=== PATIENT | male | born 1960 | race Caucasian/White ===

== ENCOUNTER 2018-10-01 10:44 | Observation (INO) | payer OTHER, MEDICAID, SELFPAY ==
[2018-10-01] VITALS (10 sets, daily range): BP systolic 98–130; BP diastolic 68–91; PULSE 79–105; RESP 15–26; TEMP 36.6–37.2; O2SAT 96–100; BMI 24.3; BMI 25.4
--- NOTE | 2018-10-01 11:02 | DI.RAD.S_ITS ---
PROCEDURE: XR CHEST 1V INDICATIONS: CP TECHNIQUE: One view of the chest was acquired. COMPARISON: [facility], CR, XR CHEST 1VW (PORTABLE), 04/15/2017, 12:23. FINDINGS: Surgical changes and devices: Multiple median sternotomy wires remain intact Lungs and pleura: No pleural effusions or pneumothorax. Lungs are clear. Mediastinum: Mediastinal contours appear normal. Heart size is normal. Bones and chest wall: No suspicious bony lesions. Overlying soft tissues appear unremarkable. IMPRESSION: Stable examination of the chest without acute cardiopulmonary abnormalities. No radiographic abnormalities identified to explain patient's chest pain. Dictated by: Jose Manuel Hernandez M.D. on 10/01/2018 at 11:51 Approved by: Jose Manuel Hernandez M.D. on 10/01/2018 at 11:52
[2018-10-01 11:14] LABS: Add Manual Diff / Slide Review NO; Basophils Absolute Auto 100 /uL (0-100); Basophils Percent Auto 0.8 % (0-2); Eosinophils Absolute Auto 100 /uL (0-450); Eosinophils Percent Auto 0.7 % (2-4); Hematocrit 48.6 % (41-53); Hemoglobin 16.1 g/dL (13.5-17.5); Lymphocytes Absolute Auto 1300 /uL (1100-4500); Lymphocytes Percent Auto 15.7 % (25-40); Mean Corpuscular HGB Conc 33.1 % (30-36); Mean Corpuscular Volume 90.5 fL (80-100); Monocytes Absolute Auto 500 /uL (0-900); Monocytes Percent Auto 6.3 % (3-14); Neutrophils Absolute Auto 6400 /uL (1500-7000); Neutrophils Percent Auto 76.5 % (50-75); Platelet Count 133 X10^3/uL (150-400); Red Blood Cell Count 5.37 X10^6/uL (4.5-5.9); Red Cell Distribution Width 13.5 % (11.6-14.8); White Blood Cell Count 8.3 X10^3/uL (4.5-11.0)
--- NOTE | 2018-10-01 11:19 | ED.WEAKNESS ---
HPI - Weakness General Chief complaint: Weakness Stated complaint: HIGH BLOOD PRESSURE Time Seen by Provider: 10/01/18 10:47 Source: patient Mode of arrival: ambulatory Limitations: no limitations History of Present Illness HPI Narrative: 58-year-old male, nonsmoker with history of brittle type 2 diabetes presents with a chief complaint of feeling very weak, as if his legs are not working, foggy and a bit confused, not unlike the way he felt prior to a recent extended admission at a hospital in [place]. He was visiting family out of state for a and felt poorly, he presented to a local hospital and was found to be hyperglycemic with likely recent seizures. He was discharged after an extended stay on 09/02. He has no local medical care as [facility]. He was off his medications for 1-2 weeks and was able to get back gone to her 3 days ago. He is medically noncompliant has no local follow-up MD Complaint: generalized weakness Onset (ago): day(s) Duration: constant Location: generalized Migration: none Quality: tingling Relieving factors: none Exacerbating factors: none Associated symptoms: denies other symptoms Related Data Home Medications Medication Instructions Recorded Confirmed aspirin 81 mg PO DAILY 10/01/18 10/01/18 atorvastatin 40 mg PO DAILY 10/01/18 10/01/18 chlorthalidone 50 mg PO DAILY 10/01/18 10/01/18 gabapentin 100 mg PO TID 10/01/18 10/01/18 lisinopril 40 mg PO DAILY 10/01/18 10/01/18 metformin 1,000 mg PO QAM 10/01/18 10/01/18 Allergies Allergy/AdvReac Type Severity Reaction Status Date / Time No Known Drug Allergies Allergy Verified 10/01/18 10:53 Review of Systems Constitutional Denies chills, Denies fever(s), Denies lethargy and Denies weakness Eyes Denies change in vision, Denies eye discharge, Denies irritation and Denies loss of vision ENT Ears, Nose, Mouth, and Throat: Denies change in voice, Denies neck pain and Denies sore throat Cardiovascular Denies chest pain, Denies irregular heart rhythm, Denies lightheadedness, Denies palpitations, Denies dyspnea, Denies dyspnea on exertion and Denies orthopnea Respiratory Denies cough, Denies dyspnea, Denies dyspnea on exertion and Denies wheezing Gastrointestinal Gastrointestinal: Denies abdominal pain, Denies change in bowel habits, Denies diarrhea, Denies nausea and Denies vomiting Genitourinary Denies hematuria, Denies flank pain, Denies urinary incontinence and Denies urinary urgency Musculoskeletal Reports muscle weakness and Denies neck pain Integumentary/Breasts Denies pruritus, Denies erythema, Denies rash and Denies wounds Neurologic Denies confusion, Denies loss of vision and Denies weakness Psychiatric Denies anxiety, Denies confusion, Denies depression, Denies homicidal ideation and Denies suicidal ideation Endocrine Denies palpitations Hematologic/Lymphatic Denies easy bruising Allergic/Immunologic Denies wheezing PFSH Medical History Amputated toe (Acute) CAD (coronary artery disease) (Acute) Diabetes (Acute) Diabetic neuropathy (Acute) HTN (hypertension) (Acute) Hyperlipidemia (Acute) Osteomyelitis (Acute) Surgical History H/O carpal tunnel repair (Acute) Hx of CABG (Acute) Social History Smoking Status: Never smoker alcohol intake: current Exam Narrative Exam Narrative: GENERAL: 58-year-old male appears stated age, mild distress HEAD: Atraumatic. Normocephalic. No temporal or scalp tenderness. EYES: Pupils equal round and reactive. Extraocular motions intact. No scleral icterus. No injection or drainage. ENT: Dry mucous membranes Nose without bleeding, purulent drainage or septal hematoma. Throat without erythema, tonsillar hypertrophy or exudate. Uvula midline. Airway patent. NECK: Trachea midline. No JVD or lymphadenopathy. Supple, nontender, no meningeal signs. CARDIOVASCULAR: Regular rate and rhythm without murmurs, gallops, or rubs. RESPIRATORY: Clear to auscultation. Breath sounds equal bilaterally. No wheezes, rales, or rhonchi. GASTROINTESTINAL: Abdomen soft, non-tender, nondistended. No hepato-splenomegaly, or palpable masses. No guarding. EXTREMITIES: No clubbing, cyanosis, or edema. No joint tenderness, effusion, or edema noted. BACK: Nontender without deformity or crepitance. No flank tenderness. NEURO: AOx3. SKIN: No rash or erythema. NIH Stroke Scale 1a. LOC: Patient is alert and keenly responsive (0) 1b. LOC Questions: Patient answers both LOC questions accurately (0) 1c. LOC Commands: Patient performs both tasks correctly (0) 2. Best Gaze: Normal (0) 3. Visual: No visual loss (0) 4. Facial palsy: Normal symmetrical movements (0) 5. Motor arm: No drift (0) 6. Motor leg: No drift (0) 7. Limb ataxia: Absent (0) 8. Sensory: Normal (0) 9. Best language: No aphasia; normal (0) 10. Dysarthria: Normal (0) 11. Extinction and inattention: No abnormality (0) NIHSS: 0 Initial Vital Signs Initial Vital Signs: Vital Signs Temperature 98.4 F 10/01/18 10:53 Pulse Rate 105 H 10/01/18 10:53 Respiratory Rate 16 10/01/18 10:53 Blood Pressure 130/91 H 10/01/18 10:53 Pulse Oximetry 100 10/01/18 10:53 Course Orders Ordered: ED Orders 10/01/18 10:52 EKG-12 Lead Routine 10/01/18 11:01 Venous Blood Gas Stat 10/01/18 11:02 XR chest 1V Stat 10/01/18 11:05 Complete Blood Count AUTO DIFF Stat Comprehensive Metabolic Panel Stat Ketones (Beta-Hydroxybutyrate) Stat Procalcitonin Stat 10/01/18 11:38 Blood Culture Stat Lactate (Lactic Acid) Stat Venous Blood Gas Stat 10/01/18 13:06 Osmolality, Serum Stat 10/01/18 15:00 MRSA PCR Stat 10/01/18 15:05 Consult to Physical Therapy Evaluate & Treat Education, smoking cessation ONGOING 10/01/18 16:20 Lactate 4HR (Lactic Acid Rflx) Stat 10/01/18 17:09 Consult to Dietitian, Adult Routine 10/01/18 21:00 BMP [Basic Metabolic Panel] Routine 10/02/18 05:00 CBC [Complete Blood Count AUTO DIFF] Routine CMP [Comprehensive Metabolic Panel] Routine Hemoglobin A1C % Routine Acetaminophen (Tylenol) 650 mg PO Q6HR PRN PRN Reason: As Needed for Fever/Mild Pain Al Hydrox/Mg Hydrox/Simethicone (Maalox Plus) 30 ml PO Q6HR PRN PRN Reason: Dyspepsia Aspirin (Aspirin Ec) 81 mg PO DAILY DENIZ Atorvastatin Calcium (Lipitor) 40 mg PO DAILY DENIZ Bisacodyl (Dulcolax) 10 mg RI DAILY PRN PRN Reason: Constipation Calcium Carbonate (Tums) 1,000 mg PO Q4HR PRN PRN Reason: Dyspepsia Chlorthalidone (Hygroton) 50 mg PO DAILY [facility] Dextrose (D50w) 25 gm IV PRN PRN; Protocol PRN Reason: Hypoglycemia Gabapentin (Neurontin) 100 mg PO TID [facility] Last Admin: 10/01/18 16:51 Dose: 100 mg Heparin Sodium (Porcine) (Heparin) 5,000 unit SUBCUT Q8HR [facility] Last Admin: 10/01/18 16:50 Dose: 5,000 unit Sodium Chloride (Normal Saline 0.9%) 1,000 mls @ 100 mls/hr IV CONT [facility] Last Admin: 10/01/18 15:18 Dose: 100 mls/hr Insulin Aspart (Novolog Flexpen) 0 unit SUBCUT ACHS [facility]; Protocol Last Admin: 10/01/18 17:36 Dose: 10 unit Insulin Glargine (Lantus Solostar (Pen)) 10 unit SUBCUT BEDTIME DENIZ Lisinopril (Zestril) 40 mg PO DAILY [facility] Magnesium Hydroxide (Milk Of Magnesia) 30 ml PO DAILY PRN PRN Reason: Constipation Metformin HCl (Glucophage Xr) 1,000 mg PO DAILY [facility] Ondansetron HCl (Zofran) 4 mg IV Q8HR PRN PRN Reason: Nausea And Vomiting Sennosides (Senna) 17.2 mg PO BEDTIME PRN PRN Reason: Constipation Discontinued Medications Sodium Chloride (Normal Saline 0.9%) 1,000 mls @ 1,000 mls/hr IV BOLUS ONE Stop: 10/01/18 12:00 Last Infusion: 10/01/18 13:27 Dose: 0 mls/hr Admin: 10/01/18 12:03 Dose: 1,000 mls/hr Sodium Chloride (Normal Saline 0.9%) 1,000 mls @ 1,000 mls/hr IV BOLUS ONE Stop: 10/01/18 13:25 Last Admin: 10/01/18 13:39 Dose: 1,000 mls/hr Insulin Human Regular 100 unit (/ Sodium Chloride) 100 mls @ 6 mls/hr IV TITRATE [facility]; Protocol Insulin Human Regular (Humulin R) 10 unit IV NOW ONE Stop: 10/01/18 13:28 Last Admin: 10/01/18 13:38 Dose: 10 unit Vital Signs - 8 hr 10/01/18 11:35 10/01/18 12:00 10/01/18 12:36 Temperature Pulse Rate 102 H 79 96 H Respiratory Rate 15 17 Blood Pressure Blood Pressure [Right Arm] 118/73 105/72 105/72 Pulse Oximetry 100 98 97 10/01/18 13:00 10/01/18 13:32 10/01/18 14:00 Temperature Pulse Rate 100 H 97 H 99 H Respiratory Rate 26 H 16 17 Blood Pressure Blood Pressure [Right Arm] 114/73 117/68 98/68 Pulse Oximetry 100 97 96 10/01/18 15:00 Temperature 99 F Pulse Rate 97 H Respiratory Rate 22 Blood Pressure 127/81 Blood Pressure [Right Arm] Pulse Oximetry 99 MDM - Weakness Lab Data Result diagrams: 10/01/18 11:05 10/01/18 11:05 Lab Results 10/01/18 10/01/18 10/01/18 Range/Units 11:05 11:05 11:05 WBC 8.3 (4.5-11.0) X10^3/uL RBC 5.37 (4.5-5.9) X10^6/uL Hgb 16.1 (13.5-17.5) g/dL Hct 48.6 (41-53) % MCV 90.5 (80-100) fL MCH 30.0 (26-34) PG MCHC 33.1 (30-36) % RDW 13.5 (11.6-14.8) % Plt Count 133 L (150-400) X10^3/uL Neut % (Auto) 76.5 H (50-75) % Lymph % (Auto) 15.7 L (25-40) % [place] % (Auto) 6.3 (3-14) % Eos % (Auto) 0.7 L (2-4) % Baso % (Auto) 0.8 (0-2) % Neut # (Auto) 6400 (9028-4672) /uL Lymph # (Auto) 1300 (9624-6042) /uL [place] # (Auto) 500 (0-900) /uL Eos # (Auto) 100 (0-450) /uL Baso # (Auto) 100 (0-100) /uL VBG pH (7.33-7.43) VBG pCO2 (45-50) mmHg VBG pO2 (35-45) mmHg VBG HCO3 (23-28) mmol/L VBG Total CO2 (24-29) mmol/L VBG O2 Saturation (70-75) % VBG Base Excess (0-4) mmol/L Sodium 134 L (137-145) mmol/L Potassium 5.2 H (3.4-5.1) mmol/L Chloride 95 L (98-107) mmol/L Carbon Dioxide 27 (22-32) mmol/L BUN 29 H (9-20) mg/dL Creatinine 1.10 (0.66-1.25) mg/dL Estimated GFR > 60.0 (>60) mL/min BUN/Creatinine Ratio 26.4 H (6-22) Glucose 589 H* (70-100) mg/dL Lactate (0.7-2.1) mmol/L Calcium 10.0 (8.4-10.2) mg/dL Total Bilirubin 1.0 (0.2-1.3) mg/dL AST 34 (17-59) IU/L ALT 40 (21-72) IU/L Alkaline Phosphatase 84 (38-126) U/L Total Protein 7.9 (6.3-8.2) g/dL Albumin 4.4 (3.5-5.0) g/dL Globulin 3.5 (1.7-4.1) g/dL Albumin/Globulin Ratio 1.3 (1.0-2.8) Procalcitonin 0.12 (<0.5) ng/mL Nasal Screen MRSA (PCR) (Negative) Ketones 0.24 (<0.27) mmol/L 10/01/18 10/01/18 10/01/18 Range/Units 11:38 11:38 15:00 WBC (4.5-11.0) X10^3/uL RBC (4.5-5.9) X10^6/uL Hgb (13.5-17.5) g/dL Hct (41-53) % MCV (80-100) fL MCH (26-34) PG MCHC (30-36) % RDW (11.6-14.8) % Plt Count (150-400) X10^3/uL Neut % (Auto) (50-75) % Lymph % (Auto) (25-40) % [place] % (Auto) (3-14) % Eos % (Auto) (2-4) % Baso % (Auto) (0-2) % Neut # (Auto) (5426-0881) /uL Lymph # (Auto) (6256-2651) /uL [place] # (Auto) (0-900) /uL Eos # (Auto) (0-450) /uL Baso # (Auto) (0-100) /uL VBG pH 7.35 (7.33-7.43) VBG pCO2 46.1 (45-50) mmHg VBG pO2 34 L (35-45) mmHg VBG HCO3 25 (23-28) mmol/L VBG Total CO2 27 (24-29) mmol/L VBG O2 Saturation 63 L (70-75) % VBG Base Excess 0.0 (0-4) mmol/L Sodium (137-145) mmol/L Potassium (3.4-5.1) mmol/L Chloride (98-107) mmol/L Carbon Dioxide (22-32) mmol/L BUN (9-20) mg/dL Creatinine (0.66-1.25) mg/dL Estimated GFR (>60) mL/min BUN/Creatinine Ratio (6-22) Glucose (70-100) mg/dL Lactate 2.2 H (0.7-2.1) mmol/L Calcium (8.4-10.2) mg/dL Total Bilirubin (0.2-1.3) mg/dL AST (17-59) IU/L ALT (21-72) IU/L Alkaline Phosphatase (38-126) U/L Total Protein (6.3-8.2) g/dL Albumin (3.5-5.0) g/dL Globulin (1.7-4.1) g/dL Albumin/Globulin Ratio (1.0-2.8) Procalcitonin (<0.5) ng/mL Nasal Screen MRSA (PCR) Negative for mrsa (Negative) Ketones (<0.27) mmol/L 10/01/18 Range/Units 16:20 WBC (4.5-11.0) X10^3/uL RBC (4.5-5.9) X10^6/uL Hgb (13.5-17.5) g/dL Hct (41-53) % MCV (80-100) fL MCH (26-34) PG MCHC (30-36) % RDW (11.6-14.8) % Plt Count (150-400) X10^3/uL Neut % (Auto) (50-75) % Lymph % (Auto) (25-40) % [place] % (Auto) (3-14) % Eos % (Auto) (2-4) % Baso % (Auto) (0-2) % Neut # (Auto) (7441-3616) /uL Lymph # (Auto) (6634-8147) /uL [place] # (Auto) (0-900) /uL Eos # (Auto) (0-450) /uL Baso # (Auto) (0-100) /uL VBG pH (7.33-7.43) VBG pCO2 (45-50) mmHg VBG pO2 (35-45) mmHg VBG HCO3 (23-28) mmol/L VBG Total CO2 (24-29) mmol/L VBG O2 Saturation (70-75) % VBG Base Excess (0-4) mmol/L Sodium (137-145) mmol/L Potassium (3.4-5.1) mmol/L Chloride (98-107) mmol/L Carbon Dioxide (22-32) mmol/L BUN (9-20) mg/dL Creatinine (0.66-1.25) mg/dL Estimated GFR (>60) mL/min BUN/Creatinine Ratio (6-22) Glucose (70-100) mg/dL Lactate 2.0 (0.7-2.1) mmol/L Calcium (8.4-10.2) mg/dL Total Bilirubin (0.2-1.3) mg/dL AST (17-59) IU/L ALT (21-72) IU/L Alkaline Phosphatase (38-126) U/L Total Protein (6.3-8.2) g/dL Albumin (3.5-5.0) g/dL Globulin (1.7-4.1) g/dL Albumin/Globulin Ratio (1.0-2.8) Procalcitonin (<0.5) ng/mL Nasal Screen MRSA (PCR) (Negative) Ketones (<0.27) mmol/L Point of Care Testing Glucose POC 307 Urine Dip Bedside Urine Glucose 1000 mg/dl Bedside Urine Bilirubin - Negative Bedside Urine Ketone - Negative Urine Specific [place] 1.015 Bedside Urine Occult Blood - Negative Bedside Urine pH 6.0 Bedside Urine Protein - Negative Bedside Urine Urobilinogen - Negative Bedside Urine Nitrite - Negative Bedside Urine Leukocytes - Negative Esterase Discharge Plan Departure Patient Disposition: Admitted As Inpatient Clinical Impression: Acute hyperglycemia, Acute hyperkalemia Discharge Date/Time: 10/01/18 14:40 Interventions: ED Discharge Assessment Last Done: 10/01/18 14:54 Admit Date/Time: 10/01/18 13:33 Admit Provider: Consuelo Michaels
[2018-10-01 11:34] LABS: Alanine Aminotransferase 40 IU/L (21-72); Albumin 4.4 g/dL (3.5-5.0); Albumin Globulin Ratio 1.3 (1.0-2.8); Alkaline Phosphatase 84 U/L (38-126); Aspartate Aminotransferase 34 IU/L (17-59); BUN Creatinine Ratio 26.4 (6-22); Blood Urea Nitrogen 29 mg/dL (9-20); Carbon Dioxide 27 mmol/L (22-32); Chloride 95 mmol/L (98-107); Estimated Glomerular Filt Rate > 60.0 mL/min (>60); Globulin 3.5 g/dL (1.7-4.1); HEMOLYSIS 26 (0-50); Potassium 5.2 mmol/L (3.4-5.1); Sodium 134 mmol/L (137-145); Total Protein 7.9 g/dL (6.3-8.2)
[2018-10-01 11:36] LABS: Ketones (Beta-Hydroxybutyrate) 0.24 mmol/L (<0.27)
[2018-10-01 11:55] LABS: Glucose 589 mg/dL (70-100)
[2018-10-01] MEDS: SODIUM CHLORIDE 0.9% 1,000 ML 1000 ML IV ×2 (12:03→13:39)
[2018-10-01 12:08] LABS: Procalcitonin 0.12 ng/mL (<0.5)
[2018-10-01 12:24] LABS: Lactate (Lactic Acid) 2.2 mmol/L (0.7-2.1)
[2018-10-01 12:47] LABS: PCO2 VBG 46.1 mmHg (45-50); PO2 VBG 34 mmHg (35-45); pH VBG 7.35 (7.33-7.43)
[2018-10-01 12:48] LABS: HCO3 VBG 25 mmol/L (23-28); Oxygen Saturation VBG 63 % (70-75); Total CO2 VBG 27 mmol/L (24-29)
--- NOTE | 2018-10-01 13:12 | ED_ITS ---
HPI - Weakness General Chief complaint: Weakness Stated complaint: HIGH BLOOD PRESSURE Time Seen by Provider: 10/01/18 10:47 Source: patient Mode of arrival: ambulatory Limitations: no limitations History of Present Illness HPI Narrative: 58-year-old male, nonsmoker with history of brittle type 2 diabetes presents with a chief complaint of feeling very weak, as if his legs are not working, foggy and a bit confused, not unlike the way he felt prior to a recent extended admission at a hospital in [place]. He was visiting family out of state for a and felt poorly, he presented to a local hospital and was found to be hyperglycemic with likely recent seizures. He was discharged after an extended stay on 09/02. He has no local medical care as he recently moved from for [facility] [place] here. He was off his medications for 1-2 weeks and was able to get back gone to her 3 days ago. He is medically noncompliant has no local follow-up MD Complaint: generalized weakness Onset (ago): day(s) Duration: constant Location: generalized Migration: none Quality: tingling Relieving factors: none Exacerbating factors: none Associated symptoms: denies other symptoms Related Data Home Medications Medication Instructions Recorded Confirmed aspirin 81 mg PO DAILY 10/01/18 10/01/18 atorvastatin 40 mg PO DAILY 10/01/18 10/01/18 chlorthalidone 50 mg PO DAILY 10/01/18 10/01/18 gabapentin 100 mg PO TID 10/01/18 10/01/18 lisinopril 40 mg PO DAILY 10/01/18 10/01/18 metformin 1,000 mg PO QAM 10/01/18 10/01/18 Allergies Allergy/AdvReac Type Severity Reaction Status Date / Time No Known Drug Allergies Allergy Verified 10/01/18 10:53 Review of Systems Constitutional Denies chills, Denies fever(s), Denies lethargy and Denies weakness Eyes Denies change in vision, Denies eye discharge, Denies irritation and Denies loss of vision ENT Ears, Nose, Mouth, and Throat: Denies change in voice, Denies neck pain and Denies sore throat Cardiovascular Denies chest pain, Denies irregular heart rhythm, Denies lightheadedness, Denies palpitations, Denies dyspnea, Denies dyspnea on exertion and Denies orthopnea Respiratory Denies cough, Denies dyspnea, Denies dyspnea on exertion and Denies wheezing Gastrointestinal Gastrointestinal: Denies abdominal pain, Denies change in bowel habits, Denies diarrhea, Denies nausea and Denies vomiting Genitourinary Denies hematuria, Denies flank pain, Denies urinary incontinence and Denies urinary urgency Musculoskeletal Reports muscle weakness and Denies neck pain Integumentary/Breasts Denies pruritus, Denies erythema, Denies rash and Denies wounds Neurologic Denies confusion, Denies loss of vision and Denies weakness Psychiatric Denies anxiety, Denies confusion, Denies depression, Denies homicidal ideation and Denies suicidal ideation Endocrine Denies palpitations Hematologic/Lymphatic Denies easy bruising Allergic/Immunologic Denies wheezing PFSH Medical History Amputated toe (Acute) CAD (coronary artery disease) (Acute) Diabetes (Acute) Diabetic neuropathy (Acute) HTN (hypertension) (Acute) Hyperlipidemia (Acute) Osteomyelitis (Acute) Surgical History H/O carpal tunnel repair (Acute) Hx of CABG (Acute) Social History Smoking Status: Never smoker alcohol intake: current Exam Narrative Exam Narrative: GENERAL: 58-year-old male appears stated age, mild distress HEAD: Atraumatic. Normocephalic. No temporal or scalp tenderness. EYES: Pupils equal round and reactive. Extraocular motions intact. No scleral icterus. No injection or drainage. ENT: Dry mucous membranes Nose without bleeding, purulent drainage or septal hematoma. Throat without erythema, tonsillar hypertrophy or exudate. Uvula midline. Airway patent. NECK: Trachea midline. No JVD or lymphadenopathy. Supple, nontender, no meningeal signs. CARDIOVASCULAR: Regular rate and rhythm without murmurs, gallops, or rubs. RESPIRATORY: Clear to auscultation. Breath sounds equal bilaterally. No wheezes , rales, or rhonchi. GASTROINTESTINAL: Abdomen soft, non-tender, nondistended. No hepato-splenomegaly , or palpable masses. No guarding. EXTREMITIES: No clubbing, cyanosis, or edema. No joint tenderness, effusion, or edema noted. BACK: Nontender without deformity or crepitance. No flank tenderness. NEURO: AOx3. SKIN: No rash or erythema. NIH Stroke Scale 1a. LOC: Patient is alert and keenly responsive (0) 1b. LOC Questions: Patient answers both LOC questions accurately (0) 1c. LOC Commands: Patient performs both tasks correctly (0) 2. Best Gaze: Normal (0) 3. Visual: No visual loss (0) 4. Facial palsy: Normal symmetrical movements (0) 5. Motor arm: No drift (0) 6. Motor leg: No drift (0) 7. Limb ataxia: Absent (0) 8. Sensory: Normal (0) 9. Best language: No aphasia; normal (0) 10. Dysarthria: Normal (0) 11. Extinction and inattention: No abnormality (0) NIHSS: 0 Initial Vital Signs Initial Vital Signs: Vital Signs Temperature 98.4 F 10/01/18 10:53 Pulse Rate 105 H 10/01/18 10:53 Respiratory Rate 16 10/01/18 10:53 Blood Pressure 130/91 H 10/01/18 10:53 Pulse Oximetry 100 10/01/18 10:53 Course Orders Ordered: ED Orders 10/01/18 10:52 EKG-12 Lead Routine 10/01/18 11:01 Venous Blood Gas Stat 10/01/18 11:02 XR chest 1V Stat 10/01/18 11:05 Complete Blood Count AUTO DIFF Stat Comprehensive Metabolic Panel Stat Ketones (Beta-Hydroxybutyrate) Stat Procalcitonin Stat 10/01/18 11:38 Blood Culture Stat Lactate (Lactic Acid) Stat Venous Blood Gas Stat 10/01/18 13:06 Osmolality, Serum Stat 10/01/18 15:00 MRSA PCR Stat 10/01/18 15:05 Consult to Physical Therapy Evaluate & Treat Education, smoking cessation ONGOING 10/01/18 16:20 Lactate 4HR (Lactic Acid Rflx) Stat 10/01/18 17:09 Consult to Dietitian, Adult Routine 10/01/18 21:00 BMP [Basic Metabolic Panel] Routine 10/02/18 05:00 CBC [Complete Blood Count AUTO DIFF] Routine CMP [Comprehensive Metabolic Panel] Routine Hemoglobin A1C % Routine Acetaminophen (Tylenol) 650 mg PO Q6HR PRN PRN Reason: As Needed for Fever/Mild Pain Al Hydrox/Mg Hydrox/Simethicone (Maalox Plus) 30 ml PO Q6HR PRN PRN Reason: Dyspepsia Aspirin (Aspirin Ec) 81 mg PO DAILY DENIZ Atorvastatin Calcium (Lipitor) 40 mg PO DAILY DENIZ Bisacodyl (Dulcolax) 10 mg GA DAILY PRN PRN Reason: Constipation Calcium Carbonate (Tums) 1,000 mg PO Q4HR PRN PRN Reason: Dyspepsia Chlorthalidone (Hygroton) 50 mg PO DAILY [facility] Dextrose (D50w) 25 gm IV PRN PRN; Protocol PRN Reason: Hypoglycemia Gabapentin (Neurontin) 100 mg PO TID [facility] Last Admin: 10/01/18 16:51 Dose: 100 mg Heparin Sodium (Porcine) (Heparin) 5,000 unit SUBCUT Q8HR [facility] Last Admin: 10/01/18 16:50 Dose: 5,000 unit Sodium Chloride (Normal Saline 0.9%) 1,000 mls @ 100 mls/hr IV CONT [facility] Last Admin: 10/01/18 15:18 Dose: 100 mls/hr Insulin Aspart (Novolog Flexpen) 0 unit SUBCUT ACHS [facility]; Protocol Last Admin: 10/01/18 17:36 Dose: 10 unit Insulin Glargine (Lantus Solostar (Pen)) 10 unit SUBCUT BEDTIME DENIZ Lisinopril (Zestril) 40 mg PO DAILY [facility] Magnesium Hydroxide (Milk Of Magnesia) 30 ml PO DAILY PRN PRN Reason: Constipation Metformin HCl (Glucophage Xr) 1,000 mg PO DAILY [facility] Ondansetron HCl (Zofran) 4 mg IV Q8HR PRN PRN Reason: Nausea And Vomiting Sennosides (Senna) 17.2 mg PO BEDTIME PRN PRN Reason: Constipation Discontinued Medications Sodium Chloride (Normal Saline 0.9%) 1,000 mls @ 1,000 mls/hr IV BOLUS ONE Stop: 10/01/18 12:00 Last Infusion: 10/01/18 13:27 Dose: 0 mls/hr Admin: 10/01/18 12:03 Dose: 1,000 mls/hr Sodium Chloride (Normal Saline 0.9%) 1,000 mls @ 1,000 mls/hr IV BOLUS ONE Stop: 10/01/18 13:25 Last Admin: 10/01/18 13:39 Dose: 1,000 mls/hr Insulin Human Regular 100 unit (/ Sodium Chloride) 100 mls @ 6 mls/hr IV TITRATE [facility]; Protocol Insulin Human Regular (Humulin R) 10 unit IV NOW ONE Stop: 10/01/18 13:28 Last Admin: 10/01/18 13:38 Dose: 10 unit Vital Signs - 8 hr 10/01/18 11:35 10/01/18 12:00 10/01/18 12:36 Temperature Pulse Rate 102 H 79 96 H Respiratory Rate 15 17 Blood Pressure Blood Pressure [Right Arm] 118/73 105/72 105/72 Pulse Oximetry 100 98 97 10/01/18 13:00 10/01/18 13:32 10/01/18 14:00 Temperature Pulse Rate 100 H 97 H 99 H Respiratory Rate 26 H 16 17 Blood Pressure Blood Pressure [Right Arm] 114/73 117/68 98/68 Pulse Oximetry 100 97 96 10/01/18 15:00 Temperature 99 F Pulse Rate 97 H Respiratory Rate 22 Blood Pressure 127/81 Blood Pressure [Right Arm] Pulse Oximetry 99 MDM - Weakness Lab Data Result diagrams: 10/01/18 11:05 10/01/18 11:05 Lab Results 10/01/18 10/01/18 10/01/18 Range/Units 11:05 11:05 11:05 WBC 8.3 (4.5-11.0) X10^3/uL RBC 5.37 (4.5-5.9) X10^6/uL Hgb 16.1 (13.5-17.5) g/dL Hct 48.6 (41-53) % MCV 90.5 (80-100) fL MCH 30.0 (26-34) PG MCHC 33.1 (30-36) % RDW 13.5 (11.6-14.8) % Plt Count 133 L (150-400) X10^3/uL Neut % (Auto) 76.5 H (50-75) % Lymph % (Auto) 15.7 L (25-40) % [place] % (Auto) 6.3 (3-14) % Eos % (Auto) 0.7 L (2-4) % Baso % (Auto) 0.8 (0-2) % Neut # (Auto) 6400 (2730-7671) /uL Lymph # (Auto) 1300 (0671-3147) /uL [place] # (Auto) 500 (0-900) /uL Eos # (Auto) 100 (0-450) /uL Baso # (Auto) 100 (0-100) /uL VBG pH (7.33-7.43) VBG pCO2 (45-50) mmHg VBG pO2 (35-45) mmHg VBG HCO3 (23-28) mmol/L VBG Total CO2 (24-29) mmol/L VBG O2 Saturation (70-75) % VBG Base Excess (0-4) mmol/L Sodium 134 L (137-145) mmol/L Potassium 5.2 H (3.4-5.1) mmol/L Chloride 95 L (98-107) mmol/L Carbon Dioxide 27 (22-32) mmol/L BUN 29 H (9-20) mg/dL Creatinine 1.10 (0.66-1.25) mg/dL Estimated GFR > 60.0 (>60) mL/min BUN/Creatinine Ratio 26.4 H (6-22) Glucose 589 H* (70-100) mg/dL Lactate (0.7-2.1) mmol/L Calcium 10.0 (8.4-10.2) mg/dL Total Bilirubin 1.0 (0.2-1.3) mg/dL AST 34 (17-59) IU/L ALT 40 (21-72) IU/L Alkaline Phosphatase 84 (38-126) U/L Total Protein 7.9 (6.3-8.2) g/dL Albumin 4.4 (3.5-5.0) g/dL Globulin 3.5 (1.7-4.1) g/dL Albumin/Globulin Ratio 1.3 (1.0-2.8) Procalcitonin 0.12 (<0.5) ng/mL Nasal Screen MRSA (PCR) (Negative) Ketones 0.24 (<0.27) mmol/L 10/01/18 10/01/18 10/01/18 Range/Units 11:38 11:38 15:00 WBC (4.5-11.0) X10^3/uL RBC (4.5-5.9) X10^6/uL Hgb (13.5-17.5) g/dL Hct (41-53) % MCV (80-100) fL MCH (26-34) PG MCHC (30-36) % RDW (11.6-14.8) % Plt Count (150-400) X10^3/uL Neut % (Auto) (50-75) % Lymph % (Auto) (25-40) % [place] % (Auto) (3-14) % Eos % (Auto) (2-4) % Baso % (Auto) (0-2) % Neut # (Auto) (6122-4781) /uL Lymph # (Auto) (4276-3665) /uL [place] # (Auto) (0-900) /uL Eos # (Auto) (0-450) /uL Baso # (Auto) (0-100) /uL VBG pH 7.35 (7.33-7.43) VBG pCO2 46.1 (45-50) mmHg VBG pO2 34 L (35-45) mmHg VBG HCO3 25 (23-28) mmol/L VBG Total CO2 27 (24-29) mmol/L VBG O2 Saturation 63 L (70-75) % VBG Base Excess 0.0 (0-4) mmol/L Sodium (137-145) mmol/L Potassium (3.4-5.1) mmol/L Chloride (98-107) mmol/L Carbon Dioxide (22-32) mmol/L BUN (9-20) mg/dL Creatinine (0.66-1.25) mg/dL Estimated GFR (>60) mL/min BUN/Creatinine Ratio (6-22) Glucose (70-100) mg/dL Lactate 2.2 H (0.7-2.1) mmol/L Calcium (8.4-10.2) mg/dL Total Bilirubin (0.2-1.3) mg/dL AST (17-59) IU/L ALT (21-72) IU/L Alkaline Phosphatase (38-126) U/L Total Protein (6.3-8.2) g/dL Albumin (3.5-5.0) g/dL Globulin (1.7-4.1) g/dL Albumin/Globulin Ratio (1.0-2.8) Procalcitonin (<0.5) ng/mL Nasal Screen MRSA (PCR) Negative for mrsa (Negative) Ketones (<0.27) mmol/L 10/01/18 Range/Units 16:20 WBC (4.5-11.0) X10^3/uL RBC (4.5-5.9) X10^6/uL Hgb (13.5-17.5) g/dL Hct (41-53) % MCV (80-100) fL MCH (26-34) PG MCHC (30-36) % RDW (11.6-14.8) % Plt Count (150-400) X10^3/uL Neut % (Auto) (50-75) % Lymph % (Auto) (25-40) % [place] % (Auto) (3-14) % Eos % (Auto) (2-4) % Baso % (Auto) (0-2) % Neut # (Auto) (1995-6725) /uL Lymph # (Auto) (9258-3388) /uL [place] # (Auto) (0-900) /uL Eos # (Auto) (0-450) /uL Baso # (Auto) (0-100) /uL VBG pH (7.33-7.43) VBG pCO2 (45-50) mmHg VBG pO2 (35-45) mmHg VBG HCO3 (23-28) mmol/L VBG Total CO2 (24-29) mmol/L VBG O2 Saturation (70-75) % VBG Base Excess (0-4) mmol/L Sodium (137-145) mmol/L Potassium (3.4-5.1) mmol/L Chloride (98-107) mmol/L Carbon Dioxide (22-32) mmol/L BUN (9-20) mg/dL Creatinine (0.66-1.25) mg/dL Estimated GFR (>60) mL/min BUN/Creatinine Ratio (6-22) Glucose (70-100) mg/dL Lactate 2.0 (0.7-2.1) mmol/L Calcium (8.4-10.2) mg/dL Total Bilirubin (0.2-1.3) mg/dL AST (17-59) IU/L ALT (21-72) IU/L Alkaline Phosphatase (38-126) U/L Total Protein (6.3-8.2) g/dL Albumin (3.5-5.0) g/dL Globulin (1.7-4.1) g/dL Albumin/Globulin Ratio (1.0-2.8) Procalcitonin (<0.5) ng/mL Nasal Screen MRSA (PCR) (Negative) Ketones (<0.27) mmol/L Point of Care Testing Glucose POC 307 Urine Dip Bedside Urine Glucose 1000 mg/dl Bedside Urine Bilirubin - Negative Bedside Urine Ketone - Negative Urine Specific [place] 1.015 Bedside Urine Occult Blood - Negative Bedside Urine pH 6.0 Bedside Urine Protein - Negative Bedside Urine Urobilinogen - Negative Bedside Urine Nitrite - Negative Bedside Urine Leukocytes - Negative Esterase Discharge Plan Departure Patient Disposition: Admitted As Inpatient Clinical Impression: Acute hyperglycemia, Acute hyperkalemia Discharge Date/Time: 10/01/18 14:40 Interventions: ED Discharge Assessment Last Done: 10/01/18 14:54 Admit Date/Time: 10/01/18 13:33 Admit Provider: Consuelo Michaels
[2018-10-01] MEDS: INSULIN REGULAR 100 UNIT/ML 3 ML VIAL 10 UNIT IV (13:38)
--- NOTE | 2018-10-01 14:54 | PM.HP.1 ---
History of Present Illness Date Patient Seen: 10/01/18 Chief complaint: HIGH BLOOD PRESSURE Narrative: Grady Watson is a 58-year-old male with a past medical history significant for coronary artery disease status post CABG x5, hypertension, hyperlipidemia, and diabetes mellitus type 2, non-insulin using, with complication of neuropathy who presented to [facility] feeling generally weak as if his legs are going to give out and shaky. He reports this morning he began having had ?head cid? and then began feeling dizzy and shaky. He felt very weak all over as if his legs are going to give out. He has felt this way before when he was admitted in [place] for hyperglycemia with possible seizures. He had a headache and ?burning in his chest like indigestion? that have now resolved. The patient is homeless and does not have a PCP. His previous PCP is Dr. Flores in [place]. On my interview he denies headache, worsening vision changes, sore throat, lightheadedness or dizziness, nausea, vomiting, fever, chills, dysuria, diarrhea or constipation. 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 He endorses consuming alcohol 2 beers per day. He denies history of alcohol withdrawal, alcohol withdrawal seizures or DTs. He has no other complaints. He is medically noncompliant. Blood glucose in ED 589. VBG within normal limits. No ketones. Patient History Medical History Amputated toe (Acute) CAD (coronary artery disease) (Acute) Diabetes (Acute) Diabetic neuropathy (Acute) HTN (hypertension) (Acute) Hyperlipidemia (Acute) Osteomyelitis (Acute) Surgical History H/O carpal tunnel repair (Acute) Hx of CABG (Acute) Family & Social History Tobacco & Substance use: Smoking Status Never smoker alcohol intake current, at least 2 beers per night. The patient is homeless for the last 5 years. He is single and never been . He has no children. He previously worked in [employer] but is currently unemployed. Meds Home Medications Medication Instructions Recorded Confirmed Type aspirin 81 mg PO DAILY 10/01/18 10/01/18 History atorvastatin 40 mg PO DAILY 10/01/18 10/01/18 History chlorthalidone 50 mg PO DAILY 10/01/18 10/01/18 History gabapentin 100 mg PO TID 10/01/18 10/01/18 History lisinopril 40 mg PO DAILY 10/01/18 10/01/18 History metformin 1,000 mg PO BID #0 tab 10/02/18 10/01/18 Rx Allergies Allergy/AdvReac Type Severity Reaction Status Date / Time No Known Drug Allergies Allergy Verified 10/01/18 10:53 Review of Systems Review of Systems A 10 system comprehensive review of systems was conducted with the patient and found to be negative except as above in the History of Present Illness. Exam Vital Signs (past 8 hours): - 10/01/18 10:53 10/01/18 11:35 10/01/18 12:00 Temperature 98.4 F Pulse Rate 105 H 102 H 79 Respiratory Rate 16 15 Blood Pressure 130/91 H Blood Pressure [Right Arm] 118/73 105/72 Pulse Oximetry 100 100 98 10/01/18 12:36 10/01/18 13:00 10/01/18 13:32 Temperature Pulse Rate 96 H 100 H 97 H Respiratory Rate 17 26 H 16 Blood Pressure Blood Pressure [Right Arm] 105/72 114/73 117/68 Pulse Oximetry 97 100 97 10/01/18 14:00 Temperature Pulse Rate 99 H Respiratory Rate 17 Blood Pressure Blood Pressure [Right Arm] 98/68 Pulse Oximetry 96 Oxygen Delivery Method Room Air Narrative Exam Narrative: General: Middle-aged gentleman sitting in bed and in no acute distress, poor hygiene, well-developed, well-nourished, appropriately interactive. HEENT: Normocephalic, atraumatic. External ears without defect. Pupils equal, round, and reactive to light. Anicteric sclerae, moist conjunctivae, and no lid lag. Oropharynx free of erythema and cobble stoning with moist mucosa. Edentulous. Neck: Supple with full range of motion. No jugular venous distension. No bruits. No lymphadenopathy or thyromegaly. Cardiovascular: Regular rate and rhythm without murmurs, rubs, or gallops appreciated. Pulmonary: Clear to auscultation bilaterally without crackles, wheezes, or rhonchi. Normal respiratory effort with no use of accessory muscles. Abdomen: Soft, bowel sounds present, nontender, nondistended. No hepatosplenomegaly or masses appreciated. Extremities: No clubbing, cyanosis, or edema. 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 Skin: Normal temperature, turgor, and texture; no rash, ulcers, or subcutaneous nodules appreciated. Neurological: Cranial nerves grossly intact. Normal muscle strength, tone, and bulk. Reflexes, coordination, and sensory function within normal limits. No known gait impairment. Psychiatric: Normal mood and affect. Alert and oriented to person, place, and time. Objective Labs Result Diagrams: 10/02/18 04:40 10/02/18 04:40 Labs: Laboratory Results - last 24 hr 10/01/18 10/01/18 10/01/18 11:05 11:05 11:05 WBC 8.3 RBC 5.37 Hgb 16.1 Hct 48.6 MCV 90.5 MCH 30.0 MCHC 33.1 RDW 13.5 Plt Count 133 L Neut % (Auto) 76.5 H Lymph % (Auto) 15.7 L [place] % (Auto) 6.3 Eos % (Auto) 0.7 L Baso % (Auto) 0.8 Neut # (Auto) 6400 Lymph # (Auto) 1300 [place] # (Auto) 500 Eos # (Auto) 100 Baso # (Auto) 100 VBG pH VBG pCO2 VBG pO2 VBG HCO3 VBG Total CO2 VBG O2 Saturation VBG Base Excess Sodium 134 L Potassium 5.2 H Chloride 95 L Carbon Dioxide 27 BUN 29 H Creatinine 1.10 Estimated GFR > 60.0 BUN/Creatinine Ratio 26.4 H Glucose 589 H* Lactate Calcium 10.0 Total Bilirubin 1.0 AST 34 ALT 40 Alkaline Phosphatase 84 Total Protein 7.9 Albumin 4.4 Globulin 3.5 Albumin/Globulin Ratio 1.3 Procalcitonin 0.12 Ketones 0.24 10/01/18 10/01/18 11:38 11:38 WBC RBC Hgb Hct MCV MCH MCHC RDW Plt Count Neut % (Auto) Lymph % (Auto) [place] % (Auto) Eos % (Auto) Baso % (Auto) Neut # (Auto) Lymph # (Auto) [place] # (Auto) Eos # (Auto) Baso # (Auto) VBG pH 7.35 VBG pCO2 46.1 VBG pO2 34 L VBG HCO3 25 VBG Total CO2 27 VBG O2 Saturation 63 L VBG Base Excess 0.0 Sodium Potassium Chloride Carbon Dioxide BUN Creatinine Estimated GFR BUN/Creatinine Ratio Glucose Lactate 2.2 H Calcium Total Bilirubin AST ALT Alkaline Phosphatase Total Protein Albumin Globulin Albumin/Globulin Ratio Procalcitonin Ketones Assessment & Plan Plan: Assessment/Plan Narrative: Grady Watson is a 58-year-old male with a past medical history significant for coronary artery disease status post CABG x5, hypertension, hyperlipidemia, and diabetes mellitus type 2, non-insulin using, with complication of neuropathy who presented to [facility] feeling generally weak as if his legs are going to give out and shaky. 1. Acute hyperglycemia, secondary to diabetes mellitus type 2, present on admission. Active. -Patient presented feeling shaky, generally weak, and mildly confused. -Initial blood glucose 589. -VBG within normal limits. No serum ketones. -Ordered regular insulin 10 units IV x1. Blood glucose improved to 287. -Started Lantus 10 units daily at bedtime and high-dose correction scale insulin. -Continue metformin 1000 mg twice daily and encouraged him to take it with food to avoid nausea. 2. Generalized weakness, unknown acuity, present on admission. Active. -Likely symptomatic of hyperglycemia. -Ordered physical therapy evaluation and treatment. 3. Acute hyperkalemia, present on admission. Active. -Likely secondary to hyperglycemia which was treated with insulin. -After insulin potassium level likely return to within normal limits and will plan to repeat BMP later this evening. 4. Diabetes mellitus type 2, non-insulin using, present on admission. Active in uncontrolled. -See plan above under hyperglycemia. -Ordered hemoglobin A1c, pending. -Continue gabapentin 100 mg 3 times daily for diabetic neuropathy. -Ordered nutritional consult and diabetic education. 5. Coronary artery disease, present on admission. Presumed stable. -Continue cardiac medications including: aspirin 81 mg daily, atorvastatin 40 mg daily, lisinopril 40 mg daily, and chlorthalidone 50 mg daily. 6. Hypertension, chronic, present on admission. Stable. -Continue lisinopril and chlorthalidone as above. 7. Hyperlipidemia, chronic, present on admission. Stable. -Continue atorvastatin as above. 8. Chronic alcohol use, present on admission. Stable. -Discussed cutting back on alcohol consumption or abstaining altogether. -Patient consumes at least 2 beers per night if not more. -Patient denies history of alcohol withdrawal including seizures and DTs. Patient is admitted under observation status with expected length of stay less than 2 midnights due to severity of presenting symptoms, risk of adverse event, and complexity of treatment plan.
[2018-10-01] MEDS: SODIUM CHLORIDE 0.9% 1,000 ML 100 ML IV (15:18)
--- NOTE | 2018-10-01 15:33 | PC.ADMIT ---
[facility] Admission Note: The patient,Grady Watson,58 y/o, was given written information regarding hospital policies, unit procedures and contact persons. Patient's smoking status: Never smoker. Vital Signs - 8 hr 10/01/18 10:53 10/01/18 11:35 10/01/18 12:00 Temperature 98.4 F Pulse Rate 105 H 102 H 79 Respiratory Rate 16 15 Blood Pressure 130/91 H Blood Pressure [Right Arm] 118/73 105/72 Pulse Oximetry 100 100 98 10/01/18 12:36 10/01/18 13:00 10/01/18 13:32 Temperature Pulse Rate 96 H 100 H 97 H Respiratory Rate 17 26 H 16 Blood Pressure Blood Pressure [Right Arm] 105/72 114/73 117/68 Pulse Oximetry 97 100 97 10/01/18 14:00 10/01/18 15:00 Temperature 99 F Pulse Rate 99 H 97 H Respiratory Rate 17 22 Blood Pressure 127/81 Blood Pressure [Right Arm] 98/68 Pulse Oximetry 96 99 Rec'd pt from ED to room 106 at 1455. Pt is AAO x3 and making needs known with clear, logical speech. Transfers from stretcher to bed with SBA. Reports mild lightheadedness with position changes. VSS. SR on bedside monitor. Denies pain. Educated to unit, room, fall risk, call light, bedside shift report. Pt verbalizes understanding. Agrees to use call light and wait for assistance before getting OOB and/or for any needs. Initiated NS @ 100ML/hr to patent PIV. Placed urinal at bedside. SCDs applied. Pt has upper dentures only. States lower dentures recently broken. Pt wishes to retain wallet, clothing, cell phone at bedside. Valuables policy explained. Report given to oncoming RN. Call light in easy reach. Friend at bedside.
[2018-10-01 16:00] LABS: Reflexed Lactate in 2 Hours Y
[2018-10-01] MEDS: HEPARIN 5,000 UNIT/ML VIAL 5000 UNIT SUBCUT ×2 (16:50→21:33)
[2018-10-01] MEDS: GABAPENTIN 100 MG CAPSULE PO ×2 (16:51→21:34)
[2018-10-01] MEDS: INSULIN ASPART 100 UNIT/ML INSULN PEN SUBCUT ×2 (17:36→21:31)
[2018-10-01 21:17] LABS: BUN Creatinine Ratio 23.8 (6-22); Blood Urea Nitrogen 19 mg/dL (9-20); Calcium 8.9 mg/dL (8.4-10.2); Carbon Dioxide 25 mmol/L (22-32); Chloride 102 mmol/L (98-107); Estimated Glomerular Filt Rate > 60.0 mL/min (>60); Glucose 281 mg/dL (70-100); HEMOLYSIS < 15 (0-50); Potassium 3.8 mmol/L (3.4-5.1); Sodium 137 mmol/L (137-145)
[2018-10-01] MEDS: INSULIN GLARGINE 100 UNIT/ML 3ML PEN 10 UNIT SUBCUT (21:32)
[2018-10-02] VITALS: BP 135/87; PULSE 89; RESP 16; TEMP 36.7; O2SAT 98
[2018-10-02] MEDS: SODIUM CHLORIDE 0.9% 1,000 ML 100 ML IV
[2018-10-02 04:00] VITALS: BP 121/75; PULSE 80; RESP 16; TEMP 37.1; O2SAT 98
[2018-10-02 04:33] VITALS: O2SAT 98
[2018-10-02 05:26] LABS: Alanine Aminotransferase 40 IU/L (21-72); Albumin 3.8 g/dL (3.5-5.0); Albumin Globulin Ratio 1.3 (1.0-2.8); Alkaline Phosphatase 75 U/L (38-126); Aspartate Aminotransferase 33 IU/L (17-59); BUN Creatinine Ratio 23.8 (6-22); Bilirubin Total 0.7 mg/dL (0.2-1.3); Blood Urea Nitrogen 19 mg/dL (9-20); Calcium 8.9 mg/dL (8.4-10.2); Carbon Dioxide 28 mmol/L (22-32); Chloride 101 mmol/L (98-107); Estimated Glomerular Filt Rate > 60.0 mL/min (>60); Glucose 330 mg/dL (70-100); HEMOLYSIS < 15 (0-50); Potassium 4.7 mmol/L (3.4-5.1); Sodium 137 mmol/L (137-145); Total Protein 6.8 g/dL (6.3-8.2)
[2018-10-02 05:27] LABS: Add Manual Diff / Slide Review NO; Basophils Absolute Auto 0 /uL (0-100); Basophils Percent Auto 0.8 % (0-2); Eosinophils Absolute Auto 100 /uL (0-450); Eosinophils Percent Auto 1.8 % (2-4); Hematocrit 45.2 % (41-53); Hemoglobin 15.4 g/dL (13.5-17.5); Lymphocytes Absolute Auto 1300 /uL (1100-4500); Lymphocytes Percent Auto 24.3 % (25-40); Mean Corpuscular HGB Conc 34.1 % (30-36); Mean Corpuscular Hemoglobin 30.2 PG (26-34); Mean Corpuscular Volume 88.4 fL (80-100); Monocytes Absolute Auto 300 /uL (0-900); Monocytes Percent Auto 6.2 % (3-14); Neutrophils Absolute Auto 3500 /uL (1500-7000); Neutrophils Percent Auto 66.9 % (50-75); Platelet Count 106 X10^3/uL (150-400); Red Blood Cell Count 5.11 X10^6/uL (4.5-5.9); Red Cell Distribution Width 13.7 % (11.6-14.8); White Blood Cell Count 5.3 X10^3/uL (4.5-11.0)
[2018-10-02] MEDS: HEPARIN 5,000 UNIT/ML VIAL 5000 UNIT SUBCUT (06:23)
[2018-10-02 07:22] LABS: Hemoglobin A1C% w Est Avg Glu 11.1 % (4.0-6.0)
[2018-10-02 08:00] VITALS: BP 151/88; PULSE 89; RESP 18; TEMP 36.7; O2SAT 96; O2SAT 99
[2018-10-02] MEDS: GABAPENTIN 100 MG CAPSULE PO (08:17)
[2018-10-02] MEDS: ATORVASTATIN 20 MG TABLET 40 MG PO (08:17)
[2018-10-02] MEDS: CHLORTHALIDONE 25 MG TABLET 50 MG PO (08:17)
[2018-10-02] MEDS: ASPIRIN EC 81 MG TABLET PO (08:17)
[2018-10-02 08:18] VITALS: BP 151/88; PULSE 102
[2018-10-02] MEDS: METFORMIN XR 500 MG TABLET 1000 MG PO (08:18)
[2018-10-02] MEDS: INSULIN ASPART 100 UNIT/ML INSULN PEN SUBCUT ×2 (08:18→12:13)
[2018-10-02] MEDS: LISINOPRIL 20 MG TABLET 40 MG PO (08:18)
--- NOTE | 2018-10-02 09:07 | CM.DANOTE ---
DCP: Case received, EMR reviewed and met with patient. Introduced self and role. DCP template completed with information currently available. Patient is a 58 year old male who admitted yesterday afternoon to the care of the hospitalist team. PCP: None. Payer: confirmed: [employer]. Patient came to hospital via vehicle due to symptoms of high blood pressure. Patient is a diabetic that is medication controlled. Patient also has history of CAD. Patient alert and oriented. Asked him if he has a primary doctor. He stated, No, I'm going to get one soon. Stated that his blood sugars have been elevated. Asked him where he lived. He stated, I have been homeless for about 5 years, and I am living [facility]. Asked him if he had any family in this area. Stated, He has family in [place], and never sees them, they do not get along. 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 P: DCP to continue to follow. Will be determined. Has no PCP, will need to get established. Will also need to evaluate home situation. May consult with social work as well. Mariam Pendleton RN/Craft Worker
--- NOTE | 2018-10-02 10:07 | PT.IIE ---
Surgical History (Last Updated 10/01/18 @ 16:57 by Consuelo Michaels DO) H/O carpal tunnel repair (Acute) Hx of CABG (Acute) Medical History (Last Updated 10/01/18 @ 17:18 by Consuelo Michaels DO) Amputated toe (Acute) CAD (coronary artery disease) (Acute) Diabetes (Acute) Diabetic neuropathy (Acute) HTN (hypertension) (Acute) Hyperlipidemia (Acute) Osteomyelitis (Acute) Physical Therapy Inpatient Evaluation/Re-Eval M1 PT/OT-IP Prior Functional Status Start: 10/02/18 09:57 Freq: NEEDED Status: Active Protocol: Document 10/02/18 09:20 (Rec: 10/02/18 10:07 [email or web address]) Medical Review Prior Functional Status Medical History Reviewed Yes Communication No deficits noted Mobility and Gait Pt is an independent ambulator at home and community without AD Activities of Daily Living and IADL's Pt is independent for all ADLs and IADLs without AD. Social History Living Arrangements Homeless Employment Status Unemployed Additional Social History Comment Pt has been homeless for 5 years and currently lives in [facility]. He has family in [place] but he states they are not close at all. 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 He also reports he is independent at all times. M2 PT-IP Current Condition Start: 10/02/18 09:57 Freq: NEEDED Status: Active Protocol: Document 10/02/18 09:20 (Rec: 10/02/18 10:07 [email or web address]) Physical Therapy Current Condition Current Condition Evaluation Date 10/02/17 Treatment Diagnosis Acute hyperglycemia, generalized muscle weakness Onset Date 10/01/17 Weight Bearing Status Weight Bearing Status Weight Bear as Tolerated M3 PT-IP Subjective Start: 10/02/18 09:57 Freq: NEEDED Status: Active Protocol: Document 10/02/18 09:20 (Rec: 10/02/18 10:07 [email or web address]) Subjective Physical Therapy Visit Type Type Discharge Summary Visit Start Time 09:20 Visit Stop Time 09:30 Total Visit Minutes 10 Notes Per RN, pt reached his baseline and has been getting OOB for toileting and shower independently without AD Number of STAFF FIELD ENGINEER Visits 0 Physical Therapy Visit Comments Patient Comments I feel like im 100 % back to normal. Patient Goals [facility] Pain Assessment Pain Present Pain Present Denied Pain M4 PT-IP Mobility and Gait Start: 10/02/18 09:57 Freq: NEEDED Status: Active Protocol: Document 10/02/18 09:20 (Rec: 10/02/18 10:07 [email or web address]) PT-Bed Mobility Assessment Rolling Level of Assist Independent Supine to Sit Supine to Sit Independent Sit to Supine Sit to Supine Independent Scooting Scooting to Edge of Bed Independent Scooting Up and Down in Bed Independent PT-Transfer Assessment Sit to and From Stand Sit to and from Stand Independent Equipment Transfer Assistive Device None Transfers Transfer Destination Bed Chair Toilet Transfer Technique Stand Step Pivot Transfer Ability Level of Assist Independent Comments Mobility Comments Pt demonstrates overall bed mobility and transfer mobility WFLs without using AD. No signs of acute distress and LOB noted. Gait Assessment Gait Gait Assistance Required: Independent Distance (Feet) 100 Able to Maintain Weight Bearing Status Yes During Gait Assistive Devices Assistive Device None Gait Deviations General Gait Pattern Within Normal Limits Comments Gait Comments Pt amb WNLs without using AD. No fall risks or acute distress noted. Stair Climbing Assessment Evaluation Level of Assist On Stairs Independent PT-Balance Assessment Sitting Balance and Reactions Static Sitting Balance Ability Normal Dynamic Sitting Balance Ability Normal Standing Balance and Reactions Static Standing Balance Ability Normal Dynamic Standing Balance Ability Normal Functional Assessments Functional Tests 5 Times Sit to Stand 8 seconds M5 PT-IP Objective Assessments Start: 10/02/18 09:57 Freq: NEEDED Status: Active Protocol: Document 10/02/18 09:20 (Rec: 10/02/18 10:07 [email or web address]) Orientation Orientation/Cognition Level of Alertness Alert Orientation Name Age Birthday Month Date Year Day of Week Place Situation Language Function Ability No Deficits Noted Safety Awareness Understands Safety Issues Memory Description No Deficits Noted Gross Range of Motion Upper Extremity ROM Assessment Within Functional Limits Lower Extremity ROM Assessment Within Functional Limits Strength Upper Extremity Strength Assessment Within Functional Limits Lower Extremity Strength Assessment Within Functional Limits Coordination Assessment Gross Coordination Gross Coordination WNL Sensation Assessment Sensation Gross Sensation WNL Muscle Tone Muscle Tone WNL Yes M7 PT-IP Assessment and Plan Start: 10/02/18 09:57 Freq: NEEDED Status: Active Protocol: Document 10/02/18 09:20 (Rec: 10/02/18 10:07 [email or web address]) PT Summary Assessment and Plan Potential Rehabilitation Potential Excellent Status of Condition at Evaluation Stable Summary Assessment Summary Pt is a pleasant 58yo male admitted to due to acute generalized muscle weakness from acute hyperglycemia. Pt and per RN states that pt reached his baseline since last night who is able to getting OOB, shower and toileting independently without using AD. Upon assessment, pt did not show any signs of distress and fall risks. Pt is safe to be d/c home ([facility]). Frequency of Treatment Frequency Of Treatment Discharge Recommendations To Nursing Amount of Assist Needed Independent Discharge Recommendations PT Discharge Recommendations Home
[2018-10-02 12:00] VITALS: BP 117/74; PULSE 96; RESP 20; TEMP 36.3; O2SAT 97
--- NOTE | 2018-10-02 12:47 | P.DS_ITS ---
History of Present Illness Chief complaint: HIGH BLOOD PRESSURE Narrative: Written by myself Dr. Michaels: Grady Watson is a 58-year-old male with a past medical history significant for coronary artery disease status post CABG x5, hypertension, hyperlipidemia, and diabetes mellitus type 2, non-insulin using, with complication of neuropathy who presented to [facility] feeling generally weak as if his legs are going to give out and shaky. He reports this morning he began having had ?head cid? and then began feeling dizzy and shaky. He felt very weak all over as if his legs are going to give out. He has felt this way before when he was admitted in [place] for hyperglycemia with possible seizures. He had a headache and ?burning in his chest like indigestion? that have now resolved. The patient is homeless and does not have a PCP. His previous PCP is Dr. Flores in [place]. On my interview he denies headache, worsening vision changes, sore throat, lightheadedness or dizziness, nausea, vomiting, fever, chills, dysuria, diarrhea or constipation. 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 He endorses consuming alcohol 2 beers per day. He denies history of alcohol withdrawal, alcohol withdrawal seizures or DTs. He has no other complaints. He is medically noncompliant. Blood glucose in ED 589. VBG within normal limits. No ketones. Discharge Providers Date of admission: 10/01/18 13:33 Consults: 10/01/18 15:05 Consult to Physical Therapy Evaluate & Treat Comment: Generalized weakness and deconditioning Physician Instructions: Evaluate and Treat 10/01/18 17:09 Consult to Dietitian, Adult Routine Comment: Reason For Exam: diabetes Discharge provider: Consuelo Michaels DO Discharge Date: 10/02/18 Summary Discharge Diagnosis: 1. Acute symptomatic hyperglycemia, secondary to diabetes mellitus type 2, present on admission. Resolved. 2. Generalized weakness, unknown acuity, present on admission. Resolved. 3. Acute hyperkalemia, present on admission. Resolved. 4. Diabetes mellitus type 2, non-insulin using, present on admission. Active and uncontrolled. 5. Coronary artery disease, present on admission. Presumed stable. 6. Hypertension, chronic, present on admission. Stable. 7. Hyperlipidemia, chronic, present on admission. Stable. 8. Chronic alcohol use, present on admission. Stable. Hospital Course: Grady Watson is a 58-year-old male with a past medical history significant for coronary artery disease status post CABG x5, hypertension, hyperlipidemia, and diabetes mellitus type 2, non-insulin using, with complication of neuropathy who presented to [facility] feeling generally weak as if his legs are going to give out and shaky. 1. Acute symptomatic hyperglycemia, secondary to diabetes mellitus type 2, present on admission. Resolved. -Patient presented feeling shaky, generally weak, and mildly confused. -Initial blood glucose 589. -VBG within normal limits. No serum ketones. -Ordered regular insulin 10 units IV x1. Blood glucose improved to 287. -Received Lantus 10 units daily at bedtime and high-dose correction scale insulin. Patient is homeless therefore he was discharged on metformin with close outpatient follow-up with . -Continued metformin 1000 mg twice daily and encouraged him to take it with food to avoid nausea. 2. Generalized weakness, unknown acuity, present on admission. Resolved. -Likely symptomatic of hyperglycemia. -Provided physical therapy evaluation and treatment. 3. Acute hyperkalemia, present on admission. Resolved. -Likely secondary to hyperglycemia which was treated with insulin. -After insulin potassium level likely return to within normal limits and will plan to repeat BMP later this evening. 4. Diabetes mellitus type 2, non-insulin using, present on admission. Active and uncontrolled. -See plan above under hyperglycemia. -Hemoglobin A1c 11.1% reflective of poor glycemic control. -Continued gabapentin 100 mg 3 times daily for diabetic neuropathy. -Provided nutritional consult and diabetic education. 5. Coronary artery disease, present on admission. Presumed stable. -Continued cardiac medications including: aspirin 81 mg daily, atorvastatin 40 mg daily, lisinopril 40 mg daily, and chlorthalidone 50 mg daily. 6. Hypertension, chronic, present on admission. Stable. -Continued lisinopril and chlorthalidone as above. 7. Hyperlipidemia, chronic, present on admission. Stable. -Continued atorvastatin as above. 8. Chronic alcohol use, present on admission. Stable. -Discussed cutting back on alcohol consumption or abstaining altogether. -Patient consumes at least 2 beers per night if not more. -Patient denies history of alcohol withdrawal including seizures and DTs. Status at Discharge Functional status at discharge: independent ambulation Overall status at discharge: patient is back to baseline Exam Vital Signs (past 8 hours): - 10/02/18 08:00 10/02/18 08:18 10/02/18 12:00 Temperature 98.1 F 97.4 F L Pulse Rate 89 102 H 96 H Respiratory Rate 18 20 Blood Pressure 151/88 H 151/88 H 117/74 Pulse Oximetry 99 97 Oxygen Delivery Method Room Air Oxygen Flow Rate 0 Narrative Exam Narrative: General: Middle-aged gentleman sitting in bed and in no acute distress, poor hygiene, well-developed, well-nourished, appropriately interactive. HEENT: Normocephalic, atraumatic. External ears without defect. Pupils equal, round, and reactive to light. Anicteric sclerae, moist conjunctivae, and no lid lag. Edentulous with top denture in place. Neck: Supple with full range of motion. No lymphadenopathy or thyromegaly. Cardiovascular: Regular rate and rhythm without murmurs, rubs, or gallops appreciated. Pulmonary: Clear to auscultation bilaterally without crackles, wheezes, or rhonchi. Normal respiratory effort with no use of accessory muscles. Abdomen: Soft, bowel sounds present, nontender, nondistended. No hepatosplenomegaly or masses appreciated. Extremities: No clubbing, cyanosis, or edema. 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 Skin: Normal temperature, turgor, and texture; no rash, ulcers, or subcutaneous nodules appreciated. Neurological: Cranial nerves grossly intact. Psychiatric: Normal mood and affect. Alert and oriented to person, place, and time. Objective Labs Result Diagrams: 10/02/18 04:40 10/02/18 04:40 Labs: Laboratory Results - last 24 hr 10/01/18 10/01/18 10/01/18 11:38 15:00 16:20 WBC RBC Hgb Hct MCV MCH MCHC RDW Plt Count Neut % (Auto) Lymph % (Auto) Hardy % (Auto) Eos % (Auto) Baso % (Auto) Neut # (Auto) Lymph # (Auto) Hardy # (Auto) Eos # (Auto) Baso # (Auto) VBG pH 7.35 VBG pCO2 46.1 VBG pO2 34 L VBG HCO3 25 VBG Total CO2 27 VBG O2 Saturation 63 L VBG Base Excess 0.0 Sodium Potassium Chloride Carbon Dioxide BUN Creatinine Estimated GFR BUN/Creatinine Ratio Glucose Hemoglobin A1c Lactate 2.0 Calcium Total Bilirubin AST ALT Alkaline Phosphatase Total Protein Albumin Globulin Albumin/Globulin Ratio Nasal Screen MRSA (PCR) Negative for mrsa 10/01/18 10/02/18 10/02/18 20:59 04:40 04:40 WBC 5.3 RBC 5.11 Hgb 15.4 Hct 45.2 MCV 88.4 MCH 30.2 MCHC 34.1 RDW 13.7 Plt Count 106 L Neut % (Auto) 66.9 Lymph % (Auto) 24.3 L Hardy % (Auto) 6.2 Eos % (Auto) 1.8 L Baso % (Auto) 0.8 Neut # (Auto) 3500 Lymph # (Auto) 1300 Hardy # (Auto) 300 Eos # (Auto) 100 Baso # (Auto) 0 VBG pH VBG pCO2 VBG pO2 VBG HCO3 VBG Total CO2 VBG O2 Saturation VBG Base Excess Sodium 137 137 Potassium 3.8 D 4.7 Chloride 102 101 Carbon Dioxide 25 28 BUN 19 19 Creatinine 0.80 0.80 Estimated GFR > 60.0 > 60.0 BUN/Creatinine Ratio 23.8 H 23.8 H Glucose 281 H D 330 H Hemoglobin A1c Lactate Calcium 8.9 8.9 Total Bilirubin 0.7 AST 33 ALT 40 Alkaline Phosphatase 75 Total Protein 6.8 Albumin 3.8 Globulin 3.0 Albumin/Globulin Ratio 1.3 Nasal Screen MRSA (PCR) 10/02/18 04:40 WBC RBC Hgb Hct MCV MCH MCHC RDW Plt Count Neut % (Auto) Lymph % (Auto) Hardy % (Auto) Eos % (Auto) Baso % (Auto) Neut # (Auto) Lymph # (Auto) Hardy # (Auto) Eos # (Auto) Baso # (Auto) VBG pH VBG pCO2 VBG pO2 VBG HCO3 VBG Total CO2 VBG O2 Saturation VBG Base Excess Sodium Potassium Chloride Carbon Dioxide BUN Creatinine Estimated GFR BUN/Creatinine Ratio Glucose Hemoglobin A1c 11.1 H Lactate Calcium Total Bilirubin AST ALT Alkaline Phosphatase Total Protein Albumin Globulin Albumin/Globulin Ratio Nasal Screen MRSA (PCR) Discharge Plan Discharge Plan Patient Disposition: Home Discharge comment: You are being discharged home. Please keep the appointment that was made for you for hospital follow-up and to establish care with Dr. Lisa Young to treat your diabetes and your heart. Your metformin was increased from 1000 mg once daily to 1000 mg twice daily and sent to your pharmacy. Continue taking your other medications as prescribed. Please abstain from alcohol altogether. Also keep your scheduled eye doctor appointment. Discharge Med Rec/Prescriptions Prescriptions: New metformin 1,000 mg tablet 1,000 mg PO BID Qty: 60 RF: 0 Continued atorvastatin 40 mg tablet 40 mg PO DAILY RF: 0 chlorthalidone 25 mg tablet 50 mg PO DAILY RF: 0 aspirin 81 mg tablet,delayed release (DR/EC) 81 mg PO DAILY RF: 0 gabapentin 100 mg capsule 100 mg PO TID RF: 0 lisinopril 40 mg tablet 40 mg PO DAILY RF: 0 Changed metformin 500 mg tablet extended release 24 hr 1,000 mg PO BID Qty: 0 RF: 0 Follow up/Referrals: Lisa Young MD [Physician] - 10/07/18 11:15 am (one time appointment with dr spring on 10/07 @ 11:15 (check in 30min prior to schedule appointment for paperwork) office located @ [address] [place] [address]. [phone] please bring id,medications,insurance cards to appointment. ) Provider Discharge Instructions Diet: Carb-consistent/Diabetic, Low-fat, Low-sodium and Low-cholesterol Activity: Activity as tolerated Visit Report/Discharge Packet Instructions: Diabetes Medication May Increase the Risk of Heart Attack, Diabetes and Cardiovascular Disease: What's the Link?, Complications of Type 2 Diabetes, Learn Your Diabetic ABCs, DI for Diabetic Neuropathy, Diabetes and Alcohol: Caution When Mixing, The Importance of Counting Carbs If You Have Diabetes Discharge Data Attending Provider: Consuelo Michaels Admit Date/Time: 10/01/18 13:33 Discharges patient from system. Discharge Date/Time: 10/02/18 15:15
--- NOTE | 2018-10-02 14:37 | PC.NURSE ---
Discharge Note: Pt with uneventful shift. Pt continues to have BG 250-266. Given SQ insulin here in hospital. Pt is homeless currently and has broken dentures. Difficulty maintaining a diabetic diet d/t these circumstances, also unable to discharge with insulin as pt does not have capability to refrigerate medications and does not have PCP. Pt was given education materials on a variety of diabetic topics. Discharge education on medications, diet, warning signs and general diabetes education given verbally throughout the day. Pt is currently waiting for prescriptions to transmit to preferred pharmacy ([facility]). Pt will then discharge, ambulatory.
[2018-10-02 14:49] VITALS: BMI 25.4
[2018-10-03 17:00] LABS: Osmolality, Serum 315 mosm/kg (260-310)
== END 2018-10-02 15:15 | disposition home or self-care (01) ==
LOC: ED 13:18 → AC 13:33 → ICU 10-02 11:55 → AC 10-02 13:06
PROVIDERS: Admitting Provider Internal Medicine; Emergency Provider Emergency Medicine; Visit Provider Internal Medicine
DX: R53.1 Weakness (principal); I25.10 Atherosclerotic heart disease of native coronary artery without angina pectoris; E11.65 Type 2 diabetes mellitus with hyperglycemia; E11.40 Type 2 diabetes mellitus with diabetic neuropathy, unspecified; E78.5 Hyperlipidemia, unspecified; Z95.1 Presence of aortocoronary bypass graft; E87.5 Hyperkalemia; Z91.14 Patient's other noncompliance with medication regimen
CPT/HCPCS: 36415; 36591; 71045; 80048; 80053; 81003; 82009; 82805; 82962; 83036; 83605; 83930; 84145; 85025; 87040; 87797; 93005; 93010; 96361; 96374; 97161; 99283; 99285; G0378; J1644

== ENCOUNTER 2018-11-05 09:19 | Emergency (ER) | payer OTHER, MEDICAID, SELFPAY ==
[2018-10-01 17:58] VITALS: BMI 25.4
[2018-11-05 09:36] VITALS: BP 127/97; PULSE 112; RESP 20; TEMP 37.6
--- NOTE | 2018-11-05 11:41 | ED.EXTPRO ---
HPI - Extremity Problem General Chief complaint: Extremity Problem,Nontraumatic Stated complaint: both feet/pain x7 days Time Seen by Provider: 11/05/18 09:52 Source: patient Mode of arrival: ambulatory Limitations: no limitations History of Present Illness HPI Narrative: Patient is a 58-year-old diabetic male who arrives today for evaluation of potential infections on both of his feet. He states that several weeks ago he bought a new pair shoes which he states started rubbing both of his little toes. He has since switched to new shoes which has improved his symptoms. He has had his right great toe amputated in the past. Patient states he has been out of all of his medicines for the past 4 days. He stated that he attempted to make contact with a new primary provider yesterday however his insurance had lapsed and so he could not have an appointment. He stated that his insurance is now active as of today however has not scheduled any follow-up visit. He denies any trauma. He stated that he occasionally has palpitations. Has had coronary artery bypass graft in the past. Related Data Home Medications Medication Instructions Recorded Confirmed aspirin 81 mg PO DAILY 10/01/18 11/05/18 atorvastatin 40 mg PO DAILY 10/01/18 11/05/18 chlorthalidone 50 mg PO DAILY 10/01/18 11/05/18 gabapentin 100 mg PO TID 10/01/18 11/05/18 lisinopril 40 mg PO DAILY 10/01/18 11/05/18 metformin 1,000 mg PO QAM 11/05/18 11/05/18 Previous Rx's Medication Instructions Recorded metformin 1,000 mg PO BID #60 tab 10/02/18 aspirin [Aspir-81] 81 mg PO DAILY #30 tab 11/05/18 atorvastatin 40 mg PO DAILY #30 tab 11/05/18 cephalexin 500 mg PO QID 14 Days #56 cap 11/05/18 chlorthalidone 25 mg PO DAILY #30 tab 11/05/18 gabapentin 100 mg PO TID #90 cap 11/05/18 lisinopril 40 mg PO DAILY #30 tab 11/05/18 metformin 1,000 mg PO BID #60 tab 11/05/18 Allergies Allergy/AdvReac Type Severity Reaction Status Date / Time No Known Drug Allergies Allergy Verified 10/01/18 10:53 Review of Systems Constitutional Denies fever(s) and Denies headache(s) ENT Ears, Nose, Mouth, and Throat: Denies headache(s) Cardiovascular Denies chest pain, Reports palpitations and Denies dyspnea Respiratory Denies dyspnea Gastrointestinal Gastrointestinal: Denies abdominal pain, Denies nausea and Denies vomiting Musculoskeletal Comments: Pain in bilateral little toes Integumentary/Breasts Comments: Redness around bilateral little toes Neurologic Denies headache(s) Comments: Patient is numb in bilateral feet which is not new Endocrine Reports palpitations Hematologic/Lymphatic Comments: Not on anticoagulation PFSH Medical History Amputated toe (Acute) CAD (coronary artery disease) (Acute) Diabetes (Acute) Diabetic neuropathy (Acute) HTN (hypertension) (Acute) Hyperlipidemia (Acute) Osteomyelitis (Acute) Surgical History H/O carpal tunnel repair (Acute) Hx of CABG (Acute) Family History Mother Heart attack Diabetes mellitus Brother CAD (coronary artery disease) Hx of CABG Social History Smoking Status: Never smoker alcohol intake: current Social History Smoking Status: Never smoker alcohol intake: current Exam Initial Vital Signs Initial Vital Signs: Vital Signs Temperature 99.7 F H 11/05/18 09:36 Pulse Rate 112 H 11/05/18 09:36 Respiratory Rate 20 11/05/18 09:36 Blood Pressure 127/97 H 11/05/18 09:36 Const General: cooperative, comfortable, well developed, well groomed and No acute distress Orientation: alert, awake and oriented x3 HENMT Head: normal to inspection and normocephalic Resp Effort & Inspection: normal respiratory effort Auscultation: clear to auscultation bilaterally Cardio Rate: tachycardic Rhythm: regular rhythm Bruits: femoral bruit GI Inspection: non-distended Palpation: soft and No tender Skin Other: Patient with circumferential red bilateral little toes. The lateral aspects of both of them have very small ulcerations. Redness does not extend past the MTP joint. No warmth. No drainage. Neuro General: alert, awake and oriented x3 Cognition: normal cognition Gait: normal gait Other: Decreased sensation bilateral feet to light touch. Patient states this is not new. Extrem Other: Patient with a right great toe amputation consistent with his prior injury. Psych Appearance: grossly normal and well kempt Course Vital Signs - 8 hr 11/05/18 09:36 11/05/18 12:23 Temperature 99.7 F H Pulse Rate 112 H 98 H Respiratory Rate 20 17 Blood Pressure 127/97 H 115/85 Pulse Oximetry 100 MDM - Extremity (Nontraumatic) ECG Data Attestation EKG: I personally reviewed and interpreted this ECG as follows: Prior ECG tracings: not available for review Interpretation: Sinus rhythm Ventricular rate of 96 Normal axis Normal intervals Normal QRS Normal QTC No ST T wave changes MDM Narrative Medical decision making narrative: Patient stated that his plan was to establish care with a new primary doctor in the area now that his insurance is active. He was given a card with the hospital phone number that he can call to see which primary providers are accepting new patients. I did refill his medications for 1 month. It appears that his neuropathy in his feet is unchanged. Both of his little toes do appear to be red. Will start him on Keflex. He was given return precautions. Will hold on further workup for now. He expressed understanding and agreement this plan. Discharge Plan Departure Patient Disposition: Home Clinical Impression: Cellulitis Qualifiers: Site of cellulitis: extremity Site of cellulitis of extremity: toe Laterality: unspecified laterality Qualified Code(s): L03.039 - Cellulitis of unspecified toe Discharge Date/Time: 11/05/18 12:25 Interventions: ED Discharge Assessment Last Done: 11/05/18 12:23 Instructions: DI for Cellulitis -- Adult Activity Restrictions/Additional Instructions: Continue all of your medications as directed. I do recommend that you may contact with a primary doctor here in the area for follow-up of your infections in your toes. Return to the emergency department for any new or worsening symptoms Prescriptions: New atorvastatin 40 mg tablet 40 mg PO DAILY Qty: 30 RF: 0 chlorthalidone 25 mg tablet 25 mg PO DAILY Qty: 30 RF: 0 aspirin [Aspir-81] 81 mg tablet,delayed release (DR/EC) 81 mg PO DAILY Qty: 30 RF: 0 metformin 1,000 mg tablet 1,000 mg PO BID Qty: 60 RF: 0 gabapentin 100 mg capsule 100 mg PO TID Qty: 90 RF: 0 lisinopril 40 mg tablet 40 mg PO DAILY Qty: 30 RF: 0 cephalexin 500 mg capsule 500 mg PO QID 14 Days Qty: 56 RF: 0 No Action atorvastatin 40 mg tablet 40 mg PO DAILY RF: 0 chlorthalidone 25 mg tablet 50 mg PO DAILY RF: 0 aspirin 81 mg tablet,delayed release (DR/EC) 81 mg PO DAILY RF: 0 gabapentin 100 mg capsule 100 mg PO TID RF: 0 lisinopril 40 mg tablet 40 mg PO DAILY RF: 0 metformin 1,000 mg tablet 1,000 mg PO BID Qty: 60 RF: 0 metformin 500 mg Tablet Extended Release 24hr 1,000 mg PO QAM RF: 0
[2018-11-05 12:23] VITALS: BP 115/85; PULSE 98; RESP 17; O2SAT 100
== END 2018-11-05 12:25 | disposition home or self-care (01) ==
PROVIDERS: Emergency Provider Emergency Medicine
DX: L03.039 Cellulitis of unspecified toe (principal)
CPT/HCPCS: 93005; 99282; 99283

== ENCOUNTER 2018-11-07 19:02 | Inpatient (IN) | payer OTHER, MEDICAID, SELFPAY ==
[2018-10-01 17:58] VITALS: BMI 25.4
--- NOTE | 2018-11-07 | DI.RAD.S_ITS ---
PROCEDURE: XR CHEST 2V INDICATIONS: Cough TECHNIQUE: 2 views of the chest were acquired. COMPARISON: [facility], CR, XR CHEST 1V, 10/01/2018, 11:22. FINDINGS: Surgical changes and devices: Median sternotomy wires. Lungs and pleura: Lungs are clear. No pleural effusions or pneumothorax. Mediastinum: Mediastinal contours are normal. Heart size is normal. Bones and chest wall: No suspicious bony abnormalities. Soft tissues appear unremarkable. IMPRESSION: No acute cardiopulmonary disease process. Dictated by: Yesenia Tucker MD, PhD on 11/07/2018 at 21:44 Approved by: Yesenia Tucker MD, PhD on 11/07/2018 at 21:45
--- NOTE | 2018-11-07 19:13 | DI.RAD.S_ITS ---
PROCEDURE: XR FOOT LT MIN 3V INDICATIONS: infection/cellulitis/osteo 5th toe TECHNIQUE: 3 views of the foot were acquired. COMPARISON: None. FINDINGS: Bones: No fractures or dislocations. No suspicious bony lesions. No erosive change or periosteal reaction. Soft tissues: No tibiotalar joint effusion. Achilles tendon appears normal. No soft tissue gas. IMPRESSION: No stefano evidence of osteomyelitis. Plain film radiographs can be insensitive to osteomyelitis during the initial 15 days of the disease process. If there is clinical concern for osteomyelitis, then three-phase nuclear medicine bone scan is warranted. Dictated by: Yesenia Tucker MD, PhD on 11/07/2018 at 19:29 Approved by: Yesenia Tucker MD, PhD on 11/07/2018 at 19:30
[2018-11-07 19:16] VITALS: BP 108/81; PULSE 114; RESP 20; TEMP 37.6; O2SAT 100
--- NOTE | 2018-11-07 19:34 | ED.EXTPRO ---
HPI - Extremity Problem General Chief complaint: Extremity Problem,Nontraumatic Stated complaint: left lower leg and feet swelling, states infected Time Seen by Provider: 11/07/18 19:04 Source: patient Mode of arrival: ambulatory Limitations: no limitations History of Present Illness HPI Narrative: A 58-year-old male nonsmoker with poorly controlled diabetes presents with a repeat visit for evaluation of left pinky toe and foot cellulitis. He was seen and evaluated in our department few days ago was placed on Keflex. In the past few days his symptoms have greatly worsened, skin has sloughed off his great toe pain has migrated up his leg a bit and he has begun to feel chills. He is not dizzy or lightheaded. He denies nausea, vomiting or diarrhea. He does not have primary care provider. He denies chest pain, shortness of breath or cough. He has no abdominal pain or change in bowel habits. MD Complaint: extremity pain Onset (ago): day(s) Pain Consistency: constant Location: left Quality: burning and aching Radiation: proximal Relieving factors: nothing Exacerbating factors: nothing Associated symptoms: fever Related Data Home Medications Medication Instructions Recorded Confirmed atorvastatin 40 mg PO DAILY 10/01/18 11/07/18 gabapentin 100 mg PO TID 10/01/18 11/07/18 lisinopril 40 mg PO DAILY 10/01/18 11/07/18 Previous Rx's Medication Instructions Recorded metformin 1,000 mg PO BID #60 tab 10/02/18 aspirin [Aspir-81] 81 mg PO DAILY #30 tab 11/05/18 cephalexin 500 mg PO QID 14 Days #56 cap 11/05/18 chlorthalidone 25 mg PO DAILY #30 tab 11/05/18 Allergies Allergy/AdvReac Type Severity Reaction Status Date / Time No Known Drug Allergies Allergy Verified 10/01/18 10:53 Review of Systems Constitutional Reports chills, Denies fever(s), Denies lethargy and Denies weakness Eyes Denies change in vision, Denies eye discharge, Denies irritation and Denies loss of vision ENT Ears, Nose, Mouth, and Throat: Denies change in voice, Denies neck pain and Denies sore throat Cardiovascular Denies chest pain, Denies irregular heart rhythm, Denies lightheadedness, Denies palpitations, Denies dyspnea, Denies dyspnea on exertion and Denies orthopnea Respiratory Denies cough, Denies dyspnea, Denies dyspnea on exertion and Denies wheezing Gastrointestinal Gastrointestinal: Denies abdominal pain, Denies change in bowel habits, Denies diarrhea, Denies nausea and Denies vomiting Genitourinary Denies hematuria, Denies flank pain, Denies urinary incontinence and Denies urinary urgency Musculoskeletal Denies neck pain and Reports radiating pain into limb Integumentary/Breasts Denies pruritus, Reports non-healing lesions, Reports erythema, Denies rash, Reports skin pain, Reports skin swelling, Reports skin ulcer and Reports wounds Neurologic Denies confusion, Denies loss of vision and Denies weakness Psychiatric Denies anxiety, Denies confusion, Denies depression, Denies homicidal ideation and Denies suicidal ideation Endocrine Denies palpitations Hematologic/Lymphatic Denies easy bruising Allergic/Immunologic Denies wheezing [facility] Medical History History of seizure (Acute) Amputated toe (Acute) CAD (coronary artery disease) (Acute) Diabetes (Acute) Diabetic neuropathy (Acute) HTN (hypertension) (Acute) Hyperlipidemia (Acute) Osteomyelitis (Acute) Surgical History H/O carpal tunnel repair (Acute) Hx of CABG (Acute) Family History Mother Heart attack Diabetes mellitus Brother CAD (coronary artery disease) Hx of CABG Social History Smoking Status: Never smoker alcohol intake: current Social History household members: none Smoking Status: Never smoker alcohol intake: current Exam Narrative Exam Narrative: GENERAL: 58-year-old male appears stated age, in mild distress HEAD: Atraumatic. Normocephalic. No temporal or scalp tenderness. EYES: Pupils equal round and reactive. Extraocular motions intact. No scleral icterus. No injection or drainage. ENT: Nose without bleeding, purulent drainage or septal hematoma. Throat without erythema, tonsillar hypertrophy or exudate. Uvula midline. Airway patent. NECK: Trachea midline. No JVD or lymphadenopathy. Supple, nontender, no meningeal signs. CARDIOVASCULAR: Regular rate and rhythm without murmurs, gallops, or rubs. RESPIRATORY: Clear to auscultation. Breath sounds equal bilaterally. No wheezes, rales, or rhonchi. GASTROINTESTINAL: Abdomen soft, non-tender, nondistended. No hepato-splenomegaly, or palpable masses. No guarding. EXTREMITIES: Surgically absent R great toe. L forefoot erythema, mild swelling, tenderness. Insensate distal foot and fifth toe on L foot with ulceration BACK: Nontender without deformity or crepitance. No flank tenderness. NEURO: AOx3. SKIN: No rash or erythema. Initial Vital Signs Initial Vital Signs: Vital Signs Temperature 99.6 F 11/07/18 19:16 Pulse Rate 114 H 11/07/18 19:16 Respiratory Rate 20 11/07/18 19:16 Blood Pressure 108/81 11/07/18 19:16 Pulse Oximetry 100 11/07/18 19:16 Course Orders Ordered: ED Orders 11/07/18 21:12 Consult to Physician Routine 11/08/18 04:59 Basic Metabolic Panel DAILY Complete Blood Count AUTO DIFF DAILY Lipid Panel Routine Procalcitonin DAILY Quantiferon TB Routine 11/09/18 05:00 Basic Metabolic Panel DAILY Complete Blood Count AUTO DIFF DAILY 11/09/18 05:30 Procalcitonin DAILY 11/10/18 05:00 Basic Metabolic Panel DAILY Complete Blood Count AUTO DIFF DAILY 11/11/18 05:00 Basic Metabolic Panel DAILY Complete Blood Count AUTO DIFF DAILY 11/12/18 05:00 Basic Metabolic Panel DAILY Complete Blood Count AUTO DIFF DAILY Acetaminophen (Tylenol) 650 mg PO Q6HR PRN PRN Reason: As Needed for Fever/Mild Pain Hydrocodone Bitart/Acetaminophen ([employer] 5/325) 2 tab PO Q4HR PRN PRN Reason: Pain, Severe (7-10) Hydrocodone Bitart/Acetaminophen ([employer] 5/325) 1 tab PO Q4HR PRN PRN Reason: Pain, Moderate (4-6) Last Admin: 11/08/18 00:18 Dose: 1 tab Al Hydrox/Mg Hydrox/Simethicone (Maalox Plus) 30 ml PO Q6HR PRN PRN Reason: Dyspepsia Aspirin (Aspirin Ec) 81 mg PO DAILY DENIZ Atorvastatin Calcium (Lipitor) 40 mg PO DAILY DENIZ Bisacodyl (Dulcolax) 10 mg CO DAILY PRN PRN Reason: Constipation Chlorthalidone (Hygroton) 25 mg PO DAILY [facility] Dextrose (D50w) 25 gm IV PRN PRN; Protocol PRN Reason: Hypoglycemia Docusate Sodium (Colace) 100 mg PO BID PRN PRN Reason: Constipation Enoxaparin Sodium (Lovenox) 40 mg SUBCUT DAILY [facility] Last Admin: 11/07/18 23:23 Dose: 40 mg Gabapentin (Neurontin) 100 mg PO TID [facility] Last Admin: 11/07/18 22:36 Dose: Not Given Sodium Chloride (Normal Saline 0.9%) 1,000 mls @ 100 mls/hr IV CONT [facility] Last Admin: 11/07/18 23:42 Dose: 100 mls/hr Clindamycin Phosphate (Cleocin) 600 mg in 50 mls @ 50 mls/hr IV Q8H [facility] Last Infusion: 11/08/18 01:42 Dose: 0 mls/hr Admin: 11/08/18 00:14 Dose: 50 mls/hr Levofloxacin (Levaquin) 750 mg in 150 mls @ 100 mls/hr IV Q24H [facility] Insulin Aspart (Novolog Flexpen) 0 unit SUBCUT ACHS [facility]; Protocol Last Admin: 11/07/18 23:22 Dose: 10 unit Lisinopril (Zestril) 40 mg PO DAILY [facility] Metformin HCl (Glucophage) 1,000 mg PO BID [facility] Last Admin: 11/07/18 22:36 Dose: Not Given Naloxone HCl (Narcan) 0.2 mg IV Q2MIN PRN PRN Reason: Opiate Reversal Ondansetron HCl (Zofran) 4 mg IV Q8HR PRN PRN Reason: Nausea And Vomiting Pantoprazole Sodium (Protonix) 20 mg PO 0600 [facility] Discontinued Medications Levofloxacin (Levaquin) 500 mg in 100 mls @ 100 mls/hr IV NOW ONE Stop: 11/07/18 20:13 Last Infusion: 11/07/18 20:56 Dose: 0 mls/hr Admin: 11/07/18 20:02 Dose: 100 mls/hr Levofloxacin (Levaquin) 750 mg in 150 mls @ 100 mls/hr IV Q24H [facility] Sennosides (Senna) 17.2 mg PO BEDTIME ONE Stop: 11/07/18 21:22 Last Admin: 11/08/18 00:13 Dose: Not Given Reevaluation(s) Reevaluation #1: wound culture obtained prior to administration of ABX, sent to lab Consultations Consultation #1: hospitalist contacted early in eval, happy to accept Dr. Luna (Gen Surg) consulted via phone and is happy to see patient, requests hospitalist put in a consult Vital Signs - 8 hr 11/07/18 23:25 11/08/18 00:02 11/08/18 04:30 Temperature 98.3 F 97.9 F Pulse Rate 87 86 Respiratory Rate 16 16 Blood Pressure 104/67 109/58 L Pulse Oximetry 95 95 99 MDM - Extremity (Nontraumatic) Lab Data Result diagrams: 11/08/18 04:59 11/08/18 04:59 Lab Results 11/07/18 11/07/18 11/07/18 Range/Units 19:35 19:35 19:35 WBC 12.7 H (4.5-11.0) X10^3/uL RBC 4.07 L (4.5-5.9) X10^6/uL Hgb 11.9 L (13.5-17.5) g/dL Hct 35.6 L (41-53) % MCV 87.4 (80-100) fL MCH 29.3 (26-34) PG MCHC 33.5 (30-36) % RDW 14.1 (11.6-14.8) % Plt Count 199 (150-400) X10^3/uL Neut % (Auto) 80.6 H (50-75) % Lymph % (Auto) 11.5 L (25-40) % [place] % (Auto) 6.9 (3-14) % Eos % (Auto) 0.6 L (2-4) % Baso % (Auto) 0.4 (0-2) % Neut # (Auto) 69284 H (6873-8754) /uL Lymph # (Auto) 1500 (4858-0568) /uL [place] # (Auto) 900 (0-900) /uL Eos # (Auto) 100 (0-450) /uL Baso # (Auto) 100 (0-100) /uL PT (10.1-12.7) SECONDS INR (0.9-1.3) APTT (26.4-36.2) SECONDS Sodium 135 L (137-145) mmol/L Potassium 4.0 (3.4-5.1) mmol/L Chloride 96 L (98-107) mmol/L Carbon Dioxide 28 (22-32) mmol/L BUN 32 H (9-20) mg/dL Creatinine 1.20 (0.66-1.25) mg/dL Estimated GFR > 60.0 (>60) mL/min BUN/Creatinine Ratio 26.7 H (6-22) Glucose 277 H (70-100) mg/dL Lactate (0.7-2.1) mmol/L Calcium 8.6 (8.4-10.2) mg/dL Total Bilirubin 0.7 (0.2-1.3) mg/dL AST 17 (17-59) IU/L ALT 29 (21-72) IU/L Alkaline Phosphatase 70 (38-126) U/L Total Protein 7.2 (6.3-8.2) g/dL Albumin 3.8 (3.5-5.0) g/dL Globulin 3.4 (1.7-4.1) g/dL Albumin/Globulin Ratio 1.1 (1.0-2.8) Triglycerides (35-150) mg/dL Cholesterol (140-199) mg/dL LDL Cholesterol, Calc (<100) mg/dL HDL Cholesterol (40-60) mg/dL Procalcitonin 0.22 (<0.5) ng/mL 11/07/18 11/07/18 11/08/18 Range/Units 19:35 19:35 04:59 WBC (4.5-11.0) X10^3/uL RBC (4.5-5.9) X10^6/uL Hgb (13.5-17.5) g/dL Hct (41-53) % MCV (80-100) fL MCH (26-34) PG MCHC (30-36) % RDW (11.6-14.8) % Plt Count (150-400) X10^3/uL Neut % (Auto) (50-75) % Lymph % (Auto) (25-40) % [place] % (Auto) (3-14) % Eos % (Auto) (2-4) % Baso % (Auto) (0-2) % Neut # (Auto) (6272-8290) /uL Lymph # (Auto) (4322-9722) /uL [place] # (Auto) (0-900) /uL Eos # (Auto) (0-450) /uL Baso # (Auto) (0-100) /uL PT 13.9 H (10.1-12.7) SECONDS INR 1.2 (0.9-1.3) APTT 32 (26.4-36.2) SECONDS Sodium (137-145) mmol/L Potassium (3.4-5.1) mmol/L Chloride (98-107) mmol/L Carbon Dioxide (22-32) mmol/L BUN (9-20) mg/dL Creatinine (0.66-1.25) mg/dL Estimated GFR (>60) mL/min BUN/Creatinine Ratio (6-22) Glucose (70-100) mg/dL Lactate 1.6 (0.7-2.1) mmol/L Calcium (8.4-10.2) mg/dL Total Bilirubin (0.2-1.3) mg/dL AST (17-59) IU/L ALT (21-72) IU/L Alkaline Phosphatase (38-126) U/L Total Protein (6.3-8.2) g/dL Albumin (3.5-5.0) g/dL Globulin (1.7-4.1) g/dL Albumin/Globulin Ratio (1.0-2.8) Triglycerides 143 (35-150) mg/dL Cholesterol 133 L (140-199) mg/dL LDL Cholesterol, Calc 78 (<100) mg/dL HDL Cholesterol 26 L (40-60) mg/dL Procalcitonin (<0.5) ng/mL 11/08/18 11/08/18 Range/Units 04:59 04:59 WBC 9.3 (4.5-11.0) X10^3/uL RBC 4.10 L (4.5-5.9) X10^6/uL Hgb 12.1 L (13.5-17.5) g/dL Hct 35.7 L (41-53) % MCV 87.2 (80-100) fL MCH 29.6 (26-34) PG MCHC 33.9 (30-36) % RDW 13.9 (11.6-14.8) % Plt Count 173 (150-400) X10^3/uL Neut % (Auto) 72.5 (50-75) % Lymph % (Auto) 17.0 L (25-40) % [place] % (Auto) 8.4 (3-14) % Eos % (Auto) 1.6 L (2-4) % Baso % (Auto) 0.5 (0-2) % Neut # (Auto) 6800 (8230-6058) /uL Lymph # (Auto) 1600 (0321-8407) /uL [place] # (Auto) 800 (0-900) /uL Eos # (Auto) 200 (0-450) /uL Baso # (Auto) 0 (0-100) /uL PT (10.1-12.7) SECONDS INR (0.9-1.3) APTT (26.4-36.2) SECONDS Sodium 136 L (137-145) mmol/L Potassium 3.7 (3.4-5.1) mmol/L Chloride 99 (98-107) mmol/L Carbon Dioxide 28 (22-32) mmol/L BUN 24 H (9-20) mg/dL Creatinine 0.90 (0.66-1.25) mg/dL Estimated GFR > 60.0 (>60) mL/min BUN/Creatinine Ratio 26.7 H (6-22) Glucose 228 H (70-100) mg/dL Lactate (0.7-2.1) mmol/L Calcium 8.7 (8.4-10.2) mg/dL Total Bilirubin (0.2-1.3) mg/dL AST (17-59) IU/L ALT (21-72) IU/L Alkaline Phosphatase (38-126) U/L Total Protein (6.3-8.2) g/dL Albumin (3.5-5.0) g/dL Globulin (1.7-4.1) g/dL Albumin/Globulin Ratio (1.0-2.8) Triglycerides (35-150) mg/dL Cholesterol (140-199) mg/dL LDL Cholesterol, Calc (<100) mg/dL HDL Cholesterol (40-60) mg/dL Procalcitonin (<0.5) ng/mL Point of Care Testing Glucose POC 218 Imaging Data Foot Xray: Attestation: I personally reviewed and interpreted this imaging study as follows: My impression: no obvious osteo Radiologist's impression: [address] [address] XRay Report Signed Patient: Grady Watson AMR#: [id number] : 1Acct:[id number] Age/Sex: 58 / MDate of Service: 11/07/18 Loc: [id number] Accession Number: [id number] Procedure: XR foot LT min 3V Ordering Provider: Jean Pierre Noguera D.O. PROCEDURE: XR FOOT LT MIN 3V INDICATIONS: infection/cellulitis/osteo 5th toe TECHNIQUE: 3 views of the foot were acquired. COMPARISON: None. FINDINGS: Bones: No fractures or dislocations. No suspicious bony lesions. No erosive change or periosteal reaction. Soft tissues: No tibiotalar joint effusion. Achilles tendon appears normal. No soft tissue gas. IMPRESSION: No stefano evidence of osteomyelitis. Plain film radiographs can be insensitive to osteomyelitis during the initial 15 days of the disease process. If there is clinical concern for osteomyelitis, then three-phase nuclear medicine bone scan is warranted. Dictated by: Yesenia Tucker MD, PhD on 11/07/2018 at 19:29 Approved by: Yesenia Tucker MD, PhD on 11/07/2018 at 19:30 [facility] Narrative Medical decision making narrative: 58-year-old male with poorly controlled diabetes, history of diabetic neuropathy and prior episodes of osteomyelitis presents with worsening left 5th toe and foot cellulitis with failed outpatient treatment. He has no primary care provider and suggestion of osteomyelitis on exam Discharge Plan Departure Patient Disposition: Admitted As Inpatient Clinical Impression: Cellulitis Qualifiers: Site of cellulitis: extremity Site of cellulitis of extremity: toe Laterality: left Qualified Code(s): L03.032 - Cellulitis of left toe Osteomyelitis Qualifiers: Osteomyelitis type: unspecified type Osteomyelitis location: foot Laterality: left Qualified Code(s): M86.9 - Osteomyelitis, unspecified Discharge Date/Time: 11/07/18 21:14 Interventions: ED Discharge Assessment Last Done: 11/07/18 21:02 Admit Date/Time: 11/07/18 19:29 Admit Provider: Gene Barron
--- NOTE | 2018-11-07 19:41 | ED_ITS ---
HPI - Extremity Problem General Chief complaint: Extremity Problem,Nontraumatic Stated complaint: left lower leg and feet swelling, states infected Time Seen by Provider: 11/07/18 19:04 Source: patient Mode of arrival: ambulatory Limitations: no limitations History of Present Illness HPI Narrative: A 58-year-old male nonsmoker with poorly controlled diabetes presents with a repeat visit for evaluation of left pinky toe and foot cellulitis. He was seen and evaluated in our department few days ago was placed on Keflex. In the past few days his symptoms have greatly worsened, skin has sloughed off his great toe pain has migrated up his leg a bit and he has begun to feel chills. He is not dizzy or lightheaded. He denies nausea, vomiting or diarrhea. He does not have primary care provider. He denies chest pain, shortness of breath or cough. He has no abdominal pain or change in bowel habits. MD Complaint: extremity pain Onset (ago): day(s) Pain Consistency: constant Location: left Quality: burning and aching Radiation: proximal Relieving factors: nothing Exacerbating factors: nothing Associated symptoms: fever Related Data Home Medications Medication Instructions Recorded Confirmed atorvastatin 40 mg PO DAILY 10/01/18 11/07/18 gabapentin 100 mg PO TID 10/01/18 11/07/18 lisinopril 40 mg PO DAILY 10/01/18 11/07/18 Previous Rx's Medication Instructions Recorded metformin 1,000 mg PO BID #60 tab 10/02/18 aspirin [Aspir-81] 81 mg PO DAILY #30 tab 11/05/18 cephalexin 500 mg PO QID 14 Days #56 cap 11/05/18 chlorthalidone 25 mg PO DAILY #30 tab 11/05/18 Allergies Allergy/AdvReac Type Severity Reaction Status Date / Time No Known Drug Allergies Allergy Verified 10/01/18 10:53 Review of Systems Constitutional Reports chills, Denies fever(s), Denies lethargy and Denies weakness Eyes Denies change in vision, Denies eye discharge, Denies irritation and Denies loss of vision ENT Ears, Nose, Mouth, and Throat: Denies change in voice, Denies neck pain and Denies sore throat Cardiovascular Denies chest pain, Denies irregular heart rhythm, Denies lightheadedness, Denies palpitations, Denies dyspnea, Denies dyspnea on exertion and Denies orthopnea Respiratory Denies cough, Denies dyspnea, Denies dyspnea on exertion and Denies wheezing Gastrointestinal Gastrointestinal: Denies abdominal pain, Denies change in bowel habits, Denies diarrhea, Denies nausea and Denies vomiting Genitourinary Denies hematuria, Denies flank pain, Denies urinary incontinence and Denies urinary urgency Musculoskeletal Denies neck pain and Reports radiating pain into limb Integumentary/Breasts Denies pruritus, Reports non-healing lesions, Reports erythema, Denies rash, Reports skin pain, Reports skin swelling, Reports skin ulcer and Reports wounds Neurologic Denies confusion, Denies loss of vision and Denies weakness Psychiatric Denies anxiety, Denies confusion, Denies depression, Denies homicidal ideation and Denies suicidal ideation Endocrine Denies palpitations Hematologic/Lymphatic Denies easy bruising Allergic/Immunologic Denies wheezing [facility] Medical History History of seizure (Acute) Amputated toe (Acute) CAD (coronary artery disease) (Acute) Diabetes (Acute) Diabetic neuropathy (Acute) HTN (hypertension) (Acute) Hyperlipidemia (Acute) Osteomyelitis (Acute) Surgical History H/O carpal tunnel repair (Acute) Hx of CABG (Acute) Family History Mother Heart attack Diabetes mellitus Brother CAD (coronary artery disease) Hx of CABG Social History Smoking Status: Never smoker alcohol intake: current Social History household members: none Smoking Status: Never smoker alcohol intake: current Exam Narrative Exam Narrative: GENERAL: 58-year-old male appears stated age, in mild distress HEAD: Atraumatic. Normocephalic. No temporal or scalp tenderness. EYES: Pupils equal round and reactive. Extraocular motions intact. No scleral icterus. No injection or drainage. ENT: Nose without bleeding, purulent drainage or septal hematoma. Throat without erythema, tonsillar hypertrophy or exudate. Uvula midline. Airway patent. NECK: Trachea midline. No JVD or lymphadenopathy. Supple, nontender, no meningeal signs. CARDIOVASCULAR: Regular rate and rhythm without murmurs, gallops, or rubs. RESPIRATORY: Clear to auscultation. Breath sounds equal bilaterally. No wheezes, rales, or rhonchi. GASTROINTESTINAL: Abdomen soft, non-tender, nondistended. No hepato- splenomegaly, or palpable masses. No guarding. EXTREMITIES: Surgically absent R great toe. L forefoot erythema, mild swelling, tenderness. Insensate distal foot and fifth toe on L foot with ulceration BACK: Nontender without deformity or crepitance. No flank tenderness. NEURO: AOx3. SKIN: No rash or erythema. Initial Vital Signs Initial Vital Signs: Vital Signs Temperature 99.6 F 11/07/18 19:16 Pulse Rate 114 H 11/07/18 19:16 Respiratory Rate 20 11/07/18 19:16 Blood Pressure 108/81 11/07/18 19:16 Pulse Oximetry 100 11/07/18 19:16 Course Orders Ordered: ED Orders 11/07/18 21:12 Consult to Physician Routine 11/08/18 04:59 Basic Metabolic Panel DAILY Complete Blood Count AUTO DIFF DAILY Lipid Panel Routine Procalcitonin DAILY Quantiferon TB Routine 11/09/18 05:00 Basic Metabolic Panel DAILY Complete Blood Count AUTO DIFF DAILY 11/09/18 05:30 Procalcitonin DAILY 11/10/18 05:00 Basic Metabolic Panel DAILY Complete Blood Count AUTO DIFF DAILY 11/11/18 05:00 Basic Metabolic Panel DAILY Complete Blood Count AUTO DIFF DAILY 11/12/18 05:00 Basic Metabolic Panel DAILY Complete Blood Count AUTO DIFF DAILY Acetaminophen (Tylenol) 650 mg PO Q6HR PRN PRN Reason: As Needed for Fever/Mild Pain Hydrocodone Bitart/Acetaminophen ([place] 5/325) 2 tab PO Q4HR PRN PRN Reason: Pain, Severe (7-10) Hydrocodone Bitart/Acetaminophen ([place] 5/325) 1 tab PO Q4HR PRN PRN Reason: Pain, Moderate (4-6) Last Admin: 11/08/18 00:18 Dose: 1 tab Al Hydrox/Mg Hydrox/Simethicone (Maalox Plus) 30 ml PO Q6HR PRN PRN Reason: Dyspepsia Aspirin (Aspirin Ec) 81 mg PO DAILY DENIZ Atorvastatin Calcium (Lipitor) 40 mg PO DAILY DENIZ Bisacodyl (Dulcolax) 10 mg W[place] DAILY PRN PRN Reason: Constipation Chlorthalidone (Hygroton) 25 mg PO DAILY [facility] Dextrose (D50w) 25 gm IV PRN PRN; Protocol PRN Reason: Hypoglycemia Docusate Sodium (Colace) 100 mg PO BID PRN PRN Reason: Constipation Enoxaparin Sodium (Lovenox) 40 mg SUBCUT DAILY [facility] Last Admin: 11/07/18 23:23 Dose: 40 mg Gabapentin (Neurontin) 100 mg PO TID [facility] Last Admin: 11/07/18 22:36 Dose: Not Given Sodium Chloride (Normal Saline 0.9%) 1,000 mls @ 100 mls/hr IV CONT [facility] Last Admin: 11/07/18 23:42 Dose: 100 mls/hr Clindamycin Phosphate (Cleocin) 600 mg in 50 mls @ 50 mls/hr IV Q8H [facility] Last Infusion: 11/08/18 01:42 Dose: 0 mls/hr Admin: 11/08/18 00:14 Dose: 50 mls/hr Levofloxacin (Levaquin) 750 mg in 150 mls @ 100 mls/hr IV Q24H [facility] Insulin Aspart (Novolog Flexpen) 0 unit SUBCUT ACHS [facility]; Protocol Last Admin: 11/07/18 23:22 Dose: 10 unit Lisinopril (Zestril) 40 mg PO DAILY [facility] Metformin HCl (Glucophage) 1,000 mg PO BID [facility] Last Admin: 11/07/18 22:36 Dose: Not Given Naloxone HCl (Narcan) 0.2 mg IV Q2MIN PRN PRN Reason: Opiate Reversal Ondansetron HCl (Zofran) 4 mg IV Q8HR PRN PRN Reason: Nausea And Vomiting Pantoprazole Sodium (Protonix) 20 mg PO 0600 [facility] Discontinued Medications Levofloxacin (Levaquin) 500 mg in 100 mls @ 100 mls/hr IV NOW ONE Stop: 11/07/18 20:13 Last Infusion: 11/07/18 20:56 Dose: 0 mls/hr Admin: 11/07/18 20:02 Dose: 100 mls/hr Levofloxacin (Levaquin) 750 mg in 150 mls @ 100 mls/hr IV Q24H [facility] Sennosides (Senna) 17.2 mg PO BEDTIME ONE Stop: 11/07/18 21:22 Last Admin: 11/08/18 00:13 Dose: Not Given Reevaluation(s) Reevaluation #1: wound culture obtained prior to administration of ABX, sent to lab Consultations Consultation #1: hospitalist contacted early in eval, happy to accept Dr. Luna (Gen Surg) consulted via phone and is happy to see patient, requests hospitalist put in a consult Vital Signs - 8 hr 11/07/18 23:25 11/08/18 00:02 11/08/18 04:30 Temperature 98.3 F 97.9 F Pulse Rate 87 86 Respiratory Rate 16 16 Blood Pressure 104/67 109/58 L Pulse Oximetry 95 95 99 MDM - Extremity (Nontraumatic) Lab Data Result diagrams: 11/08/18 04:59 11/08/18 04:59 Lab Results 11/07/18 11/07/18 11/07/18 Range/Units 19:35 19:35 19:35 WBC 12.7 H (4.5-11.0) X10^3/uL RBC 4.07 L (4.5-5.9) X10^6/uL Hgb 11.9 L (13.5-17.5) g/dL Hct 35.6 L (41-53) % MCV 87.4 (80-100) fL MCH 29.3 (26-34) PG MCHC 33.5 (30-36) % RDW 14.1 (11.6-14.8) % Plt Count 199 (150-400) X10^3/uL Neut % (Auto) 80.6 H (50-75) % Lymph % (Auto) 11.5 L (25-40) % [place] % (Auto) 6.9 (3-14) % Eos % (Auto) 0.6 L (2-4) % Baso % (Auto) 0.4 (0-2) % Neut # (Auto) 01247 H (1703-2480) /uL Lymph # (Auto) 1500 (5743-4351) /uL [place] # (Auto) 900 (0-900) /uL Eos # (Auto) 100 (0-450) /uL Baso # (Auto) 100 (0-100) /uL PT (10.1-12.7) SECONDS INR (0.9-1.3) APTT (26.4-36.2) SECONDS Sodium 135 L (137-145) mmol/L Potassium 4.0 (3.4-5.1) mmol/L Chloride 96 L (98-107) mmol/L Carbon Dioxide 28 (22-32) mmol/L BUN 32 H (9-20) mg/dL Creatinine 1.20 (0.66-1.25) mg/dL Estimated GFR > 60.0 (>60) mL/min BUN/Creatinine Ratio 26.7 H (6-22) Glucose 277 H (70-100) mg/dL Lactate (0.7-2.1) mmol/L Calcium 8.6 (8.4-10.2) mg/dL Total Bilirubin 0.7 (0.2-1.3) mg/dL AST 17 (17-59) IU/L ALT 29 (21-72) IU/L Alkaline Phosphatase 70 (38-126) U/L Total Protein 7.2 (6.3-8.2) g/dL Albumin 3.8 (3.5-5.0) g/dL Globulin 3.4 (1.7-4.1) g/dL Albumin/Globulin Ratio 1.1 (1.0-2.8) Triglycerides (35-150) mg/dL Cholesterol (140-199) mg/dL LDL Cholesterol, Calc (<100) mg/dL HDL Cholesterol (40-60) mg/dL Procalcitonin 0.22 (<0.5) ng/mL 11/07/18 11/07/18 11/08/18 Range/Units 19:35 19:35 04:59 WBC (4.5-11.0) X10^3/uL RBC (4.5-5.9) X10^6/uL Hgb (13.5-17.5) g/dL Hct (41-53) % MCV (80-100) fL MCH (26-34) PG MCHC (30-36) % RDW (11.6-14.8) % Plt Count (150-400) X10^3/uL Neut % (Auto) (50-75) % Lymph % (Auto) (25-40) % [place] % (Auto) (3-14) % Eos % (Auto) (2-4) % Baso % (Auto) (0-2) % Neut # (Auto) (9718-8299) /uL Lymph # (Auto) (5108-0435) /uL [place] # (Auto) (0-900) /uL Eos # (Auto) (0-450) /uL Baso # (Auto) (0-100) /uL PT 13.9 H (10.1-12.7) SECONDS INR 1.2 (0.9-1.3) APTT 32 (26.4-36.2) SECONDS Sodium (137-145) mmol/L Potassium (3.4-5.1) mmol/L Chloride (98-107) mmol/L Carbon Dioxide (22-32) mmol/L BUN (9-20) mg/dL Creatinine (0.66-1.25) mg/dL Estimated GFR (>60) mL/min BUN/Creatinine Ratio (6-22) Glucose (70-100) mg/dL Lactate 1.6 (0.7-2.1) mmol/L Calcium (8.4-10.2) mg/dL Total Bilirubin (0.2-1.3) mg/dL AST (17-59) IU/L ALT (21-72) IU/L Alkaline Phosphatase (38-126) U/L Total Protein (6.3-8.2) g/dL Albumin (3.5-5.0) g/dL Globulin (1.7-4.1) g/dL Albumin/Globulin Ratio (1.0-2.8) Triglycerides 143 (35-150) mg/dL Cholesterol 133 L (140-199) mg/dL LDL Cholesterol, Calc 78 (<100) mg/dL HDL Cholesterol 26 L (40-60) mg/dL Procalcitonin (<0.5) ng/mL 11/08/18 11/08/18 Range/Units 04:59 04:59 WBC 9.3 (4.5-11.0) X10^3/uL RBC 4.10 L (4.5-5.9) X10^6/uL Hgb 12.1 L (13.5-17.5) g/dL Hct 35.7 L (41-53) % MCV 87.2 (80-100) fL MCH 29.6 (26-34) PG MCHC 33.9 (30-36) % RDW 13.9 (11.6-14.8) % Plt Count 173 (150-400) X10^3/uL Neut % (Auto) 72.5 (50-75) % Lymph % (Auto) 17.0 L (25-40) % [place] % (Auto) 8.4 (3-14) % Eos % (Auto) 1.6 L (2-4) % Baso % (Auto) 0.5 (0-2) % Neut # (Auto) 6800 (3294-9142) /uL Lymph # (Auto) 1600 (7452-0855) /uL [place] # (Auto) 800 (0-900) /uL Eos # (Auto) 200 (0-450) /uL Baso # (Auto) 0 (0-100) /uL PT (10.1-12.7) SECONDS INR (0.9-1.3) APTT (26.4-36.2) SECONDS Sodium 136 L (137-145) mmol/L Potassium 3.7 (3.4-5.1) mmol/L Chloride 99 (98-107) mmol/L Carbon Dioxide 28 (22-32) mmol/L BUN 24 H (9-20) mg/dL Creatinine 0.90 (0.66-1.25) mg/dL Estimated GFR > 60.0 (>60) mL/min BUN/Creatinine Ratio 26.7 H (6-22) Glucose 228 H (70-100) mg/dL Lactate (0.7-2.1) mmol/L Calcium 8.7 (8.4-10.2) mg/dL Total Bilirubin (0.2-1.3) mg/dL AST (17-59) IU/L ALT (21-72) IU/L Alkaline Phosphatase (38-126) U/L Total Protein (6.3-8.2) g/dL Albumin (3.5-5.0) g/dL Globulin (1.7-4.1) g/dL Albumin/Globulin Ratio (1.0-2.8) Triglycerides (35-150) mg/dL Cholesterol (140-199) mg/dL LDL Cholesterol, Calc (<100) mg/dL HDL Cholesterol (40-60) mg/dL Procalcitonin (<0.5) ng/mL Point of Care Testing Glucose POC 218 Imaging Data Foot Xray: Attestation: I personally reviewed and interpreted this imaging study as follows: My impression: no obvious osteo Radiologist's impression: [address] [address] XRay Report Signed Patient: Grady Watson AMR#: [id number] : 1Acct:[id number] Age/Sex: 58 / MDate of Service: 11/07/18 Loc: [id number] Accession Number: [id number] Procedure: XR foot LT min 3V Ordering Provider: Jean Pierre Noguera D.O. PROCEDURE: XR FOOT LT MIN 3V INDICATIONS: infection/cellulitis/osteo 5th toe TECHNIQUE: 3 views of the foot were acquired. COMPARISON: None. FINDINGS: Bones: No fractures or dislocations. No suspicious bony lesions. No erosive change or periosteal reaction. Soft tissues: No tibiotalar joint effusion. Achilles tendon appears normal. No soft tissue gas. IMPRESSION: No stefano evidence of osteomyelitis. Plain film radiographs can be insensitive to osteomyelitis during the initial 15 days of the disease process. If there is clinical concern for osteomyelitis, then three-phase nuclear medicine bone scan is warranted. Dictated by: Yesenia Tucker MD, PhD on 11/07/2018 at 19:29 Approved by: Yesenia Tucker MD, PhD on 11/07/2018 at 19:30 [facility] Narrative Medical decision making narrative: 58-year-old male with poorly controlled diabetes, history of diabetic neuropathy and prior episodes of osteomyelitis presents with worsening left 5th toe and foot cellulitis with failed outpatient treatment. He has no primary care provider and suggestion of osteomyelitis on exam Discharge Plan Departure Patient Disposition: Admitted As Inpatient Clinical Impression: Cellulitis Qualifiers: Site of cellulitis: extremity Site of cellulitis of extremity: toe Laterality: left Qualified Code(s): L03.032 - Cellulitis of left toe Osteomyelitis Qualifiers: Osteomyelitis type: unspecified type Osteomyelitis location: foot Laterality: left Qualified Code(s): M86.9 - Osteomyelitis, unspecified Discharge Date/Time: 11/07/18 21:14 Interventions: ED Discharge Assessment Last Done: 11/07/18 21:02 Admit Date/Time: 11/07/18 19:29 Admit Provider: Gene Barron
[2018-11-07 19:46] LABS: Add Manual Diff / Slide Review NO; Basophils Absolute Auto 100 /uL (0-100); Basophils Percent Auto 0.4 % (0-2); Eosinophils Absolute Auto 100 /uL (0-450); Eosinophils Percent Auto 0.6 % (2-4); Hematocrit 35.6 % (41-53); Hemoglobin 11.9 g/dL (13.5-17.5); Lymphocytes Absolute Auto 1500 /uL (1100-4500); Lymphocytes Percent Auto 11.5 % (25-40); Mean Corpuscular HGB Conc 33.5 % (30-36); Mean Corpuscular Hemoglobin 29.3 PG (26-34); Mean Corpuscular Volume 87.4 fL (80-100); Monocytes Absolute Auto 900 /uL (0-900); Monocytes Percent Auto 6.9 % (3-14); Neutrophils Absolute Auto 10300 /uL (1500-7000); Neutrophils Percent Auto 80.6 % (50-75); Platelet Count 199 X10^3/uL (150-400); Red Blood Cell Count 4.07 X10^6/uL (4.5-5.9); Red Cell Distribution Width 14.1 % (11.6-14.8); White Blood Cell Count 12.7 X10^3/uL (4.5-11.0)
[2018-11-07 19:55] LABS: Alanine Aminotransferase 29 IU/L (21-72); Albumin 3.8 g/dL (3.5-5.0); Albumin Globulin Ratio 1.1 (1.0-2.8); Alkaline Phosphatase 70 U/L (38-126); Aspartate Aminotransferase 17 IU/L (17-59); BUN Creatinine Ratio 26.7 (6-22); Bilirubin Total 0.7 mg/dL (0.2-1.3); Blood Urea Nitrogen 32 mg/dL (9-20); Calcium 8.6 mg/dL (8.4-10.2); Carbon Dioxide 28 mmol/L (22-32); Chloride 96 mmol/L (98-107); Estimated Glomerular Filt Rate > 60.0 mL/min (>60); Globulin 3.4 g/dL (1.7-4.1); Glucose 277 mg/dL (70-100); HEMOLYSIS < 15 (0-50); Sodium 135 mmol/L (137-145); Total Protein 7.2 g/dL (6.3-8.2)
[2018-11-07 19:56] LABS: Lactate (Lactic Acid) 1.6 mmol/L (0.7-2.1)
[2018-11-07 20:00] VITALS: BP 110/75; PULSE 96; RESP 15; O2SAT 95
[2018-11-07] MEDS: levoFLOXacin 500 MG/100 ML PIGGYBACK 100 MG IV (20:02)
[2018-11-07 20:10] LABS: Procalcitonin 0.22 ng/mL (<0.5)
[2018-11-07 21:02] VITALS: BP 121/84; PULSE 91; RESP 18; TEMP 36.8; O2SAT 97
[2018-11-07 21:15] VITALS: BP 126/80; PULSE 98; RESP 18; TEMP 36.8; O2SAT 96
--- NOTE | 2018-11-07 21:33 | PM.HP.1 ---
History of Present Illness Date Patient Seen: 11/07/18 Time Patient Seen: 20:15 Chief complaint: left lower leg and feet swelling, states infected Narrative: This is a 58-year-old male patient with a history controlled diabetes, neuropathy, cardiovascular disease status post CABG x5 hypertension, hyperlipidemia, previous osteomyelitis resulting right great toe amputation presents to the ER for bilateral toe ulcers. The patient was seen previously 11/05/2018 in the ER for redness bilateral 5th toes after the patient had purchased shoes that were ill fitting. The patient was subsequently discharged on cephalexin which the patient has been compliant and returns today to worsening wound. The patient states his left 5th toe has become markedly worse in the last 2 days. The right 5th has been unchanged with antibiotic therapy. The patient describes worsening left leg pain up to the knee with foot redness and ankle swelling, fevers and chills and decreased appetite prompting him to present to the ER today. Notably prior to his earlier ER visit patient had been out of medications for 1 week due to a lapse of insurance. The patient had been referred to a PCP following a previous hospitalization for hyperglycemia however has not been able to secure an appointment due to lapse of insurance. The patient notably is homeless and has been staying at the [facility] and showering at the [facility]. The patient endorses occasional headaches but no migraines, has had recent orthostatic dizziness but a recent eye exam finding no diabetic eye problems. Denies nasal congestion or sore throat. He has had cough for the last 2 weeks that is dry and nonproductive worsened with deep inspiration but denies chest pain but reports palpitations described as a flutter in his chest. He denies shortness of breath or dyspnea on exertion. He denies abdominal pain, nausea vomiting and reports not having had a bowel movement in 2 days where he typically has a daily stooling habit. Reports nocturia 3-4 times nightly. He has bilateral lower extremity neuropathy to the level of the knees which is at present unchanged. The patient was admitted to the ER at 7:16 p.m and was found to have a low-grade temperature at 99.6?, blood pressure 108/81, tachycardic at 114, respirations 20 and saturating at 100% on room air. Labs were drawn revealing an elevated white blood count at 12.7 and a hemoglobin of 11.9 with hematocrit of 35.6. On chemistry is sodium 135 and a chloride of 96 with a BUN of 32 and a creatinine of 1.2 elevated over his baseline of 0.8 last evaluated 10/02/2018. The patient had a and negative lactate of 1.6 and procalcitonin of 0.22. Blood cultures and wound cultures were obtained and patient subsequently given an initial dose of levofloxacin. The patient is admitted to the hospital for IV antibiotics related to failure of outpatient care. Patient History Medical History History of seizure (Acute) Amputated toe (Acute) CAD (coronary artery disease) (Acute) Diabetes (Acute) Diabetic neuropathy (Acute) HTN (hypertension) (Acute) Hyperlipidemia (Acute) Osteomyelitis (Acute) Surgical History H/O carpal tunnel repair (Acute) Hx of CABG (Acute) Family History Mother Heart attack Diabetes mellitus Brother CAD (coronary artery disease) Hx of CABG Social History Smoking Status: Never smoker alcohol intake: current Family & Social History Safety & Behavioral: Feels Safe in Current Yes Environment Been Physically Hurt or No Threatened By a Person Tobacco & Substance use: Smoking Status Never smoker alcohol intake current alcohol intake frequency 0-2 drinks per day Substance Use Type does not use Comment: The patient is single and has never been and has for father children. The patient currently is living at the [facility] after having sold his boat he had been living on. He lives and showers in a communal setting. His mother had diabetes and from heart attack. Patient has never known his father. He has 1 brother with history of CAD and had an SD at age 40 and has undergone bypass surgery. He has 2 half-sisters by different fathers who he reports are in good health. 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 He has no gainful employment at this time. Smoking: He has never smoked Alcohol: He has been a daily drinker in the past but states he has not drank for the last 3 weeks. Reports never having had withdrawal symptoms or seizures. Substance use: Patient denies recreation pharmaceuticals or cannabis products Advanced directives: The patient wishes to be a full code and has designated Kiara Guthrie whom he has designated be emergency contact and to be his surrogate decision maker. Meds Home Medications Medication Instructions Recorded Confirmed Type atorvastatin 40 mg PO DAILY 10/01/18 11/07/18 History gabapentin 100 mg PO TID 10/01/18 11/07/18 History lisinopril 40 mg PO DAILY 10/01/18 11/07/18 History metformin 1,000 mg PO BID #60 tab 10/02/18 11/07/18 Rx aspirin [Aspir-81] 81 mg PO DAILY #30 tab 11/05/18 11/07/18 Rx cephalexin 500 mg PO QID 14 Days #56 cap 11/05/18 11/07/18 Rx chlorthalidone 25 mg PO DAILY #30 tab 11/05/18 11/07/18 Rx Allergies Allergy/AdvReac Type Severity Reaction Status Date / Time No Known Drug Allergies Allergy Verified 10/01/18 10:53 Review of Systems Review of Systems All systems reviewed & are unremarkable except as noted in HPI and below Exam Vital Signs (past 8 hours): - 11/07/18 19:16 11/07/18 20:00 11/07/18 21:02 Temperature 99.6 F 98.3 F Pulse Rate 114 H 96 H 91 H Respiratory Rate 20 15 18 Blood Pressure 108/81 121/84 Blood Pressure [Right Arm] 110/75 Pulse Oximetry 100 95 97 Oxygen Delivery Method Room Air Narrative Exam Narrative: General: Well developed, well nourished, ill-appearing with shivers Skin: Warm, dry, pink, redness left foot in slipper distribution, faint red streak medial anterior tibia HEENT: Normocephalic, PERRLA, EOMs intact without nystagmus, conjunctiva moist, sclera is anicteric, no ear pain, hearing grossly normal, no sinus tenderness to percussion, no rhinorrhea, oropharynx is moist and pink without lesions or exudate, uvula midline, posterior pharynx without inflammation, no cervical lymphadenopathy Neck: Supple, no masses, no thyromegaly trachea midline, no carotid bruits or JVD, no supraclavicular lymphadenopathy Cardiac: Regular rate and rhythm, S1-S2, 1/6 systolic murmur most prominent over left upper sternal border, no gallops or rubs, 2+ radial pulse, 1+ dorsalis pedis pulse, capillary refill is 3 sec bilateral ft, 1+ left foot/ankle edema Chest: Well-healed median sternotomy scar, no pain on AP or lateral compression, symmetrical movement, breathing non labored, dry cough present, BS with faint crackles bibasilar without wheezing or coarseness Abdomen: Soft, no tenderness or guarding, no masses or organomegaly, no flank or suprapubic pain, BS normal. Back: Normal curvature, no tenderness to palpation, no CVA tenderness on percussion Extremities: Approx 1.3 cm open dry crusty appearing wound medial left 5th toe into the webspace, white pressure wound medial right 5th toe, surgically absent right great toe, Full ROM, strength 5/5 and symmetrical Neuro: AAOx4, cranial nerves II-XII grossly intact, neuropathy bilateral lower extremities to the level of the tibial tubercle medially and the joint line laterally on both legs Psych: pleasant, cooperative, thought coherent, stable mood and congruent affect Objective Labs Result Diagrams: 11/07/18 19:35 11/07/18 19:35 Labs: Laboratory Results - last 24 hr 11/07/18 11/07/18 11/07/18 19:35 19:35 19:35 WBC 12.7 H RBC 4.07 L Hgb 11.9 L Hct 35.6 L MCV 87.4 MCH 29.3 MCHC 33.5 RDW 14.1 Plt Count 199 Neut % (Auto) 80.6 H Lymph % (Auto) 11.5 L [place] % (Auto) 6.9 Eos % (Auto) 0.6 L Baso % (Auto) 0.4 Neut # (Auto) 13187 H Lymph # (Auto) 1500 [place] # (Auto) 900 Eos # (Auto) 100 Baso # (Auto) 100 Sodium 135 L Potassium 4.0 Chloride 96 L Carbon Dioxide 28 BUN 32 H Creatinine 1.20 Estimated GFR > 60.0 BUN/Creatinine Ratio 26.7 H Glucose 277 H Lactate Calcium 8.6 Total Bilirubin 0.7 AST 17 ALT 29 Alkaline Phosphatase 70 Total Protein 7.2 Albumin 3.8 Globulin 3.4 Albumin/Globulin Ratio 1.1 Procalcitonin 0.22 11/07/18 19:35 WBC RBC Hgb Hct MCV MCH MCHC RDW Plt Count Neut % (Auto) Lymph % (Auto) [place] % (Auto) Eos % (Auto) Baso % (Auto) Neut # (Auto) Lymph # (Auto) [place] # (Auto) Eos # (Auto) Baso # (Auto) Sodium Potassium Chloride Carbon Dioxide BUN Creatinine Estimated GFR BUN/Creatinine Ratio Glucose Lactate 1.6 Calcium Total Bilirubin AST ALT Alkaline Phosphatase Total Protein Albumin Globulin Albumin/Globulin Ratio Procalcitonin Assessment & Plan Assessment & Plan narrative: The patient is admitted for diabetic ulcer with cellulitis that has worsened with outpatient treatment now requiring IV antibiotics. 1. Infected wound 5th toe, acute -patient seen in our ER on 11/05/2018 and started on Keflex which the patient reports being compliant -over the last 2 days the patient has had progression of the wound with ulceration and increased pain -approximately 1.3 cm dry crusted wound of undetermined depth medial aspect left 5th toe with cellulitis and swelling left foot -white closed pressure ulcer medial aspect right 5th toe -x-ray identifies no bony invasion or periosteal thickening -blood cultures and wound cultures have been taken -Patient has been started on levofloxacin in the ER, will continue levofloxacin 750 mg daily with a creatinine clearance level is 74.07 -will add clindamycin 600 mg every 8 hr for broad coverage -will obtain ankle brachial index bilateral lower extremities -surgery consulted for possible wound debridement. 2. Diabetes type 2, [id number] uncontrolled, chronic, active -blood sugar on admission is 277, associated complaints of frequent urination and excessive thirst, patient reports taking metformin 1000 mg twice daily -patient denies hypoglycemia with his lowest blood sugar that he can recall is 137 typically runs in the 190s to 300s -will perform Accu-Cheks ACHS -patient is dehydrated, will hold chlorthalidone and rehydrate the patient with normal saline -will continue metformin 1000 mg twice daily -will add corrective insulin high dose regimen 3. Cough, acute -patient describes dry nonproductive cough over the last 2 weeks -will screen for tuberculosis living in a communal setting in a prison, recent weight loss but no complaints of night sweats or hemoptysis -adequate oxygenation 98-100% on air with no complaints of shortness of breath -will obtain chest x-ray related to cough and bibasilar crackles with history of cardiovascular disease -will obtain a respiratory panel with report of being around other ill individuals at the prison 4. Cardiovascular disease, chronic -patient denies chest pain but reports palpitations described as fluttering in his chest. No show stated shortness of breath, nausea or radiation of pain -the patient will be on telemetry and will obtain a 12 lead EKG 5. Hypertension, chronic, stable -patient's blood pressure on admission was 108/81 the tachycardic at 114 -patient is currently taking lisinopril 40 mg daily this will be continued pending review of blood pressures and 12 lead EKG. -will consider decreasing lisinopril and adding metoprolol 6. Hyperlipidemia, chronic, presume stable -continue patient's atorvastatin 40 mg daily -will obtain a lipid panel 7. Alcohol abuse, chronic -previous documentation done if eyes 2 beers daily however patient says he has been abstinent for 3 weeks -the patient has experienced no withdrawal symptoms in the past, will monitor the patient. The patient is admitted to the hospital as an inpatient related to the severity of symptoms and the risk for complications following failure of outpatient treatment. The patient has expected length of stay is greater than 2 days. Time Spent With Patient Time with patient: 25 - 35 minutes Scores GCS Lapine coma scale eye opening: Spontaneous [place] coma scale verbal response: Orientated Hannah coma scale motor response: Obey commands [place] coma scale total score: 15
[2018-11-07 21:36] LABS: INR 1.2 (0.9-1.3); Prothrombin Time 13.9 SECONDS (10.1-12.7)
[2018-11-07 21:39] LABS: PTT Partial Thromboplastin Tim 32 SECONDS (26.4-36.2)
--- NOTE | 2018-11-07 21:46 | P.HP_ITS ---
History of Present Illness Date Patient Seen: 11/07/18 Time Patient Seen: 20:15 Chief complaint: left lower leg and feet swelling, states infected Narrative: This is a 58-year-old male patient with a history controlled diabetes, neuropathy, cardiovascular disease status post CABG x5 hypertension, hyperlipidemia, previous osteomyelitis resulting right great toe amputation presents to the ER for bilateral toe ulcers. The patient was seen previously 11/05/2018 in the ER for redness bilateral 5th toes after the patient had purchased shoes that were ill fitting. The patient was subsequently discharged on cephalexin which the patient has been compliant and returns today to worsening wound. The patient states his left 5th toe has become markedly worse in the last 2 days. The right 5th has been unchanged with antibiotic therapy. The patient describes worsening left leg pain up to the knee with foot redness and ankle swelling, fevers and chills and decreased appetite prompting him to present to the ER today. Notably prior to his earlier ER visit patient had been out of medications for 1 week due to a lapse of insurance. The patient had been referred to a PCP following a previous hospitalization for hyperglycemia however has not been able to secure an appointment due to lapse of insurance. The patient notably is homeless and has been staying at the [facility] and melony wering at the [place]. The patient endorses occasional headaches but no migraines, has had recent orthostatic dizziness but a recent eye exam finding no diabetic eye problems. Denies nasal congestion or sore throat. He has had cough for the last 2 weeks that is dry and nonproductive worsened with deep inspiration but denies chest pain but reports palpitations described as a flutter in his chest. He denies shortness of breath or dyspnea on exertion. He denies abdominal pain, nausea vomiting and reports not having had a bowel movement in 2 days where he typically has a daily stooling habit. Reports nocturia 3-4 times nightly. He has bilateral lower extremity neuropathy to the level of the knees which is at present unchanged. The patient was admitted to the ER at 7:16 p.m and was found to have a low-grade temperature at 99.6?, blood pressure 108/81, tachycardic at 114, respirations 20 and saturating at 100% on room air. Labs were drawn revealing an elevated white blood count at 12.7 and a hemoglobin of 11.9 with hematocrit of 35.6. On chemistry is sodium 135 and a chloride of 96 with a BUN of 32 and a creatinine of 1.2 elevated over his baseline of 0.8 last evaluated 10/02/2018. The patient had a and negative lactate of 1.6 and procalcitonin of 0.22. Blood cultures and wound cultures were obtained and patient subsequently given an initial dose of levofloxacin. The patient is admitted to the hospital for IV antibiotics related to failure of outpatient care. Patient History Medical History History of seizure (Acute) Amputated toe (Acute) CAD (coronary artery disease) (Acute) Diabetes (Acute) Diabetic neuropathy (Acute) HTN (hypertension) (Acute) Hyperlipidemia (Acute) Osteomyelitis (Acute) Surgical History H/O carpal tunnel repair (Acute) Hx of CABG (Acute) Family History Mother Heart attack Diabetes mellitus Brother CAD (coronary artery disease) Hx of CABG Social History Smoking Status: Never smoker alcohol intake: current Family & Social History Safety & Behavioral: Feels Safe in Current Yes Environment Been Physically Hurt or No Threatened By a Person Tobacco & Substance use: Smoking Status Never smoker alcohol intake current alcohol intake frequency 0-2 drinks per day Substance Use Type does not use Comment: The patient is single and has never been and has for father children. The patient currently is living at the [facility] after having sold his boat he had been living on. He lives and showers in a communal setting. His mother had diabetes and from heart attack. Patient has never known his father. He has 1 brother with history of CAD and had an CT at age 40 and has undergone bypass surgery. He has 2 half-sisters by different fathers who he reports are in good health. 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 He has no gainful employment at this time. Smoking: He has never smoked Alcohol: He has been a daily drinker in the past but states he has not drank for the last 3 weeks. Reports never having had withdrawal symptoms or seizures. Substance use: Patient denies recreation pharmaceuticals or cannabis products Advanced directives: The patient wishes to be a full code and has designated Kiara Guthrie whom he has designated be emergency contact and to be his surrogate decision maker. Meds Home Medications Medication Instructions Recorded Confirmed Type atorvastatin 40 mg PO DAILY 10/01/18 11/07/18 History gabapentin 100 mg PO TID 10/01/18 11/07/18 History lisinopril 40 mg PO DAILY 10/01/18 11/07/18 History metformin 1,000 mg PO BID #60 tab 10/02/18 11/07/18 Rx aspirin [Aspir-81] 81 mg PO DAILY #30 tab 11/05/18 11/07/18 Rx cephalexin 500 mg PO QID 14 Days #56 cap 11/05/18 11/07/18 Rx chlorthalidone 25 mg PO DAILY #30 tab 11/05/18 11/07/18 Rx Allergies Allergy/AdvReac Type Severity Reaction Status Date / Time No Known Drug Allergies Allergy Verified 10/01/18 10:53 Review of Systems Review of Systems All systems reviewed & are unremarkable except as noted in HPI and below Exam Vital Signs (past 8 hours): - 11/07/18 19:16 11/07/18 20:00 11/07/18 21:02 Temperature 99.6 F 98.3 F Pulse Rate 114 H 96 H 91 H Respiratory Rate 20 15 18 Blood Pressure 108/81 121/84 Blood Pressure [Right Arm] 110/75 Pulse Oximetry 100 95 97 Oxygen Delivery Method Room Air Narrative Exam Narrative: General: Well developed, well nourished, ill-appearing with shivers Skin: Warm, dry, pink, redness left foot in slipper distribution, faint red streak medial anterior tibia HEENT: Normocephalic, PERRLA, EOMs intact without nystagmus, conjunctiva moist, sclera is anicteric, no ear pain, hearing grossly normal, no sinus tenderness to percussion, no rhinorrhea, oropharynx is moist and pink without lesions or exudate, uvula midline, posterior pharynx without inflammation, no cervical lymphadenopathy Neck: Supple, no masses, no thyromegaly trachea midline, no carotid bruits or JVD, no supraclavicular lymphadenopathy Cardiac: Regular rate and rhythm, S1-S2, 1/6 systolic murmur most prominent over left upper sternal border, no gallops or rubs, 2+ radial pulse, 1+ dorsalis pedis pulse, capillary refill is 3 sec bilateral ft, 1+ left foot/ankle edema Chest: Well-healed median sternotomy scar, no pain on AP or lateral compression, symmetrical movement, breathing non labored, dry cough present, BS with faint crackles bibasilar without wheezing or coarseness Abdomen: Soft, no tenderness or guarding, no masses or organomegaly, no flank or suprapubic pain, BS normal. Back: Normal curvature, no tenderness to palpation, no CVA tenderness on percussion Extremities: Approx 1.3 cm open dry crusty appearing wound medial left 5th toe into the webspace, white pressure wound medial right 5th toe, surgically absent right great toe, Full ROM, strength 5/5 and symmetrical Neuro: AAOx4, cranial nerves II-XII grossly intact, neuropathy bilateral lower extremities to the level of the tibial tubercle medially and the joint line laterally on both legs Psych: pleasant, cooperative, thought coherent, stable mood and congruent affect Objective Labs Result Diagrams: 11/07/18 19:35 11/07/18 19:35 Labs: Laboratory Results - last 24 hr 11/07/18 11/07/18 11/07/18 19:35 19:35 19:35 WBC 12.7 H RBC 4.07 L Hgb 11.9 L Hct 35.6 L MCV 87.4 MCH 29.3 MCHC 33.5 RDW 14.1 Plt Count 199 Neut % (Auto) 80.6 H Lymph % (Auto) 11.5 L [place] % (Auto) 6.9 Eos % (Auto) 0.6 L Baso % (Auto) 0.4 Neut # (Auto) 06957 H Lymph # (Auto) 1500 [place] # (Auto) 900 Eos # (Auto) 100 Baso # (Auto) 100 Sodium 135 L Potassium 4.0 Chloride 96 L Carbon Dioxide 28 BUN 32 H Creatinine 1.20 Estimated GFR > 60.0 BUN/Creatinine Ratio 26.7 H Glucose 277 H Lactate Calcium 8.6 Total Bilirubin 0.7 AST 17 ALT 29 Alkaline Phosphatase 70 Total Protein 7.2 Albumin 3.8 Globulin 3.4 Albumin/Globulin Ratio 1.1 Procalcitonin 0.22 11/07/18 19:35 WBC RBC Hgb Hct MCV MCH MCHC RDW Plt Count Neut % (Auto) Lymph % (Auto) [place] % (Auto) Eos % (Auto) Baso % (Auto) Neut # (Auto) Lymph # (Auto) [place] # (Auto) Eos # (Auto) Baso # (Auto) Sodium Potassium Chloride Carbon Dioxide BUN Creatinine Estimated GFR BUN/Creatinine Ratio Glucose Lactate 1.6 Calcium Total Bilirubin AST ALT Alkaline Phosphatase Total Protein Albumin Globulin Albumin/Globulin Ratio Procalcitonin Assessment & Plan Assessment & Plan narrative: The patient is admitted for diabetic ulcer with cellulitis that has worsened with outpatient treatment now requiring IV antibiotics. 1. Infected wound 5th toe, acute -patient seen in our ER on 11/05/2018 and started on Keflex which the patient reports being compliant -over the last 2 days the patient has had progression of the wound with ulceration and increased pain -approximately 1.3 cm dry crusted wound of undetermined depth medial aspect left 5th toe with cellulitis and swelling left foot -white closed pressure ulcer medial aspect right 5th toe -x-ray identifies no bony invasion or periosteal thickening -blood cultures and wound cultures have been taken -Patient has been started on levofloxacin in the ER, will continue levofloxacin 750 mg daily with a creatinine clearance level is 74.07 -will add clindamycin 600 mg every 8 hr for broad coverage -will obtain ankle brachial index bilateral lower extremities -surgery consulted for possible wound debridement. 2. Diabetes type 2, [id number] uncontrolled, chronic, active -blood sugar on admission is 277, associated complaints of frequent urination and excessive thirst, patient reports taking metformin 1000 mg twice daily -patient denies hypoglycemia with his lowest blood sugar that he can recall is 137 typically runs in the 190s to 300s -will perform Accu-Cheks ACHS -patient is dehydrated, will hold chlorthalidone and rehydrate the patient with normal saline -will continue metformin 1000 mg twice daily -will add corrective insulin high dose regimen 3. Cough, acute -patient describes dry nonproductive cough over the last 2 weeks -will screen for tuberculosis living in a communal setting in a detention, recent weight loss but no complaints of night sweats or hemoptysis -adequate oxygenation 98-100% on air with no complaints of shortness of breath -will obtain chest x-ray related to cough and bibasilar crackles with history of cardiovascular disease -will obtain a respiratory panel with report of being around other ill indivi duals at the detention 4. Cardiovascular disease, chronic -patient denies chest pain but reports palpitations described as fluttering in his chest. No show stated shortness of breath, nausea or radiation of pain -the patient will be on telemetry and will obtain a 12 lead EKG 5. Hypertension, chronic, stable -patient's blood pressure on admission was 108/81 the tachycardic at 114 -patient is currently taking lisinopril 40 mg daily this will be continued pending review of blood pressures and 12 lead EKG. -will consider decreasing lisinopril and adding metoprolol 6. Hyperlipidemia, chronic, presume stable -continue patient's atorvastatin 40 mg daily -will obtain a lipid panel 7. Alcohol abuse, chronic -previous documentation done if eyes 2 beers daily however patient says he has been abstinent for 3 weeks -the patient has experienced no withdrawal symptoms in the past, will monitor the patient. The patient is admitted to the hospital as an inpatient related to the severity of symptoms and the risk for complications following failure of outpatient treatment. The patient has expected length of stay is greater than 2 days. Time Spent With Patient Time with patient: 25 - 35 minutes Scores GCS [place] coma scale eye opening: Spontaneous [place] coma scale verbal response: Orientated [place] coma scale motor response: Obey commands [place] coma scale total score: 15
[2018-11-07] MEDS: INSULIN ASPART 100 UNIT/ML INSULN PEN SUBCUT (23:22)
[2018-11-07] MEDS: ENOXAPARIN 40 MG/0.4 ML SYRINGE SUBCUT (23:23)
[2018-11-07 23:25] VITALS: BP 104/67; PULSE 87; RESP 16; TEMP 36.8; O2SAT 95
[2018-11-07] MEDS: SODIUM CHLORIDE 0.9% 1,000 ML 100 ML IV (23:42)
[2018-11-07 23:49] VITALS: BMI 24.3
[2018-11-08] VITALS (8 sets, daily range): BP systolic 105–124; BP diastolic 58–80; PULSE 82–99; RESP 16–18; TEMP 36.5–36.8; O2SAT 95–99
--- NOTE | 2018-11-08 | DI.CT.S_ITS ---
PROCEDURE: CT ANGIO LE LT INDICATIONS: ischemic infarction left 5th toe TECHNIQUE: After the administration of intravenous contrast, 2.5 mm sections acquired from T12 to the feet, with optional delayed image acquisition from the knees to the feet. 3-dimensional maximum intensity projection (MIP) coronal and sagittal reformats, and/or 3-dimensional volume rendering reformatting was then performed. For radiation dose reduction, the following was used: automated exposure control. COMPARISON: None. FINDINGS: Image quality: Excellent. Extravascular tissues: Lung bases are clear. Heart size is normal. . Biliary system is non dilated. Spleen is partially visualized and normal in size and enhancement. Left kidney and partially visualized portion of the right kidney are unremarkable. Non opacified bowel loops demonstrate normal wall thickness and enhancement. No free fluid or air. No retroperitoneal or mesenteric adenopathy. No ventral hernias. Bladder wall thickness is normal. No inguinal hernias or adenopathy. No suspicious bony lesions. No vertebral body compression fractures. Abdominal aorta: Is portions of the abdominal aorta demonstrate no areas of hemodynamically significant stenosis, vascular occlusion or aneurysmal dilation. Right lower extremity: The visualized common, internal and extradural iliac as well as visualized common femoral artery demonstrates no areas of hemodynamically significant stenosis, vascular occlusion or aneurysmal dilation. Left lower extremity: Common, internal and external iliac arteries demonstrate no areas of hemodynamically significant stenosis, vascular occlusion or aneurysmal dilation. The profunda artery is patent. The common femoral is patent. At the distal common femoral/proximal portion of the superficial femoral artery demonstrates two foci of stenosis, the greatest measuring approximately 50%. The remaining portion of the common femoral artery is widely patent. The profunda artery is patent. There is a short segment area of stenosis measuring approximately 50%. There is a three-vessel runoff below the knee. The anterior tibial artery demonstrates a focal area of high-grade stenosis/occlusion with calcification. Distal flow is identified. The posterior tibial and peroneal arteries arise from a common carotid. There is a high grade stenosis, greater than 90% at the origin of the posterior tibial artery with distal reconstitution of flow. There is approximate 50-60% narrowing at the origin of the peroneal artery. The posterior tibial artery anterior tibial arteries extend to the foot. The peroneal artery extends to the distal calf and becomes mildly atretic. IMPRESSION: 1. High grade stenosis/occlusions are noted at the origin of the anterior and posterior tibial arteries as above. 2. Distal common/proximal superficial femoral artery short segment stenosis with the greatest measuring approximately 50%. 3. Runoff vessels extend into the foot/distal calf as above. Dictated by: Bushra Torres M.D. on 11/08/2018 at 21:22 Approved by: Bushra Torres M.D. on 11/08/2018 at 21:30
[2018-11-08] MEDS: CLINDAMYCIN 600 MG/50 ML PIGGYBACK 50 MG IV ×3 (00:14→13:20)
[2018-11-08] MEDS: HYDROCODONE/ACET 5/325 TABLET 1 TAB PO ×3 (00:18→21:51)
[2018-11-08 05:13] LABS: Add Manual Diff / Slide Review NO; Basophils Absolute Auto 0 /uL (0-100); Basophils Percent Auto 0.5 % (0-2); Eosinophils Absolute Auto 200 /uL (0-450); Eosinophils Percent Auto 1.6 % (2-4); Hematocrit 35.7 % (41-53); Hemoglobin 12.1 g/dL (13.5-17.5); Lymphocytes Absolute Auto 1600 /uL (1100-4500); Mean Corpuscular HGB Conc 33.9 % (30-36); Mean Corpuscular Hemoglobin 29.6 PG (26-34); Mean Corpuscular Volume 87.2 fL (80-100); Monocytes Absolute Auto 800 /uL (0-900); Monocytes Percent Auto 8.4 % (3-14); Neutrophils Absolute Auto 6800 /uL (1500-7000); Neutrophils Percent Auto 72.5 % (50-75); Platelet Count 173 X10^3/uL (150-400); Red Cell Distribution Width 13.9 % (11.6-14.8); White Blood Cell Count 9.3 X10^3/uL (4.5-11.0)
--- NOTE | 2018-11-08 05:22 | PC.NURSE ---
Pt arrived on unit at approx 2200 per nurse report. He rated his pain 8/10 and one [place] 5 brought it down to 2/10. Pt having difficulty walking, using urinal in bed and will use FWW if needed to ambulate. L last toe continues to be swollen and eccymotic, pt describes pain as throbbing. R last toe is less swollen, less red, but equally as painful as L. VSS. Blood glucose on admit = 350, he was given 10 units of Novolog and 2 hours later blood glucose = 219. Pt states he took his metformin 500 mg bid yesterday. Pt is currently homeless as [facility]. VSS, A and O x 4.
[2018-11-08 05:26] LABS: Cholesterol 133 mg/dL (140-199); HDL Cholesterol 26 mg/dL (40-60); LDL Cholesterol Calculated 78 mg/dL (<100); Triglycerides 143 mg/dL (35-150)
[2018-11-08 05:27] LABS: BUN Creatinine Ratio 26.7 (6-22); Blood Urea Nitrogen 24 mg/dL (9-20); Calcium 8.7 mg/dL (8.4-10.2); Carbon Dioxide 28 mmol/L (22-32); Chloride 99 mmol/L (98-107); Estimated Glomerular Filt Rate > 60.0 mL/min (>60); Glucose 228 mg/dL (70-100); HEMOLYSIS < 15 (0-50); Potassium 3.7 mmol/L (3.4-5.1); Sodium 136 mmol/L (137-145)
[2018-11-08] MEDS: PANTOPRAZOLE 20 MG TABLET PO (06:08)
[2018-11-08] MEDS: GABAPENTIN 100 MG CAPSULE PO ×3 (08:13→21:07)
[2018-11-08] MEDS: ATORVASTATIN 20 MG TABLET 40 MG PO (08:14)
[2018-11-08] MEDS: LISINOPRIL 20 MG TABLET 40 MG PO (08:15)
[2018-11-08] MEDS: ASPIRIN EC 81 MG TABLET PO (08:16)
[2018-11-08] MEDS: INSULIN ASPART 100 UNIT/ML INSULN PEN SUBCUT ×3 (08:18→17:04)
[2018-11-08 10:55] LABS: Adenovirus Not Detected (Not Detect); Bordetella pertussis Not Detected (Not Detect); Chlamydophila pneumoniae Not Detected (Not Detect); Coronavirus 229E Not Detected (Not Detect); Coronavirus HKU1 Not Detected (Not Detect); Coronavirus NL 63 Not Detected (Not Detect); Coronavirus OC43 Not Detected (Not Detect); Human Metapneumovirus Not Detected (Not Detect); Human Rhinovirus/Enterovirus Detected (Not Detect); Influenza A Not Detected (Not Detect); Influenza B Not Detected (Not Detect); Mycoplasma pneumoniae Not Detected (Not Detect); Parainfluenza Virus 1 Not Detected (Not Detect); Parainfluenza Virus 2 Not Detected (Not Detect); Parainfluenza Virus 3 Not Detected (Not Detect); Parainfluenza Virus 4 Not Detected (Not Detect); Respiratory Syncytial Virus Not Detected (Not Detect)
[2018-11-08] MEDS: METFORMIN HCL 500 MG TABLET 1000 MG PO (13:16)
--- NOTE | 2018-11-08 13:23 | PC.NURSE ---
Am shift Noted that Pt had pending TB test out, immediately placed on airborne precautions. Clarified with DR Varma. Education provided to Pt for need for precautions. Resp panel collected. Warmth and redness to L foot, from toe #5, outlined erythema. R foot with scabbing and injury to toe as well. Pt with Hx of neuropathy and previous toe amputation. Medicated with [place] with good effect. Surgical consult, and Dr Hudson to see Pt. CT ordered. CBG remain high, metformin and SS given. Call light for needs.
[2018-11-08] MEDS: SODIUM CHLORIDE 0.9% 1,000 ML 100 ML IV (13:31)
--- NOTE | 2018-11-08 15:14 | PC.NURSE ---
pt. up to chair with bsa. Ointment applied to bilat. sm toes wrapped with 4 x 4 then wrapped with gauze and taped in place. no c/o pain
--- NOTE | 2018-11-08 15:19 | PM.PN.1 ---
Subjective Date Patient Seen: 11/08/18 Interval history: The patient is a 58-year-old homeless man with type 2 diabetes that is poorly controlled admitted to the hospital for diabetic foot infection. Patient's medical history is complicated by hypertension hyperlipidemia and history of coronary disease. He was seen by surgery today who plans to evaluate him for revascularization of the left lower extremity. Patient reports significant pain when standing. He feels the redness and warmth of the left foot has improved. He has had no nausea vomiting or diarrhea. He denies any shortness of breath. Exam Vital Signs (past 8 hours): - 11/08/18 07:30 11/08/18 08:15 11/08/18 12:08 Temperature 97.8 F Pulse Rate 82 82 90 Respiratory Rate 16 16 Blood Pressure 124/80 124/80 116/68 Pulse Oximetry 99 97 Oxygen Delivery Method Room Air Oxygen Flow Rate 0 Narrative Exam Narrative: Pleasant male resting comfortably Lungs: Clear to auscultation Cardiac exam a regular rate rhythm normal S1-S2 Abdomen: Soft nontender Extremities: Left foot 5th digit is ulcerated the foot is warm to the forefoot there is maceration of the left toe with a thick white exudate, the right 5th digit is erythematous S with area of skin breakdown Objective Labs Result Diagrams: 11/08/18 04:59 11/08/18 04:59 Labs: Laboratory Results - last 24 hr 11/07/18 11/07/18 11/07/18 19:35 19:35 19:35 WBC 12.7 H RBC 4.07 L Hgb 11.9 L Hct 35.6 L MCV 87.4 MCH 29.3 MCHC 33.5 RDW 14.1 Plt Count 199 Neut % (Auto) 80.6 H Lymph % (Auto) 11.5 L [place] % (Auto) 6.9 Eos % (Auto) 0.6 L Baso % (Auto) 0.4 Neut # (Auto) 06625 H Lymph # (Auto) 1500 [place] # (Auto) 900 Eos # (Auto) 100 Baso # (Auto) 100 PT INR APTT Sodium 135 L Potassium 4.0 Chloride 96 L Carbon Dioxide 28 BUN 32 H Creatinine 1.20 Estimated GFR > 60.0 BUN/Creatinine Ratio 26.7 H Glucose 277 H Lactate Calcium 8.6 Total Bilirubin 0.7 AST 17 ALT 29 Alkaline Phosphatase 70 Total Protein 7.2 Albumin 3.8 Globulin 3.4 Albumin/Globulin Ratio 1.1 Triglycerides Cholesterol LDL Cholesterol, Calc HDL Cholesterol Procalcitonin 0.22 Chlamy pneumoniae PCR Adenovirus (PCR) B.parapertussis DNA PCR Coronavirus OC43 (PCR) Coronavirus HKU1 (PCR) Coronavirus 229E (PCR) Coronavirus NL63 (PCR) Human Metapneumovir PCR Influenza Type A (PCR) Influenza Type B (PCR) M. pneumoniae (PCR) Parainfluenza 1 (PCR) Parainfluenza 2 (PCR) Parainfluenza 3 (PCR) Parainfluenza 4 (PCR) RSV (PCR) Entero/Rhino (PCR) TB Test Mitogen - Nil TB Test Antigen - Nil TB Test (QFT) 11/07/18 11/07/18 11/08/18 19:35 19:35 04:59 WBC RBC Hgb Hct MCV MCH MCHC RDW Plt Count Neut % (Auto) Lymph % (Auto) [place] % (Auto) Eos % (Auto) Baso % (Auto) Neut # (Auto) Lymph # (Auto) [place] # (Auto) Eos # (Auto) Baso # (Auto) PT 13.9 H INR 1.2 APTT 32 Sodium Potassium Chloride Carbon Dioxide BUN Creatinine Estimated GFR BUN/Creatinine Ratio Glucose Lactate 1.6 Calcium Total Bilirubin AST ALT Alkaline Phosphatase Total Protein Albumin Globulin Albumin/Globulin Ratio Triglycerides Cholesterol LDL Cholesterol, Calc HDL Cholesterol Procalcitonin Chlamy pneumoniae PCR Adenovirus (PCR) B.parapertussis DNA PCR Coronavirus OC43 (PCR) Coronavirus HKU1 (PCR) Coronavirus 229E (PCR) Coronavirus NL63 (PCR) Human Metapneumovir PCR Influenza Type A (PCR) Influenza Type B (PCR) M. pneumoniae (PCR) Parainfluenza 1 (PCR) Parainfluenza 2 (PCR) Parainfluenza 3 (PCR) Parainfluenza 4 (PCR) RSV (PCR) Entero/Rhino (PCR) TB Test Mitogen - Nil Cancelled TB Test Antigen - Nil Cancelled TB Test (QFT) Cancelled 11/08/18 11/08/18 11/08/18 04:59 04:59 04:59 WBC 9.3 RBC 4.10 L Hgb 12.1 L Hct 35.7 L MCV 87.2 MCH 29.6 MCHC 33.9 RDW 13.9 Plt Count 173 Neut % (Auto) 72.5 Lymph % (Auto) 17.0 L [place] % (Auto) 8.4 Eos % (Auto) 1.6 L Baso % (Auto) 0.5 Neut # (Auto) 6800 Lymph # (Auto) 1600 [place] # (Auto) 800 Eos # (Auto) 200 Baso # (Auto) 0 PT INR APTT Sodium Potassium Chloride Carbon Dioxide BUN Creatinine Estimated GFR BUN/Creatinine Ratio Glucose Lactate Calcium Total Bilirubin AST ALT Alkaline Phosphatase Total Protein Albumin Globulin Albumin/Globulin Ratio Triglycerides 143 Cholesterol 133 L LDL Cholesterol, Calc 78 HDL Cholesterol 26 L Procalcitonin 0.10 Chlamy pneumoniae PCR Adenovirus (PCR) B.parapertussis DNA PCR Coronavirus OC43 (PCR) Coronavirus HKU1 (PCR) Coronavirus 229E (PCR) Coronavirus NL63 (PCR) Human Metapneumovir PCR Influenza Type A (PCR) Influenza Type B (PCR) M. pneumoniae (PCR) Parainfluenza 1 (PCR) Parainfluenza 2 (PCR) Parainfluenza 3 (PCR) Parainfluenza 4 (PCR) RSV (PCR) Entero/Rhino (PCR) TB Test Mitogen - Nil TB Test Antigen - Nil TB Test (QFT) 11/08/18 11/08/18 04:59 Unknown WBC RBC Hgb Hct MCV MCH MCHC RDW Plt Count Neut % (Auto) Lymph % (Auto) [place] % (Auto) Eos % (Auto) Baso % (Auto) Neut # (Auto) Lymph # (Auto) [place] # (Auto) Eos # (Auto) Baso # (Auto) PT INR APTT Sodium 136 L Potassium 3.7 Chloride 99 Carbon Dioxide 28 BUN 24 H Creatinine 0.90 Estimated GFR > 60.0 BUN/Creatinine Ratio 26.7 H Glucose 228 H Lactate Calcium 8.7 Total Bilirubin AST ALT Alkaline Phosphatase Total Protein Albumin Globulin Albumin/Globulin Ratio Triglycerides Cholesterol LDL Cholesterol, Calc HDL Cholesterol Procalcitonin Chlamy pneumoniae PCR Not detected Adenovirus (PCR) Not detected B.parapertussis DNA PCR Not detected Coronavirus OC43 (PCR) Not detected Coronavirus HKU1 (PCR) Not detected Coronavirus 229E (PCR) Not detected Coronavirus NL63 (PCR) Not detected Human Metapneumovir PCR Not detected Influenza Type A (PCR) Not detected Influenza Type B (PCR) Not detected M. pneumoniae (PCR) Not detected Parainfluenza 1 (PCR) Not detected Parainfluenza 2 (PCR) Not detected Parainfluenza 3 (PCR) Not detected Parainfluenza 4 (PCR) Not detected RSV (PCR) Not detected Entero/Rhino (PCR) Detected H TB Test Mitogen - Nil TB Test Antigen - Nil TB Test (QFT) Assessment & Plan Assessment & Plan narrative: 1. 58-year-old male admitted with a diabetic foot ulcer, present on admission 2. Probable peripheral vascular disease, awaiting CT angio of the left lower extremity 3. Poorly controlled type 2 diabetes, chronic complicated by peripheral neuropathy 4. Hypertension, chronic 5. Hyperlipidemia, chronic 6. Coronary artery disease, status post coronary artery bypass graft, chronic Plan: Given the severity of his diabetic foot infection the patient will be placed on Zosyn and vancomycin until cultures are available. CT angio ordered tomorrow for evaluation of vasculature of the left lower extremity. The metformin has been discontinued. The patient will be placed on basal bolus insulin. Will continue his statin, lisinopril, aspirin. Chlorthalidone will be held in the hospital. Patient will continue on IV hydration. Will recheck labs in the morning. Await surgical consultation pending results of CT angio ordered. Quality VTE Deep Vein Thrombosis/Pulmonary Embolism Present on Admission: No
--- NOTE | 2018-11-08 16:03 | CM.DANOTE ---
DCP/Assessment: Reviewed chart. Patient is a 58yr old male admitted to [facility] with left lower leg swelling. No PCP identified. Primary payor is 1)[facility] 2)Medicaid. Patient currently in room# 230 with active TB precautions. Surgery consulted for infected wound (5th toe). Per notes patient was staying in cold nursing home at the [facility] prior to admit. LIBRARY SCIENCE PROFESSOR did not attempt visit today secondary to room change and active precautions. P: CM/LIBRARY SCIENCE PROFESSOR to meet with patient when medically appropriate to discuss discharge planning and provide necessary resources. At this time unclear on needs. AYESHA Smith Discharge Planning/Care Management Advanced directive, confirm from FAMILY Start: 11/07/18 23:55 Freq: Q24H Status: Active Protocol: Document 11/07/18 23:55 SL (Rec: 11/08/18 02:19 SL [id number]) Advance Directive, confirm on record Time 02:19 Person contacted Grady Waston Copy received No Advanced directive available on record No CM Discharge Assessment Start: 11/08/18 15:59 Freq: Status: Active Protocol: Document 11/08/18 15:59 KJS (Rec: 11/08/18 16:03 KJS [id number]) Discharge Planning Assessment Assigned Insurance Biller AYESHA Smith Contact Information Kiara Guthrie (friend listed) [phone] Advance Directives? No Advance Directives on File No History Provided By Medical Record Has Patient been admitted in last 30 No days? Prior Living Arrangements Homeless Household Members none other Independent with ADL's Yes Is patient alert and oriented? Yes Caregiver for Another No Comment Is homeless, and has no primary provider. No family in area. Discharge Plan Homeless Senior Living Transportation Arrangement Public transportation/Taxi Additional Comment Pending medical needs at time of d/c. Whiteboard Updated in Patient Room with No name and ext. # of Insurance Biller Comment Patient currently with active TB precautions. Review Status In Process Please Provide Date Initial DC 11/08/18 Assessment Was Performed Next Review Type Continued Stay Review
[2018-11-08] MEDS: MUPIROCIN 22 GM OINT 1 APPLIC TOP ×2 (17:00→21:07)
[2018-11-08] MEDS: KCL 20 MEQ IN NS 1,000 ML 100 MEQ IV (17:01)
[2018-11-08] MEDS: PIPERACILLIN-TAZO 3.375 GM/50 ML FROZ.PIGGY IV (17:02)
[2018-11-08] MEDS: VANCOMYCIN 1,250 MG in SODIUM CHLORIDE 0.9% 250 ML IV (17:58)
[2018-11-08] MEDS: ENOXAPARIN 40 MG/0.4 ML SYRINGE SUBCUT (21:07)
[2018-11-08] MEDS: INSULIN GLARGINE 100 UNIT/ML 3ML PEN 10 UNIT SUBCUT (21:08)
[2018-11-09] VITALS (9 sets, daily range): BP systolic 101–129; BP diastolic 46–82; PULSE 83–97; RESP 16–18; TEMP 36.5–37.3; O2SAT 95–99
--- NOTE | 2018-11-09 | DI.US.S_ITS ---
PROCEDURE: US ROSMERY LIMITED SINGLE LEVEL INDICATIONS: CARDIOVASCULAR DISEASE, DIABETIC, BILATERAL FOOT INFECTIONS TECHNIQUE: Ankle-brachial indices were obtained bilaterally and recorded. COMPARISONS: FINDINGS: Right ankle brachial index (ROSMERY): 1.2 Left ankle brachial index (ROSMERY): 1.1 IMPRESSION: Ankle-brachial indeces within normal limits bilaterally. Dictated by: Shari Mckeon M.D. on 11/10/2018 at 11:27 Approved by: Shari Mckeon M.D. on 11/10/2018 at 11:29
[2018-11-09] MEDS: PIPERACILLIN-TAZO 3.375 GM/50 ML FROZ.PIGGY IV ×3 (00:35→17:25)
[2018-11-09] MEDS: VANCOMYCIN 1,250 MG in SODIUM CHLORIDE 0.9% 250 ML IV ×3 (01:17→17:26)
--- NOTE | 2018-11-09 04:49 | PC.NURSE ---
Pt states he is offended of isolation precautions and analogized them to having crabs. Explained the importance of ruling out TB, and patient said that he didn't have TB. Advised patient we will discontinue precautions when/if lab test comes back negative. Tolerating ABOs well. Did not request pain medication this shift.
[2018-11-09] MEDS: PANTOPRAZOLE 20 MG TABLET PO (05:26)
[2018-11-09 05:33] LABS: Add Manual Diff / Slide Review NO; Basophils Absolute Auto 100 /uL (0-100); Basophils Percent Auto 0.7 % (0-2); Eosinophils Absolute Auto 100 /uL (0-450); Eosinophils Percent Auto 1.5 % (2-4); Hematocrit 39.1 % (41-53); Hemoglobin 13.2 g/dL (13.5-17.5); Lymphocytes Absolute Auto 1600 /uL (1100-4500); Lymphocytes Percent Auto 17.7 % (25-40); Mean Corpuscular HGB Conc 33.7 % (30-36); Mean Corpuscular Hemoglobin 29.6 PG (26-34); Mean Corpuscular Volume 87.7 fL (80-100); Monocytes Absolute Auto 600 /uL (0-900); Monocytes Percent Auto 6.5 % (3-14); Neutrophils Absolute Auto 6800 /uL (1500-7000); Neutrophils Percent Auto 73.6 % (50-75); Platelet Count 201 X10^3/uL (150-400); Red Blood Cell Count 4.45 X10^6/uL (4.5-5.9); Red Cell Distribution Width 13.8 % (11.6-14.8); White Blood Cell Count 9.3 X10^3/uL (4.5-11.0)
[2018-11-09] MEDS: HYDROCODONE/ACET 5/325 TABLET 1 TAB PO ×3 (05:33→12:45)
--- NOTE | 2018-11-09 05:34 | PC.NURSE ---
Pt request one Olivia for pain 9/10 bilat feet at 0530
[2018-11-09 05:43] LABS: Blood Urea Nitrogen 19 mg/dL (9-20); Calcium 9.3 mg/dL (8.4-10.2); Carbon Dioxide 25 mmol/L (22-32); Chloride 101 mmol/L (98-107); Estimated Glomerular Filt Rate > 60.0 mL/min (>60); Glucose 230 mg/dL (70-100); HEMOLYSIS < 15 (0-50); Potassium 4.6 mmol/L (3.4-5.1); Sodium 136 mmol/L (137-145)
[2018-11-09 05:57] LABS: Procalcitonin 0.15 ng/mL (<0.5)
[2018-11-09] MEDS: ASPIRIN EC 81 MG TABLET PO (07:45)
[2018-11-09] MEDS: GABAPENTIN 100 MG CAPSULE PO ×3 (07:45→20:37)
[2018-11-09] MEDS: ATORVASTATIN 20 MG TABLET 40 MG PO (07:46)
[2018-11-09] MEDS: LISINOPRIL 20 MG TABLET 40 MG PO (07:48)
[2018-11-09] MEDS: INSULIN ASPART 100 UNIT/ML INSULN PEN SUBCUT ×3 (07:56→17:27)
--- NOTE | 2018-11-09 09:20 | PC.NURSE ---
Am shift note Pt a/ox4, reports pain managed by previous norco dosing. CMS per baseline to BLE, L foot less hot/erythemic than 24 hrs prior. IV ABO infusing.
--- NOTE | 2018-11-09 10:28 | P.PN_ITS ---
Subjective Date Patient Seen: 11/09/18 Time Patient Seen: 10:25 Interval history: Patient has been admitted for intravenous antibiotic therapy for cellulitis of the left foot. This is also associated with necrosis of the left 5th toe. We do not see osteomyelitis on his plain x-rays. Subjectively as minimal discomfort he is up ambulating in his room and has less pain. Exam Vital Signs (past 8 hours): - 11/09/18 05:25 11/09/18 07:00 11/09/18 07:50 Temperature 98 F 98.3 F Pulse Rate 87 84 Respiratory Rate 17 16 Blood Pressure 129/78 106/46 L Pulse Oximetry 98 97 97 Oxygen Delivery Method Room Air Oxygen Flow Rate 0 Narrative Exam Narrative: On exam the erythema of the left foot is reduced from yesterday. He still has some ischemic changes in the left 5th toe. Objective Labs Result Diagrams: 11/09/18 04:57 11/09/18 04:57 Labs: Laboratory Results - last 24 hr 11/08/18 11/09/18 11/09/18 Unknown 04:57 04:57 WBC 9.3 RBC 4.45 L Hgb 13.2 L Hct 39.1 L MCV 87.7 MCH 29.6 MCHC 33.7 RDW 13.8 Plt Count 201 Neut % (Auto) 73.6 Lymph % (Auto) 17.7 L [place] % (Auto) 6.5 Eos % (Auto) 1.5 L Baso % (Auto) 0.7 Neut # (Auto) 6800 Lymph # (Auto) 1600 [place] # (Auto) 600 Eos # (Auto) 100 Baso # (Auto) 100 Sodium Potassium Chloride Carbon Dioxide BUN Creatinine Estimated GFR BUN/Creatinine Ratio Glucose Calcium Procalcitonin 0.15 Chlamy pneumoniae PCR Not detected Adenovirus (PCR) Not detected B.parapertussis DNA PCR Not detected Coronavirus OC43 (PCR) Not detected Coronavirus HKU1 (PCR) Not detected Coronavirus 229E (PCR) Not detected Coronavirus NL63 (PCR) Not detected Human Metapneumovir PCR Not detected Influenza Type A (PCR) Not detected Influenza Type B (PCR) Not detected M. pneumoniae (PCR) Not detected Parainfluenza 1 (PCR) Not detected Parainfluenza 2 (PCR) Not detected Parainfluenza 3 (PCR) Not detected Parainfluenza 4 (PCR) Not detected RSV (PCR) Not detected Entero/Rhino (PCR) Detected H 11/09/18 04:57 WBC RBC Hgb Hct MCV MCH MCHC RDW Plt Count Neut % (Auto) Lymph % (Auto) [place] % (Auto) Eos % (Auto) Baso % (Auto) Neut # (Auto) Lymph # (Auto) [place] # (Auto) Eos # (Auto) Baso # (Auto) Sodium 136 L Potassium 4.6 Chloride 101 Carbon Dioxide 25 BUN 19 Creatinine 1.00 Estimated GFR > 60.0 BUN/Creatinine Ratio 19.0 Glucose 230 H Calcium 9.3 Procalcitonin Chlamy pneumoniae PCR Adenovirus (PCR) B.parapertussis DNA PCR Coronavirus OC43 (PCR) Coronavirus HKU1 (PCR) Coronavirus 229E (PCR) Coronavirus NL63 (PCR) Human Metapneumovir PCR Influenza Type A (PCR) Influenza Type B (PCR) M. pneumoniae (PCR) Parainfluenza 1 (PCR) Parainfluenza 2 (PCR) Parainfluenza 3 (PCR) Parainfluenza 4 (PCR) RSV (PCR) Entero/Rhino (PCR) Assessment & Plan Assessment & Plan narrative: Yesterday I ordered and I have reviewed a CT ang iogram of his lower extremities. Proximal vessels are patent. His anterior and posterior tibial have high-grade stenoses at the origin of the trifurcation of the left leg. It is questionable as to whether these could be opened with the angioplasty and stent placement. After resolution of his acute infectious process, 1 could consider referral to interventional radiologist who may be able to stent these areas and prevent future amputation. Quality VTE Deep Vein Thrombosis/Pulmonary Embolism Present on Admission: No
--- NOTE | 2018-11-09 11:01 | PC.NURSE ---
Day shift. Pt up to shower independently without incident. No c/o pain or nausea.
[2018-11-09] MEDS: MUPIROCIN 22 GM OINT 1 APPLIC TOP ×2 (11:37→20:36)
--- NOTE | 2018-11-09 12:14 | P.PN_ITS ---
Subjective Interval history: Grady Watson is a 58-year-old male with a past medical history significant for coronary artery disease status post CABG x5, hypertension, hyperlipidemia, and diabetes mellitus type 2, non-insulin using, with complication of neuropathyand now diabetic foot infection with complication of PAD and high-grade occlusion of the anterior and posterior tibial arteries. The patient is resting in bedside. He reports he is unable to stand on his feet for very long due to pain and he reports his foot turns purple when he does so. He denies headache, cough, shortness of breath, chest pain, abdominal pain, michele sea, vomiting, fever, chills, dysuria, diarrhea or constipation. He is voiding without difficulty. He is up ambulating minimally due to pain without assistance. Exam Vital Signs (past 8 hours): - 11/09/18 05:25 11/09/18 07:00 11/09/18 07:50 Temperature 98 F 98.3 F Pulse Rate 87 84 Respiratory Rate 17 16 Blood Pressure 129/78 106/46 L Pulse Oximetry 98 97 97 Oxygen Delivery Method Room Air Oxygen Flow Rate 0 Narrative Exam Narrative: General: Middle-aged gentleman sitting in bed and in no acute distress, poor hygiene, well-developed, well-nourished, appropriately interactive. HEENT: Normocephalic, atraumatic. External ears without defect. Pupils equal, round, and reactive to light. Anicteric sclerae, moist conjunctivae, and no lid lag. Edentulous. Neck: Supple with full range of motion. No jugular venous distension. No bruits. No lymphadenopathy or thyromegaly. Cardiovascular: Regular rate and rhythm without murmurs, rubs, or gallops appreciated. Pulmonary: Clear to auscultation bilaterally without crackles, wheezes, or rhonchi. Normal respiratory effort with no use of accessory muscles. Abdomen: Soft, bowel sounds present, nontender, nondistended. No hepatosple nomegaly or masses appreciated. Extremities: No clubbing, cyanosis, or edema. 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 Bandage on left foot that is C/D/I. No palpable pulse in left foot but red and perfusing. Palpable posterior tibialis and dorsalis pedis pulse in right foot. Skin: Normal temperature, turgor, and texture; no rash, ulcers, or subcutaneous nodules appreciated. Neurological: Cranial nerves grossly intact. Psychiatric: Normal mood and affect. Alert and oriented to person, place, and time. Objective Labs Result Diagrams: 11/09/18 04:57 11/09/18 04:57 Labs: Laboratory Results - last 24 hr 11/09/18 11/09/18 11/09/18 04:57 04:57 04:57 WBC 9.3 RBC 4.45 L Hgb 13.2 L Hct 39.1 L MCV 87.7 MCH 29.6 MCHC 33.7 RDW 13.8 Plt Count 201 Neut % (Auto) 73.6 Lymph % (Auto) 17.7 L [place] % (Auto) 6.5 Eos % (Auto) 1.5 L Baso % (Auto) 0.7 Neut # (Auto) 6800 Lymph # (Auto) 1600 [place] # (Auto) 600 Eos # (Auto) 100 Baso # (Auto) 100 Sodium 136 L Potassium 4.6 Chloride 101 Carbon Dioxide 25 BUN 19 Creatinine 1.00 Estimated GFR > 60.0 BUN/Creatinine Ratio 19.0 Glucose 230 H Calcium 9.3 Procalcitonin 0.15 Assessment & Plan Assessment & Plan narrative: Grady Watson is a 58-year-old male with a past medical history significant for coronary artery disease status post CABG x5, hypertension, hyperlipidemia, and diabetes mellitus type 2, non-insulin using, with complication of neuropathy who presented to [facility] feeling generally weak as if his legs are going to give out and shaky. 1. Acute diabetic foot wound, present on admission. Active. -Patient developed left 5th toe wound due to new pair of shoes. -Wound culture of foot growing Staphylococcus and enterococcus with sensitivities pending. -Continue Zosyn 3.375 g every 8 hr and vancomycin with dosing per pharmacist. -Continue pain management with hydrocodone 5-10 mg every 4 hr as needed for pain. -Ordered surgical consult and we appreciate their time and management of the patient. -ordered wound care consult and we appreciate their time and management of the patient 2. Peripheral arterial disease, chronic, present on admission. Active. -CTA with runoff of left lower extremity demonstrates high-grade stenosis of anterior-posterior tibial arteries. -Plan to transfer patient for IR guided angioplasty with possible stenting, pending. 3. Diabetes mellitus type 2, non-insulin using, with complication of diabetic neuropathy and diabetic foot wound, present on admission. Active and uncontrolled. -Hemoglobin A1c 11.1% reflective of poor glycemic control. -Continued gabapentin 100 mg 3 times daily for diabetic neuropathy. -Held metformin. -Continue Lantus 10 units daily at bedtime. -Ordered low-dose correctional scale insulin. 5. Coronary artery disease, present on admission. Presumed stable. -Continue cardiac medications including: aspirin 81 mg daily, atorvastatin 40 mg daily, and lisinopril 40 mg daily. 6. Hypertension, chronic, present on admission. Stable. -Continue lisinopril and held chlorthalidone as above. 7. Hyperlipidemia, chronic, present on admission. Stable. -Continue atorvastatin as above. 8. Chronic alcohol use, present on admission. Stable. -Discussed cutting back on alcohol consumption or abstaining altogether. -Patient consumes at least 2 beers per night if not more. -Patient denies history of alcohol withdrawal including seizures and DTs. Disposition: Patient will likely need transferred for IR guided angioplasty and possible stenting of left lower extremity in order for his wound to continue to heal. Quality VTE Deep Vein Thrombosis/Pulmonary Embolism Present on Admission: No
--- NOTE | 2018-11-09 12:19 | PC.NURSE ---
Addendum entered by Mery Stevenson 11/09/18 13:24: At time of dressing bilateral toes, decreased erthyemia to top of L. foot. Lt. toe black with small amt. of redness and drainage. Original Note: Pt up to chair, applied Bactorban to bilat. 5th toes. Covered with 4 x 4 gauze and wrapped with Coban.
--- NOTE | 2018-11-09 13:34 | PC.NURSE ---
0900 Imtiazo held, as previous dose infusing
--- NOTE | 2018-11-09 17:59 | PC.NURSE ---
wound care consult ordered, [facility] called at 1700 and stated they were unable to come see this patient today.
[2018-11-09] MEDS: ENOXAPARIN 40 MG/0.4 ML SYRINGE SUBCUT (20:36)
[2018-11-09] MEDS: INSULIN GLARGINE 100 UNIT/ML 3ML PEN 10 UNIT SUBCUT (20:37)
[2018-11-09] MEDS: HYDROCODONE/ACET 5/325 TABLET 2 TAB PO (20:37)
--- NOTE | 2018-11-09 21:25 | PC.NURSE ---
evening shift note. Pt was up in the chair most of the shift. Up around room independently. Still on airborne precautions, waiting on TB test to complete. Pt denied needing pain meds until HS time. Pt has been A&O, calm and cooperative.
[2018-11-10] VITALS (9 sets, daily range): BP systolic 90–147; BP diastolic 57–94; PULSE 77–88; RESP 14–20; TEMP 36.3–37.3; O2SAT 96–100
--- NOTE | 2018-11-10 | DI.MRI.S_ITS ---
PROCEDURE: MR FOOT LT WO/W CON INDICATIONS: Left 5th digit infection. Left foot edema TECHNIQUE: Noncontrast coronal T1 spin echo and STIR, sagittal T1 spin echo with fat saturation and STIR, axial T1 spin echo and T2 fast spin echo with fat saturation. After the administration of contrast, axial/sagittal/coronal T1 spin echo with fat saturation through the left forefoot. COMPARISON: None. FINDINGS: Image quality: Excellent. Bones: Mildly decreased T1 and increased T2 signal in the fifth distal phalanx. There is very slightly increased T2 signal in the fifth proximal phalanx without definite corresponding decreased T1 signal. Elsewhere, marrow signal is normal aside from mild sclerosis in the first metatarsal sesamoids. No definite osseous enhancement. Normal bony alignment. Soft tissues: Increased T2 signal, minimally enhancing material is present along the dorsal and medial aspect of the fifth distal phalanx and extending proximal to the level of the fifth metatarsal head. A small fifth metatarsal-phalangeal joint effusion is present. Moderate cellulitis surrounds the fifth digit. The flexor tendons are intact. Intrinsic musculature of the foot demonstrates mild diffuse edema associated with the second through fifth metatarsals. There is no focal muscular atrophy. Mild cellulitis on the dorsum of the mid foot and mild underlying subcutaneous edema. IMPRESSION: 1. Minimally enhancing fluid collection/phlegmon along the dorsal medial aspect of the fifth digit extending to the fifth metatarsal phalangeal joint. This may correspond to the patient's wound. Ultrasound may be useful for delineation. 2. Early signal alteration in the fifth distal phalanx suggesting early osteomyelitis without definite enhancement. 3. Small fifth MTP joint effusion the close association to the abnormal fifth digit dorsal fluid collection. This is concerning for early synovitis. 4. Cellulitis and subcutaneous edema along the dorsum of the midfoot. Dictated by: Christi Lowry M.D. on 11/10/2018 at 22:28 Approved by: Christi Lowry M.D. on 11/10/2018 at 22:46
[2018-11-10] MEDS: PIPERACILLIN-TAZO 3.375 GM/50 ML FROZ.PIGGY IV ×3 (00:01→16:06)
[2018-11-10] MEDS: VANCOMYCIN 1,250 MG in SODIUM CHLORIDE 0.9% 250 ML IV ×2 (00:31→10:29)
[2018-11-10] MEDS: KCL 20 MEQ IN NS 1,000 ML 100 MEQ IV (03:49)
[2018-11-10 05:27] LABS: Add Manual Diff / Slide Review NO; Basophils Absolute Auto 0 /uL (0-100); Basophils Percent Auto 0.5 % (0-2); Eosinophils Absolute Auto 200 /uL (0-450); Eosinophils Percent Auto 3.1 % (2-4); Hematocrit 35.8 % (41-53); Hemoglobin 12.4 g/dL (13.5-17.5); Lymphocytes Absolute Auto 1200 /uL (1100-4500); Lymphocytes Percent Auto 16.9 % (25-40); Mean Corpuscular HGB Conc 34.5 % (30-36); Mean Corpuscular Hemoglobin 29.8 PG (26-34); Mean Corpuscular Volume 86.6 fL (80-100); Monocytes Absolute Auto 500 /uL (0-900); Monocytes Percent Auto 7.2 % (3-14); Neutrophils Absolute Auto 5400 /uL (1500-7000); Neutrophils Percent Auto 72.3 % (50-75); Platelet Count 190 X10^3/uL (150-400); Red Blood Cell Count 4.14 X10^6/uL (4.5-5.9); White Blood Cell Count 7.4 X10^3/uL (4.5-11.0)
[2018-11-10 05:32] LABS: BUN Creatinine Ratio 18.9 (6-22); Blood Urea Nitrogen 17 mg/dL (9-20); Carbon Dioxide 25 mmol/L (22-32); Chloride 104 mmol/L (98-107); Estimated Glomerular Filt Rate > 60.0 mL/min (>60); Glucose 229 mg/dL (70-100); HEMOLYSIS < 15 (0-50); Magnesium 1.5 mg/dL (1.6-2.3); Potassium 4.3 mmol/L (3.4-5.1); Sodium 137 mmol/L (137-145)
[2018-11-10 05:49] LABS: Procalcitonin 0.13 ng/mL (<0.5)
[2018-11-10] MEDS: GABAPENTIN 100 MG CAPSULE PO ×3 (07:51→20:00)
[2018-11-10] MEDS: INSULIN ASPART 100 UNIT/ML INSULN PEN SUBCUT ×4 (07:52→20:02)
[2018-11-10] MEDS: LISINOPRIL 20 MG TABLET 40 MG PO (07:52)
[2018-11-10] MEDS: PANTOPRAZOLE 20 MG TABLET PO (07:52)
[2018-11-10] MEDS: ASPIRIN EC 81 MG TABLET PO (07:52)
[2018-11-10] MEDS: HYDROCODONE/ACET 5/325 TABLET 2 TAB PO ×2 (07:53→20:01)
[2018-11-10] MEDS: ATORVASTATIN 20 MG TABLET 40 MG PO (07:53)
[2018-11-10 10:01] LABS: Vancomycin Trough 19.8 ug/mL (10-20)
[2018-11-10] MEDS: VANCOMYCIN TROUGH 1 REQUEST MISC (10:30)
[2018-11-10] MEDS: MUPIROCIN 22 GM OINT 1 APPLIC TOP ×2 (10:30→20:00)
[2018-11-10] MEDS: VANCOMYCIN 1,000 MG/200 ML FROZ.PIGGY 200 MG IV ×2 (10:34→18:34)
--- NOTE | 2018-11-10 10:57 | PC.NURSE ---
Pt rated pain to Left foot 10/10 given two vicodin, patient reports medication effective. Dressing to left fifth toe changed. Foot cleansed, dried and mupirocin ointment applied as ordered. Placed telfa between 4th and 5th toes, wrapped with kerlex and secured with coban.
[2018-11-10] MEDS: MAGNESIUM SULFATE 2 GM/50 ML PIGGYBACK IV (11:32)
--- NOTE | 2018-11-10 13:46 | P.PN_ITS ---
Subjective Date Patient Seen: 11/10/18 Interval history: Grady Watson is a 58-year-old male with a past medical history significant for coronary artery disease status post CABG x5, hypertension, hyperlipidemia, and diabetes mellitus type 2, non-insulin using, with complication of neuropathy and now diabetic foot infection with complication of PAD and high-grade occlusion of the anterior and posterior tibial arteries. The patient is resting in bedside chair. He continues to be unable to stand on his feet for very long due to pain. His left foot turns purple when he stands. He otherwise does not have much pain in his foot when sitting and is controlled with hydrocodone. He denies headache, cough, shortness of breath, chest pain, abdominal pain, nausea, vomiting, fever, chills, dysuria, diarrhea or constipation. He is voiding without difficulty. He is up ambulating minimally due to pain without assistance. Exam Vital Signs (past 8 hours): - 11/10/18 07:30 11/10/18 08:09 11/10/18 11:45 Temperature 98.1 F 99.1 F Pulse Rate 84 77 Respiratory Rate 16 14 Blood Pressure 115/74 147/94 H Pulse Oximetry 96 96 100 Oxygen Delivery Method Room Air Oxygen Flow Rate 0 Narrative Exam Narrative: General: Middle-aged gentleman sitting in bed and in no acute distress, poor hygiene, well-developed, well-nourished, appropriately interactive. HEENT: Normocephalic, atraumatic. External ears without defect. Pupils equal, round, and reactive to light. Anicteric sclerae, moist conjunctivae, and no lid lag. Edentulous. Neck: Supple with full range of motion. No jugular venous distension. No bruits. No lymphadenopathy or thyromegaly. Cardiovascular: Regular rate and rhythm without murmurs, rubs, or gallops appreciated. Pulmonary: Clear to auscultation bilaterally without crackles, wheezes, or rhonchi. Normal respiratory effort with no use of accessory muscles. Abdomen: Soft, bowel sounds present, nontender, nondistended. No hepatosplenomegaly or masses appreciated. Extremities: No clubbing, cyanosis, or edema. 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 Bandage on left foot that is C/D/I. No palpable pulse in left foot but red and perfusing. Palpable posterior tibialis and dorsalis pedis pulse in right foot. Left popliteal pulse weak but present. Left foot is perfusing with delayed capillary refill and light erythema to forefoot. Left 5th toe necrotic on anterior medial aspect with granulation tissue surrounding. Skin: Normal temperature, turgor, and texture; no rash, ulcers, or subcutaneous nodules appreciated. Neurological: Cranial nerves grossly intact. Psychiatric: Normal mood and affect. Alert and oriented to person, place, and time. Objective Labs Result Diagrams: 11/10/18 04:49 11/10/18 04:49 Labs: Laboratory Results - last 24 hr 11/10/18 11/10/18 11/10/18 04:49 04:49 04:49 WBC 7.4 RBC 4.14 L Hgb 12.4 L Hct 35.8 L MCV 86.6 MCH 29.8 MCHC 34.5 RDW 14.0 Plt Count 190 Neut % (Auto) 72.3 Lymph % (Auto) 16.9 L [place] % (Auto) 7.2 Eos % (Auto) 3.1 Baso % (Auto) 0.5 Neut # (Auto) 5400 Lymph # (Auto) 1200 [place] # (Auto) 500 Eos # (Auto) 200 Baso # (Auto) 0 Sodium 137 Potassium 4.3 Chloride 104 Carbon Dioxide 25 BUN 17 Creatinine 0.90 Estimated GFR > 60.0 BUN/Creatinine Ratio 18.9 Glucose 229 H Calcium 9.0 Magnesium 1.5 L Procalcitonin 0.13 Vancomycin Trough 11/10/18 08:25 WBC RBC Hgb Hct MCV MCH MCHC RDW Plt Count Neut % (Auto) Lymph % (Auto) [place] % (Auto) Eos % (Auto) Baso % (Auto) Neut # (Auto) Lymph # (Auto) [place] # (Auto) Eos # (Auto) Baso # (Auto) Sodium Potassium Chloride Carbon Dioxide BUN Creatinine Estimated GFR BUN/Creatinine Ratio Glucose Calcium Magnesium Procalcitonin Vancomycin Trough 19.8 Assessment & Plan Assessment & Plan narrative: Grady Watson is a 58-year-old male with a past medical history significant for coronary artery disease status post CABG x5, hypertension, hyperlipidemia, and diabetes mellitus type 2, non-insulin using, with complication of neuropathy who presented to [facility] feeling generally weak as if his legs are going to give out and shaky. 1. Acute diabetic foot wound, present on admission. Active. -Patient developed left 5th toe wound due to new pair of shoes. -Wound culture of foot growing Staphylococcus and enterococcus with . -Continue Zosyn 3.375 g every 8 hr and vancomycin with dosing per pharmacist for double gram negative and anaerobic coverage. -Continue pain management with hydrocodone 5-10 mg every 4 hr as needed for pain. -Ordered surgical consult and we appreciate their time and management of the patient. -Ordered wound care consult and we appreciate their time and management of the patient -Ordered IR guided left angiogram with angioplasty and possible stent placement tomorrow at [facility] which he will transfer there for and then back. 2. Peripheral arterial disease, chronic, present on admission. Active. -CTA with runoff of left lower extremity demonstrates high-grade stenosis of anterior-posterior tibial arteries. ROSMERY normal bilaterally. -Plan to transfer patient for IR guided angioplasty with possible stenting, pending. 3. Diabetes mellitus type 2, non-insulin using, with complication of diabetic neuropathy and diabetic foot wound, present on admission. Active and uncontrolled. -Hemoglobin A1c 11.1% reflective of poor glycemic control. -Continued gabapentin 100 mg 3 times daily for diabetic neuropathy. -Held metformin. -Continue Lantus 10 units daily at bedtime. -Ordered low-dose correctional scale insulin. 4. Coronary artery disease, present on admission. Presumed stable. -Continue cardiac medications including: aspirin 81 mg daily, atorvastatin 40 mg daily, and lisinopril 40 mg daily. 5. Hypertension, chronic, present on admission. Stable. -Continue lisinopril and held chlorthalidone as above. 6. Hyperlipidemia, chronic, present on admission. Stable. -Continue atorvastatin as above. 7. Chronic alcohol use, present on admission. Stable. -Discussed cutting back on alcohol consumption or abstaining altogether. -Patient consumes at least 2 beers per night if not more. -Patient denies history of alcohol withdrawal including seizures and DTs. Disposition: Patient likely to transfer for IR guided angioplasty and possible stenting of left lower extremity tomorrow for better perfusion and healing. Patient is homeless and has no PCP with uncontrolled diabetes likely needing long-term insulin for which we continue to work with DENTAL OFFICE ASSISTANT to find a solution. Quality VTE Deep Vein Thrombosis/Pulmonary Embolism Present on Admission: No
--- NOTE | 2018-11-10 14:26 | P.PN_ITS ---
Subjective Date Patient Seen: 11/10/18 Time Patient Seen: 14:23 Interval history: Patient has had no acute events overnight. However, the patient is currently in respiratory isolation being evaluated for possible tuberculosis. Current evaluation is done mainly with the chart and the nurses reports. I did not enter the room today. Exam Vital Signs (past 8 hours): - 11/10/18 07:30 11/10/18 08:09 11/10/18 11:45 Temperature 98.1 F 99.1 F Pulse Rate 84 77 Respiratory Rate 16 14 Blood Pressure 115/74 147/94 H Pulse Oximetry 96 96 100 Oxygen Delivery Method Room Air Oxygen Flow Rate 0 Narrative Exam Narrative: Deferred Nursing staff at just change the dressing of the left foot Objective Labs Result Diagrams: 11/10/18 04:49 11/10/18 04:49 Labs: Laboratory Results - last 24 hr 11/10/18 11/10/18 11/10/18 04:49 04:49 04:49 WBC 7.4 RBC 4.14 L Hgb 12.4 L Hct 35.8 L MCV 86.6 MCH 29.8 MCHC 34.5 RDW 14.0 Plt Count 190 Neut % (Auto) 72.3 Lymph % (Auto) 16.9 L [place] % (Auto) 7.2 Eos % (Auto) 3.1 Baso % (Auto) 0.5 Neut # (Auto) 5400 Lymph # (Auto) 1200 [place] # (Auto) 500 Eos # (Auto) 200 Baso # (Auto) 0 Sodium 137 Potassium 4.3 Chloride 104 Carbon Dioxide 25 BUN 17 Creatinine 0.90 Estimated GFR > 60.0 BUN/Creatinine Ratio 18.9 Glucose 229 H Calcium 9.0 Magnesium 1.5 L Procalcitonin 0.13 Vancomycin Trough 11/10/18 08:25 WBC RBC Hgb Hct MCV MCH MCHC RDW Plt Count Neut % (Auto) Lymph % (Auto) [place] % (Auto) Eos % (Auto) Baso % (Auto) Neut # (Auto) Lymph # (Auto) [place] # (Auto) Eos # (Auto) Baso # (Auto) Sodium Potassium Chloride Carbon Dioxide BUN Creatinine Estimated GFR BUN/Creatinine Ratio Glucose Calcium Magnesium Procalcitonin Vancomycin Trough 19.8 Assessment & Plan Assessment & Plan narrative: 58-year-old male with significant peripheral vascular disease including at least 2 vessels in the tibioperoneal trunk. He has single-vessel runoff. By report the 5th toe is currently viable and does not require immediate amputation. Reiterate recommendation for possible revascularization procedure either through interventional radiology versus open vascular surgery. The services are not available at this institution. Patient requires transfer, and arrangements are being made per the internal medicine service. We will be available for the remainder of his hospital stay prior to transfer if he has any acute changes. Quality VTE Deep Vein Thrombosis/Pulmonary Embolism Present on Admission: No
[2018-11-10 16:34] LABS: Mitogen-NIL 7.08 IU/mL; NIL 0.01 IU/mL; QuantiFERON TB NEGATIVE (Negative); TB1-NIL < 0.01 IU/mL; TB2-NIL 0.01 IU/mL
--- NOTE | 2018-11-10 17:10 | P.CONS_ITS ---
History of Present Illness Date Patient Seen: 11/10/18 Time Patient Seen: 12:45 Chief complaint: left lower leg and feet swelling, states infected Reason for consult: Evaluate L DFU Requesting provider: Consuelo Michaels Narrative: Patient is a 58-year-old male with significant history of CAD, new diagnosis of LLE PAD, and poorly-controlled diabetes mellitus type 2 complicated by neuropathy who developed a L foot, medial digit #5, necrotic ulceration with associated L foot cellulitis. He believes this started as a result of poorly-f itting footwear. He reports erythema and swelling of his L forefoot and midfoot. He reports burning/aching pain of his L foot radiating proximally into the leg, worsened by standing and improved with elevation. He denies any symptoms compatible with claudication. [facility] Medical History History of seizure (Acute) Amputated toe (Acute) CAD (coronary artery disease) (Acute) Diabetes (Acute) Diabetic neuropathy (Acute) HTN (hypertension) (Acute) Hyperlipidemia (Acute) Osteomyelitis (Acute) Surgical History H/O carpal tunnel repair (Acute) Hx of CABG (Acute) Family History Mother Heart attack Diabetes mellitus Brother CAD (coronary artery disease) Hx of CABG Father Medical history unknown Sister In good health Social History household members: none and other Smoking Status: Never smoker alcohol intake: current Family History Mother Heart attack Diabetes mellitus Brother CAD (coronary artery disease) Hx of CABG Father Medical history unknown Sister In good health Social History household members: none and other Smoking Status: Never smoker alcohol intake: current Meds Home Medications Medication Instructions Recorded Confirmed Type atorvastatin 40 mg PO DAILY 10/01/18 11/07/18 History gabapentin 100 mg PO TID 10/01/18 11/07/18 History lisinopril 40 mg PO DAILY 10/01/18 11/07/18 History metformin 1,000 mg PO BID #60 tab 10/02/18 11/07/18 Rx aspirin [Aspir-81] 81 mg PO DAILY #30 tab 11/05/18 11/07/18 Rx cephalexin 500 mg PO QID 14 Days #56 cap 11/05/18 11/07/18 Rx chlorthalidone 25 mg PO DAILY #30 tab 11/05/18 11/07/18 Rx Allergies Allergy/AdvReac Type Severity Reaction Status Date / Time No Known Drug Allergies Allergy Verified 10/01/18 10:53 Review of Systems Constitutional Constitutional: Denies anorexia, Denies chills, Denies excessive sweating, Denies fatigue, Denies fever(s), Denies malaise, Denies poor appetite and Denies weight loss Cardiovascular Cardiovascular: Reports as per HPI Integumentary/Breasts Skin/Breast: Reports as per HPI and Reports other (+drainage) Endocrine Endocrine: Denies excessive sweating and Denies fatigue Exam Vital Signs (past 8 hours): - 11/10/18 11:45 11/10/18 15:49 11/10/18 16:14 Temperature 99.1 F 98.5 F Pulse Rate 77 88 Respiratory Rate 14 18 Blood Pressure 147/94 H 143/75 H Pulse Oximetry 100 96 99 Oxygen Delivery Method Room Air Oxygen Flow Rate 0 Const General: cooperative, comfortable, well developed and No acute distress Nutritional Appearance: well nourished Orientation: alert, awake and oriented x3 HENMT Ears: hearing grossly normal bilaterally Eyes Sclera: sclerae normal Resp Effort & Inspection: normal respiratory effort Cardio Rate: regular rate Rhythm: regular rhythm Pulses: posterior tibial pulses present on the left 2+ and dopplerable (biphasic), dorsalis pedis present on the left 1+ and dopplerable (biphasic) and other (L peroneal artery dopplerable, biphasic.) Skin General: scars (R volar arm consistent with right radial vein harvest for previous CABG.) Wounds: wounds noted L foot, digit 5, medial size (3.6 cm x 2.5 cm), bed necrotic (wet gangrene), drainage (mild serosanguineous.) other (periulcer and L dorsal foot exhibits increased warmth to palpation, erythema, and mild swelling. The erythema resolves with leg elevation and the foot becomes ruborous with dependency.), margins with surrounding erythema, without odor and with surrounding erythema (Erythema of L foot, 5th toe extending proxmial along dorsum of forefoot (3 cm x 6cm area of erythema) within boundary previously marked. ) Neuro Cognition: normal cognition Speech: speech normal Sensory Exam: other (Loss of protective sensation B feet.) Extrem General: no calf tenderness and amputation noted (R hallux) Psych Mood: congruent mood Affect: normal affect Judgment: judgment good Objective Labs Result Diagrams: 11/10/18 04:49 11/10/18 04:49 Labs: Laboratory Results - last 24 hr 11/08/18 11/10/18 11/10/18 05:00 04:49 04:49 WBC 7.4 RBC 4.14 L Hgb 12.4 L Hct 35.8 L MCV 86.6 MCH 29.8 MCHC 34.5 RDW 14.0 Plt Count 190 Neut % (Auto) 72.3 Lymph % (Auto) 16.9 L [place] % (Auto) 7.2 Eos % (Auto) 3.1 Baso % (Auto) 0.5 Neut # (Auto) 5400 Lymph # (Auto) 1200 [place] # (Auto) 500 Eos # (Auto) 200 Baso # (Auto) 0 Sodium Potassium Chloride Carbon Dioxide BUN Creatinine Estimated GFR BUN/Creatinine Ratio Glucose Calcium Magnesium Procalcitonin 0.13 Vancomycin Trough TB Test (QFT) Nil 0.01 TB Test Mitogen - Nil 7.08 TB Test TB - Nil 0.01 TB Test (QFT) Negative 11/10/18 11/10/18 04:49 08:25 WBC RBC Hgb Hct MCV MCH MCHC RDW Plt Count Neut % (Auto) Lymph % (Auto) [place] % (Auto) Eos % (Auto) Baso % (Auto) Neut # (Auto) Lymph # (Auto) [place] # (Auto) Eos # (Auto) Baso # (Auto) Sodium 137 Potassium 4.3 Chloride 104 Carbon Dioxide 25 BUN 17 Creatinine 0.90 Estimated GFR > 60.0 BUN/Creatinine Ratio 18.9 Glucose 229 H Calcium 9.0 Magnesium 1.5 L Procalcitonin Vancomycin Trough 19.8 TB Test (QFT) Nil TB Test Mitogen - Nil TB Test TB - Nil TB Test (QFT) 11/09/18: Ankle-brachial indices within normal limits bilaterally. 11/08/18: CTA LLE demonstrates high grade stenosis/occlusions at the origin of the anterior and posterior tibial arteries; distal common/proximal superficial femoral artery short segment stenosis with the greatest measuring approximately 50%; runoff vessels extend into the foot/distal calf. 11/07/18: L foot x-ray demonstrates no stefano evidence of osteomyelitis. 11/07/18: Wound swab for culture has grown MSSA and E. faecalis. 10/02/18: A1c 11.1. Assessment & Plan Assessment & Plan narrative: Assessment: 58-year-old male with a wet gangrenous appearing L DFU, medial 5th toe with associated MSSA/Enterococcus faecalis wound infection and cellulitis. Despite negative plain film, I am concerned for the potential of deep structure infection including osteomyelitis. His foot pain is more consistent with inflammation/infection, than vascular insufficiency. Despite hemodynamically significant stenoses demonstrated on CTA, at this time, I am not as urgently concerned about his new diagnosis of PAD as he seems to demonstrate adequate perfusion on exam, as evidenced by palpable L pedal pulses, biphasic waveforms on handheld Doppler, normal ROSMERY, lack of a cold foot, lack of dry gangrene, presence of runoff into the foot on CTA, and subjective improvement with foot elevation/worsening with foot dependency. Plan: 1. Recommend Podiatry consult for evaluation of necrotic L 5th toe/foot pain and consideration of surgical debridement, if appropriate. 2. Recommend MRI of L foot w and w/o contrast to evaluate for any associated deeper infection such as osteomyelitis. 3. Order written for wound dressing ([employer])
[2018-11-10] MEDS: ENOXAPARIN 40 MG/0.4 ML SYRINGE SUBCUT (20:00)
[2018-11-10] MEDS: INSULIN GLARGINE 100 UNIT/ML 3ML PEN 10 UNIT SUBCUT (20:01)
--- NOTE | 2018-11-10 21:40 | PC.NURSE ---
Evening shift note-pt has been sitting up in chair most of the shift. Up independently to bathroom and around room, gait steady. Drsg applied to LF little toe per wound care order, pt tolerated well. Pt has been A&O, calm and cooperative.
[2018-11-11] MEDS: PIPERACILLIN-TAZO 3.375 GM/50 ML FROZ.PIGGY IV (00:01)
[2018-11-11 03:00] VITALS: BP 111/69; PULSE 86; RESP 16; TEMP 36.7; O2SAT 99
[2018-11-11] MEDS: VANCOMYCIN 1,000 MG/200 ML FROZ.PIGGY 200 MG IV ×2 (03:00→21:12)
[2018-11-11] MEDS: SODIUM CHLORIDE 0.9% 250 ML 21 ML IV (03:05)
--- NOTE | 2018-11-11 04:43 | PC.NURSE ---
NOC SHIFT NOTE/ IV site: Patient resting quietly this shift. Patient verbalized complaint of iv site early in shift. States that last nurse flushed it to hard. This RN flushed iv site with no pain voiced by patient. Site intact, iv patent, no burning, no redness. This RN offered to place new iv site if patient requested but patient declined. Antibiotics infused without complaint. Patient aware of transfer to [facility] at 0700 for stent procedure today. Discussed with patient need for new iv site due to site placement 4 days prior. Patient stated that he did not want new iv started and stated can't they just do it over there? referring to [facility]. Patient seemingly agitated with staff this shift stating that he didn't want the interruptions to his sleep. Will continue to monitor.
[2018-11-11 05:37] LABS: Add Manual Diff / Slide Review NO; Basophils Absolute Auto 0 /uL (0-100); Basophils Percent Auto 0.5 % (0-2); Eosinophils Absolute Auto 300 /uL (0-450); Eosinophils Percent Auto 3.3 % (2-4); Hematocrit 41.4 % (41-53); Lymphocytes Absolute Auto 1600 /uL (1100-4500); Lymphocytes Percent Auto 18.2 % (25-40); Mean Corpuscular HGB Conc 33.8 % (30-36); Mean Corpuscular Hemoglobin 29.8 PG (26-34); Monocytes Absolute Auto 600 /uL (0-900); Monocytes Percent Auto 6.3 % (3-14); Neutrophils Absolute Auto 6500 /uL (1500-7000); Neutrophils Percent Auto 71.7 % (50-75); Platelet Count 214 X10^3/uL (150-400); Red Blood Cell Count 4.71 X10^6/uL (4.5-5.9); Red Cell Distribution Width 13.8 % (11.6-14.8); White Blood Cell Count 9.1 X10^3/uL (4.5-11.0)
[2018-11-11] MEDS: HYDROCODONE/ACET 5/325 TABLET 1 TAB PO ×2 (05:42→20:07)
[2018-11-11 05:48] LABS: BUN Creatinine Ratio 15.6 (6-22); Blood Urea Nitrogen 14 mg/dL (9-20); Calcium 9.2 mg/dL (8.4-10.2); Carbon Dioxide 26 mmol/L (22-32); Chloride 99 mmol/L (98-107); Estimated Glomerular Filt Rate > 60.0 mL/min (>60); Glucose 345 mg/dL (70-100); HEMOLYSIS < 15 (0-50); Potassium 4.3 mmol/L (3.4-5.1); Sodium 136 mmol/L (137-145)
[2018-11-11] MEDS: PANTOPRAZOLE 20 MG TABLET PO (06:00)
--- NOTE | 2018-11-11 07:47 | PC.NURSE ---
Report called to [facility] MIHAELA Hubbard RN for patient transfer to [facility] for stent procedure.
--- NOTE | 2018-11-11 12:48 | PC.NURSE ---
JERMAINE Rodriguez at [facility] called unit at 1245 to clarify pt's last vancomycin trough and to verify vancomycin dosing. Also to clarify insulin sliding scale regime. Called her back at [phone] with information.
--- NOTE | 2018-11-11 14:53 | PC.NURSE ---
Did not meet patient today as he left at change of shift for procedure at [facility]. Our pharmacists needs clarification on specific time and dose of vancomycin given at [facility] to schedule vanco trough accordingly.
--- NOTE | 2018-11-11 17:08 | CM.DPC ---
DCP/continued: Attempted to meet with patient 2x today. Patient out of TB precautions. RN reports that patient transferred to [facility] for procedure. Expect patient back later today. P: Pending. Per notes patient homeless. Will attempt COSMETIC ACCOUNT COORDINATOR consult in person with patient prior to discharge to provide community resources. AYESHA Smith
--- NOTE | 2018-11-11 18:34 | P.PN_ITS ---
Subjective Date Patient Seen: 11/11/18 Time Patient Seen: 18:19 Interval history: Follow-up on diabetic foot infection with complication of PA DN high-grade occlusion of anterior and posterior tibial arteries. Patient seen at bedside. He has just returned from [facility], during whic h time he received left lower extremity angioplasty in 2 different areas, with no stent placement. The patient is doing well at this time. He denies any pain. Denies any fevers, chills, nausea, vomiting, diarrhea, constipation. Denies any cough, shortness of breath, chest pain. Exam Vital Signs (past 8 hours): Oxygen Delivery Method Room Air Oxygen Flow Rate 0 Narrative Exam Narrative: General: Patient is in no acute distress, sitting comfortably in the bed. HEENT: Normocephalic, atraumatic. Pupils equal, round, and reactive to light bilaterally. Neck: Supple with full range of motion. No jugular venous distension. No bruits. Cardiovascular: Regular rate and rhythm without murmurs, rubs, or gallops appreciated. Pulmonary: Clear to auscultation bilaterally without crackles, wheezes, or rhonchi. Abdomen: Soft, bowel sounds present, nontender, nondistended. No organomegally. Extremities: No clubbing, cyanosis, or edema. 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 Bandage on left foot that is C/D/I. No palpable pulse in left foot but red and perfusing. Palpable posterior tibialis and dorsalis pedis pulse in right foot. Left popliteal pulse weak but present. Left foot is perfusing with delayed capillary refill and light erythema to forefoot. Left 5th toe necrotic on anterior medial aspect with granulation tissue surrounding. Skin: No bruising or lesions. Star[employer] devise present on LLE Neurological: Cranial nerves grossly intact. No focal deficits. AAO x3. Psychiatric: Normal mood and affect. Alert and oriented to person, place, and time. Able to make his own decisions Objective Labs Result Diagrams: 11/11/18 04:57 11/11/18 04:57 Labs: Laboratory Results - last 24 hr 11/11/18 11/11/18 04:57 04:57 WBC 9.1 RBC 4.71 Hgb 14.0 Hct 41.4 MCV 88.0 MCH 29.8 MCHC 33.8 RDW 13.8 Plt Count 214 Neut % (Auto) 71.7 Lymph % (Auto) 18.2 L [place] % (Auto) 6.3 Eos % (Auto) 3.3 Baso % (Auto) 0.5 Neut # (Auto) 6500 Lymph # (Auto) 1600 [place] # (Auto) 600 Eos # (Auto) 300 Baso # (Auto) 0 Sodium 136 L Potassium 4.3 Chloride 99 Carbon Dioxide 26 BUN 14 Creatinine 0.90 Estimated GFR > 60.0 BUN/Creatinine Ratio 15.6 Glucose 345 H D Calcium 9.2 Assessment & Plan Assessment & Plan narrative: 58-year-old male with a past medical history significant for coronary artery disease status post CABG x5, hypertension, hyperlipidemia, and diabetes mellitus type 2, non-insulin using, with complication of neuropathy who presented to [facility] feeling generally weak as if his legs are going to give out and shaky. 1. Acute diabetic foot wound -Wound culture of foot growing Staphylococcus and enterococcus - MRI Foot revealed: 1. Minimally enhancing fluid collection/phlegmon along the dorsal medial aspect of the fifth digit extending to the fifth metatarsal phalangeal joint. This may correspond to the patient's wound. Ultrasound may be useful for delineation. 2. Early signal alteration in the fifth distal phalanx suggesting early osteomyelitis without definite enhancement. 3. Small fifth MTP joint effusion the close association to the abnormal fifth digit dorsal fluid collection. This is concerning for early synovitis. 4. Cellulitis and subcutaneous edema along the dorsum of the midfoot. -Continue Zosyn 3.375 g every 8 hr and vancomycin with dosing per pharmacist for double gram negative and anaerobic coverage. -Continue pain management with hydrocodone 5-10 mg every 4 hr as needed for pain. -Wound care and surgery on board...will follow up -Podiatry consult pending. 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 Peripheral arterial disease -Patient is s/p IR guided Angioplasty of LLE in 2 different areas but no stent placement -CTA with runoff of left lower extremity showed high-grade stenosis of anterior-posterior tibial arteries. ROSMERY normal bilaterally. -Patient started on Plavix 75mg PO daily at [facility], will continue -Continue ASA 81mg PO Daily 3. Diabetes mellitus type 2 -with complication of diabetic neuropathy and diabetic foot wound -BG this am 345 -Hemoglobin A1c 11.1%, reflective of poor glycemic control. -Continue gabapentin 100 mg 3 times daily for diabetic neuropathy. -Continue Lantus 10 units daily at bedtime and low-dose correctional scale insulin. -Possibly resume metformin prior to discharge 4. Coronary artery disease -Continue cardiac medications including: aspirin 81 mg daily, atorvastatin 40 mg daily, and lisinopril 40 mg daily. 5. Hypertension -BP stable this am -Continue lisinopril -Resume chlorthalidone tomorrow -Continue to monitor 6. Hyperlipidemia -Continue atorvastatin as above. 7. Chronic alcohol use -Discussed cutting back on alcohol consumption or abstaining altogether. -Monitor for withdrawals Disposition: Patient is s/p angioplasty without stenting to LLE. MRI is concerning for OM to L foot. Podiatry consulted, will follow up. Quality VTE Deep Vein Thrombosis/Pulmonary Embolism Present on Admission: No
[2018-11-11 19:35] VITALS: BP 133/92; PULSE 92; RESP 16; TEMP 36.9; O2SAT 96; O2SAT 98
--- NOTE | 2018-11-11 19:54 | PM.PN.1 ---
Subjective Date Patient Seen: 11/11/18 Time Patient Seen: 19:30 Interval history: Interval history: The patient is a 58-year-old male with a past medical history significant for coronary artery disease status post CABG x5, hypertension, hyperlipidemia non insulin type 2 diabetes complicated by neuropathy with development of foot ulcer left 5th toe. The patient is identified anterior posterior tibial high-grade stenosis complicating his condition. Patient was transported to [facility] for angioplasty at 7:00 a.m. this morning and returned 7:30 p.m. The patient is seen at bedside and has no acute distress. He is status post left lower extremity angioplasty in 2 different areas, with no stent placement. He received 1st dose of Plavix 75 mg prior to returning to [facility]. Patient is seen. Supine in bed with head of bed limited to 20?. He he does complain of left foot pain for which he is receiving medication. He has a left groin access which is soft and nontender. He describes it as a constant throbbing sensation following the procedure. He reports no complaints of fever chills, chest pain or shortness of breath, nausea vomiting, diarrhea or constipation. He does note that he experienced burning when voiding following the procedure. Documentation comforting the patient is limited to aftercare instructions is unknown if it was catheterized. Patient denies continuing discomfort. Exam Vital Signs (past 8 hours): - 11/11/18 19:35 Temperature 98.4 F Pulse Rate 92 H Respiratory Rate 16 Blood Pressure 133/92 H Pulse Oximetry 98 Oxygen Delivery Method Room Air Oxygen Flow Rate 0 Narrative Exam Narrative: General: Well developed, well nourished, resting quietly, afebrile and in no acute distress. Skin: Warm, dry, pink HEENT: Normocephalic, PERRLA, no rhinorrhea, oropharynx pink and moist. Neck: Supple, no masses, no JVD Cardiac: Well-healed number median sternotomy scar, regular rate and rhythm, S1-S2 without murmur, gallops or rubs 2+ radial pulse Abdomen: Soft, no tenderness or guarding, normal bowel sounds Extremities: Starclose closure device left groin without bleeding, no hematoma, no ecchymosis, nontender palpation, left foot warmer than right, capillary refill 2 sec, palpable dorsalis pedis pulses bilaterally, hyperemia left foot with trace edema, dressing left 5th toe is clean dry and intact surgical absence right hallux with well-healed scar Neuro: AAOx4, no localizing neurological findings, bilateral neuropathy Psych: Pleasant, appropriate, linear thought, stable mood and congruent affect Objective Labs Result Diagrams: 11/11/18 04:57 11/11/18 04:57 Labs: Laboratory Results - last 24 hr 11/11/18 11/11/18 04:57 04:57 WBC 9.1 RBC 4.71 Hgb 14.0 Hct 41.4 MCV 88.0 MCH 29.8 MCHC 33.8 RDW 13.8 Plt Count 214 Neut % (Auto) 71.7 Lymph % (Auto) 18.2 L [place] % (Auto) 6.3 Eos % (Auto) 3.3 Baso % (Auto) 0.5 Neut # (Auto) 6500 Lymph # (Auto) 1600 [place] # (Auto) 600 Eos # (Auto) 300 Baso # (Auto) 0 Sodium 136 L Potassium 4.3 Chloride 99 Carbon Dioxide 26 BUN 14 Creatinine 0.90 Estimated GFR > 60.0 BUN/Creatinine Ratio 15.6 Glucose 345 H D Calcium 9.2 Assessment & Plan Assessment & Plan narrative: 1. Acute diabetic foot wound -Wound culture of foot growing MSSA and Enterococcus faecalis - MRI Foot completed yesterday found suggestion of early osteomyelitis without definitive enhancement of the 5th distal phalanx, small 5th MTP joint effusion, 5th digit dorsal fluid collection and cellulitis and subcutaneous edema along the dorsum of the midfoot. -at this time will continue Zosyn 3.375 g every 8 hr and vancomycin per pharmacy dosing. -Continue pain management with hydrocodone 5-10 mg every 4 hr as needed for pain. -Wound care following the patient -Spoke with Dr. Ayers regarding the patient who recommended Podiatry consult, consult requested awaiting call back 2. Peripheral arterial disease -CTA with runoff of left lower extremity showed high-grade stenosis of anterior-posterior tibial arteries. ROSMERY normal bilaterally -S/P IR guided Angioplasty of LLE in 2 different areas wtihout stent placement -Patient started on Plavix 75mg PO daily at [facility], will continue -Continue ASA 81mg PO Daily 3. Diabetes mellitus type 2 -with complication of diabetic neuropathy and diabetic foot wound -HgA1c is 11.1%, reflective of poor glycemic control, FSBS upon return this evening is 253 -Continue gabapentin 100 mg 3 times daily for diabetic neuropathy. -lantus is increased to 13 units daily BID and high-dose correctional scale insulin. -Possibly resume metformin prior to discharge 4. Coronary artery disease -No chest pain, shortness of breath. -Continue cardiac medications including: aspirin 81 mg daily, atorvastatin 40 mg daily, and lisinopril 40 mg daily 5. Hypertension -BP stable this today -Continue lisinopril -Resume chlorthalidone tomorrow -Continue to monitor pressures 6. Hyperlipidemia -Continue atorvastatin as above. 7. Chronic alcohol use -Discussed cutting back on alcohol consumption or abstaining altogether. -No withdrawal symptoms, tremors or agitation. Disposition: Patient is s/p angioplasty without stenting to LLE. MRI is concerning for OM to L foot. Podiatry consult pending. Quality VTE Deep Vein Thrombosis/Pulmonary Embolism Present on Admission: No
[2018-11-11] MEDS: INSULIN ASPART 100 UNIT/ML INSULN PEN SUBCUT (20:15)
[2018-11-11] MEDS: GABAPENTIN 100 MG CAPSULE PO (20:17)
[2018-11-11] MEDS: ATORVASTATIN 20 MG TABLET 40 MG PO (20:17)
[2018-11-11] MEDS: ASPIRIN EC 81 MG TABLET PO (20:18)
[2018-11-11] MEDS: LISINOPRIL 20 MG TABLET 40 MG PO (20:18)
[2018-11-11] MEDS: MUPIROCIN 22 GM OINT 1 APPLIC TOP (21:12)
[2018-11-11] MEDS: INSULIN GLARGINE 100 UNIT/ML 3ML PEN 13 UNIT SUBCUT (21:17)
[2018-11-11] MEDS: ENOXAPARIN 40 MG/0.4 ML SYRINGE SUBCUT (21:19)
[2018-11-12] VITALS (9 sets, daily range): BP systolic 100–138; BP diastolic 68–81; PULSE 81–98; RESP 14–17; TEMP 36.7–36.9; O2SAT 96–100
[2018-11-12] MEDS: HYDROCODONE/ACET 5/325 TABLET 1 TAB PO ×2 (00:06→04:09)
[2018-11-12] MEDS: PIPERACILLIN-TAZO 3.375 GM/50 ML FROZ.PIGGY IV ×3 (04:05→12:05)
[2018-11-12] MEDS: VANCOMYCIN 1,000 MG/200 ML FROZ.PIGGY 200 MG IV (04:35)
[2018-11-12 05:31] LABS: Add Manual Diff / Slide Review NO; Basophils Absolute Auto 0 /uL (0-100); Basophils Percent Auto 0.2 % (0-2); Eosinophils Absolute Auto 400 /uL (0-450); Eosinophils Percent Auto 4.4 % (2-4); Hematocrit 37.8 % (41-53); Hemoglobin 12.9 g/dL (13.5-17.5); Lymphocytes Absolute Auto 600 /uL (1100-4500); Lymphocytes Percent Auto 7.2 % (25-40); Mean Corpuscular HGB Conc 34.1 % (30-36); Mean Corpuscular Hemoglobin 29.7 PG (26-34); Mean Corpuscular Volume 87.1 fL (80-100); Monocytes Absolute Auto 500 /uL (0-900); Monocytes Percent Auto 6.3 % (3-14); Neutrophils Absolute Auto 7000 /uL (1500-7000); Neutrophils Percent Auto 81.9 % (50-75); Platelet Count 206 X10^3/uL (150-400); Red Blood Cell Count 4.33 X10^6/uL (4.5-5.9); Red Cell Distribution Width 14.1 % (11.6-14.8); White Blood Cell Count 8.5 X10^3/uL (4.5-11.0)
[2018-11-12 05:39] LABS: Blood Urea Nitrogen 12 mg/dL (9-20); Carbon Dioxide 28 mmol/L (22-32); Chloride 103 mmol/L (98-107); Estimated Glomerular Filt Rate > 60.0 mL/min (>60); Glucose 212 mg/dL (70-100); HEMOLYSIS < 15 (0-50); Potassium 3.9 mmol/L (3.4-5.1); Sodium 141 mmol/L (137-145)
[2018-11-12] MEDS: PANTOPRAZOLE 20 MG TABLET PO (05:40)
--- NOTE | 2018-11-12 06:46 | PC.NURSE ---
Pt groin incision has small red drainage contained in dressing which has not changed since patient arrived back to from [facility].
[2018-11-12] MEDS: GABAPENTIN 100 MG CAPSULE PO ×3 (08:22→21:03)
[2018-11-12] MEDS: CLOPIDOGREL 75 MG TABLET PO (08:22)
[2018-11-12] MEDS: LISINOPRIL 20 MG TABLET 40 MG PO (08:23)
[2018-11-12] MEDS: ASPIRIN EC 81 MG TABLET PO (08:23)
[2018-11-12] MEDS: INSULIN GLARGINE 100 UNIT/ML 3ML PEN 13 UNIT SUBCUT (08:23)
[2018-11-12] MEDS: ATORVASTATIN 20 MG TABLET 40 MG PO (08:23)
[2018-11-12] MEDS: INSULIN ASPART 100 UNIT/ML INSULN PEN SUBCUT ×4 (08:24→21:08)
[2018-11-12] MEDS: MUPIROCIN 22 GM OINT 1 APPLIC TOP (08:25)
--- NOTE | 2018-11-12 10:32 | PC.NURSE ---
patient up in chair this morning, states he is feeling well. Denies pain this morning. Palpable pulse to bilateral feet. Tolerating meals, voiding without difficulty. Call light within reach, patient is steady on feet and up in chair this morning. Urinal within reach. continue to monitor.
--- NOTE | 2018-11-12 12:39 | PC.NURSE ---
Patient reports that he took off dressing to left toe as it wasn't staying on well. Discussed plan with patient that we would reapply dressing per wound care orders. Patient became agitated stating that he didn't need it on, that his toe was dry now and that putting on the dressing was an inconvenience and not needed. Patient instructed to let us know if he's willing to have dressing applied, as well as if he needed any pain medication. patient declined at this time. Call light and urinal within reach, will continue to monitor.
--- NOTE | 2018-11-12 13:51 | PM.PN.1 ---
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 Patient seen at bedside. He is doing well. Denies any pain in his left lower extremity, with exception pain around 5th digit region. Patient states that the numbness and the tingling is now gone and patient is able to feel his left lower extremity. He is status post angioplasty in 2 different areas yesterday, with no stent placement. Denies any fevers, chills, nausea, vomiting, diarrhea, constipation. Denies any cough, shortness of breath, chest pain. Exam Vital Signs (past 8 hours): - 11/12/18 08:23 11/12/18 08:25 11/12/18 11:37 Temperature 98.3 F 98.1 F Pulse Rate 88 92 H Respiratory Rate 14 16 Blood Pressure 138/81 138/81 135/80 Pulse Oximetry 100 97 Oxygen Delivery Method Room Air Oxygen Flow Rate 0 Narrative Exam Narrative: General: Patient is in no acute distress, sitting comfortably in the chair. HEENT: Normocephalic, atraumatic. Pupils equal, round, and reactive to light bilaterally. Neck: Supple with full range of motion. No jugular venous distension. No bruits. Cardiovascular: Regular rate and rhythm without murmurs, rubs, or gallops appreciated. Pulmonary: Clear to auscultation bilaterally without crackles, wheezes, or rhonchi. Abdomen: Soft, bowel sounds present, nontender, nondistended. No organomegally. Extremities: No clubbing, cyanosis, or edema. 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 Bandage on left foot that is C/D/I. Palpable posterior tibialis and dorsalis pedis pulse in both feet. Left 5th toe necrotic on anterior medial aspect with granulation tissue surrounding. Skin: No bruising or lesions. Starclose Titanium dressing in the left groin region Neurological: Cranial nerves grossly intact. No focal deficits. AAO x3. Psychiatric: Normal mood and affect. Alert and oriented to person, place, and time. Able to make his own decisions Objective Labs Result Diagrams: 11/12/18 04:48 11/12/18 04:48 Labs: Laboratory Results - last 24 hr 11/12/18 11/12/18 04:48 04:48 WBC 8.5 RBC 4.33 L Hgb 12.9 L Hct 37.8 L MCV 87.1 MCH 29.7 MCHC 34.1 RDW 14.1 Plt Count 206 Neut % (Auto) 81.9 H Lymph % (Auto) 7.2 L [place] % (Auto) 6.3 Eos % (Auto) 4.4 H Baso % (Auto) 0.2 Neut # (Auto) 7000 Lymph # (Auto) 600 L [place] # (Auto) 500 Eos # (Auto) 400 Baso # (Auto) 0 Sodium 141 Potassium 3.9 Chloride 103 Carbon Dioxide 28 BUN 12 Creatinine 1.00 Estimated GFR > 60.0 BUN/Creatinine Ratio 12.0 Glucose 212 H D Calcium 9.0 Assessment & Plan Assessment & Plan narrative: 58-year-old male with a past medical history significant for coronary artery disease status post CABG x5, hypertension, hyperlipidemia, and diabetes mellitus type 2, non-insulin using, with complication of neuropathy who presented to [facility] feeling generally weak as if his legs are going to give out and shaky. 1. Acute diabetic foot wound with OM -Wound culture of foot growing Staphylococcus and enterococcus - MRI Foot revealed: 1. Minimally enhancing fluid collection/phlegmon along the dorsal medial aspect of the fifth digit extending to the fifth metatarsal phalangeal joint. This may correspond to the patient's wound. Ultrasound may be useful for delineation. 2. Early signal alteration in the fifth distal phalanx suggesting early osteomyelitis without definite enhancement. 3. Small fifth MTP joint effusion the close association to the abnormal fifth digit dorsal fluid collection. This is concerning for early synovitis. 4. Cellulitis and subcutaneous edema along the dorsum of the midfoot. -Switched patient to Levofloxacin 750mg IV Daily, as cultures are sensitive to this antibioitic -Continue pain management with hydrocodone 5-10 mg every 4 hr as needed for pain. -Wound care on board, recommending podiatry evaluation -Podiatry consult pending. Patient will possibly need uniform patrol police officer IV antibiotics 2. Peripheral arterial disease -Patient is s/p IR guided Angioplasty of LLE in 2 different areas but no stent placement -CTA with runoff of left lower extremity showed high-grade stenosis of anterior-posterior tibial arteries. ROSMERY normal bilaterally. -Patient started on Plavix 75mg PO daily at [facility], will continue -Continue ASA 81mg PO Daily 3. Diabetes mellitus type 2 -with complication of diabetic neuropathy and diabetic foot wound -BG this am 212 -Hemoglobin A1c 11.1%, reflective of poor glycemic control. -Continue gabapentin 100 mg 3 times daily for diabetic neuropathy. -Will increase Lantus to 15U BID andcontinue low-dose correctional scale insulin. -Possibly resume metformin prior to discharge 4. Coronary artery disease -Continue cardiac medications including: aspirin 81 mg daily, atorvastatin 40 mg daily, and lisinopril 40 mg daily. 5. Hypertension -BP stable this am -Continue lisinopril and Resume chlorthalidone -Continue to monitor 6. Hyperlipidemia -Continue atorvastatin as above. 7. Chronic alcohol use -Discussed cutting back on alcohol consumption or abstaining altogether. -Monitor for withdrawals Disposition: Patient is s/p angioplasty without stenting to LLE. MRI is concerning for OM to L foot. Podiatry consulted, will follow up. Quality VTE Deep Vein Thrombosis/Pulmonary Embolism Present on Admission: No
--- NOTE | 2018-11-12 14:00 | P.PN_ITS ---
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 Patient seen at bedside. He is doing well. Denies any pain in his left lower e xtremity, with exception pain around 5th digit region. Patient states that the numbness and the tingling is now gone and patient is able to feel his left lower extremity. He is status post angioplasty in 2 different areas yesterday, with no stent placement. Denies any fevers, chills, nausea, vomiting, diarrhea, constipation. Denies any cough, shortness of breath, chest pain. Exam Vital Signs (past 8 hours): - 11/12/18 08:23 11/12/18 08:25 11/12/18 11:37 Temperature 98.3 F 98.1 F Pulse Rate 88 92 H Respiratory Rate 14 16 Blood Pressure 138/81 138/81 135/80 Pulse Oximetry 100 97 Oxygen Delivery Method Room Air Oxygen Flow Rate 0 Narrative Exam Narrative: General: Patient is in no acute distress, sitting comfortably in the chair. HEENT: Normocephalic, atraumatic. Pupils equal, round, and reactive to light bilaterally. Neck: Supple with full range of motion. No jugular venous distension. No bruits. Cardiovascular: Regular rate and rhythm without murmurs, rubs, or gallops appreciated. Pulmonary: Clear to auscultation bilaterally without crackles, wheezes, or rhonchi. Abdomen: Soft, bowel sounds present, nontender, nondistended. No organomegally. Extremities: No clubbing, cyanosis, or edema. 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 Bandage on left foot that is C/D/I. Palpable posterior tibialis and dorsalis pedis pulse in both feet. Left 5th toe necrotic on anterior medial aspect with granulation tissue surrounding. Skin: No bruising or lesions. Starclose Titanium dressing in the left groin region Neurological: Cranial nerves grossly intact. No focal deficits. AAO x3. Psychiatric: Normal mood and affect. Alert and oriented to person, place, and time. Able to make his own decisions Objective Labs Result Diagrams: 11/12/18 04:48 11/12/18 04:48 Labs: Laboratory Results - last 24 hr 11/12/18 11/12/18 04:48 04:48 WBC 8.5 RBC 4.33 L Hgb 12.9 L Hct 37.8 L MCV 87.1 MCH 29.7 MCHC 34.1 RDW 14.1 Plt Count 206 Neut % (Auto) 81.9 H Lymph % (Auto) 7.2 L [place] % (Auto) 6.3 Eos % (Auto) 4.4 H Baso % (Auto) 0.2 Neut # (Auto) 7000 Lymph # (Auto) 600 L [place] # (Auto) 500 Eos # (Auto) 400 Baso # (Auto) 0 Sodium 141 Potassium 3.9 Chloride 103 Carbon Dioxide 28 BUN 12 Creatinine 1.00 Estimated GFR > 60.0 BUN/Creatinine Ratio 12.0 Glucose 212 H D Calcium 9.0 Assessment & Plan Assessment & Plan narrative: 58-year-old male with a past medical history significant for coronary artery disease status post CABG x5, hypertension, hyperlipidemia, and diabetes mellitus type 2, non-insulin using, with complic ation of neuropathy who presented to [facility] feeling generally weak as if his legs are going to give out and shaky. 1. Acute diabetic foot wound with OM -Wound culture of foot growing Staphylococcus and enterococcus - MRI Foot revealed: 1. Minimally enhancing fluid collection/phlegmon along the dorsal medial aspect of the fifth digit extending to the fifth metatarsal phalangeal joint. This may correspond to the patient's wound. Ultrasound may be useful for delineation. 2. Early signal alteration in the fifth distal phalanx suggesting early osteomyelitis without definite enhancement. 3. Small fifth MTP joint effusion the close association to the abnormal fifth digit dorsal fluid collection. This is concerning for early synovitis. 4. Cellulitis and subcutaneous edema along the dorsum of the midfoot. -Switched patient to Levofloxacin 750mg IV Daily, as cultures are sensitive to this antibioitic -Continue pain management with hydrocodone 5-10 mg every 4 hr as needed for pain. -Wound care on board, recommending podiatry evaluation -Podiatry consult pending. Patient will possibly need software sales IV antibiotics 2. Peripheral arterial disease -Patient is s/p IR guided Angioplasty of LLE in 2 different areas but no stent placement -CTA with runoff of left lower extremity showed high-grade stenosis of anterior- posterior tibial arteries. ROSMERY normal bilaterally. -Patient started on Plavix 75mg PO daily at [facility], will continue -Continue ASA 81mg PO Daily 3. Diabetes mellitus type 2 -with complication of diabetic neuropathy and diabetic foot wound -BG this am 212 -Hemoglobin A1c 11.1%, reflective of poor glycemic control. -Continue gabapentin 100 mg 3 times daily for diabetic neuropathy. -Will increase Lantus to 15U BID andcontinue low-dose correctional scale insulin. -Possibly resume metformin prior to discharge 4. Coronary artery disease -Continue cardiac medications including: aspirin 81 mg daily, atorvastatin 40 mg daily, and lisinopril 40 mg daily. 5. Hypertension -BP stable this am -Continue lisinopril and Resume chlorthalidone -Continue to monitor 6. Hyperlipidemia -Continue atorvastatin as above. 7. Chronic alcohol use -Discussed cutting back on alcohol consumption or abstaining altogether. -Monitor for withdrawals Disposition: Patient is s/p angioplasty without stenting to LLE. MRI is concerning for OM to L foot. Podiatry consulted, will follow up. Quality VTE Deep Vein Thrombosis/Pulmonary Embolism Present on Admission: No
[2018-11-12] MEDS: levoFLOXacin 750 MG/150 ML PIGGYBACK 100 MG IV (14:02)
[2018-11-12] MEDS: HYDROCODONE/ACET 5/325 TABLET 2 TAB PO ×2 (15:40→21:18)
--- NOTE | 2018-11-12 19:49 | PM.CN ---
History of Present Illness Date Patient Seen: 11/12/18 Time Patient Seen: 19:49 Chief complaint: left lower leg and feet swelling, states infected Reason for consult: Left fifth toe wound, possible surgery needed Requesting provider: Naomi Carlin Narrative: 58-year-old diabetic male is seen on consultation from Dr. Carlin with concern of wound to the left 5th toe. He presented to the emergency room on the 05 of November after noticing a pair of ill-fitting shoes created a blister or wound to the foot. He was treated with antibiotics and presented on the with an elevated white count increasing redness and swelling and was admitted for stabilization. Since his admission his white count has been reduced and within normal limits and he underwent left lower extremity angioplasty in 2 locations but without stent placement. He relates noticing he has a little more sensation in the foot and the foot feels less swollen to him. He has very little sensation to the foot so did not know the extent of the wound when it happened. There is question of possible bone infection with a workup of an MRI. He has previously had infection on the right great toe with subsequent amputation. [facility] Medical History History of seizure (Acute) Amputated toe (Acute) CAD (coronary artery disease) (Acute) Diabetes (Acute) Diabetic neuropathy (Acute) HTN (hypertension) (Acute) Hyperlipidemia (Acute) Osteomyelitis (Acute) Surgical History H/O carpal tunnel repair (Acute) Hx of CABG (Acute) Family History Mother Heart attack Diabetes mellitus Brother CAD (coronary artery disease) Hx of CABG Father Medical history unknown Sister In good health Social History household members: none and other Smoking Status: Never smoker alcohol intake: current Family History Mother Heart attack Diabetes mellitus Brother CAD (coronary artery disease) Hx of CABG Father Medical history unknown Sister In good health Social History household members: none and other Smoking Status: Never smoker alcohol intake: current Meds Home Medications Medication Instructions Recorded Confirmed Type atorvastatin 40 mg PO DAILY 10/01/18 11/07/18 History gabapentin 100 mg PO TID 10/01/18 11/07/18 History lisinopril 40 mg PO DAILY 10/01/18 11/07/18 History metformin 1,000 mg PO BID #60 tab 10/02/18 11/07/18 Rx aspirin [Aspir-81] 81 mg PO DAILY #30 tab 11/05/18 11/07/18 Rx cephalexin 500 mg PO QID 14 Days #56 cap 11/05/18 11/07/18 Rx chlorthalidone 25 mg PO DAILY #30 tab 11/05/18 11/07/18 Rx Allergies Allergy/AdvReac Type Severity Reaction Status Date / Time No Known Drug Allergies Allergy Verified 10/01/18 10:53 Exam Vital Signs (past 8 hours): - 11/12/18 15:00 11/12/18 16:06 Temperature 98.4 F Pulse Rate 92 H Respiratory Rate 17 Blood Pressure 116/71 Pulse Oximetry 96 98 Oxygen Delivery Method Room Air Oxygen Flow Rate 0 Const Orientation: alert and oriented x3 Resp Effort & Inspection: normal respiratory effort Extrem Right lower extremity: foot (Status post hallux amputation.) Details: vascular exam Details: abnormal capillary refill and coolness Left lower extremity: foot Details: warmth (Warmth in the area of the 5th toe with some local erythema at the digit and around the sulcus.), crepitus (No crepitus) and vascular exam (Posterior tibial pulse is faintly present at 1/4, dorsalis pedis pulse is nonpalpable but under Doppler examination, biphasic) Other: Wound present on the 5th toe appears to be without any purulence or malodor. The nail is split and on but attached with some blistering where the wound has been. There is more breakdown on the medial aspect going into the interspace but the interspace itself does not appear to be open. No exposed bone and the toe itself does not appear cool. The skin of the foot has a brawny notice and it is a little cooler going laterally than medially. No other wound is noted on the foot and no bogginess on direct palpation of the toe. Objective Imaging Left foot x-ray: My impression: Three views of left foot nonweightbearing on 11/07/2018 show no gas in the tissues, no acute cortical disruptions or periosteal elevation. MRI left foot: My impression: MRI performed on 11/10/2018 of the left foot: Minimally enhancing fluid collection along the dorsal medial 5th digit extending to the 5th MTPJ. Early signal as alteration in the 5th distal phalanx suggest possible early osteomyelitis but no definite enhancement. Small 5th MTPJ effusion in close association to the 5th toe dorsal fluid collection concerning for early synovitis Labs Result Diagrams: 11/12/18 04:48 11/12/18 04:48 Labs: Laboratory Results - last 24 hr 11/12/18 11/12/18 04:48 04:48 WBC 8.5 RBC 4.33 L Hgb 12.9 L Hct 37.8 L MCV 87.1 MCH 29.7 MCHC 34.1 RDW 14.1 Plt Count 206 Neut % (Auto) 81.9 H Lymph % (Auto) 7.2 L [place] % (Auto) 6.3 Eos % (Auto) 4.4 H Baso % (Auto) 0.2 Neut # (Auto) 7000 Lymph # (Auto) 600 L [place] # (Auto) 500 Eos # (Auto) 400 Baso # (Auto) 0 Sodium 141 Potassium 3.9 Chloride 103 Carbon Dioxide 28 BUN 12 Creatinine 1.00 Estimated GFR > 60.0 BUN/Creatinine Ratio 12.0 Glucose 212 H D Calcium 9.0 Assessment & Plan Assessment & Plan narrative: Left fifth toe wound with peripheral arterial disease, diabetic with peripheral neuropathy; possible osteomyelitis -Wound and toe appear stable and erythema and edema appears to have receded from initial presentation -MRI findings coupled with exam of toe are only of mild to moderate suspicion for osteomyelitis at this time, and x-rays not showing signs at this time. -With wound present and road ahead to recovery of wound, amputation of the digit was reviewed. But concern of the need for this versus the potential for ability to heal is realistic and I discussed the concern over adequate vascularization with patient. Based on the recent attempt at arthroplasty yesterday and his already feeling like there has been some improvement, plus his former surgeon and physicians at the [facility], my suggestion was to transfer him there, and that was also his wish. He would be closer to the vascular surgeon to potentially have access. However there is not an available bed for him there, and his needs are not emergent. -Discussed with Dr. Carlin that he continue receiving the iv abx (Levaquin currently) and perform daily dressing changes and inspection of wound. We may see a recovery and improvement with the recent revasc attempt somewhat. I will be away for 48 hours and he will be followed by medicine. If there is still a need, I will see him on Friday when I return and reassess the need for amputation versus biopsy versus transfer due to vascular need. Certainly if worsens prior to my return then emergent transfer was also discussed. Patient also voiced understanding and agrees with plan. Thank you for this consultation.
[2018-11-12] MEDS: ENOXAPARIN 40 MG/0.4 ML SYRINGE SUBCUT (21:03)
[2018-11-12] MEDS: INSULIN GLARGINE 100 UNIT/ML 3ML PEN 15 UNIT SUBCUT (21:08)
[2018-11-13] VITALS (8 sets, daily range): BP systolic 110–156; BP diastolic 64–97; PULSE 83–89; RESP 15–18; TEMP 36.8–36.9; O2SAT 96–98
[2018-11-13] MEDS: PANTOPRAZOLE 20 MG TABLET PO (05:55)
[2018-11-13] MEDS: HYDROCODONE/ACET 5/325 TABLET 1 TAB PO ×2 (06:00→18:37)
[2018-11-13 06:09] LABS: Add Manual Diff / Slide Review NO; Basophils Absolute Auto 0 /uL (0-100); Basophils Percent Auto 0.1 % (0-2); Eosinophils Absolute Auto 500 /uL (0-450); Eosinophils Percent Auto 6.3 % (2-4); Hematocrit 36.7 % (41-53); Hemoglobin 12.5 g/dL (13.5-17.5); Lymphocytes Absolute Auto 1100 /uL (1100-4500); Lymphocytes Percent Auto 12.6 % (25-40); Mean Corpuscular HGB Conc 34.1 % (30-36); Mean Corpuscular Hemoglobin 29.7 PG (26-34); Mean Corpuscular Volume 87.1 fL (80-100); Monocytes Absolute Auto 700 /uL (0-900); Monocytes Percent Auto 8.4 % (3-14); Neutrophils Absolute Auto 6200 /uL (1500-7000); Neutrophils Percent Auto 72.6 % (50-75); Platelet Count 196 X10^3/uL (150-400); Red Blood Cell Count 4.21 X10^6/uL (4.5-5.9); Red Cell Distribution Width 14.2 % (11.6-14.8); White Blood Cell Count 8.5 X10^3/uL (4.5-11.0)
[2018-11-13 06:21] LABS: BUN Creatinine Ratio 12.7 (6-22); Blood Urea Nitrogen 14 mg/dL (9-20); Calcium 9.3 mg/dL (8.4-10.2); Carbon Dioxide 29 mmol/L (22-32); Chloride 103 mmol/L (98-107); Estimated Glomerular Filt Rate > 60.0 mL/min (>60); Glucose 221 mg/dL (70-100); HEMOLYSIS < 15 (0-50); Potassium 4.6 mmol/L (3.4-5.1); Sodium 141 mmol/L (137-145)
[2018-11-13] MEDS: LISINOPRIL 20 MG TABLET 40 MG PO (08:59)
[2018-11-13] MEDS: CHLORTHALIDONE 25 MG TABLET PO (08:59)
[2018-11-13] MEDS: ATORVASTATIN 20 MG TABLET 40 MG PO (08:59)
[2018-11-13] MEDS: CLOPIDOGREL 75 MG TABLET PO (08:59)
[2018-11-13] MEDS: ASPIRIN EC 81 MG TABLET PO (08:59)
[2018-11-13] MEDS: GABAPENTIN 100 MG CAPSULE PO ×3 (09:00→20:46)
[2018-11-13] MEDS: INSULIN ASPART 100 UNIT/ML INSULN PEN SUBCUT ×4 (09:01→20:46)
[2018-11-13] MEDS: INSULIN GLARGINE 100 UNIT/ML 3ML PEN 15 UNIT SUBCUT (09:02)
--- NOTE | 2018-11-13 10:15 | PM.PN.1 ---
Subjective Date Patient Seen: 11/13/18 Time Patient Seen: 10:15 Interval history: Follow-up on diabetic foot infection with complication of PAD: high-grade occlusion of anterior and posterior tibial arteries. Patient seen at bedside. He is doing well. No acute overnight events. No pain in his LLE. Seen by Podiatry yesterday. Exam Vital Signs (past 8 hours): - 11/13/18 04:09 11/13/18 07:30 Temperature 98.2 F 98.2 F Pulse Rate 87 87 Respiratory Rate 18 16 Blood Pressure 110/64 125/87 Pulse Oximetry 96 98 Oxygen Delivery Method Room Air Oxygen Flow Rate 0 Narrative Exam Narrative: General: Patient is in no acute distress, sitting comfortably in the chair. HEENT: Normocephalic, atraumatic. Pupils equal, round, and reactive to light bilaterally. Neck: Supple with full range of motion. No jugular venous distension. No bruits. Cardiovascular: Regular rate and rhythm without murmurs, rubs, or gallops appreciated. Pulmonary: Clear to auscultation bilaterally without crackles, wheezes, or rhonchi. Abdomen: Soft, bowel sounds present, nontender, nondistended. No organomegally. Extremities: No clubbing, cyanosis, or edema. 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 Bandage on left foot that is C/D/I. Palpable posterior tibialis and dorsalis pedis pulse in both feet. Left 5th toe necrotic on anterior medial aspect with granulation tissue surrounding. Skin: No bruising or lesions. L 5th toe digit gagnrene as above Neurological: Cranial nerves grossly intact. No focal deficits. AAO x3. Psychiatric: Normal mood and affect. Alert and oriented to person, place, and time. Able to make his own decisions Objective Labs Result Diagrams: 11/13/18 05:17 11/13/18 05:17 Labs: Laboratory Results - last 24 hr 11/13/18 11/13/18 05:17 05:17 WBC 8.5 RBC 4.21 L Hgb 12.5 L Hct 36.7 L MCV 87.1 MCH 29.7 MCHC 34.1 RDW 14.2 Plt Count 196 Neut % (Auto) 72.6 Lymph % (Auto) 12.6 L [place] % (Auto) 8.4 Eos % (Auto) 6.3 H Baso % (Auto) 0.1 Neut # (Auto) 6200 Lymph # (Auto) 1100 [place] # (Auto) 700 Eos # (Auto) 500 H Baso # (Auto) 0 Sodium 141 Potassium 4.6 Chloride 103 Carbon Dioxide 29 BUN 14 Creatinine 1.10 Estimated GFR > 60.0 BUN/Creatinine Ratio 12.7 Glucose 221 H Calcium 9.3 Assessment & Plan Assessment & Plan narrative: 58-year-old male with a past medical history significant for coronary artery disease status post CABG x5, hypertension, hyperlipidemia, and diabetes mellitus type 2, non-insulin using, with complication of neuropathy who presented to [facility] with R 5th foot digit OM and PAD. 1. Acute diabetic foot wound with OM -Wound culture of foot growing Staphylococcus and enterococcus - MRI Foot revealed: 1. Minimally enhancing fluid collection/phlegmon along the dorsal medial aspect of the fifth digit extending to the fifth metatarsal phalangeal joint. This may correspond to the patient's wound. Ultrasound may be useful for delineation. 2. Early signal alteration in the fifth distal phalanx suggesting early osteomyelitis without definite enhancement. 3. Small fifth MTP joint effusion the close association to the abnormal fifth digit dorsal fluid collection. This is concerning for early synovitis. 4. Cellulitis and subcutaneous edema along the dorsum of the midfoot. -Continue Levofloxacin 750mg IV Daily, as cultures are sensitive to this antibioitic -Continue pain management with hydrocodone 5-10 mg every 4 hr as needed for pain. -Wound care on board, recommending podiatry evaluation -Podiatry consulted. Dr. Iraheta evaluated the patient. Recommends to continue IV antibiotics at this time and monitor for improvement. Possible amputation upon her return on November 16. 2. Peripheral arterial disease -Patient is s/p IR guided Angioplasty of LLE in 2 different areas on 11/11/18 but no stent placement -CTA with runoff of left lower extremity showed high-grade stenosis of anterior-posterior tibial arteries. ROSMERY normal bilaterally. -Patient started on Plavix 75mg PO daily at [facility], will continue -Continue ASA 81mg PO Daily 3. Diabetes mellitus type 2 -with complication of diabetic neuropathy and diabetic foot wound -BG this am 221 -Hemoglobin A1c 11.1%, reflective of poor glycemic control. -Continue gabapentin 100 mg 3 times daily for diabetic neuropathy. -Will increase Lantus to 18U BID and continue low-dose correctional scale insulin. -Possibly resume metformin prior to discharge 4. Coronary artery disease -Continue cardiac medications including: aspirin 81 mg daily, atorvastatin 40 mg daily, and lisinopril 40 mg daily. 5. Hypertension -BP stable this am -Continue lisinopril and chlorthalidone -Continue to monitor 6. Hyperlipidemia -Continue atorvastatin as above. 7. Chronic alcohol use -Discussed cutting back on alcohol consumption or abstaining altogether. -Monitor for withdrawals Disposition: Patient is s/p angioplasty without stenting to LLE. MRI is concerning for OM to L foot. Podiatry consulted, possible amputation on FridayNovember 16. Meanwhile will continue Levofloxacin IV. Quality VTE Deep Vein Thrombosis/Pulmonary Embolism Present on Admission: No
[2018-11-13] MEDS: levoFLOXacin 750 MG/150 ML PIGGYBACK 100 MG IV (14:48)
[2018-11-13] MEDS: INSULIN GLARGINE 100 UNIT/ML 3ML PEN 18 UNIT SUBCUT (20:44)
[2018-11-13] MEDS: ENOXAPARIN 40 MG/0.4 ML SYRINGE SUBCUT (20:45)
[2018-11-13] MEDS: SODIUM CHLORIDE 0.9% FLUSH 10 ML IV (20:46)
--- NOTE | 2018-11-13 21:56 | PC.NURSE ---
1500- assumed care of pt from outgoing shift. PT awake and alert. Pt uses call light. PT sitting in chair. cooperative with bedside report. pt pleasant. uses call blanco will continue to monitor Pt cooperative and pleasant with staff. pt upset and angry when cottage cheese did not arrive on dinner tray. called down and got him his cottage cheese. Pt moves self in chair. Pt pulses Doppler only to left foot. monophasic sound. and barely a biphasic sound to right pedal pulse. blood sugars much better today. given increased dose of lantus and pt had a tuna fish sandwich after. pt reports that he feels hungry frequently. uses urinal. reports that when he stands to use urinal his left foot turns completely purple and hurts pretty bad to the heel portion (mostly because this is all he can feel at this time) discussed with pt diabetes monitoring, foot inspections and pt cooperative and appreciated teaching. will continue to monitor.
[2018-11-14] VITALS (9 sets, daily range): BP systolic 92–141; BP diastolic 46–92; PULSE 84–93; RESP 15–19; TEMP 36.7–37.1; O2SAT 97–99
[2018-11-14] MEDS: HYDROCODONE/ACET 5/325 TABLET 2 TAB PO ×2 (04:56→20:52)
[2018-11-14 05:12] LABS: Add Manual Diff / Slide Review NO; Basophils Absolute Auto 0 /uL (0-100); Basophils Percent Auto 0.3 % (0-2); Eosinophils Absolute Auto 400 /uL (0-450); Eosinophils Percent Auto 3.7 % (2-4); Hematocrit 40.7 % (41-53); Lymphocytes Absolute Auto 1600 /uL (1100-4500); Lymphocytes Percent Auto 16.3 % (25-40); Mean Corpuscular HGB Conc 34.3 % (30-36); Mean Corpuscular Hemoglobin 29.7 PG (26-34); Mean Corpuscular Volume 86.5 fL (80-100); Monocytes Absolute Auto 600 /uL (0-900); Monocytes Percent Auto 6.1 % (3-14); Neutrophils Absolute Auto 7400 /uL (1500-7000); Neutrophils Percent Auto 73.6 % (50-75); Platelet Count 236 X10^3/uL (150-400); Red Cell Distribution Width 14.1 % (11.6-14.8); White Blood Cell Count 10.1 X10^3/uL (4.5-11.0)
[2018-11-14 05:27] LABS: BUN Creatinine Ratio 15.5 (6-22); Blood Urea Nitrogen 17 mg/dL (9-20); Calcium 9.6 mg/dL (8.4-10.2); Carbon Dioxide 28 mmol/L (22-32); Chloride 101 mmol/L (98-107); Estimated Glomerular Filt Rate > 60.0 mL/min (>60); Glucose 206 mg/dL (70-100); HEMOLYSIS < 15 (0-50); Potassium 3.8 mmol/L (3.4-5.1); Sodium 139 mmol/L (137-145)
[2018-11-14] MEDS: PANTOPRAZOLE 20 MG TABLET PO (06:27)
[2018-11-14] MEDS: LISINOPRIL 20 MG TABLET 40 MG PO (08:26)
[2018-11-14] MEDS: ATORVASTATIN 20 MG TABLET 40 MG PO (08:26)
[2018-11-14] MEDS: GABAPENTIN 100 MG CAPSULE PO ×3 (08:26→20:52)
[2018-11-14] MEDS: INSULIN ASPART 100 UNIT/ML INSULN PEN SUBCUT ×3 (08:26→17:06)
[2018-11-14] MEDS: CHLORTHALIDONE 25 MG TABLET PO (08:26)
[2018-11-14] MEDS: CLOPIDOGREL 75 MG TABLET PO (08:27)
[2018-11-14] MEDS: ASPIRIN EC 81 MG TABLET PO (08:27)
[2018-11-14] MEDS: INSULIN GLARGINE 100 UNIT/ML 3ML PEN 18 UNIT SUBCUT ×2 (08:27→20:53)
--- NOTE | 2018-11-14 10:22 | P.PN_ITS ---
Subjective Date Patient Seen: 11/14/18 Time Patient Seen: 10:22 Interval history: He is seen today to follow-up his peripheral arterial disease, necrotic dry gangrene of the left small toe and related skin infection of the foot. The CBC and BMP today are normal. The glucose is 206. He tells me that when he puts his foot down it turns purple and as soon as he lifts it up it turns pink again. 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 Exam Vital Signs (past 8 hours): - 11/14/18 04:00 11/14/18 07:00 11/14/18 08:45 Temperature 98.4 F 98.3 F Pulse Rate 90 93 H Respiratory Rate 18 19 Blood Pressure 141/79 H 134/92 H Pulse Oximetry 99 98 98 Oxygen Delivery Method Room Air Oxygen Flow Rate 0 Narrative Exam Narrative: Heart is regular rate and rhythm without murmur. Lungs are clear to auscultation bilaterally. Extremities have no ankle edema. The dressing on the left 5th toe is removed. There is quite a bit of necrotic dry tissue with a lot of flaking skin proximal to that consistent with decreasing swelling and infection. There is a very weak left posterior tibial pulse but no dorsalis pedal pulse that I can feel. Objective Labs Result Diagrams: 11/14/18 04:47 11/14/18 04:47 Labs: Laboratory Results - last 24 hr 11/14/18 11/14/18 04:47 04:47 WBC 10.1 RBC 4.70 Hgb 14.0 Hct 40.7 L MCV 86.5 MCH 29.7 MCHC 34.3 RDW 14.1 Plt Count 236 Neut % (Auto) 73.6 Lymph % (Auto) 16.3 L [place] % (Auto) 6.1 Eos % (Auto) 3.7 Baso % (Auto) 0.3 Neut # (Auto) 7400 H Lymph # (Auto) 1600 [place] # (Auto) 600 Eos # (Auto) 400 Baso # (Auto) 0 Sodium 139 Potassium 3.8 Chloride 101 Carbon Dioxide 28 BUN 17 Creatinine 1.10 Estimated GFR > 60.0 BUN/Creatinine Ratio 15.5 Glucose 206 H Calcium 9.6 Assessment & Plan Assessment & Plan narrative: 1. Acute diabetic foot wound with OM -Wound culture of foot growing Staphylococcus and enterococcus - MRI Foot revealed: 1. Minimally enhancing fluid collection/phlegmon along the dorsal medial aspect of the fifth digit extending to the fifth metatarsal phalangeal joint. This may correspond to the patient's wound. Ultrasound may be useful for delineation. 2. Early signal alteration in the fifth distal phalanx suggesting early osteomyelitis without definite enhancement. 3. Small fifth MTP joint effus ion the close association to the abnormal fifth digit dorsal fluid collection. This is concerning for early synovitis. 4. Cellulitis and subcutaneous edema along the dorsum of the midfoot. -Continue Levofloxacin 750mg IV Daily, as cultures are sensitive to this antibioitic -Continue pain management with hydrocodone 5-10 mg every 4 hr as needed for pain. -Wound care on board -Podiatry consulted. Dr. Iraheta evaluated the patient. Recommends to continue IV antibiotics at this time and monitor for improvement. Possible amputation upon her return on November 16. 2. Peripheral arterial disease -Patient is s/p IR guided Angioplasty of LLE in 2 different areas on 11/11/18 but no stent placement -CTA with runoff of left lower extremity showed high-grade stenosis of anterior- posterior tibial arteries. ROSMERY normal bilaterally. -Patient started on Plavix 75mg PO daily at [facility], will continue -Continue ASA 81mg PO Daily 3. Diabetes mellitus type 2 -with complication of diabetic neuropathy and diabetic foot wound -BG this am 206 -Hemoglobin A1c 11.1%, reflective of poor glycemic control. -Continue gabapentin 100 mg 3 times daily for diabetic neuropathy. -Will continue Lantus 18U BID and continue low-dose correctional scale insulin. -Possibly resume metformin prior to discharge 4. Coronary artery disease -Continue cardiac medications including: aspirin 81 mg daily, atorvastatin 40 mg daily, and lisinopril 40 mg daily. Added Plavix yesterday. 5. Hypertension -BP stable this am -Continue lisinopril and chlorthalidone -Continue to monitor 6. Hyperlipidemia -Continue atorvastatin as above. 7. Chronic alcohol use -Discussed cutting back on alcohol consumption or abstaining altogether. -Monitor for withdrawals Disposition: Patient is s/p angioplasty without stenting to LLE. MRI is concerning for OM to L foot. Podiatry consulted, possible amputation on FridayNovember 16. Meanwhile will continue Levofloxacin IV. Quality VTE Deep Vein Thrombosis/Pulmonary Embolism Present on Admission: No
[2018-11-14] MEDS: SODIUM CHLORIDE 0.9% FLUSH 10 ML IV ×2 (11:32→20:56)
--- NOTE | 2018-11-14 12:36 | PC.NURSE ---
PATIENT COOPERATIVE WITH CARE. UNEVENTFUL SHIFT. SITTING IN RECLINER W/ LEGS ELEVATED SINCE THIS AM. INDEP W/ ACTIVITY. LEFT 5TH DIGIT DRSG REMOVED BY MD DURING HIS ROUNDS THIS AM. APPLIED NEW DRSG PER ORDERS. SEE WOUND DOCUMENTATION IN WORKLIST. TOLERATED WELL.
[2018-11-14] MEDS: levoFLOXacin 750 MG/150 ML PIGGYBACK 100 MG IV (14:53)
--- NOTE | 2018-11-14 15:36 | CM.DPC ---
DCP Cont: Per MD, pt no longer on TB precautions and still on IV-Abx and uncontrolled diabetes. Psychiatric Aides Teacher Consulted with pt on Friday and following and will return on Thursday 11/16 to determine if pt will need toe amputation vs biopsy vs hospital transfer for higher level of care. SW met bedside with pt and explained role and pt confirmed that since he was here in Sep 2018 he had been staying at [facility] and the [facility] is currently closed since the weather has warmed up a little. Pt has a long hx of being homeless and states that he had been living on [place] the [place] without running water or electricity for 10 years before he ended up having to sell it. 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 Pt does not have a vehicle and states he mostly sleeps in the elements and is comfortable with sleeping in his tent in the warmer months and has a local friend that lets him stash his valuables and mediations with her at work to keep them safe. Pt is very aware of housing resources and has been on the waiting list for a long time for housing and has been to the [facility]eless Shel[facility] in [place] and [facility] and he declines going to them as they are usually full this time of year and so much fighting and drug use. Pt is clean and sober and states that homeless area typically are unsafe. Pt recently reinstated with his PW insurance and is agreeable and would like to establish with a PCP and would be willing to call places on Thursday 11/16 when they open for the week while he is waiting for Podiatry to follow. Pt states that he does not have any local family and does have a friend or two but states I've lived here for 17 years and I'm a loner and therefore I do not have many friends and those that I do have I do not like to impose upon and ask if I can crash at their place. Patient frustrated with the lack of affordable housing and resources but states he is working with his [facility] pillowcase folder on getting onto disability due to his previous amputation and medical needs and now possible new toe amputation. Plan: SW to follow closely on Friday to provide PCP list to pt to begin calling to get established with a PCP. SW to follow for Psychiatric Aides Teacher follow up on Friday to determine pt's POC. Pt's homelessness a barrier to discharge planning. AYESHA Beck
[2018-11-14] MEDS: HYDROCODONE/ACET 5/325 TABLET 1 TAB PO (15:54)
[2018-11-14] MEDS: ENOXAPARIN 40 MG/0.4 ML SYRINGE SUBCUT (20:53)
[2018-11-15] VITALS (8 sets, daily range): BP systolic 79–131; BP diastolic 52–78; PULSE 84–109; RESP 14–16; TEMP 36.3–37; O2SAT 96–99
[2018-11-15] MEDS: HYDROCODONE/ACET 5/325 TABLET 2 TAB PO (05:15)
[2018-11-15] MEDS: PANTOPRAZOLE 20 MG TABLET PO (05:15)
[2018-11-15] MEDS: INSULIN ASPART 100 UNIT/ML INSULN PEN SUBCUT ×2 (08:29→12:00)
[2018-11-15] MEDS: INSULIN GLARGINE 100 UNIT/ML 3ML PEN 18 UNIT SUBCUT (08:29)
[2018-11-15] MEDS: GABAPENTIN 100 MG CAPSULE PO (08:30)
[2018-11-15] MEDS: LISINOPRIL 20 MG TABLET 40 MG PO (08:30)
[2018-11-15] MEDS: CLOPIDOGREL 75 MG TABLET PO (08:30)
[2018-11-15] MEDS: CHLORTHALIDONE 25 MG TABLET PO (08:30)
[2018-11-15] MEDS: ASPIRIN EC 81 MG TABLET PO (08:30)
[2018-11-15] MEDS: ATORVASTATIN 20 MG TABLET 40 MG PO (08:30)
[2018-11-15] MEDS: SODIUM CHLORIDE 0.9% FLUSH 10 ML IV (08:31)
--- NOTE | 2018-11-15 09:13 | PM.PN.1 ---
Subjective Date Patient Seen: 11/15/18 Time Patient Seen: 09:14 Interval history: 58-year-old male seen at bedside today for follow-up on his left 5th toe wound. He has had dressing changes daily and feels that it was a little sore the other day but otherwise it has not given him problems. He has kept it clean and dry and denies fevers chills nausea or vomiting. He is getting daily Levaquin dosages. Exam Vital Signs (past 8 hours): - 11/15/18 04:00 11/15/18 07:00 11/15/18 07:15 Temperature 97.9 F 97.3 F L Pulse Rate 96 H 96 H Respiratory Rate 14 16 Blood Pressure 110/66 131/78 Pulse Oximetry 97 96 96 Oxygen Delivery Method Room Air Oxygen Flow Rate 0 Const Orientation: alert, awake and oriented x3 Extrem Left lower extremity: foot Details: warmth and other (Non-palpable DP, but warmth medialy side of foot. Eschar removed from the toe with the flaky skin showing underlying areas that have healed and medially still some wet eschar. The nail was removed with flaky tissue and a little bit of pus around the nail exuded. Toe mod cool, erythema upto [id number].) Objective Labs Result Diagrams: 11/14/18 04:47 11/14/18 04:47 Assessment & Plan Assessment & Plan narrative: With the increased warmth to the area consistent with what appears to be a little bit more blood flow and the Doppler findings of the dorsalis pedis this puts him in a little bit better of an opportunity for recovery for amputation. We had a detailed talk about the 2 main options he can move forward with and I think a lot of this has to do with his social situation. A proposal of amputation of the toe is reviewed, but also potential for partial fifth ray. With that, he would have sutures and need to keep it clean and dry and moving for the majority of the time nonweightbearing. He would be seen for follow-up in my clinic approximately 1 week following the procedure and on a weekly basis in hopes for this continued recovery including suture removal usually around the 2-3 week kathy. However, he still has a very high risk of it failing at that level, and with his social situation, he does not have the ability to get access to Vascular surgery at this time in [place] as an outpatient if it were to fail. He is very concerned about that as well, and we discussed again the option of transfer to location that has Vascular. I spoke with Meghann Onofre MD, at [facility] in [facility] and reviewed his case. She states it's possible that he could get better gauge of healing with digital toe pressures or other modalities they have rather than this location, but this would likely be more to determine level of amputation. Based on his current medical and social situation, I reviewed this with Dr. Desouza as well who is Medical attending today, and he agrees that the transfer would be in a better situation for the patient. [facility] has been interested in transfer if he could better be going the direction of healing to allow his potential to return to work. Dr. Onofre accepted as consult and Dr. Desouza is going to be in touch with hospitalist for transfer accept. Quality VTE Deep Vein Thrombosis/Pulmonary Embolism Present on Admission: No
--- NOTE | 2018-11-15 09:16 | P.PN_ITS ---
Subjective Date Patient Seen: 11/15/18 Time Patient Seen: 09:14 Interval history: 58-year-old male seen at bedside today for follow-up on his left 5th toe wound. He has had dressing changes daily and feels that it was a little sore the other day but otherwise it has not given him problems. He has kept it clean and dry and denies fevers chills nausea or vomiting. He is getting daily Levaquin dosages. Exam Vital Signs (past 8 hours): - 11/15/18 04:00 11/15/18 07:00 11/15/18 07:15 Temperature 97.9 F 97.3 F L Pulse Rate 96 H 96 H Respiratory Rate 14 16 Blood Pressure 110/66 131/78 Pulse Oximetry 97 96 96 Oxygen Delivery Method Room Air Oxygen Flow Rate 0 Const Orientation: alert, awake and oriented x3 Extrem Left lower extremity: foot Details: warmth and other (Non-palpable DP, but warmth medialy side of foot. Eschar removed from the toe with the flaky skin showing underlying areas that have healed and medially still some wet eschar. The nail was removed with flaky tissue and a little bit of pus around the nail exuded. Toe mod cool, erythema upto [id number].) Objective Labs Result Diagrams: 11/14/18 04:47 11/14/18 04:47 Assessment & Plan Assessment & Plan narrative: With the increased warmth to the area consistent with what appears to be a little bit more blood flow and the Doppler findings of the dorsalis pedis this puts him in a little bit better of an opportunity for recovery for amputation. We had a detailed talk about the 2 main options he can move forward with and I think a lot of this has to do with his social situation. A proposal of amputation of the toe is reviewed, but also potential for partial fifth ray. With that, he would have sutures and need to keep it clean and dry and moving for the majority of the time nonweightbearing. He would be seen for follow-up in my clinic approximately 1 week following the procedure and on a weekly basis in hopes for this continued recovery including suture removal usually around the 2-3 week ktahy. However, he still has a very high risk of it failing at that level, and with his social situation, he does not have the ability to get access to Vascular surgery at this time in [place] as an outpatient if it were to fail. He is very concerned about that as well, and we discussed again the option of transfer to location that has Vascular. I spoke with Meghann Onofre MD, at [facility] in [facility] and reviewed his case. She states it's possible that he could get better gauge of healing with digital toe pressures or other modalities they have rather than this location, but this would likely be more to determine level of amputation. Based on his current medical and social situation, I reviewed this with Dr. Desouza as well who is Medical attending today, and he agrees that the transfer would be in a better situation for the patient. [facility] has been interested in transfer if he could better be going the direction of healing to allow his potential to return to [facility]. Dr. Onofre accepted as consult and Dr. Desouza is going to be in touch with hospitalist for transfer accept. Quality VTE Deep Vein Thrombosis/Pulmonary Embolism Present on Admission: No
--- NOTE | 2018-11-15 10:34 | CM.DPC ---
Addendum entered by AYESHA Beck 11/15/18 12:32: ADD: Per website optimization strategist, [facility] willing to accept pt transfer today and discharge order placed in computer for hospital transfer and pt agreeable with plan. Plan: Patient to transfer to [facility] for higher level of care today via ambulance. AYESHA Beck Original Note: DCP Cont: Dr. Iraheta, Plasterer Rough, met bedside with pt and reviewed his wound and she still feels that pt would best benefit from a hospital transfer for higher level of care due to the likely need of amputation of his toe and high likelihood that he would require a Vascular Surgeon due to his low blood circulation. Pt's homelessness and need for ongoing wound/dressing changes in sterile environment, non-weight baring status, and likely IV-Abx increase his risk at d/c. SW discussed the potential for SNF rehab for wound care and IV-Abx if pt cannot be transferred but the barriers of his insurance and homelessness for placement. MD aware and agreeable to this if not transferred. website optimization strategist Agatha agreeable to further discuss transfer options with Dr. Iraheta and currently [facility] is full but [facility] for [facility] to [facility] transfer. Hospitalist and Plasterer Rough working together on safe transfer plan for the pt today. Plan: SW to follow closely to determine if [facility] in [place] can accept the pt transfer for today. AYESHA Beck
[2018-11-15] MEDS: SODIUM CHLORIDE 0.9% 1,000 ML 900 ML IV (11:50)
--- NOTE | 2018-11-15 12:01 | P.DS_ITS ---
History of Present Illness Date Patient Seen: 11/15/18 Chief complaint: left lower leg and feet swelling, states infected Narrative: This is a 58-year-old male patient with a history controlled diabetes, neuropathy, cardiovascular disease status post CABG x5 hypertension, hyperlipidemia, previous osteomyelitis resulting right great toe amputation presents to the ER for bilateral toe ulcers. The patient was seen previously 11/05/2018 in the ER for redness bilateral 5th toes after the patient had purchased shoes that were ill fitting. The patient was subsequently discharged on cephalexin which the patient has been compliant and returns today to worsening wound. The patient states his left 5th toe has become markedly worse in the last 2 days. The right 5th has been unchanged with antibiotic therapy. The patient describes worsening left leg pain up to the knee with foot redness and ankle swelling, fevers and chills and decreased appetite prompting him to present to the ER today. Notably prior to his earlier ER visit patient had been out of medications for 1 week due to a lapse of insurance. The patient had been referred to a PCP following a previous hospitalization for hyperglycemia however has not been able to secure an appointment due to lapse of insurance. The patient notably is homeless and has been staying at the [employer] and showering at the [place]. The patient endorses occasional headaches but no migraines, has had recent orthostatic dizziness but a recent eye exam finding no diabetic eye problems. Denies nasal congestion or sore throat. He has had cough for the last 2 weeks that is dry and nonproductive worsened with deep inspiration but denies chest pain but reports palpitations described as a flutter in his chest. He denies shortness of breath or dyspnea on exertion. He denies abdominal pain, nausea vomiting and reports not having had a bowel movement in 2 days where he typically has a daily stooling habit. Reports nocturia 3-4 times nightly. He has bilateral lower extremity neuropathy to the level of the knees which is at present unchanged. The patient was admitted to the ER at 7:16 p.m and was found to have a low-grade temperature at 99.6?, blood pressure 108/81, tachycardic at 114, respirations 20 and saturating at 100% on room air. Labs were drawn revealing an elevated white blood count at 12.7 and a hemoglobin of 11.9 with hematocrit of 35.6. On chemistry is sodium 135 and a chloride of 96 with a BUN of 32 and a creatinine of 1.2 elevated over his baseline of 0.8 last evaluated 10/02/2018. The patient had a and negative lactate of 1.6 and procalcitonin of 0.22. Blood cultures and wound cultures were obtained and patient subsequently given an initial dose of levofloxacin. The patient is admitted to the hospital for IV antibiotics related to failure of outpatient care. Discharge Providers Date of admission: 11/07/18 19:29 Discharge Date: 11/15/18 Consults: 11/07/18 21:12 Consult to Physician Routine Comment: Consulting Provider: Cordell Luna Reason for consultation: Diabetic ulcer left foot Has provider been notified: Yes 11/09/18 12:26 Consult to Wound Care Routine Comment: Consulting Provider: [facility] 11/11/18 18:48 Consult to Physician Routine Comment: Consulting Provider: Alex Islas Reason for consultation: evaluation of necrotic L 5th toe/foot pain and consideration of surgical de Discharge provider: Los Desouza MD Summary Discharge Diagnosis: 1. Acute diabetic foot wound with OM 2. Peripheral arterial disease 3. Diabetes mellitus type 2 4. Coronary artery disease 5. Hypertension 6. Hyperlipidemia 7. Chronic alcohol use Hospital Course: Per the Podiatry consult today: With the increased warmth to the area consistent with what appears to be a little bit more blood flow and the Doppler findings of the dorsalis pedis this puts him in a little bit better of an opportunity for recovery for amputation. We had a detailed talk about the 2 main options he can move forward with and I think a lot of this has to do with his social situation. A proposal of amputation of the toe is reviewed, but also potential for partial fifth ray. With that, he would have sutures and need to keep it clean and dry and moving for the majority of the time nonweightbearing. He would be seen for follow-up in my clinic approximately 1 week following the procedure and on a weekly basis in hopes for this continued recovery including suture removal usually around the 2-3 week kathy. However, he still has a very high risk of it failing at that level, and with his social situation, he does not have the ability to get access to Vascular surgery at this time in [place] as an outpatient if it were to fail. He is very concerned about that as well, and we discussed again the option of transfer to location that has Vascular. I spoke with Meghann Onofre MD, at [facility] in [facility] and reviewed his case. She states it's possible that he could get better gauge of healing with digital toe pressures or other modalities they have rather than this location, but this would likely be more to determine level of amputation. Based on his current medical and social situation, I reviewed this with Dr. Desouza as well who is Medical attending today, and he agrees that the transfer would be in a better situation for the patient. [facility] has been interested in transfer if he could better be going the direction of healing to allow his potential to return to work. Dr. Onofre accepted as consult and Dr. Desouza is going to be in touch with hospitalist for transfer accept. 1. Acute diabetic foot wound with OM -Wound culture of foot growing MSSA and enterococcus - MRI Foot revealed: 1. Minimally enhancing fluid collection/phlegmon along the dorsal medial aspect of the fifth digit extending to the fifth metatarsal phalangeal joint. This may correspond to the patient's wound. Ultrasound may be useful for delineation. 2. Early signal alteration in the fifth distal phalanx suggesting early osteomyelitis without definite enhancement. 3. Small fifth MTP joint effusion the close association to the abnormal fifth digit dorsal fluid collection. This is concerning for early synovitis. 4. Cellulitis and subcutaneous edema along the dorsum of the midfoot. -Continue Levofloxacin 750mg IV Daily, as cultures are sensitive to this antibiotic. Transfering to [facility] for ongoing care. -Continue pain management with hydrocodone 5-10 mg every 4 hr as needed for pain. -Wound care, General Surgery and Podiatry have all been following. 2. Peripheral arterial disease -Patient is s/p IR guided Angioplasty of LLE in 2 different areas on 11/11/18 but no stent placement -CTA with runoff of left lower extremity showed high-grade stenosis of anterior- posterior tibial arteries. ROSMERY normal bilaterally. -Patient started on Plavix 75mg PO daily at [facility], will continue -Continue ASA 81mg PO Daily -Per D/W Dr. Iraheta and Dr. Onofre will be transferred to [facility] today as discussed with hospitalist Dr. Payton. 3. Diabetes mellitus type 2 -with complication of diabetic neuropathy and diabetic foot wound -BG at times in the 200's -Hemoglobin A1c 11.1%, reflective of poor glycemic control at home. -Continue gabapentin 100 mg 3 times daily for diabetic neuropathy. -Will continue Lantus 18U BID and continue low-dose correctional scale insulin. -Possibly resume metformin prior to discharge 4. Coronary artery disease -Continue cardiac medications including: aspirin 81 mg daily, atorvastatin 40 mg daily, and lisinopril 40 mg daily. Added Plavix 2 days ago. 5. Hypertension -BP stable this am -Continue lisinopril and chlorthalidone -Continue to monitor 6. Hyperlipidemia -Continue atorvastatin as above. 7. Chronic alcohol use -no signs of withdrawal Disposition: The patient turns out to be homeless. He is not particularly interested in intermediate facility placement. Toe amputation is likely to lead to difficulty healing problems given the lack of palpable pulse and the need for improved microvascular flow to ensure healing. Given all these factors podiatry spoke with vascular surgery and the patient will be transferred to [facility] were toe pressures can be obtained prior to amputation and the appropriate level can be decided. The total time today of 50 min Exam Vital Signs (past 8 hours): - 11/15/18 07:00 11/15/18 07:15 Temperature 97.3 F L Pulse Rate 96 H Respiratory Rate 16 Blood Pressure 131/78 Pulse Oximetry 96 96 Oxygen Delivery Method Room Air Oxygen Flow Rate 0 Narrative Exam Narrative: He is alert and oriented x3. He is very pleasant and without distress. Heart is regular rate and rhythm without murmur. Extremities have no ankle edema. The left foot has a very weak posterior tibial pulse and no dorsalis pedal pulse felt. The left small toe area is redder and more necrotic appearing than it looked like yesterday. This discoloration is more proximal on the foot than I had seen yesterday. Objective Labs Result Diagrams: 11/14/18 04:47 11/14/18 04:47 Discharge Plan Discharge Plan Patient Disposition: [facility] Transfer to: [facility] Under care of provider: Dr. Payton and Dr. Dykes Discharge comment: Transfer by BLS for higher level vascular care Discharge Med Rec/Prescriptions Prescriptions: New clopidogrel [Plavix] 75 mg Tablet 75 mg PO DAILY Qty: 1 RF: 0 enoxaparin [Lovenox] 40 mg/0.4 mL Syringe 40 mg subcut BEDTIME Qty: 0.4 RF: 0 Lantus Solostar U-100 Insulin 100 unit/mL (3 mL) Insulin Pen 18 unit subcut BID Qty: 1 RF: 0 Continued atorvastatin 40 mg tablet 40 mg PO DAILY RF: 0 gabapentin 100 mg capsule 100 mg PO TID RF: 0 lisinopril 40 mg tablet 40 mg PO DAILY RF: 0 chlorthalidone 25 mg tablet 25 mg PO DAILY Qty: 30 RF: 0 aspirin [Aspir-81] 81 mg tablet,delayed release (DR/EC) 81 mg PO DAILY Qty: 30 RF: 0 Discontinued metformin 1,000 mg tablet 1,000 mg PO BID Qty: 60 RF: 0 cephalexin 500 mg capsule 500 mg PO QID 14 Days Qty: 56 RF: 0 Discharge Orders: Discharge (Order); Ordered 11/15/18 Ordered By: Los Desouza Discharge Health Status Brief summary of current health status: Needs toe amputation and possibly further vascular procedures. Provider Discharge Instructions Diet: Carb-consistent/Diabetic Discharge Data Attending Provider: Gene Barron Admit Date/Time: 11/07/18 19:29 Quality VTE Deep Vein Thrombosis/Pulmonary Embolism Present on Admission: No
--- NOTE | 2018-11-15 12:37 | PC.NURSE ---
Addendum entered by Shawnee Nguyen R.N. 11/15/18 13:45: report called to Clairtza at [address] med surg floor. Original Note: Addendum entered by Shawnee Nguyen R.N. 11/15/18 13:13: bp 101/63 hr 84 after second 500cc's bolus. md notified. okay to arrange transport. charge nurse notified. Original Note: hypotension: patient's bp 79/53 hr 109 at 1150. patient symptomatic sitting in recliner. reports white haze visually w/ dizziness. patient is afebrile. md notified. ordered 500cc's NS bolus. patient's symptoms cleared but bp remains 87/52 hr 88. md again notified. ordered 500cc ns bolus again. currently hanging and infusing.
[2018-11-15] MEDS: SODIUM CHLORIDE 0.9% 1,000 ML 500 ML IV (12:43)
== END 2018-11-15 14:18 | disposition short-term general hospital (02) | DRG 197 ==
LOC: ED 19:24 → AC 19:31
PROVIDERS: Internal Medicine; Admitting Provider Nurse Practitioner Adult Health; Emergency Provider Emergency Medicine; Visit Provider Nurse Practitioner Adult Health
DX: E11.52 Type 2 diabetes mellitus with diabetic peripheral angiopathy with gangrene (principal); I96 Gangrene, not elsewhere classified; L03.032 Cellulitis of left toe; L89.899 Pressure ulcer of other site, unspecified stage; E11.621 Type 2 diabetes mellitus with foot ulcer; L97.518 Non-pressure chronic ulcer of other part of right foot with other specified severity; E11.65 Type 2 diabetes mellitus with hyperglycemia; E86.0 Dehydration; E11.40 Type 2 diabetes mellitus with diabetic neuropathy, unspecified; Z59.0 Homelessness; I25.10 Atherosclerotic heart disease of native coronary artery without angina pectoris; I10 Essential (primary) hypertension; E78.5 Hyperlipidemia, unspecified; Z72.89 Other problems related to lifestyle
CPT/HCPCS: 36415; 36591; 71046; 73630; 73720; 75635; 80048; 80053; 80061; 80202; 82962; 83605; 83735; 84145; 85025; 85610; 85730; 86480; 87040; 87070; 87075; 87077; 87147; 87186; 87205; 87633; 93005; 93010; 93922; 94762; 96365; 99232; 99283; 99284; A9579; J1650; J1956; J2543; J3370

== ENCOUNTER → 2019-03-17 08:28 | Outpatient (CLI) | payer OTHER, MEDICAID, SELFPAY ==
[2019-03-17 09:23] LABS: Add Manual Diff / Slide Review NO; Basophils Absolute Auto 0 /uL (0-100); Basophils Percent Auto 0.4 % (0-2); Eosinophils Absolute Auto 100 /uL (0-450); Eosinophils Percent Auto 1.1 % (2-4); Hematocrit 40.1 % (41-53); Hemoglobin 13.3 g/dL (13.5-17.5); Lymphocytes Absolute Auto 1000 /uL (1100-4500); Lymphocytes Percent Auto 15.5 % (25-40); Mean Corpuscular HGB Conc 33.3 % (30-36); Mean Corpuscular Hemoglobin 31.1 PG (26-34); Mean Corpuscular Volume 93.4 fL (80-100); Monocytes Absolute Auto 500 /uL (0-900); Monocytes Percent Auto 7.6 % (3-14); Neutrophils Absolute Auto 5000 /uL (1500-7000); Neutrophils Percent Auto 75.4 % (50-75); Platelet Count 141 X10^3/uL (150-400); Red Blood Cell Count 4.29 X10^6/uL (4.5-5.9); Red Cell Distribution Width 17.5 % (11.6-14.8); White Blood Cell Count 6.7 X10^3/uL (4.5-11.0)
[2019-03-17 09:37] LABS: Hemoglobin A1C% w Est Avg Glu 5.7 % (4.0-6.0)
[2019-03-17 09:44] LABS: Alanine Aminotransferase 75 IU/L (21-72); Albumin 4.5 g/dL (3.5-5.0); Albumin Globulin Ratio 1.3 (1.0-2.8); Alkaline Phosphatase 73 U/L (38-126); Aspartate Aminotransferase 90 IU/L (17-59); Bilirubin Total 0.7 mg/dL (0.2-1.3); Blood Urea Nitrogen 21 mg/dL (9-20); Carbon Dioxide 28 mmol/L (22-32); Chloride 103 mmol/L (98-107); Cholesterol 199 mg/dL (140-199); Estimated Glomerular Filt Rate > 60.0 mL/min (>60); Globulin 3.4 g/dL (1.7-4.1); Glucose 151 mg/dL (70-100); HDL Cholesterol 99 mg/dL (40-60); HEMOLYSIS < 15 (0-50); LDL Cholesterol Calculated 78 mg/dL (<100); Sodium 143 mmol/L (137-145); Total Protein 7.9 g/dL (6.3-8.2); Triglycerides 108 mg/dL (35-150); VLDL Cholesterol Calculated 22 mg/dL (2-30)
[2019-03-17 10:43] LABS: Hep C Virus Ab w/Reflex Quant NEGATIVE s/c (NEGATIVE)
== END ==
PROVIDERS: Visit Provider Registered Nurse
DX: E11.9 Type 2 diabetes mellitus without complications (principal); I10 Essential (primary) hypertension
CPT/HCPCS: 36415; 80053; 80061; 83036; 85025; 86803; 87389

== ENCOUNTER → 2019-04-13 07:38 | Outpatient (CLI) | payer OTHER, MEDICAID, SELFPAY ==
[2019-04-13 09:02] LABS: Add Manual Diff / Slide Review NO; Basophils Absolute Auto 0 /uL (0-100); Basophils Percent Auto 0.7 % (0-2); Eosinophils Absolute Auto 100 /uL (0-450); Eosinophils Percent Auto 1.3 % (2-4); Hematocrit 44.3 % (41-53); Hemoglobin 15.1 g/dL (13.5-17.5); Lymphocytes Absolute Auto 600 /uL (1100-4500); Lymphocytes Percent Auto 14.3 % (25-40); Mean Corpuscular Hemoglobin 32.9 PG (26-34); Monocytes Absolute Auto 400 /uL (0-900); Monocytes Percent Auto 9.6 % (3-14); Neutrophils Absolute Auto 3300 /uL (1500-7000); Neutrophils Percent Auto 74.1 % (50-75); Platelet Count 115 X10^3/uL (150-400); Red Blood Cell Count 4.57 X10^6/uL (4.5-5.9); Red Cell Distribution Width 14.7 % (11.6-14.8); White Blood Cell Count 4.5 X10^3/uL (4.5-11.0)
[2019-04-13 09:12] LABS: Alanine Aminotransferase 157 IU/L (21-72); Albumin 4.4 g/dL (3.5-5.0); Albumin Globulin Ratio 1.1 (1.0-2.8); Alkaline Phosphatase 93 U/L (38-126); Aspartate Aminotransferase 143 IU/L (17-59); Bilirubin Total 2.1 mg/dL (0.2-1.3); Blood Urea Nitrogen 15 mg/dL (9-20); Calcium 9.5 mg/dL (8.4-10.2); Carbon Dioxide 32 mmol/L (22-32); Chloride 99 mmol/L (98-107); Cholesterol 228 mg/dL (140-199); Estimated Glomerular Filt Rate > 60.0 mL/min (>60); Globulin 3.9 g/dL (1.7-4.1); Glucose 131 mg/dL (70-100); HDL Cholesterol 99 mg/dL (40-60); HEMOLYSIS < 15 (0-50); LDL Cholesterol Calculated 116 mg/dL (<100); Potassium 4.4 mmol/L (3.4-5.1); Sodium 139 mmol/L (137-145); Total Protein 8.3 g/dL (6.3-8.2); Triglycerides 64 mg/dL (35-150)
[2019-04-13 10:05] LABS: HIV 1 and 2 Antibody NEGATIVE (NEGATIVE); Hep C Virus Ab w/Reflex Quant NEGATIVE s/c (NEGATIVE)
== END ==
PROVIDERS: Visit Provider Registered Nurse
DX: E11.9 Type 2 diabetes mellitus without complications (principal)
CPT/HCPCS: 36415; 80053; 80061; 83036; 85025; 86703; 86803

== ENCOUNTER 2020-02-01 13:42 | Emergency (ER) | payer OTHER, MEDICAID, SELFPAY ==
[2020-02-01] VITALS (10 sets, daily range): BP systolic 93–155; BP diastolic 41–90; PULSE 90–109; RESP 14–22; TEMP 36.5; O2SAT 14–100; BMI 25.0
[2020-02-01 14:16] LABS: Add Manual Diff / Slide Review NO; Basophils Absolute Auto 0 /uL (0-100); Basophils Percent Auto 0.6 % (0-2); Eosinophils Absolute Auto 200 /uL (0-450); Eosinophils Percent Auto 2.8 % (2-4); Hematocrit 38.2 % (41-53); Hemoglobin 13.5 g/dL (13.5-17.5); Lymphocytes Absolute Auto 1700 /uL (1100-4500); Lymphocytes Percent Auto 28.7 % (25-40); Mean Corpuscular HGB Conc 35.4 % (30-36); Mean Corpuscular Hemoglobin 33.3 PG (26-34); Mean Corpuscular Volume 94.1 fL (80-100); Monocytes Absolute Auto 500 /uL (0-900); Neutrophils Absolute Auto 3600 /uL (1500-7000); Neutrophils Percent Auto 59.9 % (50-75); Platelet Count 138 X10^3/uL (150-400); Red Blood Cell Count 4.05 X10^6/uL (4.5-5.9); Red Cell Distribution Width 13.9 % (11.6-14.8); White Blood Cell Count 6.1 X10^3/uL (4.5-11.0)
--- NOTE | 2020-02-01 14:27 | ED_ITS ---
HPI - General Adult General Chief complaint: Toxicology Problem Stated complaint: ETOH Time Seen by Provider: 02/01/20 13:59 Source: patient and EMS Mode of arrival: EMS Limitations: no limitations History of Present Illness HPI narrative: Patient is a 59-year-old male. Brought in by EMS for evaluation after they were called secondary to the patient falling in the middle of the street. Patient does admit to drinking alcohol. He states that he tripped and fell. He states that he did hit his head. There was no loss of consciousness. He states that he could not stand back up because his legs were weak. He states he tried to get to the side of the road but bystanders called EMS. He does report drinking today. Has a longstanding history of alcohol use. He is homeless. He has no complaints upon my evaluation. Related Data Home Medications Medication Instructions Recorded Confirmed atorvastatin 40 mg PO DAILY 10/01/18 11/07/18 gabapentin 100 mg PO TID 10/01/18 11/07/18 lisinopril 40 mg PO DAILY 10/01/18 11/07/18 Previous Rx's Medication Instructions Recorded aspirin [Aspir-81] 81 mg PO DAILY #30 tab 11/05/18 chlorthalidone 25 mg PO DAILY #30 tab 11/05/18 clopidogrel [Plavix] 75 mg PO DAILY #1 tab 11/15/18 enoxaparin [Lovenox] 40 mg SUBCUT BEDTIME #0.4 ml 11/15/18 insulin glargine [Lantus Solostar 18 unit SUBCUT BID #1 ml 11/15/18 U-100 Insulin] Allergies Allergy/AdvReac Type Severity Reaction Status Date / Time No Known Drug Allergies Allergy Verified 02/01/20 13:50 Review of Systems Constitutional Constitutional: Denies fever(s), Denies frequent falls and Denies headache(s) Eyes Eyes: Denies change in vision ENT Ears, Nose, Mouth, and Throat: Denies headache(s) Cardiovascular Cardiovascular: Denies chest pain, Denies palpitations and Denies dyspnea Respiratory Respiratory: Denies dyspnea Gastrointestinal Gastrointestinal: Denies abdominal pain, Denies nausea and Denies vomiting Genitourinary Genitourinary: Denies dysuria Musculoskeletal Musculoskeletal: Denies myalgias and Denies arthralgias Integumentary/Breasts Skin/Breast: Denies lesions and Denies rash Neurologic Neurologic: Denies behavioral changes, Denies confusion, Denies frequent falls and Denies headache(s) Psychiatric Psychiatric: Denies behavioral changes, Denies confusion and Denies depression Endocrine Endocrine: Denies palpitations Hematologic/Lymphatic Hematologic/Lymphatic: Denies easy bleeding and Denies easy bruising Patient History Medical History Amputated toe (Acute) CAD (coronary artery disease) (Acute) Diabetes (Acute) Diabetic neuropathy (Acute) History of seizure (Acute) HTN (hypertension) (Acute) Hyperlipidemia (Acute) Osteomyelitis (Acute) Social History household members: none and other Smoking Status: Never smoker alcohol intake: current Smoking Status: Never smoker alcohol intake frequency: 3 or more drinks per day Alcohol type: hard liquor Substance Use Type: does not use Exam Initial Vital Signs Initial Vital Signs: Vital Signs Temperature 97.7 F 02/01/20 13:53 Pulse Rate 98 H 02/01/20 13:53 Respiratory Rate 15 02/01/20 13:53 Blood Pressure 155/90 H 02/01/20 13:53 Pulse Oximetry 100 02/01/20 13:53 Const General: cooperative and comfortable Limitations: mental status not altered HENMT Head: normal to inspection and normocephalic Resp Effort & Inspection: normal respiratory effort Cardio Rate: regular rate GI Inspection: non-distended Palpation: soft Skin Rashes: no rashes Neuro General: alert, awake and oriented x3 Cognition: normal cognition Speech: abnormal speech (Slurred speech) Extrem General: normal to inspection, capillary refill normal and No edema Psych Appearance: disheveled Course Orders Ordered: ED Orders 02/01/20 14:04 Complete Blood Count AUTO DIFF Stat Comprehensive Metabolic Panel Stat Ethanol (ETOH) Stat Lipase Stat 02/01/20 14:28 Consult to [employer] - [employer] Stat CT head/brain wo con Stat Vital Signs Vital signs: Vital Signs - 8 hr 02/01/20 13:53 02/01/20 15:14 02/01/20 16:03 Temperature 97.7 F Pulse Rate 98 H 90 90 Respiratory Rate 15 15 15 Blood Pressure [Left Arm] 155/90 H 110/68 121/68 Pulse Oximetry 100 92 94 02/01/20 17:29 Temperature Pulse Rate 93 H Respiratory Rate 15 Blood Pressure [Left Arm] 109/41 L Pulse Oximetry 93 Medical Decision Making Lab Data Lab results reviewed: Yes I reviewed the patient's lab results. Result diagrams: 02/01/20 14:04 02/01/20 14:04 Labs: Lab Results 02/01/20 02/01/20 Range/Units 14:04 14:04 WBC 6.1 (4.5-11.0) X10^3/uL RBC 4.05 L (4.5-5.9) X10^6/uL Hgb 13.5 (13.5-17.5) g/dL Hct 38.2 L (41-53) % MCV 94.1 (80-100) fL MCH 33.3 (26-34) PG MCHC 35.4 (30-36) % RDW 13.9 (11.6-14.8) % Plt Count 138 L (150-400) X10^3/uL Neut % (Auto) 59.9 (50-75) % Lymph % (Auto) 28.7 (25-40) % Gage % (Auto) 8.0 (3-14) % Eos % (Auto) 2.8 (2-4) % Baso % (Auto) 0.6 (0-2) % Neut # (Auto) 3600 (0935-5812) /uL Lymph # (Auto) 1700 (9768-6040) /uL Gage # (Auto) 500 (0-900) /uL Eos # (Auto) 200 (0-450) /uL Baso # (Auto) 0 (0-100) /uL Sodium 138 (137-145) mmol/L Potassium 4.4 (3.4-5.1) mmol/L Chloride 100 (98-107) mmol/L Carbon Dioxide 22 (22-32) mmol/L BUN 9 (9-20) mg/dL Creatinine 0.75 (0.66-1.25) mg/dL Estimated GFR > 60.0 (>60) mL/min BUN/Creatinine Ratio 12.0 (6-22) Glucose 130 H (70-100) mg/dL Calcium 9.2 (8.4-10.2) mg/dL Total Bilirubin 0.4 (0.2-1.3) mg/dL AST 115 H (17-59) IU/L ALT 112 H (<50) IU/L Alkaline Phosphatase 61 (38-126) U/L Total Protein 7.8 (6.3-8.2) g/dL Albumin 4.6 (3.5-5.0) g/dL Globulin 3.2 (1.7-4.1) g/dL Albumin/Globulin Ratio 1.4 (1.0-2.8) Lipase 196 (23-300) U/L Ethyl Alcohol 435 H* ( - 10) mg/dL Imaging Data CT scan - head: Radiologist's Impression: [address] [address] [address] Scan Report Signed Patient: Michael Berry OMR#: [id number] : 7Acct:[id number] Age/Sex: 74 / MDate of Service: 02/01/20 Loc: ED Accession Number: [id number] Procedure: CT head/brain wo con Ordering Provider: Michael Donnelly D.O. PROCEDURE: CT HEAD/BRAIN WO CON INDICATIONS: etoh, confusion, fall TECHNIQUE: Noncontrast 4.5 mm thick angled axial sections acquired from the foramen magnum to the vertex, with coronal and sagittal reformats. For radiation dose reduction, the following was used: automated exposure control, adjustment of mA and/or kV according to patient size. COMPARISON: None. FINDINGS: Image quality: Excellent. CSF spaces: Basal cisterns are patent. No extra-axial fluid collections. The ventricles are symmetric in size and shape. Brain: No intracranial bleeds or masses. There is cerebral volume loss for age, with resultant ventricular and sulcal prominence. There are periventricular and deep white matter chronic small vessel ischemic changes. There is intracranial internal carotid artery atherosclerosis. Skull and face: Calvarium and visualized facial bones appear intact, without suspicious lesions. Sinuses: Visualized sinuses and mastoids are clear. IMPRESSION: No acute intracranial process. Dictated by: Kevon Freire M.D. on 02/01/2020 at 12:54 Approved by: Kevon Freire M.D. on 02/01/2020 at 12:57 [facility] Narrative Medical decision making narrative: Head CT unremarkable. Patient does have an elevated alcohol level. Social work consult placed for community services. Kelsey morillo was alert oriented the time of my initial evaluation. Care turned over to Dr. Webster at change of shift to follow up on patient and continued observation until sober. Discharge Plan Departure Patient Disposition: Home Clinical Impression: Alcoholic intoxication Instructions: DI for Alcohol Abuse Activity Restrictions/Additional Instructions: No driving for the next 24 hours or in the future if you partake in alcohol. Recommend that you use the services provided to you by our healthcare social worker. You can return to the emergency department at any point for new or worsening symptoms Prescriptions: No Action atorvastatin 40 mg tablet 40 mg PO DAILY RF: 0 gabapentin 100 mg capsule 100 mg PO TID RF: 0 lisinopril 40 mg tablet 40 mg PO DAILY RF: 0 clopidogrel [Plavix] 75 mg Tablet 75 mg PO DAILY Qty: 1 RF: 0 enoxaparin [Lovenox] 40 mg/0.4 mL Syringe 40 mg subcut BEDTIME Qty: 0.4 RF: 0 Lantus Solostar U-100 Insulin 100 unit/mL (3 mL) Insulin Pen 18 unit subcut BID Qty: 1 RF: 0 chlorthalidone 25 mg tablet 25 mg PO DAILY Qty: 30 RF: 0 aspirin [Aspir-81] 81 mg tablet,delayed release (DR/EC) 81 mg PO DAILY Qty: 30 RF: 0
--- NOTE | 2020-02-01 14:28 | DI.CT.S_ITS ---
PROCEDURE: CT HEAD/BRAIN WO CON INDICATIONS: ETOH with fall TECHNIQUE: Noncontrast 4.5 mm thick angled axial sections acquired from the foramen magnum to the vertex, with coronal and sagittal reformats. For radiation dose reduction, the following was used: automated exposure control, adjustment of mA and/or kV according to patient size. COMPARISON: [facility], CT, SOFT TISSUE NECK W CONTRAST, 06/05/2013, 17:46. FINDINGS: Image quality: Excellent. CSF spaces: Basal cisterns are patent. No extra-axial fluid collections. Ventricles are normal in size and shape. Brain: No midline shift. No intracranial masses or hemorrhage. Valdes-white matter interface is normal. Skull and face: Calvarium and visualized facial bones are intact, without suspicious lesions. Sinuses: Visualized sinuses and mastoids are clear. IMPRESSION: No acute intracranial hemorrhage is seen. No acute intracranial process is seen. Dictated by: Placido Sellers M.D. on 02/01/2020 at 13:46 Approved by: Placido Sellers M.D. on 02/01/2020 at 13:46
[2020-02-01 14:32] LABS: Alanine Aminotransferase 112 IU/L (<50); Albumin 4.6 g/dL (3.5-5.0); Albumin Globulin Ratio 1.4 (1.0-2.8); Alkaline Phosphatase 61 U/L (38-126); Aspartate Aminotransferase 115 IU/L (17-59); Bilirubin Total 0.4 mg/dL (0.2-1.3); Blood Urea Nitrogen 9 mg/dL (9-20); Calcium 9.2 mg/dL (8.4-10.2); Carbon Dioxide 22 mmol/L (22-32); Chloride 100 mmol/L (98-107); Estimated Glomerular Filt Rate > 60.0 mL/min (>60); Globulin 3.2 g/dL (1.7-4.1); Glucose 130 mg/dL (70-100); HEMOLYSIS < 15 (0-50); Lipase 196 U/L (23-300); Potassium 4.4 mmol/L (3.4-5.1); Sodium 138 mmol/L (137-145); Total Protein 7.8 g/dL (6.3-8.2)
[2020-02-01 14:45] LABS: Ethanol (ETOH) 435 mg/dL
--- NOTE | 2020-02-01 15:14 | PC.NURSE ---
given sandwich and kathie rupa
--- NOTE | 2020-02-01 15:51 | PC.NURSE ---
pt ambulated to bathroom with 1 person assist by this EMT. Pt was slightly unsteady but still able to walk with little assistance. Pt complained of being lightheaded when he arrived back in the room. Lights are off, both siderails are up and bed is low to ground. Call light is within reach and pt has no complaints at this time
--- NOTE | 2020-02-01 20:22 | CM.SWNOTE ---
QUALITY ASSURANCE TEST PROGRAM MANAGER note QUALITY ASSURANCE TEST PROGRAM MANAGER consult requested for patient. Patient is a 59 y/o male who presents to ED via EMS after a fall in the street. Patient's ETOH 435 mg/dl upon arrival to ED. Patient is currently experiencing homelessness, has recently lost his mother, and is currently staying in a place not meant for habitation. Patient informs QUALITY ASSURANCE TEST PROGRAM MANAGER that he has been drinking a carton of wine, 4 beers, and multiple shots of rum daily for the past 20 years. Patient states that he is currently isolated, and that alcohol is currently his only comfort. Patient states he is interested in finding a place to live. QUALITY ASSURANCE TEST PROGRAM MANAGER and patient discuss process for getting on housing interest pool through [employer], and QUALITY ASSURANCE TEST PROGRAM MANAGER gives phone number to Dr. Mcmahon to put in d/c plan. Patient and QUALITY ASSURANCE TEST PROGRAM MANAGER complete assessment for alcohol and substance use. Patient worries if he will be able to discontinue his alcohol use, but states he believes that it is bad for him and that he wants something different for his future. Patient open to transfer to detox once he his medically stable. QUALITY ASSURANCE TEST PROGRAM MANAGER updates Dr. Mcmahon and JERMAINE Ha about this. QUALITY ASSURANCE TEST PROGRAM MANAGER called and confirmed that [facility] has open beds. RN will assist patient in making call once patient is medically stable. QUALITY ASSURANCE TEST PROGRAM MANAGER reflects patients drive and expresses hope for patient success to patient. Patient requests support in accessing a new phone. QUALITY ASSURANCE TEST PROGRAM MANAGER provides application for [employer] phone, and patient informs QUALITY ASSURANCE TEST PROGRAM MANAGER that he will fill this out at detox. Plan: Patient to transfer to detox once he is medically stable. AYESHA Kulkrani
--- NOTE | 2020-02-01 20:30 | PC.NURSE ---
Called [facility], Able to do patient interview at this time. Pt on phone with [facility].
[2020-02-01 20:32] LABS: Ethanol (ETOH) 252 mg/dL
--- NOTE | 2020-02-01 22:15 | PC.NURSE ---
Called to follow up with [facility], They asked for chart and dr's notes. Faxed to them at this time.
[2020-02-01] MEDS: LORazepam 0.5 MG TABLET 2 MG PO (23:33)
--- NOTE | 2020-02-02 00:20 | PC.NURSE ---
Pt has been accepted to [place] [facility].
== END 2020-02-01 23:51 | disposition home or self-care (01) ==
PROVIDERS: Emergency Medicine; Emergency Provider Emergency Medicine
DX: F10.129 Alcohol abuse with intoxication, unspecified (principal); Y90.8 Blood alcohol level of 240 mg/100 ml or more; S09.90XA Unspecified injury of head, initial encounter; W19.XXXA Unspecified fall, initial encounter
CPT/HCPCS: 36415; 70450; 80053; 80320; 83690; 85025; 99284

== ENCOUNTER → 2020-07-31 08:45 | Outpatient (CLI) | payer OTHER, MEDICAID, SELFPAY ==
[2020-07-31 09:24] LABS: Add Manual Diff / Slide Review NO; Basophils Absolute Auto 0 /uL (0-100); Basophils Percent Auto 0.5 % (0-2); Eosinophils Absolute Auto 0 /uL (0-450); Eosinophils Percent Auto 0.4 % (2-4); Hematocrit 48.1 % (41-53); Hemoglobin 16.5 g/dL (13.5-17.5); Lymphocytes Absolute Auto 1600 /uL (1100-4500); Lymphocytes Percent Auto 16.5 % (25-40); Mean Corpuscular HGB Conc 34.3 % (30-36); Mean Corpuscular Hemoglobin 33.1 PG (26-34); Mean Corpuscular Volume 96.3 fL (80-100); Monocytes Absolute Auto 800 /uL (0-900); Monocytes Percent Auto 8.6 % (3-14); Neutrophils Absolute Auto 7000 /uL (1500-7000); Platelet Count 242 X10^3/uL (150-400); Red Blood Cell Count 4.99 X10^6/uL (4.5-5.9); Red Cell Distribution Width 13.4 % (11.6-14.8); White Blood Cell Count 9.5 X10^3/uL (4.5-11.0)
[2020-07-31 09:43] LABS: Hemoglobin A1C% w Est Avg Glu 6.4 % (4.0-6.0)
[2020-07-31 10:38] LABS: Alanine Aminotransferase 199 IU/L (<50); Albumin 4.5 g/dL (3.5-5.0); Albumin Globulin Ratio 1.3 (1.0-2.8); Alkaline Phosphatase 95 U/L (38-126); Aspartate Aminotransferase 179 IU/L (17-59); BUN Creatinine Ratio 17.2 (6-22); Bilirubin Total 1.3 mg/dL (0.2-1.3); Blood Urea Nitrogen 31 mg/dL (9-20); Calcium 10.1 mg/dL (8.4-10.2); Carbon Dioxide 32 mmol/L (22-32); Chloride 90 mmol/L (98-107); Cholesterol 174 mg/dL (140-199); Estimated Glomerular Filt Rate 38.9 mL/min (>60); Globulin 3.4 g/dL (1.7-4.1); Glucose 135 mg/dL (70-100); HDL Cholesterol 74 mg/dL (40-60); HEMOLYSIS < 15 (0-50); LDL Cholesterol Calculated 83 mg/dL (<100); Sodium 130 mmol/L (137-145); Total Protein 7.9 g/dL (6.3-8.2); Triglycerides 87 mg/dL (35-150)
[2020-07-31 10:41] LABS: Potassium 5.5 mmol/L (3.4-5.1)
[2020-07-31 11:10] LABS: Creatinine Urine Random 140.8 mg/dL
[2020-07-31 11:13] LABS: Microalbumi Creatinin Ratio Ur 16.3 ug/mg CR (<30); Microalbumin Urine Random 2.3 mg/dL (0-1.6)
[2020-07-31 15:43] LABS: Hep C Virus Ab w/Reflex Quant NEGATIVE s/c (NEGATIVE)
== END ==
PROVIDERS: PCP Family Medicine; Referring Provider Family Medicine; Visit Provider Family Medicine
DX: E11.9 Type 2 diabetes mellitus without complications (principal); E78.5 Hyperlipidemia, unspecified; I10 Essential (primary) hypertension
CPT/HCPCS: 36415; 80053; 80061; 82043; 82570; 83036; 85025; 86803

== ENCOUNTER → 2020-08-08 08:42 | Outpatient (CLI) | payer OTHER, MEDICAID, SELFPAY ==
[2020-08-08 10:05] LABS: Alanine Aminotransferase 130 IU/L (<50); Albumin 4.5 g/dL (3.5-5.0); Albumin Globulin Ratio 1.5 (1.0-2.8); Alkaline Phosphatase 80 U/L (38-126); Aspartate Aminotransferase 90 IU/L (17-59); BUN Creatinine Ratio 23.4 (6-22); Bilirubin Total 0.8 mg/dL (0.2-1.3); Blood Urea Nitrogen 32 mg/dL (9-20); Carbon Dioxide 32 mmol/L (22-32); Chloride 102 mmol/L (98-107); Estimated Glomerular Filt Rate 53.2 mL/min (>60); Glucose 129 mg/dL (70-100); HEMOLYSIS < 15 (0-50); Potassium 4.5 mmol/L (3.4-5.1); Sodium 139 mmol/L (137-145); Total Protein 7.5 g/dL (6.3-8.2)
== END ==
PROVIDERS: PCP Family Medicine; Referring Provider Family Medicine; Visit Provider Family Medicine
DX: I10 Essential (primary) hypertension (principal); N17.9 Acute kidney failure, unspecified; R79.89 Other specified abnormal findings of blood chemistry
CPT/HCPCS: 36415; 80053

== ENCOUNTER → 2020-09-01 09:19 | Outpatient (CLI) | payer OTHER, MEDICAID, SELFPAY ==
[2020-09-04 09:07] LABS: Fecal Immunochemical Test Positive (Negative)
== END ==
PROVIDERS: PCP Family Medicine; Referring Provider Family Medicine; Visit Provider Family Medicine
DX: Z00.01 Encounter for general adult medical examination with abnormal findings (principal)
CPT/HCPCS: 82274

== ENCOUNTER → 2020-09-06 08:40 | Outpatient (CLI) | payer OTHER, MEDICAID, SELFPAY ==
[2020-09-06 10:59] LABS: Alanine Aminotransferase 69 IU/L (<50); Albumin 4.6 g/dL (3.5-5.0); Albumin Globulin Ratio 1.3 (1.0-2.8); Alkaline Phosphatase 66 U/L (38-126); Aspartate Aminotransferase 53 IU/L (17-59); BUN Creatinine Ratio 20.3 (6-22); Blood Urea Nitrogen 25 mg/dL (9-20); Calcium 9.7 mg/dL (8.4-10.2); Carbon Dioxide 24 mmol/L (22-32); Chloride 102 mmol/L (98-107); Estimated Glomerular Filt Rate > 60.0 mL/min (>60); Globulin 3.5 g/dL (1.7-4.1); Glucose 91 mg/dL (70-100); HEMOLYSIS 28 (0-50); Potassium 4.7 mmol/L (3.4-5.1); Sodium 140 mmol/L (137-145); Total Protein 8.1 g/dL (6.3-8.2)
== END ==
PROVIDERS: PCP Family Medicine; Referring Provider Family Medicine; Visit Provider Family Medicine
DX: E11.59 Type 2 diabetes mellitus with other circulatory complications (principal); E87.5 Hyperkalemia; N17.9 Acute kidney failure, unspecified; Z79.4 Long term (current) use of insulin
CPT/HCPCS: 36415; 80053

== ENCOUNTER → 2020-09-27 10:06 | Outpatient (CLI) | payer OTHER, MEDICAID, SELFPAY ==
[2020-09-27 10:51] LABS: COVID19 -Nasal RAPID Negative (Negative)
== END ==
PROVIDERS: PCP Family Medicine; Visit Provider Surgery
DX: Z20.822 Contact with and (suspected) exposure to COVID-19 (principal)
CPT/HCPCS: 87635; C9803

== ENCOUNTER 2020-09-28 14:22 | Day surgery (SDC) | payer OTHER, MEDICAID, SELFPAY ==
[2020-09-28] MEDS: LACTATED RINGERS 1,000 ML 200 ML IV (14:46)
[2020-09-28 15:06] VITALS: BP 135/93; PULSE 103; RESP 17; TEMP 36.3; O2SAT 100; BMI 25.0
--- NOTE | 2020-09-28 15:15 | PM.PREOP ---
Pre-operative Note COVID-19 COVID-19 status: Negative Interval Note History & Physical reviewed/Exam performed by Physician: Yes Changes to H&P: No ASA Class (for procedural sedation): II
[2020-09-28] MEDS: fentaNYL 250 MCG/5 ML INJ IV (15:28)
[2020-09-28] MEDS: MIDAZOLAM 5 MG/5 ML VIAL IV (15:39)
--- NOTE | 2020-09-28 15:53 | PM.OP.ENDO ---
Operative Date/Time/Diagnoses Date of procedure: 09/28/20 Time of procedure: 15:54 Pre-op diagnosis: Positive fecal occult blood test Post-op diagnosis: same Procedure & Clinicians Study performed: Colonoscopy Same procedure as scheduled: Yes Indications: 60-year-old male no prior colonoscopy positive fecal occult blood test here for colonoscopy Surgeon: Félix Xie Procedure Notes Procedure in detail: Medications: Conscious sedation using 8 mg IV midazolam and 100 mcg IV of fentanyl The history and physical was performed/updated and the patient is ASA class is 2. The procedure was discussed in detail with the patient. Potential risks complications including infection, bleeding, missed diagnosis, perforation, need for surgery, and were explained. Their questions were answered and informed consent was obtained. Patient was brought to the procedure room and placed standard monitoring equipment. The patient's vital signs were monitored continuously throughout the entire procedure. Prior to starting time-out was performed. The patient was placed in the left lateral recumbent position. Procedural sedation was administered. Examination began with a thorough inspection of the perianal area there was no evidence of fissures, fistulae, external hemorrhoids or cutaneous malignancy. The colonoscopy scope was then placed into the anal canal and was advanced to the cecum, which was identified by the ileocecal valve, the appendiceal orifice and the confluence of the taenia. The scope was then slowly withdrawn examining colon thoroughly in all directions, irrigating it of any residual stool. No masses polyps Grade 1 internal hemorrhoids The patient tolerated the procedure well. They will be discharged once criteria are met. The prep was of poor quality. The withdrawl time was 7 minutes. The sedation time was 24 minutes. Specimen(s): none sent Complications: none Impression: Hemorrhoids Post-procedure Recommendations: High fiber diet Disposition: same day surgery
[2020-09-28 15:57] VITALS: BP 121/85; PULSE 91; RESP 14; TEMP 36.6; O2SAT 98
[2020-09-28 16:03] VITALS: BP 123/78; PULSE 96; RESP 16; O2SAT 97
[2020-09-28 16:08] VITALS: BP 122/80; PULSE 94; RESP 14; O2SAT 98
[2020-09-28 16:10] VITALS: BP 117/77; PULSE 98; RESP 14; TEMP 36.6; O2SAT 99
[2020-09-28 16:49] VITALS: BP 117/76; PULSE 95; RESP 17; TEMP 36.1; O2SAT 98
--- NOTE | 2020-09-28 17:04 | SUR.PHASEII ---
per conversation with Dr Xie, will attempt to get pt a taxi to [facility], if unable ok for pt to walk to motel. [employer] [facility] was not available for 1 hr to take pt, Pt did not want to wait, MD ok with walking. Pt taken to ER doors and stable to get up from w/c and walk to motel.
== END 2020-09-28 17:00 | disposition home or self-care (01) ==
PROVIDERS: PCP Family Medicine; Referring Provider Surgery; Visit Provider Surgery
PROC: 0DJD8ZZ Inspection of Lower Intestinal Tract, Via Natural or Artificial Opening Endoscopic (ICD-10-PCS; CPT 45378; principal; 2020-09-28 15:15)
DX: R19.5 Other fecal abnormalities (principal); I25.10 Atherosclerotic heart disease of native coronary artery without angina pectoris; E11.43 Type 2 diabetes mellitus with diabetic autonomic (poly)neuropathy; G47.33 Obstructive sleep apnea (adult) (pediatric); I10 Essential (primary) hypertension; E78.5 Hyperlipidemia, unspecified; Z95.1 Presence of aortocoronary bypass graft; Z79.84 Long term (current) use of oral hypoglycemic drugs; K64.0 First degree hemorrhoids
CPT/HCPCS: 45378; 99152; J2250; J3010

== ENCOUNTER 2020-10-27 10:41 | Emergency (ER) | payer OTHER, MEDICAID, SELFPAY ==
[2020-10-27] VITALS (9 sets, daily range): BP systolic 94–104; BP diastolic 54–66; PULSE 89–107; RESP 16–23; TEMP 36.9; O2SAT 95–99
--- NOTE | 2020-10-27 10:59 | PC.NURSE ---
pt recently has been put on a salt diet due to hypotension per Dr Meyers,pt also diabetic.
--- NOTE | 2020-10-27 11:01 | DI.RAD.S_ITS ---
PROCEDURE: XR CHEST 1V INDICATIONS: dizziness TECHNIQUE: One view of the chest was acquired. COMPARISON: [facility], CR, XR CHEST 1V, 10/01/2018, 11:22. FINDINGS: Surgical changes and devices: Status post CABG.. Lungs and pleura: Lungs are clear. No pleural effusions or pneumothorax. Mediastinum: Mediastinal contours appear normal. Heart size is normal. Bones and chest wall: No suspicious bony lesions. Overlying soft tissues appear unremarkable. IMPRESSION: No acute disease process. Dictated by: Yesenia Tucker MD, PhD on 10/27/2020 at 13:36 Approved by: Yesenia Tucker MD, PhD on 10/27/2020 at 13:37
[2020-10-27 11:06] LABS: Add Manual Diff / Slide Review NO; Basophils Absolute Auto 100 /uL (0-100); Basophils Percent Auto 0.7 % (0-2); Eosinophils Absolute Auto 100 /uL (0-450); Eosinophils Percent Auto 0.6 % (2-4); Lymphocytes Absolute Auto 1600 /uL (1100-4500); Mean Corpuscular HGB Conc 33.2 % (30-36); Mean Corpuscular Hemoglobin 31.3 PG (26-34); Mean Corpuscular Volume 94.2 fL (80-100); Monocytes Absolute Auto 900 /uL (0-900); Monocytes Percent Auto 8.2 % (3-14); Neutrophils Absolute Auto 7900 /uL (1500-7000); Neutrophils Percent Auto 75.5 % (50-75); Platelet Count 197 X10^3/uL (150-400); Red Blood Cell Count 4.78 X10^6/uL (4.5-5.9); Red Cell Distribution Width 14.3 % (11.6-14.8); White Blood Cell Count 10.4 X10^3/uL (4.5-11.0)
[2020-10-27] MEDS: SODIUM CHLORIDE 0.9% 1,000 ML 1000 ML IV (11:07)
--- NOTE | 2020-10-27 11:08 | ED_ITS ---
HPI - Dizziness <COREY Kirk - Last Filed: 10/27/20 15:44> General Chief Complaint: Dizziness Stated Complaint: Dizzy,stood up light headed Time Seen by Provider: 10/27/20 10:44 Source: patient Mode of arrival: Wheelchair Limitations: no limitations History of Present Illness HPI Narrative: 60yo male with a history of cardiac bypass x 5 and insulin- dependent diabetes with toe amputation, presents to emergency department after an episode of dizziness. Patient states he was in the clinic waiting for his prescription of glasses and when he stood up to get his prescription he imm ediately felt dizzy. He states the dizziness felt like lightheaded like he was going to pass out, he sat down and the feelings resolved. Patient states he has had this happen before and he was dehydrated. He states he took his short- acting insulin this morning and did not eat a ton of food. Patient states he does not feel dizzy at this time lying down. He denies any vertigo, chest pain, cough, shortness of breath, nausea, vomiting, diarrhea, or any other concerns. Patient states that he only drinks 1 cup of water a week, usually drinks 3 cups of coffee a day. He states that he took metformin this morning and did not eat any breakfast. He states he took his insulin as normal this morning. Related Data Home Medications Medication Instructions Recorded Confirmed liraglutide 1.2 mg SUBCUT DAILY 09/28/20 09/28/20 Previous Rx's Medication Instructions Recorded blood sugar diagnostic #100 each 07/19/20 pen needle, diabetic 29 gauge x #90 each 07/19/20 1/2 aspirin 81 mg tablet,delayed 81 mg PO DAILY #90 tab 08/25/20 release lisinopril 5 mg tablet 5 mg PO DAILY #90 tab 08/25/20 rosuvastatin 5 mg tablet 5 mg PO DAILY #90 tab 08/25/20 metformin 1,000 mg tablet See Rx Instructions .ROUTE 10/16/20 .COMPLEX #180 tab Allergies Allergy/AdvReac Type Severity Reaction Status Date / Time No Known Drug Allergies Allergy Verified 10/27/20 10:55 Review of Systems <COREY Kirk - Last Filed: 10/27/20 15:44> Review of Systems Narrative: REVIEW OF SYSTEMS: GENERAL: Denies fever or chills. HENT: No head trauma. CARDIOVASCULAR: No chest pain. RESPIRATORY: No shortness of breath or cough. GASTROINTESTINAL: No nausea or vomiting. GENITOURINARY: No flank pain or dysuria. MUSCULOSKELETAL: No pain. INTEGUMENTARY: No rash. NEURO: Reports dizziness upon standing, see HPI. Patient History <COREY Kirk - Last Filed: 10/27/20 15:44> Medical History Amputated toe CAD (coronary artery disease) Diabetes Diabetic neuropathy Elevated LFTs History of seizure HTN (hypertension) Hyperlipidemia Obstructive sleep apnea Osteomyelitis Surgical History H/O carpal tunnel repair Hx of CABG Family History Mother Heart attack Diabetes mellitus Hypertension Heart disease Stroke Brother CAD (coronary artery disease) Hx of CABG Father Medical history unknown Sister In good health Social History marital status: unknown household members: none and other Smoking Status: Never smoker alcohol intake: never substance use type: does not use Smoking Status: Never smoker alcohol intake frequency: 3 or more drinks per day Alcohol type: hard liquor Substance Use Type: does not use Exam <COREY Kirk - Last Filed: 10/27/20 15:44> Initial Vital Signs Initial Vital Signs: Vital Signs Temperature 98.4 F 10/27/20 10:45 Pulse Rate 98 H 10/27/20 10:45 Respiratory Rate 16 10/27/20 10:45 Blood Pressure 104/54 L 10/27/20 10:45 Pulse Oximetry 97 10/27/20 10:45 PHYSICAL EXAMINATION: GENERAL: Awake and alert. HENT: Normocephalic, atraumatic. EYES: Conjunctiva pink, sclera white, no periorbital swelling. No discharge. CHEST: Normal to inspection and without deformities. CARDIOVASCULAR: S1 and S2 sounds normal. Regular rate and rhythm, no murmurs, clicks, or bruits. RESPIRATORY: Normal respiratory rate, trachea midline, airway patent. No stridor, nasal flaring or accessory muscle use. Able to speak in full sentences. Lungs are clear in all caballero without wheeze, rhonchi, or crackles. MUSCULOSKELETAL: Equal tone and mass bilaterally. EXTREMITIES: Moves all extremities. SKIN: Warm, dry, soft, appropriate color for ethnicity. No lesions, rashes, or wounds to visualized areas. NEURO: Alert and Oriented X 3. Good coordination. No ataxia or cognitive issues. PSYCH: Appropriate affect and mood. <Jean Pierre Noguera DO - Last Filed: 10/27/20 17:24> Initial Vital Signs Initial Vital Signs: Vital Signs Temperature 98.4 F 10/27/20 10:45 Pulse Rate 98 H 10/27/20 10:45 Respiratory Rate 16 10/27/20 10:45 Blood Pressure 104/54 L 10/27/20 10:45 Pulse Oximetry 97 10/27/20 10:45 Course <COREY Kirk - Last Filed: 10/27/20 15:44> Course Course Narrative: Initially in triage, patient's blood sugar was found to be 89, patient was given a snack. 1234: Patient states ?I feel much better after eating a sandwich ?. Instructed to finish IV fluids and will do an ambulation trial and orthostatic vital signs. 1302: Patient ambulating without any difficulty or symptoms. Orthostatic vital signs reveal patient was not symptomatic, small increase in heart rate upon standing. Orders Ordered: ED Orders 10/27/20 10:58 Complete Blood Count AUTO DIFF Stat Comprehensive Metabolic Panel Stat Lipase Stat Troponin & CK Cardiac Panel Stat 10/27/20 11:01 XR chest 1V Stat EKG-12 Lead Stat Discontinued Medications Sodium Chloride (Normal Saline 0.9%) 1,000 mls @ 150 mls/hr IV CONT DENIZ Sodium Chloride (Normal Saline 0.9%) 1,000 mls @ 1,000 mls/hr IV BOLUS ONE Stop: 10/27/20 12:01 Last Infusion: 10/27/20 12:27 Dose: 0 mls/hr Documented by: Admin: 10/27/20 11:07 Dose: 1,000 mls/hr Documented by: EVE Reevaluation(s) Reevaluation #1: Patient staffed with Dr. Noguera. Consultations Consultation #1: Patient staffed with Dr. Noguera discussed test, test results, plan of care. Vital Signs Vital signs: Vital Signs - 8 hr 10/27/20 10:45 10/27/20 10:50 10/27/20 10:51 Temperature 98.4 F Pulse Rate 98 H 105 H Pulse Rate [Orthostatic Lying] Pulse Rate [Orthostatic Sitting] Pulse Rate [Orthostatic Standing] Respiratory Rate 16 Blood Pressure 104/54 L 104/54 L Blood Pressure [Orthostatic Lying] Blood Pressure [Orthostatic Sitting] Blood Pressure [Orthostatic Standing] Pulse Oximetry 97 95 96 10/27/20 11:00 10/27/20 11:30 10/27/20 12:00 Temperature Pulse Rate 104 H 97 H 95 H Pulse Rate [Orthostatic Lying] Pulse Rate [Orthostatic Sitting] Pulse Rate [Orthostatic Standing] Respiratory Rate 18 19 16 Blood Pressure 104/59 L 96/59 L 98/58 L Blood Pressure [Orthostatic Lying] Blood Pressure [Orthostatic Sitting] Blood Pressure [Orthostatic Standing] Pulse Oximetry 99 99 99 10/27/20 12:30 10/27/20 12:53 10/27/20 12:58 Temperature Pulse Rate 97 H 99 H Pulse Rate [Orthostatic Lying] 89 Pulse Rate [Orthostatic Sitting] 92 H Pulse Rate [Orthostatic Standing] 107 H Respiratory Rate 23 18 Blood Pressure 103/66 Blood Pressure [Orthostatic Lying] 94/60 Blood Pressure [Orthostatic Sitting] 102/64 Blood Pressure [Orthostatic Standing] 94/60 Pulse Oximetry 98 98 <Jean Pierre Noguera, DO - Last Filed: 10/27/20 17:24> Orders Ordered: ED Orders 10/27/20 10:58 Complete Blood Count AUTO DIFF Stat Comprehensive Metabolic Panel Stat Lipase Stat Troponin & CK Cardiac Panel Stat 10/27/20 11:01 XR chest 1V Stat EKG-12 Lead Stat Discontinued Medications Sodium Chloride (Normal Saline 0.9%) 1,000 mls @ 150 mls/hr IV CONT DENIZ Sodium Chloride (Normal Saline 0.9%) 1,000 mls @ 1,000 mls/hr IV BOLUS ONE Stop: 10/27/20 12:01 Last Infusion: 10/27/20 12:27 Dose: 0 mls/hr Documented by: Admin: 10/27/20 11:07 Dose: 1,000 mls/hr Documented by: EVE Vital Signs Vital signs: Vital Signs - 8 hr 10/27/20 10:45 10/27/20 10:50 10/27/20 10:51 Temperature 98.4 F Pulse Rate 98 H 105 H Pulse Rate [Orthostatic Lying] Pulse Rate [Orthostatic Sitting] Pulse Rate [Orthostatic Standing] Respiratory Rate 16 Blood Pressure 104/54 L 104/54 L Blood Pressure [Orthostatic Lying] Blood Pressure [Orthostatic Sitting] Blood Pressure [Orthostatic Standing] Pulse Oximetry 97 95 96 10/27/20 11:00 10/27/20 11:30 10/27/20 12:00 Temperature Pulse Rate 104 H 97 H 95 H Pulse Rate [Orthostatic Lying] Pulse Rate [Orthostatic Sitting] Pulse Rate [Orthostatic Standing] Respiratory Rate 18 19 16 Blood Pressure 104/59 L 96/59 L 98/58 L Blood Pressure [Orthostatic Lying] Blood Pressure [Orthostatic Sitting] Blood Pressure [Orthostatic Standing] Pulse Oximetry 99 99 99 10/27/20 12:30 10/27/20 12:53 10/27/20 12:58 Temperature Pulse Rate 97 H 99 H Pulse Rate [Orthostatic Lying] 89 Pulse Rate [Orthostatic Sitting] 92 H Pulse Rate [Orthostatic Standing] 107 H Respiratory Rate 23 18 Blood Pressure 103/66 Blood Pressure [Orthostatic Lying] 94/60 Blood Pressure [Orthostatic Sitting] 102/64 Blood Pressure [Orthostatic Standing] 94/60 Pulse Oximetry 98 98 MDM - Dizziness <COREY Kirk - Last Filed: 10/27/20 15:44> Medical Records Attestation: I reviewed the patient's medical records. Lab Data Attestation: I reviewed the patient's lab results. Result diagrams: 10/27/20 10:58 10/27/20 10:58 Labs: Lab Results 10/27/20 10/27/20 Range/Units 10:58 10:58 WBC 10.4 (4.5-11.0) X10^3/uL RBC 4.78 (4.5-5.9) X10^6/uL Hgb 15.0 (13.5-17.5) g/dL Hct 45.0 (41-53) % MCV 94.2 (80-100) fL MCH 31.3 (26-34) PG MCHC 33.2 (30-36) % RDW 14.3 (11.6-14.8) % Plt Count 197 (150-400) X10^3/uL Neut % (Auto) 75.5 H (50-75) % Lymph % (Auto) 15.0 L (25-40) % [place] % (Auto) 8.2 (3-14) % Eos % (Auto) 0.6 L (2-4) % Baso % (Auto) 0.7 (0-2) % Neut # (Auto) 7900 H (2680-2066) /uL Lymph # (Auto) 1600 (3692-9471) /uL [place] # (Auto) 900 (0-900) /uL Eos # (Auto) 100 (0-450) /uL Baso # (Auto) 100 (0-100) /uL Sodium 138 (137-145) mmol/L Potassium 5.3 H (3.4-5.1) mmol/L Chloride 102 (98-107) mmol/L Carbon Dioxide 27 (22-32) mmol/L BUN 26 H (9-20) mg/dL Creatinine 1.51 H (0.66-1.25) mg/dL Estimated GFR 47.5 L (>60) mL/min BUN/Creatinine Ratio 17.2 (6-22) Glucose 98 (70-100) mg/dL Calcium 9.8 (8.4-10.2) mg/dL Total Bilirubin 1.0 (0.2-1.3) mg/dL AST 62 H (17-59) IU/L ALT 50 H (<50) IU/L Alkaline Phosphatase 50 (38-126) U/L Total Creatine Kinase 123 (55-170) U/L CK-MB (CK-2) 3.89 H (<2.37) ng/mL CK-MB (CK-2) Rel Index 3.2 (1.5-5.0) % Troponin I < 0.012 (0.01-0.034) ng/mL Total Protein 8.8 H (6.3-8.2) g/dL Albumin 4.8 (3.5-5.0) g/dL Globulin 4.0 (1.7-4.1) g/dL Albumin/Globulin Ratio 1.2 (1.0-2.8) Lipase 289 (23-300) U/L Point of Care Testing Glucose POC 89 Imaging Data Chest x-ray: Radiologist's Impression: [address] [id number] ReportSigned Patient: Grady Watson AMR#: [id number]: 1960cct:[id number]/Sex: 60 / MDate of Service: 10/27/20Loc: EDAccession Number: [id number] Procedure: XR chest 1V Ordering Provider: Cristy Gallegos PROCEDURE: XR CHEST 1V INDICATIONS: dizziness TECHNIQUE: One view of the chest was acquired. COMPARISON: [facility], XR CHEST 1V, 10/01/2018, 11:22. FINDINGS: Surgical changes and devices: Status post CABG.. Lungs and pleura: Lungs are clear. No pleural effusions or pneumothorax. Mediastinum: Mediastinal contours appear normal. Heart size is normal. Bones and chest wall: No suspicious bony lesions. Overlying soft tissues gillian ear unremarkable. IMPRESSION: No acute disease process. Dictated by: Yesenia Tucker MD, PhD on 10/27/2020 at 13:36 Approved by: Yesenia Tucker MD, PhD on 10/27/2020 at 13:37 ECG Data Interpretation: 1055: Sinus rhythm, rate 103, OK interval 162, QTC 429. No ST elevation or ST depression. No T-wave abnormality. No ectopy. EKG also viewed by Dr. Noguera per protocol. [facility] Narrative Medical decision making narrative: 60-year-old male with a history of insulin- dependent diabetes and coronary artery syndrome, presents to the emergency department for an episode of dizziness upon standing today. I suspect most likely due to a combination of low blood sugar and dehydration/orthostatic hypotension. Patient states he does not drink a lot a water, took his normal amount insulin this morning but did not eat any breakfast. Patient had increased heart rate from lying to standing, when orthostatics were assessed after a L of fluid, patient did not have any symptoms dizziness upon standing. Ambulation trial post fluid administration revealed patient able to ambulate a significant distance without any dizziness. Patient also was given a sandwich and stated that he felt much better. Less likely ACS given lack of EKG changes, chest x-ray within normal limits, troponin within normal limits. No chest pain. While patient's creatinine was elevated (1.51), patient appears to have chronic kidney disease, creatinine has been higher in the past without any need for admission per charts. On 07/31/20 creatinine was 1.8 and GFR was 38.9 and on 08/08 creatinine was 1.37 and GFR 53.2. Electrolytes within normal limits. To follow up with PCP in the next week for close monitoring and possibly further lab testing. He was encouraged to drink plenty of water and you breakfast when taking his normal amount of insulin. Patient agreeable to discharge. Return precautions given for new or worsening symptoms. <Jean Pierre Noguera DO - Last Filed: 10/27/20 17:24> Lab Data Labs: Lab Results 10/27/20 10/27/20 Range/Units 10:58 10:58 WBC 10.4 (4.5-11.0) X10^3/uL RBC 4.78 (4.5-5.9) X10^6/uL Hgb 15.0 (13.5-17.5) g/dL Hct 45.0 (41-53) % MCV 94.2 (80-100) fL MCH 31.3 (26-34) PG MCHC 33.2 (30-36) % RDW 14.3 (11.6-14.8) % Plt Count 197 (150-400) X10^3/uL Neut % (Auto) 75.5 H (50-75) % Lymph % (Auto) 15.0 L (25-40) % [place] % (Auto) 8.2 (3-14) % Eos % (Auto) 0.6 L (2-4) % Baso % (Auto) 0.7 (0-2) % Neut # (Auto) 7900 H (7453-3584) /uL Lymph # (Auto) 1600 (5995-9250) /uL [place] # (Auto) 900 (0-900) /uL Eos # (Auto) 100 (0-450) /uL Baso # (Auto) 100 (0-100) /uL Sodium 138 (137-145) mmol/L Potassium 5.3 H (3.4-5.1) mmol/L Chloride 102 (98-107) mmol/L Carbon Dioxide 27 (22-32) mmol/L BUN 26 H (9-20) mg/dL Creatinine 1.51 H (0.66-1.25) mg/dL Estimated GFR 47.5 L (>60) mL/min BUN/Creatinine Ratio 17.2 (6-22) Glucose 98 (70-100) mg/dL Calcium 9.8 (8.4-10.2) mg/dL Total Bilirubin 1.0 (0.2-1.3) mg/dL AST 62 H (17-59) IU/L ALT 50 H (<50) IU/L Alkaline Phosphatase 50 (38-126) U/L Total Creatine Kinase 123 (55-170) U/L CK-MB (CK-2) 3.89 H (<2.37) ng/mL CK-MB (CK-2) Rel Index 3.2 (1.5-5.0) % Troponin I < 0.012 (0.01-0.034) ng/mL Total Protein 8.8 H (6.3-8.2) g/dL Albumin 4.8 (3.5-5.0) g/dL Globulin 4.0 (1.7-4.1) g/dL Albumin/Globulin Ratio 1.2 (1.0-2.8) Lipase 289 (23-300) U/L Point of Care Testing Glucose POC 89 Discharge Plan Departure Patient Disposition: Home Clinical Impression: Low blood sugar, Dehydration, Orthostatic hypotension Instructions: Orthostatic Hypotension Activity Restrictions/Additional Instructions: Thank you for entrusting me with your care today. As discussed, your laboratory work, EKG, and chest x-ray are non-remarkable. You do have chronic elevated kidney enzymes, and please follow-up with your primary care provider about this. Your creatinine today was 1.51. I suspect her dizziness may be related to a combination of dehydration and low blood sugar. Please drink plenty of water, check her sugar often. Return emergency department for any new or worsening symptoms. Prescriptions: No Action metformin 1,000 mg tablet See Rx Instructions .ROUTE .COMPLEX Qty: 180 RF: 0 (DME) pen needle, diabetic [Ultra-Thin II Ins Pen [place]] 29 gauge x 1/2 needle See Rx Instructions .ROUTE .MEDSUPPLY Qty: 90 RF: 3 (DME) Blood Glucose Test Strip See Rx Instructions .ROUTE .MEDSUPPLY Qty: 100 RF: 3 rosuvastatin [Crestor] 5 mg tablet 5 mg PO DAILY Qty: 90 RF: 3 lisinopril 5 mg tablet 5 mg PO DAILY Qty: 90 RF: 3 aspirin 81 mg tablet,delayed release (DR/EC) 81 mg PO DAILY Qty: 90 RF: 3 liraglutide 0.6 mg/0.1 mL (18 mg/3 mL) pen injector 1.2 mg SUBCUT DAILY RF: 0 Referrals: Clifford Diehl MD [Primary Care Provider] - <Jean Pierre Noguera DO - Last Filed: 10/27/20 17:24> Cosign ED Attending Cosignature Attestation: I was immediately available in the department for consultation. This documentation has been reviewed and I agree with assessment and plan. Supervised by Jean Pierre Noguera DO
[2020-10-27 11:29] LABS: Alanine Aminotransferase 50 IU/L (<50); Albumin 4.8 g/dL (3.5-5.0); Albumin Globulin Ratio 1.2 (1.0-2.8); Alkaline Phosphatase 50 U/L (38-126); Aspartate Aminotransferase 62 IU/L (17-59); BUN Creatinine Ratio 17.2 (6-22); Blood Urea Nitrogen 26 mg/dL (9-20); Calcium 9.8 mg/dL (8.4-10.2); Carbon Dioxide 27 mmol/L (22-32); Chloride 102 mmol/L (98-107); Creatine Kinase 123 U/L (55-170); Estimated Glomerular Filt Rate 47.5 mL/min (>60); Glucose 98 mg/dL (70-100); Lipase 289 U/L (23-300); Potassium 5.3 mmol/L (3.4-5.1); Sodium 138 mmol/L (137-145); Total Protein 8.8 g/dL (6.3-8.2)
[2020-10-27 11:33] LABS: HEMOLYSIS 116 (0-50)
[2020-10-27 11:40] LABS: Troponin I < 0.012 ng/mL (0.01-0.034)
[2020-10-27 11:44] LABS: CKMB % Relative Index 3.2 % (1.5-5.0); Creatine Kinase MB 3.89 ng/mL (<2.37)
--- NOTE | 2020-10-27 12:58 | PC.NURSE ---
Pt ambulated around the ER, no dizziness on ambulation, pt states no complications.
== END 2020-10-27 13:24 | disposition home or self-care (01) ==
PROVIDERS: Emergency Provider Nurse Practitioner; PCP Family Medicine
DX: E11.649 Type 2 diabetes mellitus with hypoglycemia without coma (principal); Z79.4 Long term (current) use of insulin; I95.1 Orthostatic hypotension; E86.0 Dehydration; I25.10 Atherosclerotic heart disease of native coronary artery without angina pectoris; I10 Essential (primary) hypertension; E78.5 Hyperlipidemia, unspecified
CPT/HCPCS: 36415; 71045; 80053; 82550; 82553; 83690; 84484; 85025; 93005; 93010; 96360; 99284

== ENCOUNTER → 2020-11-23 08:39 | Outpatient (CLI) | payer OTHER, MEDICAID, SELFPAY ==
[2020-10-27 15:53] VITALS: BMI 24.3
[2020-11-23 11:13] LABS: Alanine Aminotransferase 41 IU/L (<50); Albumin 4.4 g/dL (3.5-5.0); Albumin Globulin Ratio 1.3 (1.0-2.8); Alkaline Phosphatase 60 U/L (38-126); Aspartate Aminotransferase 44 IU/L (17-59); Bilirubin Total 0.5 mg/dL (0.2-1.3); Blood Urea Nitrogen 17 mg/dL (9-20); Calcium 9.6 mg/dL (8.4-10.2); Carbon Dioxide 29 mmol/L (22-32); Chloride 102 mmol/L (98-107); Estimated Glomerular Filt Rate > 60.0 mL/min (>60); Globulin 3.4 g/dL (1.7-4.1); Glucose 109 mg/dL (70-100); HEMOLYSIS < 15 (0-50); Sodium 137 mmol/L (137-145); Total Protein 7.8 g/dL (6.3-8.2)
[2020-11-23 14:25] LABS: Hemoglobin A1C% w Est Avg Glu 5.5 % (4.0-6.0)
== END ==
PROVIDERS: PCP Family Medicine; Referring Provider Family Medicine; Visit Provider Family Medicine
DX: E11.59 Type 2 diabetes mellitus with other circulatory complications (principal); I10 Essential (primary) hypertension; Z79.4 Long term (current) use of insulin
CPT/HCPCS: 36415; 80053; 83036

== ENCOUNTER → 2021-02-22 08:38 | Outpatient (CLI) | payer OTHER, MEDICAID, SELFPAY ==
[2020-10-27 15:53] VITALS: BMI 24.3
[2021-02-22 09:40] LABS: Hemoglobin A1C% w Est Avg Glu 5.4 % (4.0-6.0)
[2021-02-22 10:23] LABS: Alanine Aminotransferase 94 IU/L (<50); Albumin 4.1 g/dL (3.5-5.0); Albumin Globulin Ratio 1.4 (1.0-2.8); Alkaline Phosphatase 60 U/L (38-126); Aspartate Aminotransferase 65 IU/L (17-59); BUN Creatinine Ratio 19.7 (6-22); Bilirubin Total 0.6 mg/dL (0.2-1.3); Blood Urea Nitrogen 15 mg/dL (9-20); Calcium 9.8 mg/dL (8.4-10.2); Carbon Dioxide 26 mmol/L (22-32); Chloride 106 mmol/L (98-107); Estimated Glomerular Filt Rate > 60.0 mL/min (>60); Glucose 130 mg/dL (70-100); HEMOLYSIS < 15 (0-50); Potassium 4.7 mmol/L (3.4-5.1); Sodium 141 mmol/L (137-145); Total Protein 7.1 g/dL (6.3-8.2)
== END ==
PROVIDERS: PCP Family Medicine; Referring Provider Family Medicine; Visit Provider Family Medicine
DX: E11.59 Type 2 diabetes mellitus with other circulatory complications (principal); E78.5 Hyperlipidemia, unspecified; I10 Essential (primary) hypertension; Z79.4 Long term (current) use of insulin
CPT/HCPCS: 36415; 80053; 83036

== ENCOUNTER → 2021-08-17 10:30 | Outpatient (CLI) | payer OTHER, MEDICAID, SELFPAY ==
[2021-08-17 10:19] VITALS: BMI 24.3
[2021-08-17 11:51] LABS: Add Manual Diff / Slide Review NO; Basophils Absolute Auto 0 /uL (0-100); Basophils Percent Auto 0.2 % (0-2); Eosinophils Absolute Auto 100 /uL (0-450); Eosinophils Percent Auto 0.8 % (2-4); Hematocrit 43.2 % (41-53); Hemoglobin 14.7 g/dL (13.5-17.5); Lymphocytes Absolute Auto 1000 /uL (1100-4500); Lymphocytes Percent Auto 9.7 % (25-40); Mean Corpuscular HGB Conc 34.1 % (30-36); Mean Corpuscular Hemoglobin 31.9 PG (26-34); Mean Corpuscular Volume 93.7 fL (80-100); Monocytes Absolute Auto 900 /uL (0-900); Neutrophils Absolute Auto 8300 /uL (1500-7000); Neutrophils Percent Auto 80.3 % (50-75); Platelet Count 139 X10^3/uL (150-400); Red Blood Cell Count 4.61 X10^6/uL (4.5-5.9); Red Cell Distribution Width 13.9 % (11.6-14.8); White Blood Cell Count 10.4 X10^3/uL (4.5-11.0)
[2021-08-17 11:56] LABS: Hemoglobin A1C% w Est Avg Glu 5.6 % (4.0-6.0)
[2021-08-17 13:10] LABS: Alanine Aminotransferase 39 IU/L (<50); Albumin 4.5 g/dL (3.5-5.0); Albumin Globulin Ratio 1.6 (1.0-2.8); Alkaline Phosphatase 48 U/L (38-126); Aspartate Aminotransferase 32 IU/L (17-59); BUN Creatinine Ratio 19.2 (6-22); Bilirubin Total 0.8 mg/dL (0.2-1.3); Blood Urea Nitrogen 15 mg/dL (9-20); Calcium 9.5 mg/dL (8.4-10.2); Carbon Dioxide 23 mmol/L (22-32); Chloride 102 mmol/L (98-107); Cholesterol 143 mg/dL (140-199); Estimated Glomerular Filt Rate > 60.0 mL/min (>60); Globulin 2.8 g/dL (1.7-4.1); Glucose 147 mg/dL (80-110); HDL Cholesterol 81 mg/dL (40-60); HEMOLYSIS < 15 (0-50); LDL Cholesterol Calculated 48 mg/dL (<100); Potassium 4.6 mmol/L (3.4-5.1); Sodium 138 mmol/L (137-145); Total Protein 7.3 g/dL (6.3-8.2); Triglycerides 71 mg/dL (35-150)
[2021-08-18 07:14] LABS: HBsAg Screen Negative (Negative); Hepatitis A Antibody IgM Negative (Negative); Hepatitis B Core Antibody IgM Negative (Negative); Hepatitis C Antibody <0.1 s/co ratio (0.0-0.9)
== END ==
PROVIDERS: PCP Family Medicine; Referring Provider Family Medicine; Visit Provider Family Medicine
DX: I25.810 Atherosclerosis of coronary artery bypass graft(s) without angina pectoris (principal); E78.5 Hyperlipidemia, unspecified; I10 Essential (primary) hypertension; E11.59 Type 2 diabetes mellitus with other circulatory complications; Z79.4 Long term (current) use of insulin
CPT/HCPCS: 36415; 80053; 80061; 80074; 83036; 85025

== ENCOUNTER → 2022-03-13 07:41 | Outpatient (CLI) | payer OTHER, MEDICAID, SELFPAY ==
[2021-08-17 10:19] VITALS: BMI 24.3
[2022-03-13 08:38] LABS: Alanine Aminotransferase 164 IU/L (<50); Albumin 5.2 g/dL (3.5-5.0); Albumin Globulin Ratio 1.7 (1.0-2.8); Alkaline Phosphatase 55 U/L (38-126); Aspartate Aminotransferase 158 IU/L (17-59); Blood Urea Nitrogen 12 mg/dL (9-20); Calcium 9.7 mg/dL (8.4-10.2); Carbon Dioxide 29 mmol/L (22-32); Chloride 99 mmol/L (98-107); Cholesterol 188 mg/dL (140-199); Estimated Glomerular Filt Rate > 60 mL/min (>60); Globulin 3.1 g/dL (1.7-4.1); Glucose 129 mg/dL (80-110); HEMOLYSIS 20 (0-50); Potassium 5.1 mmol/L (3.4-5.1); Sodium 139 mmol/L (137-145); Total Protein 8.3 g/dL (6.3-8.2); Triglycerides 75 mg/dL (35-150)
[2022-03-13 08:38] LABS: Creatinine Urine Random 138.7 mg/dL
[2022-03-13 08:40] LABS: Microalbumi Creatinin Ratio Ur 132.6 ug/mg CR (<30); Microalbumin Urine Random 18.4 mg/dL (0-1.6)
[2022-03-13 08:42] LABS: Hemoglobin A1C% w Est Avg Glu 5.8 % (4.0-6.0)
[2022-03-13 08:49] LABS: HDL Cholesterol 122 mg/dL (40-60); LDL Cholesterol Calculated 51 mg/dL (<100)
== END ==
PROVIDERS: PCP Family Medicine; Referring Provider Family Medicine; Visit Provider Family Medicine
DX: Z12.5 Encounter for screening for malignant neoplasm of prostate (principal); E11.59 Type 2 diabetes mellitus with other circulatory complications; E78.5 Hyperlipidemia, unspecified; I10 Essential (primary) hypertension; Z79.4 Long term (current) use of insulin
CPT/HCPCS: 36415; 80053; 80061; 82043; 82570; 83036; G0103

== ENCOUNTER → 2022-04-02 07:24 | Outpatient (CLI) | payer OTHER, MEDICAID, SELFPAY ==
[2021-08-17 10:19] VITALS: BMI 24.3
--- NOTE | 2022-04-02 07:25 | DI.US.S_ITS ---
PROCEDURE: US ABDOMEN COMPLETE INDICATIONS: elevated liver enzymes TECHNIQUE: Real-time scanning was performed of the abdominal and retroperitoneal organs, with image documentation. COMPARISON: None. FINDINGS: Liver: Liver is enlarged with increased echogenicity. Gallbladder: Mobile areas of increased echogenicity are present within the gallbladder neck. No thickness is at the upper limits of normal measuring 2.9 mm. Biliary ducts: Intrahepatic bile ducts are non-dilated. Extrahepatic bile duct caliber measures 5.4 mm. Normal is 6-7 mm or less in diameter, or 10 mm or less post-cholecystectomy. Pancreas: Visualized portions of the pancreas are sonographically normal. Spleen: Spleen is mildly prominent measuring 14.3 cm. Kidneys: Kidneys are normal in size and echotexture. Right kidney measures 12.2 cm long; left kidney measures 13.1 cm long. No hydronephrosis or nephrolithiasis. No solid masses. Focus of decreased echogenicity is present within the superior left renal pole measuring 16 x 14 x 10 mm. Aorta: Visualized aorta is normal in caliber at less than 3 cm. Iliacs: Proximal common iliac arteries are normal in caliber at less than 2.5 cm. IVC: Intrahepatic inferior vena cava is patent. Miscellaneous: No free abdominal fluid. IMPRESSION: Hepatomegaly with steatosis. Cholelithiasis with borderline wall thickening. Recommend patient's symptoms as early cholecystitis cannot be definitively excluded. Simple left renal cyst. Dictated by: Bushra Torres M.D. on 04/02/2022 at 12:13 Approved by: Bushra Torres M.D. on 04/02/2022 at 12:15
[2022-04-02 09:08] LABS: Add Manual Diff / Slide Review NO; Basophils Absolute Auto 0 /uL (0-100); Basophils Percent Auto 0.5 % (0-2); Eosinophils Absolute Auto 0 /uL (0-450); Eosinophils Percent Auto 0.9 % (2-4); Hematocrit 41.4 % (41-53); Hemoglobin 14.5 g/dL (13.5-17.5); Lymphocytes Absolute Auto 700 /uL (1100-4500); Lymphocytes Percent Auto 12.3 % (25-40); Mean Corpuscular Hemoglobin 32.4 PG (26-34); Mean Corpuscular Volume 92.6 fL (80-100); Monocytes Absolute Auto 600 /uL (0-900); Monocytes Percent Auto 10.4 % (3-14); Neutrophils Absolute Auto 4000 /uL (1500-7000); Neutrophils Percent Auto 75.9 % (50-75); Platelet Count 145 X10^3/uL (150-400); Red Blood Cell Count 4.47 X10^6/uL (4.5-5.9); Red Cell Distribution Width 14.3 % (11.6-14.8); White Blood Cell Count 5.3 X10^3/uL (4.5-11.0)
[2022-04-02 09:34] LABS: Alanine Aminotransferase 100 IU/L (<50); Albumin 4.8 g/dL (3.5-5.0); Albumin Globulin Ratio 1.4 (1.0-2.8); Alkaline Phosphatase 66 U/L (38-126); Aspartate Aminotransferase 90 IU/L (17-59); BUN Creatinine Ratio 11.1 (6-22); Bilirubin Total 0.8 mg/dL (0.2-1.3); Blood Urea Nitrogen 9 mg/dL (9-20); Calcium 9.2 mg/dL (8.4-10.2); Carbon Dioxide 31 mmol/L (22-32); Chloride 99 mmol/L (98-107); Estimated Glomerular Filt Rate > 60 mL/min (>60); Globulin 3.4 g/dL (1.7-4.1); Glucose 152 mg/dL (80-110); HEMOLYSIS < 15 (0-50); Potassium 4.8 mmol/L (3.4-5.1); Sodium 137 mmol/L (137-145); Total Protein 8.2 g/dL (6.3-8.2)
[2022-04-03 00:08] LABS: HBsAg Screen Negative (Negative); Hepatitis A Antibody IgM Negative (Negative); Hepatitis B Core Antibody IgM Negative (Negative); Hepatitis C Antibody <0.1 s/co ratio (0.0-0.9)
== END ==
PROVIDERS: PCP Family Medicine; Referring Provider Family Medicine; Visit Provider Family Medicine
DX: K76.0 Fatty (change of) liver, not elsewhere classified (principal); K80.20 Calculus of gallbladder without cholecystitis without obstruction; N28.1 Cyst of kidney, acquired; R74.8 Abnormal levels of other serum enzymes; R14.0 Abdominal distension (gaseous); E11.59 Type 2 diabetes mellitus with other circulatory complications; E78.5 Hyperlipidemia, unspecified; I10 Essential (primary) hypertension; I25.810 Atherosclerosis of coronary artery bypass graft(s) without angina pectoris; Z79.4 Long term (current) use of insulin
CPT/HCPCS: 36415; 76700; 80053; 80074; 82390; 85025

== ENCOUNTER → 2022-06-24 10:25 | Outpatient (CLI) | payer OTHER, MEDICAID, SELFPAY ==
[2021-08-17 10:19] VITALS: BMI 24.3
== END ==
PROVIDERS: PCP Family Medicine; Visit Provider Student in an Organized Health Care Education/Training Program
DX: M25.429 Effusion, unspecified elbow (principal)
CPT/HCPCS: 87070; 87205

== ENCOUNTER → 2022-06-24 10:29 | Outpatient (CLI) | payer OTHER, MEDICAID, SELFPAY ==
[2021-08-17 10:19] VITALS: BMI 24.3
--- NOTE | 2022-06-24 10:30 | DI.RAD.S_ITS ---
PROCEDURE: XR ELBOW LT MIN 3V INDICATIONS: elbow swelling suspect infection eval joint, diabetic TECHNIQUE: 3 views of the elbow were acquired. COMPARISON: None. FINDINGS: Bones: No fractures or dislocations. No suspicious bony lesions. Soft tissues: No elbow joint effusion. No suspicious soft tissue calcifications. Soft tissue swelling noted over the olecranon. IMPRESSION: No radiographic evidence of joint effusion. If there is clinical suspicion for septic joint or osteomyelitis, consider MRI evaluation. Approved by: Jan Mayfield M.D. on 06/24/2022 at 10:31
[2022-06-24 11:12] LABS: Add Manual Diff / Slide Review NO; Basophils Absolute Auto 0 /uL (0-100); Basophils Percent Auto 0.4 % (0-2); Eosinophils Absolute Auto 0 /uL (0-450); Eosinophils Percent Auto 0.4 % (2-4); Hematocrit 38.8 % (41-53); Hemoglobin 13.3 g/dL (13.5-17.5); Lymphocytes Absolute Auto 900 /uL (1100-4500); Lymphocytes Percent Auto 11.1 % (25-40); Mean Corpuscular HGB Conc 34.1 % (30-36); Mean Corpuscular Hemoglobin 32.2 PG (26-34); Mean Corpuscular Volume 94.2 fL (80-100); Monocytes Absolute Auto 500 /uL (0-900); Monocytes Percent Auto 6.4 % (3-14); Neutrophils Absolute Auto 6800 /uL (1500-7000); Neutrophils Percent Auto 81.7 % (50-75); Platelet Count 199 X10^3/uL (150-400); Red Blood Cell Count 4.12 X10^6/uL (4.5-5.9); White Blood Cell Count 8.3 X10^3/uL (4.5-11.0)
[2022-06-24 11:23] LABS: Lactate (Lactic Acid) 2.2 mmol/L (0.7-2.1)
[2022-06-24 11:32] LABS: Erythrocyte Sedimentation Rate 57 MM/HR (0-15)
[2022-06-24 12:54] LABS: Reflexed Lactate in 2 Hours Y
== END ==
PROVIDERS: PCP Family Medicine; Referring Provider Student in an Organized Health Care Education/Training Program; Visit Provider Student in an Organized Health Care Education/Training Program
DX: M25.422 Effusion, left elbow (principal); M25.522 Pain in left elbow
CPT/HCPCS: 36415; 73080; 82948; 83605; 85025; 85651; 87070; 87077; 87147; 87186; 87205

== ENCOUNTER → 2022-10-15 11:19 | Outpatient (CLI) | payer OTHER, MEDICAID, SELFPAY ==
[2022-10-03 10:30] VITALS: BMI 24.3
[2022-10-15 11:54] LABS: Alanine Aminotransferase 103 IU/L (<50); Albumin 5.1 g/dL (3.5-5.0); Albumin Globulin Ratio 1.1 (1.0-2.8); Alkaline Phosphatase 71 U/L (38-126); Aspartate Aminotransferase 102 IU/L (17-59); BUN Creatinine Ratio 13.3 (6-22); Bilirubin Total 1.2 mg/dL (0.2-1.3); Blood Urea Nitrogen 18 mg/dL (9-20); Calcium 9.8 mg/dL (8.4-10.2); Carbon Dioxide 25 mmol/L (22-32); Chloride 103 mmol/L (98-107); Cholesterol 308 mg/dL (140-199); Estimated Glomerular Filt Rate 60 mL/min (>60); Globulin 4.5 g/dL (1.7-4.1); Glucose 130 mg/dL (80-110); HDL Cholesterol 51 mg/dL (40-60); HEMOLYSIS < 15 (0-50); LDL Cholesterol Calculated 214 mg/dL (<100); Potassium 4.4 mmol/L (3.4-5.1); Sodium 144 mmol/L (137-145); Total Protein 9.6 g/dL (6.3-8.2); Triglycerides 216 mg/dL (35-150)
[2022-10-15 17:27] LABS: Creatinine Urine Random 394.8 mg/dL; Microalbumi Creatinin Ratio Ur 77.2 ug/mg CR (<30); Microalbumin Urine Random 30.5 mg/dL (0-1.6)
== END ==
PROVIDERS: PCP Family Medicine; Referring Provider Family Medicine; Visit Provider Family Medicine
DX: E11.9 Type 2 diabetes mellitus without complications (principal); I10 Essential (primary) hypertension; I25.10 Atherosclerotic heart disease of native coronary artery without angina pectoris; E78.5 Hyperlipidemia, unspecified
CPT/HCPCS: 36415; 80053; 80061; 82043; 82570; 83036

== ENCOUNTER → 2023-03-27 09:47 | Outpatient (CLI) | payer OTHER, MEDICAID, SELFPAY ==
[2022-10-03 10:30] VITALS: BMI 24.3
[2023-03-27 11:47] LABS: Hematocrit 42.1 % (41-53); Hemoglobin 14.4 g/dL (13.5-17.5); Mean Corpuscular HGB Conc 34.3 % (30-36); Mean Corpuscular Hemoglobin 32.9 PG (26-34); Platelet Count 113 X10^3/uL (150-400); Red Blood Cell Count 4.38 X10^6/uL (4.5-5.9); White Blood Cell Count 5.8 X10^3/uL (4.5-11.0)
[2023-03-27 12:37] LABS: Alanine Aminotransferase 118 IU/L (<50); Albumin 4.4 g/dL (3.5-5.0); Albumin Globulin Ratio 1.6 (1.0-2.8); Alkaline Phosphatase 51 U/L (38-126); Aspartate Aminotransferase 104 IU/L (17-59); BUN Creatinine Ratio 17.8 (6-22); Bilirubin Total 0.7 mg/dL (0.2-1.3); Blood Urea Nitrogen 13 mg/dL (9-20); Calcium 9.5 mg/dL (8.4-10.2); Carbon Dioxide 18 mmol/L (22-32); Chloride 100 mmol/L (98-107); Cholesterol 171 mg/dL (140-199); Estimated Glomerular Filt Rate > 60 mL/min (>60); Globulin 2.7 g/dL (1.7-4.1); Glucose 102 mg/dL (80-110); HDL Cholesterol 86 mg/dL (40-60); HEMOLYSIS 26 (0-50); LDL Cholesterol Calculated 64 mg/dL (<100); Potassium 4.8 mmol/L (3.4-5.1); Sodium 136 mmol/L (137-145); Total Protein 7.1 g/dL (6.3-8.2); Triglycerides 106 mg/dL (35-150)
[2023-03-28 04:30] LABS: x Labcorp Estim. Avg Glu (eAG) 117 mg/dL (.); x Labcorp Hemoglobin A1c 5.7 % (4.8-5.6)
== END ==
PROVIDERS: PCP Family Medicine; Referring Provider Family Medicine; Visit Provider Family Medicine
DX: E11.59 Type 2 diabetes mellitus with other circulatory complications (principal); Z79.4 Long term (current) use of insulin; I10 Essential (primary) hypertension; E78.5 Hyperlipidemia, unspecified; I25.810 Atherosclerosis of coronary artery bypass graft(s) without angina pectoris
CPT/HCPCS: 36415; 80053; 80061; 83036; 85027

== ENCOUNTER → 2023-04-22 07:35 | Outpatient (CLI) | payer OTHER, MEDICAID, SELFPAY ==
[2022-10-03 10:30] VITALS: BMI 24.3
[2023-04-22 08:51] LABS: Alanine Aminotransferase 101 IU/L (<50); Albumin 4.4 g/dL (3.5-5.0); Albumin Globulin Ratio 1.4 (1.0-2.8); Alkaline Phosphatase 61 U/L (38-126); Aspartate Aminotransferase 120 IU/L (17-59); BUN Creatinine Ratio 15.2 (6-22); Bilirubin Total 1.3 mg/dL (0.2-1.3); Blood Urea Nitrogen 12 mg/dL (9-20); Calcium 9.2 mg/dL (8.4-10.2); Carbon Dioxide 25 mmol/L (22-32); Chloride 99 mmol/L (98-107); Estimated Glomerular Filt Rate > 60 mL/min (>60); Globulin 3.2 g/dL (1.7-4.1); Glucose 123 mg/dL (80-110); HEMOLYSIS < 15 (0-50); Potassium 4.2 mmol/L (3.4-5.1); Sodium 136 mmol/L (137-145); Total Protein 7.6 g/dL (6.3-8.2)
[2023-04-22 09:20] LABS: Prostate Specific Antigen Scrn 0.624 ng/mL (0.1-4.0)
== END ==
PROVIDERS: PCP Family Medicine; Referring Provider Family Medicine; Visit Provider Family Medicine
DX: E78.5 Hyperlipidemia, unspecified (principal); I10 Essential (primary) hypertension; I25.10 Atherosclerotic heart disease of native coronary artery without angina pectoris; K76.0 Fatty (change of) liver, not elsewhere classified; Z12.5 Encounter for screening for malignant neoplasm of prostate
CPT/HCPCS: 36415; 80053; G0103

== ENCOUNTER → 2023-05-20 08:28 | Outpatient (CLI) | payer OTHER, MEDICAID, SELFPAY ==
[2022-10-03 10:30] VITALS: BMI 24.3
[2023-05-20 09:57] LABS: Alanine Aminotransferase 88 IU/L (<50); Albumin 4.5 g/dL (3.5-5.0); Albumin Globulin Ratio 1.6 (1.0-2.8); Alkaline Phosphatase 64 U/L (38-126); Aspartate Aminotransferase 102 IU/L (17-59); BUN Creatinine Ratio 12.8 (6-22); Bilirubin Total 1.5 mg/dL (0.2-1.3); Blood Urea Nitrogen 12 mg/dL (9-20); Calcium 9.4 mg/dL (8.4-10.2); Carbon Dioxide 23 mmol/L (22-32); Chloride 96 mmol/L (98-107); Cholesterol 244 mg/dL (140-199); Estimated Glomerular Filt Rate > 60 mL/min (>60); Globulin 2.9 g/dL (1.7-4.1); Glucose 151 mg/dL (80-110); HDL Cholesterol 87 mg/dL (40-60); HEMOLYSIS < 15 (0-50); LDL Cholesterol Calculated 129 mg/dL (<100); Potassium 4.3 mmol/L (3.4-5.1); Sodium 132 mmol/L (137-145); Total Protein 7.4 g/dL (6.3-8.2); Triglycerides 141 mg/dL (35-150)
== END ==
PROVIDERS: PCP Family Medicine; Referring Provider Family Medicine; Visit Provider Family Medicine
DX: E11.59 Type 2 diabetes mellitus with other circulatory complications (principal); E78.5 Hyperlipidemia, unspecified; E87.5 Hyperkalemia; Z79.4 Long term (current) use of insulin
CPT/HCPCS: 36415; 80053; 80061

== ENCOUNTER 2023-07-21 15:41 | Emergency (ER) | payer OTHER, MEDICAID, SELFPAY ==
[2022-10-03 10:30] VITALS: BMI 24.3
[2023-07-21 15:44] VITALS: BP 166/95; PULSE 106; RESP 18; TEMP 36.6; O2SAT 97; BMI 25.7
--- NOTE | 2023-07-21 15:48 | DI.CT.S_ITS ---
PROCEDURE: CT FACIAL BONES WO CON INDICATIONS: GLF, on thinners TECHNIQUE: Noncontrast 2.5 mm thick axial images acquired from the mandible through the frontal sinuses, with coronal and sagittal reformatting. For radiation dose reduction, the following was used: automated exposure control, adjustment of mA and/or kV according to patient size. COMPARISON: None. FINDINGS: Maxillofacial Bones: The zygomaticomaxillary complex is intact. The pterygoid plates and skull base are unremarkable. No evidence of fracture or lytic lesion. Mandible: The mandible is intact without fracture. Unremarkable temporomandibular articulation. Dentition: Unremarkable mandibular and maxillary dentition. Soft tissues: No maxillofacial soft tissue swelling. No radiopaque foreign bodies. Orbits: The osseous orbits, globes and ocular muscles unremarkable. Sinuses and Mastoid: Left maxillary sinus mucosal thickening measures up to mm IMPRESSION: Left maxillary mucosal sinus disease. No mass effect skull fracture. Approved by: Jan Mayfield M.D. on 07/21/2023 at 15:50
--- NOTE | 2023-07-21 15:48 | DI.CT.S_ITS ---
PROCEDURE: CT HEAD/BRAIN WO CON INDICATIONS: GLF, on thinners TECHNIQUE: Noncontrast 4.5 mm thick angled axial sections acquired from the foramen magnum to the vertex, with coronal and sagittal reformats. For radiation dose reduction, the following was used: automated exposure control, adjustment of mA and/or kV according to patient size. COMPARISON: [facility], CT, CT HEAD/BRAIN WO CON, 02/01/2020, 14:25. FINDINGS: Image quality: Excellent. CSF spaces: Basal cisterns are patent. No extra-axial fluid collections. Ventricles are normal in size and shape. Brain: No midline shift. No intracranial masses or hemorrhage. Valdes-white matter interface is normal. Skull and face: Calvarium and visualized facial bones are intact, without suspicious lesions. Sinuses: Visualized sinuses and mastoids are clear. IMPRESSION: Moderate atrophy and white matter chronic ischemic change without intracranial hemorrhage or mass effect Approved by: Jan Mayfield M.D. on 07/21/2023 at 15:36
--- NOTE | 2023-07-21 15:48 | DI.CT.S_ITS ---
PROCEDURE: CT CERVICAL SPINE WO CON INDICATIONS: GLF, on thinners TECHNIQUE: Noncontrast 3 mm thick sections acquired from the skull base to the T4 level. Sagittal and coronal reformats were then constructed. For radiation dose reduction, the following was used: automated exposure control, adjustment of mA and/or kV according to patient size. COMPARISON: None. FINDINGS: Image quality: Excellent. Bones: No fractures or dislocations. Visualized superior ribs are intact. Multilevel degenerative disc space narrowing is hypertrophic arthropathy noted throughout the spine particularly in the lower cervical spine Soft tissues: Prevertebral soft tissues are normal in thickness. No paravertebral hematomas. No apical pneumothoraces. IMPRESSION: Degenerative disc disease and arthropathy without fracture or traumatic malalignment Approved by: Jan Mayfield M.D. on 07/21/2023 at 15:44
[2023-07-21 17:29] VITALS: PULSE 93; RESP 18; O2SAT 93
--- NOTE | 2023-07-21 17:58 | ED_ITS ---
HPI - Fall General Chief Complaint: Fall Stated Complaint: GLF on thinners Time Seen by Provider: 07/21/23 15:46 Source: patient and EMS Mode of arrival: EMS History of Present Illness HPI Narrative: Patient 62-year-old history of alcohol abuse insulin-dependent diabetes presenting today after ground level fall. He was at [employer] when his legs gave out from under him he tripped fell and hit his head. No loss of consciousness not on antiplatelet anticoagulation medication. He admits that his last drink was at 1 hour ago reports that he does not drink hard liquor anymore just wine he has a jug of wine on him. Related Data Previous Rx's Medication Instructions Recorded blood sugar diagnostic (Blood #100 ea 02/23/21 Glucose Test strips) metformin 1,000 mg tablet See Rx Instructions .Route 08/16/22 .COMPLEX #180 tabs aspirin 81 mg tablet,delayed See Rx Instructions .Route 11/13/22 release .COMPLEX #90 tabs lisinopril 10 mg tablet See Rx Instructions .Route 01/20/23 .COMPLEX #90 tabs pen needle, diabetic 31 gauge x #100 ea 02/19/23 1/ (TRUEplus Pen Needle) rosuvastatin 10 mg tablet 10 mg PO DAILY #90 tabs 03/12/23 liraglutide 0.6 mg/0.1 mL (18 mg/3 See Rx Instructions .Route 03/27/23 mL) subcutaneous pen injector .COMPLEX #9 mL (Victoza 2-Josesito) Allergies Allergy/AdvReac Type Severity Reaction Status Date / Time No Known Drug Allergies Allergy Verified 04/01/23 09:30 Patient History Medical History Amputated toe CAD (coronary artery disease) Diabetes Diabetic neuropathy Hepatic steatosis History of seizure HTN (hypertension) Hyperlipidemia Obstructive sleep apnea Osteomyelitis Osteomyelitis Surgical History H/O carpal tunnel repair Hx of CABG Family History Mother Heart attack Diabetes mellitus Hypertension Heart disease Stroke Brother CAD (coronary artery disease) Hx of CABG Father Medical history unknown Sister In good health Social History marital status: unknown household members: none and other Smoking Status: Never smoker alcohol intake: never substance use type: does not use Smoking Status: Never smoker alcohol intake frequency: 3 or more drinks per day Alcohol type: hard liquor Substance Use Type: does not use Exam Initial Vital Signs Initial Vital Signs: Vital Signs Temperature 97.9 F 07/21/23 15:44 Pulse Rate 106 H 07/21/23 15:44 Respiratory Rate 18 07/21/23 15:44 Blood Pressure 166/95 H 07/21/23 15:44 Pulse Oximetry 97 07/21/23 15:44 Oxygen Delivery Method Room Air 07/21/23 15:44 GENERAL: Alert 62-year-old male HEENT: Head atraumatic,EOMI, pupils reactive, mild infraorbital contusion on the left no entrapment mildly tender CARDIOVASCULAR: Regular rate and rhythm without murmurs, rubs or gallops. RESPIRATORY: Breath sounds equal bilaterally, no wheezes rales or rhonchi. Ribs nontender ABDOMEN: Soft, nontender. Normoactive bowel sounds all 4 quadrants. No guarding or rebound. EXTREMITIES: Normal range of motion, no clubbing or edema. Neurovascularly intact NEUROLOGICAL: Alert and oriented x4.Normal gait and speech. Speech is clear not slurred Cranial nerves II through XII grossly intact. Steady gait SKIN: Warm, dry, no laceration, no petechiae, no rashes or lesions. Course Orders Ordered: ED Orders 07/21/23 15:48 CT cervical spine wo con Stat CT facial bones wo con Stat CT head/brain wo con Stat Vital Signs Vital signs: Vital Signs - 8 hr 07/21/23 15:44 07/21/23 17:29 07/21/23 18:39 Temperature 97.9 F Pulse Rate 106 H 93 H 104 H Respiratory Rate 18 18 16 Blood Pressure 166/95 H 160/96 H Pulse Oximetry 97 93 97 Oxygen Delivery Method Room Air Room Air Room Air MDM - Fall Imaging Data CT scan - head: Radiologist's Impression: PROCEDURE: CT HEAD/BRAIN WO CON INDICATIONS: GLF, on thinners TECHNIQUE: Noncontrast 4.5 mm thick angled axial sections acquired from the foramen magnum to the vertex, with coronal and sagittal reformats. For radiation dose reduction, the following was used: automated exposure control, adjustment of mA and/or kV according to patient size. COMPARISON: [facility], CT, CT HEAD/BRAIN WO CON, 02/01/2020, 14:25. FINDINGS: Image quality: Excellent. CSF spaces: Basal cisterns are patent. No extra-axial fluid collections. Ventricles are normal in size and shape. Brain: No midline shift. No intracranial masses or hemorrhage. Valdes-white matter interface is normal. Skull and face: Calvarium and visualized facial bones are intact, without suspicious lesions. Sinuses: Visualized sinuses and mastoids are clear. IMPRESSION: Moderate atrophy and white matter chronic ischemic change without intracranial hemorrhage or mass effect Approved by: Jan Mayfield M.D. on 07/21/2023 at 15:36 CT - cervical spine: Radiologist's Impression: PROCEDURE: CT CERVICAL SPINE WO CON INDICATIONS: GLF, on thinners TECHNIQUE: Noncontrast 3 mm thick sections acquired from the skull base to the T4 level. Sagittal and coronal reformats were then constructed. For radiation dose reduction, the following was used: automated exposure control, adjustment of mA and/or kV according to patient size. COMPARISON: None. FINDINGS: Image quality: Excellent. Bones: No fractures or dislocations. Visualized superior ribs are intact. Multilevel degenerative disc space narrowing is hypertrophic arthropathy noted throughout the spine particularly in the lower cervical spine Soft tissues: Prevertebral soft tissues are normal in thickness. No paravertebral hematomas. No apical pneumothoraces. IMPRESSION: Degenerative disc disease and arthropathy without fracture or traumatic malalignment Approved by: Jan Mayfield M.D. on 07/21/2023 at 15:44 CT face: Radiologist's Impression: PROCEDURE: CT FACIAL BONES WO CON INDICATIONS: GLF, on thinners TECHNIQUE: Noncontrast 2.5 mm thick axial images acquired from the mandible through the frontal sinuses, with coronal and sagittal reformatting. For radiation dose reduction, the following was used: automated exposure control, adjustment of mA and/or kV according to patient size. COMPARISON: None. FINDINGS: Maxillofacial Bones: The zygomaticomaxillary complex is intact. The pterygoid plates and skull base are unremarkable. No evidence of fracture or lytic lesion. Mandible: The mandible is intact without fracture. Unremarkable temporomandibular articulation. Dentition: Unremarkable mandibular and maxillary dentition. Soft tissues: No maxillofacial soft tissue swelling. No radiopaque foreign bodies. Orbits: The osseous orbits, globes and ocular muscles unremarkable. Sinuses and Mastoid: Left maxillary sinus mucosal thickening measures up to mm IMPRESSION: Left maxillary mucosal sinus disease. No mass effect skull fracture. Approved by: Jan Mayfield M.D. on 07/21/2023 at 15:50 MDM Narrative Medical decision making narrative: Patient is 62-year-old male presents today after ground level fall he admits to drinking alcohol he is intoxicated but he is no slurring of speech he has a steady gait. Imaging of head neck and face are negative for fracture. He has a small left periorbital contusion but no other issues. He was across street. Attempted to call a taxi cab for him however he wanted to walk. He is clinically sober. It is time no need for any further workup or evaluation. Discharge Plan Departure Patient Disposition: Home Clinical Impression: Alcohol intoxication, Closed head injury Instructions: Alcohol Use Disorder Activity Restrictions/Additional Instructions: *You have been diagnosed with alcohol intoxication, closed head injury *What to do: Expect swelling and more bruising around her left eye apply ice *Continue to take medications as directed *Follow up with your primary care provider in 2-3 days or call [phone] *Return to ER if you should have or any new, worsening or concerning symptoms Prescriptions: No Action metformin 1,000 mg tablet See Rx Instructions .ROUTE .COMPLEX Qty: 180 3RF Dose Instruction: TAKE 1 TABLET BY MOUTH TWICE DAILY Rx Instructions: TAKE 1 TABLET BY MOUTH TWICE DAILY aspirin 81 mg tablet,delayed release (DR/EC) See Rx Instructions .ROUTE .COMPLEX Qty: 90 2RF Dose Instruction: TAKE 1 TABLET BY MOUTH DAILY Rx Instructions: TAKE 1 TABLET BY MOUTH DAILY lisinopril 10 mg tablet See Rx Instructions .ROUTE .COMPLEX Qty: 90 2RF Dose Instruction: TAKE 1 TABLET BY MOUTH EVERY DAY Rx Instructions: TAKE 1 TABLET BY MOUTH EVERY DAY (DME) pen needle, diabetic [TRUEplus Pen Needle] 31 gauge x 1/4 needle See Rx Instructions .ROUTE .COMPLEX Qty: 100 2RF Dose Instruction: USE DIRECTED TWICE DAILY FOR INSULIN INJECTIONS Rx Instructions: USE DIRECTED TWICE DAILY FOR INSULIN INJECTIONS rosuvastatin 10 mg tablet 10 mg PO DAILY Qty: 90 1RF Hold Instructions: elevated liver enzymes Rx Instructions: This is the correct dosage, sorry for the previous error, please cancel pre vious rx Victoza 2-Josesito 0.6 mg/0.1 mL (18 mg/3 mL) pen injector See Rx Instructions .ROUTE .COMPLEX Qty: 9 5RF Dose Instruction: INJECT 0.1ML (0.6MG) SUBCUTANEOUSLY ONCE DAILY. Rx Instructions: INJECT 0.1ML (0.6MG) SUBCUTANEOUSLY ONCE DAILY. (DME) Blood Glucose Test Strip See Rx Instructions .ROUTE .MEDSUPPLY Qty: 100 3RF Rx Instructions: As directed Referrals: Clifford Diehl MD [Primary Care Provider] - Stand Alone Forms: Patient Portal/API
[2023-07-21 18:39] VITALS: BP 160/96; PULSE 104; RESP 16; O2SAT 97
== END 2023-07-21 18:27 | disposition home or self-care (01) ==
PROVIDERS: Emergency Provider Emergency Medicine; PCP Family Medicine
DX: S09.90XA Unspecified injury of head, initial encounter (principal); F10.129 Alcohol abuse with intoxication, unspecified; W01.0XXA Fall on same level from slipping, tripping and stumbling without subsequent striking against object, initial encounter; Z79.899 Other long term (current) drug therapy
CPT/HCPCS: 70450; 70486; 72125; 99281; 99284

== ENCOUNTER → 2023-07-31 07:27 | Outpatient (CLI) | payer OTHER, MEDICAID, SELFPAY ==
[2022-10-03 10:30] VITALS: BMI 24.3
[2023-07-31 08:32] LABS: Add Manual Diff / Slide Review NO; Basophils Absolute Auto 0 /uL (0-100); Basophils Percent Auto 0.5 % (0-2); Eosinophils Absolute Auto 100 /uL (0-450); Eosinophils Percent Auto 1.3 % (2-4); Hematocrit 39.4 % (41-53); Hemoglobin 13.5 g/dL (13.5-17.5); Lymphocytes Absolute Auto 800 /uL (1100-4500); Lymphocytes Percent Auto 18.9 % (25-40); Mean Corpuscular HGB Conc 34.2 % (30-36); Mean Corpuscular Hemoglobin 33.5 PG (26-34); Mean Corpuscular Volume 97.8 fL (80-100); Monocytes Absolute Auto 500 /uL (0-900); Monocytes Percent Auto 11.3 % (3-14); Neutrophils Absolute Auto 3000 /uL (1500-7000); Platelet Count 115 X10^3/uL (150-400); Red Blood Cell Count 4.03 X10^6/uL (4.5-5.9); Red Cell Distribution Width 14.3 % (11.6-14.8); White Blood Cell Count 4.4 X10^3/uL (4.5-11.0)
[2023-07-31 09:28] LABS: Alanine Aminotransferase 185 IU/L (<50); Albumin 4.2 g/dL (3.5-5.0); Albumin Globulin Ratio 1.4 (1.0-2.8); Alkaline Phosphatase 89 U/L (38-126); Aspartate Aminotransferase 180 IU/L (17-59); BUN Creatinine Ratio 13.3 (6-22); Bilirubin Total 0.8 mg/dL (0.2-1.3); Blood Urea Nitrogen 10 mg/dL (9-20); Calcium 9.9 mg/dL (8.4-10.2); Carbon Dioxide 30 mmol/L (22-32); Chloride 100 mmol/L (98-107); Cholesterol 170 mg/dL (140-199); Estimated Glomerular Filt Rate > 60 mL/min (>60); Globulin 2.9 g/dL (1.7-4.1); Glucose 132 mg/dL (80-110); HDL Cholesterol 75 mg/dL (40-60); HEMOLYSIS < 15 (0-50); LDL Cholesterol Calculated 66 mg/dL (<100); Sodium 140 mmol/L (137-145); Total Protein 7.1 g/dL (6.3-8.2); Triglycerides 143 mg/dL (35-150)
[2023-07-31 10:16] LABS: Vitamin B12 309 pg/mL (239-931)
[2023-08-06 22:22] LABS: Vitamin B1 78.8 nmol/L (66.5-200.0)
== END ==
PROVIDERS: PCP Family Medicine; Referring Provider Family Medicine; Visit Provider Family Medicine
DX: K76.0 Fatty (change of) liver, not elsewhere classified (principal); I25.10 Atherosclerotic heart disease of native coronary artery without angina pectoris; E78.5 Hyperlipidemia, unspecified; I10 Essential (primary) hypertension; E11.9 Type 2 diabetes mellitus without complications; F10.929 Alcohol use, unspecified with intoxication, unspecified
CPT/HCPCS: 36415; 80053; 80061; 82043; 82570; 82607; 84425; 85025

== ENCOUNTER → 2023-08-15 08:49 | Outpatient (CLI) | payer OTHER, MEDICAID, SELFPAY ==
[2022-10-03 10:30] VITALS: BMI 24.3
--- NOTE | 2023-08-15 09:28 | DI.CT.S_ITS ---
PROCEDURE: CT ABDOMEN PELVIS W CON INDICATIONS: abdominal pain, anorexia, elevated liver enzymes TECHNIQUE: After the administration of oral and intravenous contrast, axial sections were acquired from the lung bases to the pubic symphysis. Coronal and sagittal reformats were performed. For radiation dose reduction, the following was used: automated exposure control, adjustment of mA and/or kV according to patient size. COMPARISON:None. FINDINGS: Image quality: Excellent. Lung bases: Lung bases are clear. Heart: No significant findings. ABDOMEN: Liver: There is diffuse hypoattenuation of the liver parenchyma relative to the spleen compatible with hepatic steatosis. Mild hepatomegaly. Gallbladder: Multiple layering gallstones are seen within the gallbladder and gallbladder neck. No CT evidence for wall thickening, pericholecystic fluid, or acute inflammatory stranding. Biliary ducts: No intrahepatic or extrahepatic biliary ductal dilatation identified. Pancreas: Homogeneous enhancement without focal lesions or pancreatic ductal dilatation. No peripancreatic inflammation or organized fluid collections. Spleen: Mild splenomegaly Adrenal Glands: No suspicious adrenal nodules. Kidneys and Ureters: No hydronephrosis. No solid mass. No complex renal cystic lesion which requires follow up. Bilateral ureters are normal in course and caliber. No perinephric or periureteral stranding. Stomach and Bowel: The stomach is unremarkable in appearance. Visualized small bowel appears unremarkable without wall thickening or evidence of obstruction. No acute inflammatory changes. Scattered fecal material seen throughout the colon. Suggestion of minimal wall thickening of the distal sigmoid colon and rectum with possible asymmetric thickening versus incomplete distension. No definite intraluminal mass seen. Peritoneum: No abnormal intraperitoneal fluid. No free air. Ventral Wall: No significant hernia visualized. Abdominal Nodes: No retroperitoneal or mesenteric adenopathy by size criteria. Vessels: Scattered atherosclerotic calcifications of the abdominal aorta and iliac vessels without aneurysmal dilatation. The inferior vena cava appears patent. PELVIS: Pelvic Organs: Mild prominence of the prostate gland measuring approximately 4.8 x 2.9 cm in axial cross-sectional dimension there is minimal mass effect on the posterior, inferior wall of the urinary bladder. Bladder: Bladder is partially decompressed. There is moderate circumferential wall thickening, greater than expected for degree of distension. No perivesicular inflammation. No urinary bladder stones seen. Pelvic Nodes: No enlarged lymph nodes. Miscellaneous: No inguinal hernias are seen. Bones: No acute vertebral body compression fractures. Multilevel spondylitic changes throughout the imaged spine. No suspicious osseous lesions. IMPRESSION: 1. Mild hepatosplenomegaly with moderate hepatic steatosis. Findings may explain patient's history of abnormal liver function tests. 2. Cholelithiasis without CT evidence for acute cholecystitis. Recommend clinical correlation. Further evaluation with right upper quadrant ultrasound can be considered. 3. Moderate circumferential urinary bladder wall thickening greater than expected for degree of bladder distension. No associated inflammatory changes seen. Findings may be related to cystitis versus sequela of chronic bladder outlet obstruction syndrome given presence of prominent prostate. Recommend clinical and laboratory correlation. 4. Minimal circumferential wall thickening of the distal colon with suggestion of possible asymmetric thickening. Findings are likely related to incomplete distension. However, consider further evaluation with screening colonoscopy if not recently performed. Dictated by: Jose Manuel Hernandez M.D. on 08/15/2023 at 11:18 Approved by: Jose Manuel Hernandez M.D. on 08/15/2023 at 11:32
[2023-08-15 09:59] LABS: Add Manual Diff / Slide Review NO; Basophils Absolute Auto 0 /uL (0-100); Basophils Percent Auto 0.3 % (0-2); Eosinophils Absolute Auto 0 /uL (0-450); Eosinophils Percent Auto 0.5 % (2-4); Hematocrit 43.5 % (41-53); Hemoglobin 14.9 g/dL (13.5-17.5); Lymphocytes Absolute Auto 1100 /uL (1100-4500); Lymphocytes Percent Auto 14.4 % (25-40); Mean Corpuscular HGB Conc 34.3 % (30-36); Mean Corpuscular Hemoglobin 33.7 PG (26-34); Mean Corpuscular Volume 98.3 fL (80-100); Monocytes Absolute Auto 700 /uL (0-900); Neutrophils Absolute Auto 5800 /uL (1500-7000); Neutrophils Percent Auto 75.8 % (50-75); Platelet Count 114 X10^3/uL (150-400); Red Blood Cell Count 4.43 X10^6/uL (4.5-5.9); Red Cell Distribution Width 13.9 % (11.6-14.8); White Blood Cell Count 7.7 X10^3/uL (4.5-11.0)
[2023-08-15 10:05] LABS: Hemoglobin A1C% w Est Avg Glu 5.8 % (4.0-6.0)
[2023-08-15 10:13] LABS: Alanine Aminotransferase 147 IU/L (<50); Albumin 4.5 g/dL (3.5-5.0); Albumin Globulin Ratio 1.4 (1.0-2.8); Alkaline Phosphatase 84 U/L (38-126); Aspartate Aminotransferase 137 IU/L (17-59); BUN Creatinine Ratio 37.6 (6-22); Bilirubin Total 2.5 mg/dL (0.2-1.3); Blood Urea Nitrogen 41 mg/dL (9-20); Calcium 9.7 mg/dL (8.4-10.2); Carbon Dioxide 26 mmol/L (22-32); Chloride 98 mmol/L (98-107); Estimated Glomerular Filt Rate > 60 mL/min (>60); Globulin 3.2 g/dL (1.7-4.1); Glucose 144 mg/dL (80-110); HEMOLYSIS < 15 (0-50); Lipase 393 U/L (23-300); Sodium 139 mmol/L (137-145); Total Protein 7.7 g/dL (6.3-8.2)
== END ==
PROVIDERS: PCP Family Medicine; Referring Provider Family Medicine; Visit Provider Family Medicine
DX: K76.0 Fatty (change of) liver, not elsewhere classified (principal); R63.0 Anorexia; I10 Essential (primary) hypertension; I25.10 Atherosclerotic heart disease of native coronary artery without angina pectoris; R74.8 Abnormal levels of other serum enzymes; R10.9 Unspecified abdominal pain; R10.13 Epigastric pain; E11.9 Type 2 diabetes mellitus without complications; R16.2 Hepatomegaly with splenomegaly, not elsewhere classified; K80.20 Calculus of gallbladder without cholecystitis without obstruction
CPT/HCPCS: 36415; 74177; 80053; 83036; 83690; 85025

== ENCOUNTER → 2023-08-22 07:12 | Outpatient (CLI) | payer OTHER, MEDICAID, SELFPAY ==
[2022-10-03 10:30] VITALS: BMI 24.3
[2023-08-22 08:47] LABS: Alanine Aminotransferase 277 IU/L (<50); Albumin 4.2 g/dL (3.5-5.0); Albumin Globulin Ratio 1.3 (1.0-2.8); Alkaline Phosphatase 96 U/L (38-126); Aspartate Aminotransferase 253 IU/L (17-59); BUN Creatinine Ratio 16.7 (6-22); Bilirubin Direct 0.6 mg/dL (0.0-0.4); Bilirubin Total 0.9 mg/dL (0.2-1.3); Blood Urea Nitrogen 19 mg/dL (9-20); Calcium 9.7 mg/dL (8.4-10.2); Carbon Dioxide 27 mmol/L (22-32); Chloride 100 mmol/L (98-107); Estimated Glomerular Filt Rate > 60 mL/min (>60); Globulin 3.3 g/dL (1.7-4.1); Glucose 125 mg/dL (80-110); HEMOLYSIS < 15 (0-50); Potassium 4.5 mmol/L (3.4-5.1); Sodium 137 mmol/L (137-145); Total Protein 7.5 g/dL (6.3-8.2)
== END ==
PROVIDERS: PCP Family Medicine; Referring Provider Family Medicine; Visit Provider Family Medicine
DX: I10 Essential (primary) hypertension (principal); R10.13 Epigastric pain; R63.0 Anorexia; R74.8 Abnormal levels of other serum enzymes; K80.20 Calculus of gallbladder without cholecystitis without obstruction; K76.0 Fatty (change of) liver, not elsewhere classified
CPT/HCPCS: 36415; 80053; 82248

== ENCOUNTER → 2023-08-26 08:00 | Outpatient (CLI) | payer OTHER, MEDICAID, SELFPAY ==
[2022-10-03 10:30] VITALS: BMI 24.3
--- NOTE | 2023-08-26 08:30 | DI.US.S_ITS ---
PROCEDURE: US ABDOMEN LIMITED INDICATIONS: EPIGASTRIC PAIN TECHNIQUE: Real-time scanning was performed of the abdominal and retroperitoneal organs, with image documentation. COMPARISON: [facility], US, US ABDOMEN COMPLETE, 04/02/2022, 8:41. FINDINGS: Liver: Liver is normal in size. Liver is increased in echogenicity. Gallbladder: Gallstones are present. No gallbladder wall thickening or pericholecystic fluid. Biliary ducts: Intrahepatic bile ducts are non-dilated. Extrahepatic bile duct caliber measures 3 mm. Normal is 6-7 mm or less in diameter, or 10 mm or less post-cholecystectomy. Pancreas: Visualized portions of the pancreas are sonographically normal. IMPRESSION: 1. Increased hepatic echogenicity noted possibly related to hepatic steatosis but other sources of hepatocellular disease or hepatic cirrhosis cannot be excluded. Recommend clinical correlation. 2. Cholelithiasis without evidence of acute cholecystitis. Dictated by: Emmanuel Culp M.D. on 08/26/2023 at 11:34 Approved by: Emmanuel Culp M.D. on 08/26/2023 at 11:35
== END ==
PROVIDERS: PCP Family Medicine; Referring Provider Family Medicine; Visit Provider Family Medicine
DX: K80.20 Calculus of gallbladder without cholecystitis without obstruction (principal); R10.13 Epigastric pain; R74.8 Abnormal levels of other serum enzymes; R63.0 Anorexia; I10 Essential (primary) hypertension; K76.0 Fatty (change of) liver, not elsewhere classified
CPT/HCPCS: 76705

== ENCOUNTER → 2023-08-29 06:56 | Outpatient (CLI) | payer OTHER, MEDICAID, SELFPAY ==
[2022-10-03 10:30] VITALS: BMI 24.3
[2023-08-29 09:22] LABS: Alanine Aminotransferase 162 IU/L (<50); Albumin 4.2 g/dL (3.5-5.0); Albumin Globulin Ratio 1.4 (1.0-2.8); Alkaline Phosphatase 88 U/L (38-126); Aspartate Aminotransferase 130 IU/L (17-59); BUN Creatinine Ratio 9.8 (6-22); Bilirubin Total 1.4 mg/dL (0.2-1.3); Blood Urea Nitrogen 12 mg/dL (9-20); Calcium 9.4 mg/dL (8.4-10.2); Carbon Dioxide 19 mmol/L (22-32); Chloride 101 mmol/L (98-107); Estimated Glomerular Filt Rate > 60 mL/min (>60); Glucose 153 mg/dL (80-110); HEMOLYSIS < 15 (0-50); Potassium 4.6 mmol/L (3.4-5.1); Sodium 138 mmol/L (137-145); Total Protein 7.2 g/dL (6.3-8.2)
== END ==
PROVIDERS: PCP Family Medicine; Referring Provider Family Medicine; Visit Provider Family Medicine
DX: R74.8 Abnormal levels of other serum enzymes (principal)
CPT/HCPCS: 36415; 80053

== ENCOUNTER → 2023-12-29 06:50 | Outpatient (CLI) | payer OTHER, MEDICAID, SELFPAY ==
[2022-10-03 10:30] VITALS: BMI 24.3
[2023-12-29 07:23] LABS: Add Manual Diff / Slide Review NO; Basophils Absolute Auto 0 /uL (0-100); Basophils Percent Auto 0.8 % (0-2); Eosinophils Absolute Auto 100 /uL (0-450); Eosinophils Percent Auto 1.8 % (2-4); Hematocrit 40.2 % (41-53); Hemoglobin 13.3 g/dL (13.5-17.5); Lymphocytes Absolute Auto 1400 /uL (1100-4500); Lymphocytes Percent Auto 22.4 % (25-40); Mean Corpuscular HGB Conc 33.1 % (30-36); Mean Corpuscular Hemoglobin 31.7 PG (26-34); Mean Corpuscular Volume 95.8 fL (80-100); Monocytes Absolute Auto 500 /uL (0-900); Monocytes Percent Auto 8.2 % (3-14); Neutrophils Absolute Auto 4200 /uL (1500-7000); Neutrophils Percent Auto 66.8 % (50-75); Platelet Count 133 X10^3/uL (150-400); Red Cell Distribution Width 13.3 % (11.6-14.8); White Blood Cell Count 6.2 X10^3/uL (4.5-11.0)
[2023-12-29 07:35] LABS: Hemoglobin A1C% w Est Avg Glu 7.1 % (4.0-6.0)
[2023-12-29 07:45] LABS: Alanine Aminotransferase 45 IU/L (<50); Albumin 4.1 g/dL (3.5-5.0); Albumin Globulin Ratio 1.4 (1.0-2.8); Alkaline Phosphatase 70 U/L (38-126); Aspartate Aminotransferase 42 IU/L (17-59); Bilirubin Total 0.7 mg/dL (0.2-1.3); Blood Urea Nitrogen 17 mg/dL (9-20); Calcium 9.5 mg/dL (8.4-10.2); Carbon Dioxide 26 mmol/L (22-32); Chloride 105 mmol/L (98-107); Estimated Glomerular Filt Rate > 60 mL/min (>60); Globulin 2.9 g/dL (1.7-4.1); Glucose 214 mg/dL (80-110); HEMOLYSIS < 15 (0-50); Potassium 4.4 mmol/L (3.4-5.1); Sodium 138 mmol/L (137-145)
[2023-12-29 09:14] LABS: Creatinine Urine Random 126.4 mg/dL
[2023-12-29 09:18] LABS: Microalbumi Creatinin Ratio Ur 16.6 ug/mg CR (<30); Microalbumin Urine Random 2.1 mg/dL (0-1.6)
== END ==
LOC: LAB 06:51
PROVIDERS: PCP Family Medicine; Referring Provider Family Medicine; Visit Provider Family Medicine
DX: K80.20 Calculus of gallbladder without cholecystitis without obstruction (principal); K76.0 Fatty (change of) liver, not elsewhere classified; E78.5 Hyperlipidemia, unspecified; I10 Essential (primary) hypertension; E11.9 Type 2 diabetes mellitus without complications
CPT/HCPCS: 36415; 80053; 82043; 82570; 83036; 85025

== ENCOUNTER → 2024-04-02 07:26 | Outpatient (CLI) | payer OTHER, MEDICAID, SELFPAY ==
[2022-10-03 10:30] VITALS: BMI 24.3
[2024-04-02 07:46] LABS: Add Manual Diff / Slide Review NO; Basophils Absolute Auto 0 /uL (0-100); Basophils Percent Auto 0.7 % (0-2); Eosinophils Absolute Auto 200 /uL (0-450); Eosinophils Percent Auto 2.8 % (2-4); Hematocrit 44.5 % (41-53); Hemoglobin 15.1 g/dL (13.5-17.5); Lymphocytes Absolute Auto 1300 /uL (1100-4500); Lymphocytes Percent Auto 23.2 % (25-40); Mean Corpuscular HGB Conc 33.8 % (30-36); Mean Corpuscular Hemoglobin 32.1 PG (26-34); Monocytes Absolute Auto 500 /uL (0-900); Monocytes Percent Auto 9.7 % (3-14); Neutrophils Absolute Auto 3500 /uL (1500-7000); Neutrophils Percent Auto 63.6 % (50-75); Platelet Count 116 X10^3/uL (150-400); Red Blood Cell Count 4.69 X10^6/uL (4.5-5.9); Red Cell Distribution Width 15.1 % (11.6-14.8); White Blood Cell Count 5.6 X10^3/uL (4.5-11.0)
[2024-04-02 08:18] LABS: Hemoglobin A1C% w Est Avg Glu 6.6 % (4.0-6.0)
[2024-04-02 08:22] LABS: HEMOLYSIS < 15 (0-50); Iron 141 ug/dL (49-181)
[2024-04-02 08:24] LABS: Alanine Aminotransferase 55 IU/L (<50); Albumin 4.4 g/dL (3.5-5.0); Albumin Globulin Ratio 1.6 (1.0-2.8); Alkaline Phosphatase 61 U/L (38-126); Aspartate Aminotransferase 47 IU/L (17-59); BUN Creatinine Ratio 17.4 (6-22); Bilirubin Total 0.8 mg/dL (0.2-1.3); Blood Urea Nitrogen 15 mg/dL (9-20); Calcium 9.5 mg/dL (8.4-10.2); Carbon Dioxide 25 mmol/L (22-32); Chloride 104 mmol/L (98-107); Estimated Glomerular Filt Rate > 60 mL/min (>60); Globulin 2.7 g/dL (1.7-4.1); Glucose 160 mg/dL (80-110); HEMOLYSIS < 15 (0-50); Potassium 4.8 mmol/L (3.4-5.1); Sodium 139 mmol/L (137-145); Total Protein 7.1 g/dL (6.3-8.2)
[2024-04-02 08:33] LABS: Percent Iron Saturation 39 % (20-50); Total Iron Binding Capacity 364 ug/dL (261-462); Transferrin 302 mg/dL (206-381)
[2024-04-02 08:59] LABS: Ferritin 70 ng/mL (18-464)
== END ==
LOC: LAB 07:27
PROVIDERS: PCP Family Medicine; Referring Provider Family Medicine; Visit Provider Family Medicine
DX: I25.10 Atherosclerotic heart disease of native coronary artery without angina pectoris (principal); E78.5 Hyperlipidemia, unspecified; I10 Essential (primary) hypertension; E11.9 Type 2 diabetes mellitus without complications; K76.0 Fatty (change of) liver, not elsewhere classified
CPT/HCPCS: 36415; 80053; 82728; 83036; 83540; 83550; 85025

== ENCOUNTER → 2024-06-30 07:52 | Outpatient (CLI) | payer OTHER, MEDICAID, SELFPAY ==
[2022-10-03 10:30] VITALS: BMI 24.3
[2024-06-30 08:42] LABS: Add Manual Diff / Slide Review NO; Basophils Absolute Auto 0 /uL (0-100); Basophils Percent Auto 0.5 % (0-2); Eosinophils Absolute Auto 100 /uL (0-450); Eosinophils Percent Auto 1.2 % (2-4); Hematocrit 46.5 % (41-53); Hemoglobin 15.6 g/dL (13.5-17.5); Lymphocytes Absolute Auto 1600 /uL (1100-4500); Lymphocytes Percent Auto 21.5 % (25-40); Mean Corpuscular HGB Conc 33.4 % (30-36); Mean Corpuscular Hemoglobin 33.2 PG (26-34); Mean Corpuscular Volume 99.2 fL (80-100); Monocytes Absolute Auto 900 /uL (0-900); Monocytes Percent Auto 11.8 % (3-14); Neutrophils Absolute Auto 4700 /uL (1500-7000); Platelet Count 124 X10^3/uL (150-400); Red Blood Cell Count 4.69 X10^6/uL (4.5-5.9); Red Cell Distribution Width 14.5 % (11.6-14.8); White Blood Cell Count 7.3 X10^3/uL (4.5-11.0)
[2024-06-30 08:47] LABS: Creatinine Urine Random 107.85 mg/dL
[2024-06-30 08:52] LABS: Microalbumin Urine Random 2.3 mg/dL (0-1.6)
[2024-06-30 09:16] LABS: Hemoglobin A1C% w Est Avg Glu 5.8 % (4.0-6.0)
[2024-06-30 09:19] LABS: Alanine Aminotransferase 118 IU/L (<50); Albumin 4.8 g/dL (3.5-5.0); Albumin Globulin Ratio 1.5 (1.0-2.8); Alkaline Phosphatase 75 U/L (38-126); Aspartate Aminotransferase 108 IU/L (17-59); Bilirubin Total 0.9 mg/dL (0.2-1.3); Blood Urea Nitrogen 22 mg/dL (9-20); Calcium 10.3 mg/dL (8.4-10.2); Carbon Dioxide 25 mmol/L (22-32); Chloride 107 mmol/L (98-107); Cholesterol 215 mg/dL (140-199); Estimated Glomerular Filt Rate > 60 mL/min (>60); Globulin 3.1 g/dL (1.7-4.1); Glucose 151 mg/dL (80-110); HDL Cholesterol 71 mg/dL (40-60); HEMOLYSIS < 15 (0-50); LDL Cholesterol Calculated 113 mg/dL (<100); Sodium 144 mmol/L (137-145); Total Protein 7.9 g/dL (6.3-8.2); Triglycerides 153 mg/dL (35-150)
[2024-06-30 09:21] LABS: Potassium 6.2 mmol/L (3.4-5.1)
[2024-06-30 09:47] LABS: TSH w/ Reflex to FT4 2.47 uIU/mL (0.47-4.68)
[2024-06-30 09:48] LABS: Prostate Specific Antigen Scrn 0.566 ng/mL (0.1-4.0)
== END ==
PROVIDERS: PCP Family Medicine; Referring Provider Family Medicine; Visit Provider Family Medicine
DX: K76.0 Fatty (change of) liver, not elsewhere classified (principal); E78.5 Hyperlipidemia, unspecified; I25.10 Atherosclerotic heart disease of native coronary artery without angina pectoris; I10 Essential (primary) hypertension; E11.9 Type 2 diabetes mellitus without complications; Z12.5 Encounter for screening for malignant neoplasm of prostate
CPT/HCPCS: 36415; 80053; 80061; 82043; 82172; 82570; 83036; 84443; 85025; G0103

== ENCOUNTER → 2024-07-16 07:23 | Outpatient (CLI) | payer OTHER, MEDICAID, SELFPAY ==
[2022-10-03 10:30] VITALS: BMI 24.3
[2024-07-16 08:45] LABS: Alanine Aminotransferase 99 IU/L (<50); Albumin 4.5 g/dL (3.5-5.0); Albumin Globulin Ratio 1.5 (1.0-2.8); Alkaline Phosphatase 69 U/L (38-126); Aspartate Aminotransferase 79 IU/L (17-59); BUN Creatinine Ratio 16.3 (6-22); Bilirubin Total 1.1 mg/dL (0.2-1.3); Blood Urea Nitrogen 14 mg/dL (9-20); Calcium 9.6 mg/dL (8.4-10.2); Carbon Dioxide 21 mmol/L (22-32); Chloride 109 mmol/L (98-107); Estimated Glomerular Filt Rate > 60 mL/min (>60); Glucose 141 mg/dL (80-110); HEMOLYSIS < 15 (0-50); Potassium 4.3 mmol/L (3.4-5.1); Sodium 141 mmol/L (137-145); Total Protein 7.5 g/dL (6.3-8.2)
[2024-07-17 08:37] LABS: Calcium 9.5 mg/dL (8.6-10.2); Parathyroid Hormone, Intact 37 pg/mL (15-65)
== END ==
PROVIDERS: PCP Family Medicine; Referring Provider Family Medicine; Visit Provider Family Medicine
DX: E87.5 Hyperkalemia (principal); E11.9 Type 2 diabetes mellitus without complications; K76.0 Fatty (change of) liver, not elsewhere classified; I10 Essential (primary) hypertension; E78.5 Hyperlipidemia, unspecified; Z79.4 Long term (current) use of insulin; I25.810 Atherosclerosis of coronary artery bypass graft(s) without angina pectoris
CPT/HCPCS: 36415; 80053; 82310; 83970

== ENCOUNTER → 2024-09-30 09:51 | Outpatient (CLI) | payer OTHER, SELFPAY ==
[2022-10-03 10:30] VITALS: BMI 24.3
[2024-09-30 10:22] LABS: Hemoglobin A1C% w Est Avg Glu 6.5 % (4.0-6.0)
[2024-09-30 10:23] LABS: Add Manual Diff / Slide Review NO; Basophils Absolute Auto 100 /uL (0-100); Basophils Percent Auto 0.7 % (0-2); Eosinophils Absolute Auto 100 /uL (0-450); Eosinophils Percent Auto 1.7 % (2-4); Hematocrit 47.4 % (41-53); Hemoglobin 15.8 g/dL (13.5-17.5); Lymphocytes Absolute Auto 1600 /uL (1100-4500); Lymphocytes Percent Auto 18.6 % (25-40); Mean Corpuscular HGB Conc 33.4 % (30-36); Mean Corpuscular Hemoglobin 31.6 PG (26-34); Mean Corpuscular Volume 94.6 fL (80-100); Monocytes Absolute Auto 700 /uL (0-900); Monocytes Percent Auto 8.5 % (3-14); Neutrophils Absolute Auto 6000 /uL (1500-7000); Neutrophils Percent Auto 70.5 % (50-75); Platelet Count 148 X10^3/uL (150-400); Red Blood Cell Count 5.01 X10^6/uL (4.5-5.9); Red Cell Distribution Width 14.2 % (11.6-14.8); White Blood Cell Count 8.6 X10^3/uL (4.5-11.0)
[2024-09-30 10:50] LABS: Alanine Aminotransferase 93 IU/L (<50); Albumin 4.8 g/dL (3.5-5.0); Albumin Globulin Ratio 1.4 (1.0-2.8); Alkaline Phosphatase 69 U/L (38-126); Aspartate Aminotransferase 81 IU/L (17-59); BUN Creatinine Ratio 26.4 (6-22); Bilirubin Total 0.8 mg/dL (0.2-1.3); Blood Urea Nitrogen 28 mg/dL (9-20); Calcium 10.2 mg/dL (8.4-10.2); Carbon Dioxide 23 mmol/L (22-32); Chloride 106 mmol/L (98-107); Estimated Glomerular Filt Rate > 60 mL/min (>60); Globulin 3.4 g/dL (1.7-4.1); Glucose 173 mg/dL (80-110); HEMOLYSIS 17 (0-50); Sodium 141 mmol/L (137-145); Total Protein 8.2 g/dL (6.3-8.2)
== END ==
PROVIDERS: PCP Family Medicine; Referring Provider Family Medicine; Visit Provider Family Medicine
DX: I25.10 Atherosclerotic heart disease of native coronary artery without angina pectoris (principal); E78.5 Hyperlipidemia, unspecified; I10 Essential (primary) hypertension; E11.9 Type 2 diabetes mellitus without complications; K76.0 Fatty (change of) liver, not elsewhere classified
CPT/HCPCS: 36415; 80053; 83036; 85025

== ENCOUNTER → 2025-01-03 07:57 | Outpatient (CLI) | payer OTHER, SELFPAY ==
[2022-10-03 10:30] VITALS: BMI 24.3
[2025-01-03 09:01] LABS: Add Manual Diff / Slide Review NO; Basophils Absolute Auto 0 /uL (0-100); Basophils Percent Auto 0.5 % (0-2); Eosinophils Absolute Auto 100 /uL (0-450); Eosinophils Percent Auto 2.2 % (2-4); Hematocrit 46.6 % (41-53); Hemoglobin 15.8 g/dL (13.5-17.5); Lymphocytes Absolute Auto 1200 /uL (1100-4500); Lymphocytes Percent Auto 22.4 % (25-40); Mean Corpuscular HGB Conc 33.9 % (30-36); Mean Corpuscular Hemoglobin 31.9 PG (26-34); Mean Corpuscular Volume 94.2 fL (80-100); Monocytes Absolute Auto 500 /uL (0-900); Monocytes Percent Auto 9.6 % (3-14); Neutrophils Absolute Auto 3400 /uL (1500-7000); Neutrophils Percent Auto 65.3 % (50-75); Platelet Count 109 X10^3/uL (150-400); Red Blood Cell Count 4.94 X10^6/uL (4.5-5.9); White Blood Cell Count 5.2 X10^3/uL (4.5-11.0)
[2025-01-03 09:03] LABS: Hemoglobin A1C% w Est Avg Glu 6.1 % (4.0-6.0)
[2025-01-03 09:16] LABS: Alanine Aminotransferase 87 IU/L (<50); Albumin 4.8 g/dL (3.5-5.0); Albumin Globulin Ratio 1.7 (1.0-2.8); Alkaline Phosphatase 55 U/L (38-126); Aspartate Aminotransferase 74 IU/L (17-59); BUN Creatinine Ratio 17.8 (6-22); Blood Urea Nitrogen 18 mg/dL (9-20); Calcium 10.1 mg/dL (8.4-10.2); Carbon Dioxide 23 mmol/L (22-32); Chloride 101 mmol/L (98-107); Estimated Glomerular Filt Rate > 60 mL/min (>60); Globulin 2.9 g/dL (1.7-4.1); Glucose 155 mg/dL (80-110); HEMOLYSIS 27 (0-50); Potassium 4.9 mmol/L (3.4-5.1); Sodium 137 mmol/L (137-145); Total Protein 7.7 g/dL (6.3-8.2)
== END ==
PROVIDERS: PCP Family Medicine; Referring Provider Family Medicine; Visit Provider Family Medicine
DX: K76.0 Fatty (change of) liver, not elsewhere classified (principal); I25.10 Atherosclerotic heart disease of native coronary artery without angina pectoris; E78.5 Hyperlipidemia, unspecified; I10 Essential (primary) hypertension; E11.9 Type 2 diabetes mellitus without complications
CPT/HCPCS: 36415; 80053; 83036; 85025

== ENCOUNTER → 2025-04-07 06:35 | Outpatient (CLI) | payer OTHER, SELFPAY ==
[2022-10-03 10:30] VITALS: BMI 24.3
[2025-04-07 08:20] LABS: Hemoglobin A1C% w Est Avg Glu 6.2 % (4.0-6.0)
[2025-04-07 08:25] LABS: Alanine Aminotransferase 132 IU/L (<50); Albumin 4.4 g/dL (3.5-5.0); Albumin Globulin Ratio 1.6 (1.0-2.8); Alkaline Phosphatase 75 U/L (38-126); Blood Urea Nitrogen 13 mg/dL (9-20); Calcium 9.7 mg/dL (8.4-10.2); Carbon Dioxide 28 mmol/L (22-32); Chloride 101 mmol/L (98-107); Estimated Glomerular Filt Rate > 60 mL/min (>60); Globulin 2.8 g/dL (1.7-4.1); Glucose 137 mg/dL (70-99); HEMOLYSIS < 15 (0-50); Potassium 4.9 mmol/L (3.4-5.1); Sodium 138 mmol/L (137-145); Total Protein 7.2 g/dL (6.3-8.2)
== END ==
PROVIDERS: PCP Family Medicine; Referring Provider Family Medicine; Visit Provider Family Medicine
DX: K76.0 Fatty (change of) liver, not elsewhere classified (principal); I25.10 Atherosclerotic heart disease of native coronary artery without angina pectoris; E78.5 Hyperlipidemia, unspecified; E11.9 Type 2 diabetes mellitus without complications; I10 Essential (primary) hypertension
CPT/HCPCS: 36415; 80053; 83036

== ENCOUNTER → 2025-07-07 06:39 | Outpatient (CLI) | payer OTHER, SELFPAY ==
[2022-10-03 10:30] VITALS: BMI 24.3
[2025-07-07 08:01] LABS: Hemoglobin A1C% w Est Avg Glu 6.6 % (4.0-6.0)
[2025-07-07 08:10] LABS: Alanine Aminotransferase 126 IU/L (<50); Albumin 4.6 g/dL (3.5-5.0); Albumin Globulin Ratio 1.4 (1.0-2.8); Alkaline Phosphatase 77 U/L (38-126); Blood Urea Nitrogen 20 mg/dL (9-20); Calcium 9.7 mg/dL (8.4-10.2); Carbon Dioxide 22 mmol/L (22-32); Chloride 104 mmol/L (98-107); Cholesterol 215 mg/dL (140-199); Estimated Glomerular Filt Rate > 60 mL/min (>60); Globulin 3.2 g/dL (1.7-4.1); Glucose 174 mg/dL (70-99); HDL Cholesterol 58 mg/dL (40-60); HEMOLYSIS < 15 (0-50); Potassium 4.2 mmol/L (3.4-5.1); Sodium 139 mmol/L (137-145); Total Protein 7.8 g/dL (6.3-8.2); Triglycerides 198 mg/dL (35-150)
[2025-07-07 08:29] LABS: Microalbumi Creatinin Ratio Ur 33.0 ug/mg CR (<30)
[2025-07-07 08:43] LABS: TSH w/ Reflex to FT4 2.62 uIU/mL (0.47-4.68)
== END ==
PROVIDERS: PCP Family Medicine; Referring Provider Family Medicine; Visit Provider Family Medicine
DX: I25.810 Atherosclerosis of coronary artery bypass graft(s) without angina pectoris (principal); E78.5 Hyperlipidemia, unspecified; I10 Essential (primary) hypertension; E11.59 Type 2 diabetes mellitus with other circulatory complications; Z79.4 Long term (current) use of insulin; K76.0 Fatty (change of) liver, not elsewhere classified; R74.8 Abnormal levels of other serum enzymes; Z12.5 Encounter for screening for malignant neoplasm of prostate
CPT/HCPCS: 36415; 80053; 80061; 82043; 82172; 82570; 83036; 84443; G0103

== ENCOUNTER → 2025-07-27 06:36 | Outpatient (CLI) | payer OTHER, SELFPAY ==
[2022-10-03 10:30] VITALS: BMI 24.3
== END ==
LOC: ECHO 06:37
PROVIDERS: PCP Family Medicine; Referring Provider Family Medicine; Visit Provider Family Medicine
DX: I35.0 Nonrheumatic aortic (valve) stenosis (principal); I25.810 Atherosclerosis of coronary artery bypass graft(s) without angina pectoris; R01.1 Cardiac murmur, unspecified
CPT/HCPCS: 93306